=== PATIENT | male | born 1955 | race Caucasian/White ===

== ENCOUNTER → 2017-10-24 10:57 | Outpatient (CLI) | payer OTHER, SELFPAY ==
--- NOTE | 2017-10-24 | DI.RAD.S_ITS ---
PROCEDURE: XR LUMBAR SPINE 2-3V INDICATIONS: BACK AND RIB PAIN FROM FALL TECHNIQUE: 3 views of the lumbar spine were acquired. COMPARISON: None. FINDINGS: Bones: No fracture or focal osseous destruction. Diffuse endplate spurring and sclerosis. Diffuse mid to lower lumbar facet disease from L3-sacrum. Grade 1 retrolisthesis of L1 on L2 and L2-L3. Mild narrowing of the L4-L5 and L1-L2 disc spaces. There is levocurvature centered at L3. Soft tissues: Overlying bowel gas pattern is normal. No suspicious soft tissue calcifications. IMPRESSION: Multilevel lumbar disc degeneration and facet arthropathy as above. Grade 1 retrolisthesis of L1 on L2, and L2 on L3. Levoscoliosis Dictated by: Brian Alfaro M.D. on 10/24/2017 at 13:00 Approved by: Brian Alfaro M.D. on 10/24/2017 at 13:24
--- NOTE | 2017-10-24 | DI.RAD.S_ITS ---
PROCEDURE: XR THORACIC SPINE 3V INDICATIONS: BACK AND RIB PAIN FROM FALL TECHNIQUE: 3 views of the thoracic spine were acquired. COMPARISON: [facility], CR, XR LUMBAR SPINE 2-3V, 10/24/2017, 10:41. FINDINGS: Bones: No fractures or dislocations. No suspicious bony lesions. Degenerative endplate sclerosis and spurring. There is mild dextrocurvature. Cervical disc degeneration noted. Soft tissues: No paravertebral stripe thickening. IMPRESSION: No fracture identified. Chronic degenerative changes as above Dictated by: Brian Alfaro M.D. on 10/24/2017 at 13:28 Approved by: Brian Alfaro M.D. on 10/24/2017 at 13:30
--- NOTE | 2017-10-24 | DI.RAD.S_ITS ---
PROCEDURE: XR RIBS RT 2V INDICATIONS: BACK AND RIB PAIN FROM FALL TECHNIQUE: 2 views of the right ribs were acquired. COMPARISON: None. FINDINGS: Surgical changes and devices: None. Bones and chest wall: No fractures or dislocations. No suspicious bony lesions. Overlying soft tissues appear unremarkable. Lungs and pleura: The visualized lung appears clear. No pleural effusions or pneumothorax are visible. IMPRESSION: No fracture Dictated by: Brian Alfaro M.D. on 10/24/2017 at 13:25 Approved by: Brian Alfaro M.D. on 10/24/2017 at 13:27
== END ==
PROVIDERS: Family Provider Internal Medicine; PCP Internal Medicine; Visit Provider Internal Medicine
DX: M51.36 Other intervertebral disc degeneration, lumbar region (principal); M43.16 Spondylolisthesis, lumbar region; R07.81 Pleurodynia; M54.9 Dorsalgia, unspecified
CPT/HCPCS: 71100; 72072; 72100

== ENCOUNTER 2018-08-20 08:15 | Outpatient (RCR) | payer OTHER, SELFPAY ==
--- NOTE | 2018-02-24 16:20 | PT.OIE ---
Current Diagnoses Low back pain (02/24/18) Provider Visit Care Team Role Provider Type Cesar Shaw MD Attending Provider Physician Family Provider Primary Care Provider Specialty: Internal Medicine Address: [address] [place] [address], [facility] Email: Physical Therapy Initial Evaluation PT-OP-A Visit Information Start: 02/24/18 07:27 Freq: Status: Active Protocol: Document 02/24/18 09:49 [facility] (Rec: 02/24/18 16:20 [facility] [id number]) Out-Patient Physical Therapy Visit Information Visit Information Visit Type Initial Evaluation Visit Start Time 09:45 Visit Stop Time 10:30 Total Visit Minutes 45 Visit Number 1 Number of ATTORNEY GENERAL Visits 0 PT-OP-B Current Condition Start: 02/24/18 07:27 Freq: Status: Active Protocol: Document 02/24/18 09:49 [facility] (Rec: 02/24/18 16:20 [facility] [id number]) Current Condition History of Current Condition Onset Date About 1 year ago with worsening over past couple months Current Complaints LBP/SI pain History of Current Condition Pt had mild pain LBP about a year ago and it was much more occasional until a couple months ago then it started bothering hims mostly evenery evening especially after sitting on the couch. Reprots his shouder had been feeling better so he had stopped his old exercises. Reports he has stopped running d/t this pain. Prior Treatments and Tests PT that focused on shoulder with some core & LE exercises & Xray performed Treatment Goals Patient/Caregiver Goals Get back to normal activity without pain including running PT-OP-C Subjective Start: 02/24/18 07:27 Freq: Status: Active Protocol: Document 02/24/18 09:49 [facility] (Rec: 02/24/18 16:20 [facility] [id number]) Patient Questionnaires Oswestry Low Back Index Oswestry Score 14 Oswestry Impairment 1 to 19% Impaired (Score 1-19) OP-PT Pain Assessment Location Right Back Pain Location Details R SI region Intensity 7 Scale Used Numeric (1 - 10) Description Sharp Frequency Daily Other Pain Aggravating Factors couchm unweighting RLE, running, scooting in bed Other Pain Alleviating Factors flexion stretch PT-OP-F Manual Assessment Start: 02/24/18 07:27 Freq: Status: Active Protocol: Document 02/24/18 09:49 [facility] (Rec: 02/24/18 10:30 [facility] [id number]) Manual Assessments Joint Mobility Assessment Joint Mobility Assessment R elevated iliac crest & post SI B tibial ER w/ knee bends & L IR femur & R ER femur PT-OP-G Mobility & Gait Start: 02/24/18 07:27 Freq: Status: Active Protocol: Document 02/24/18 09:49 [facility] (Rec: 02/24/18 10:30 [facility] [id number]) OP Gait Assessment Comments Gait Comments Dec R post depression & ER of pelvis present with push off PT-OP-J Posture/Palpation/Skin Start: 02/24/18 07:27 Freq: Status: Active Protocol: Document 02/24/18 09:49 [facility] (Rec: 02/24/18 10:30 [facility] [id number]) Posture Evaluation Abdi Postural Classification System Abdi Postural Classifications Anterior/Posterior Vertebral Compression Test 4 Elbow Flexion Test 5 Lumbar Protective Mechanism Left AP 0 Lumbar Protective Mechanism Right AP 0 Lumbar Protective Mechanism Left PA 2 Lumbar Protective Mechanism Right PA 4 Leg Swing Left Limited Leg Swing Right Limited PT-OP-K Range of Motion Start: 02/24/18 07:27 Freq: Status: Active Protocol: Document 02/24/18 09:49 [facility] (Rec: 02/24/18 10:30 [facility] [id number]) Lumbar Spine Range of Motion Lumbar Spine Active Degrees Flexion 60 Extension 25 Rotation Left 65 Rotation Right 58 Lateral Flexion Left 25 Lateral Flexion Right 25 PT-OP-L Special Tests Start: 02/24/18 07:27 Freq: Status: Active Protocol: Document 02/24/18 09:49 [facility] (Rec: 02/24/18 10:30 [facility] [id number]) Special Tests Lumbar Spine Special Tests Slump Test Results neg B Straight Leg Raise Test Results neg B PT-OP-M Strength Start: 02/24/18 07:27 Freq: Status: Active Protocol: Document 02/24/18 09:49 [facility] (Rec: 02/24/18 10:30 [facility] [id number]) Hip Strength Hip Manual Muscle Testing Right Flexion (L2) 4+ Good+ Extension (S1) 4- Good- Abduction 4- Good- External Rotation 4+ Good+ Internal Rotation 5 Normal Comments 5/5 B knee & ankle strength Left Flexion (L2) 4+ Good+ Extension (S1) 4- Good- Abduction 4+ Good+ External Rotation 5 Normal Internal Rotation 5 Normal PT-OP-Q Treatments Start: 02/24/18 07:27 Freq: Status: Active Protocol: Document 02/24/18 09:49 [facility] (Rec: 02/24/18 10:30 [facility] [id number]) Therapeutic Exercises Supine Exercises 1 Supine Exercise Name abdominal series: flex & diagonal Side bilateral Sidelying Exercises 2 Sidelying Exercise Name abd vs wall Side bilateral 1 Sidelying Exercise Name roll & reach Side bilateral Reps/Minutes 5 Other Exercises 1 Other Exercise Name margarette pose & to sides Side bilateral PT-OP-T Assessment and Plan Start: 02/24/18 07:27 Freq: Status: Active Protocol: Document 02/24/18 09:49 [facility] (Rec: 02/24/18 16:20 [facility] [id number]) Physical Therapy Assessment Rehab Potential Rehabilitation Potential Excellent Evaluation Complexity Number of Personal Factors/Comorbidities 1-2 Number of Body Systems Impaired 4 or More Clinical Presentation at Evaluation Evolving Impairments Impairments Balance Functional Activities Functional Mobility Gait Pain Posture Soft Tissue Mobility Strength Goals Three Impairment strength Short Term Goal (STG) Indep with HEP STG Duration 03/26/18 Half-Way Goal (LTG) 5/5 LE strength B & with LPM & VCT to allow pt to return to normal activity LTG Duration 04/26/18 Two Impairment pain Short Term Goal (STG) Pain to 4/10 daily. STG Duration 03/26/18 Wrapper Stitcher Goal (LTG) Pt will be able to return to running & daily activities without inc pain. LTG Duration 04/26/18 One Impairment Oswestry Half-Way Goal (LTG) 0/50 to demonstrate improved functional ability LTG Duration 04/26/18 Assessment Summary Assessment Pt presents with R SI pain likely d/t core instablity & dec overall glute strength. Physical Therapy Plan Frequency and Duration Frequency of Treatment 2x/Week Duration of Treatment 2 months Plan of Care Start Date 02/24/18 Plan of Care End Date 04/26/18 Therapeutic Interventions Therapeutic Interventions Aquatic Therapy Balance Training Gait Training Home Exercise Program Joint Mobilizations Manual Therapy Neuromuscular Re-education Soft Tissue Mobilization Taping Therapeutic Activities Therapeutic Exercises Modalities Cold Pack/Ice Massage Electric Stimulation Hot Packs Infrared Therapy Traction- Mechanical Ultrasound Next Visit Focus/Plan Next Note Type Treatment Note Next Visit Plan Supine core progression, side stepping, hip ext, Work on hip & pelvis mobility & soft tissue
--- NOTE | 2018-02-24 16:20 | PT.OPPOC ---
Current Diagnoses Low back pain (02/24/18) Provider Visit Care Team Role Provider Type Cesar Shaw MD Attending Provider Physician Family Provider Primary Care Provider Specialty: Internal Medicine Address: [address] [place] [address], [id number] Email: Plan Of Care PT-OP-T Assessment and Plan Start: 02/24/18 07:27 Freq: Status: Active Protocol: Document 02/24/18 09:49 [facility] (Rec: 02/24/18 16:20 [facility] [id number]) Physical Therapy Assessment Rehab Potential Rehabilitation Potential Excellent Evaluation Complexity Number of Personal Factors/Comorbidities 1-2 Number of Body Systems Impaired 4 or More Clinical Presentation at Evaluation Evolving Impairments Impairments Balance Functional Activities Functional Mobility Gait Pain Posture Soft Tissue Mobility Strength Goals Three Impairment strength Short Term Goal (STG) Indep with HEP STG Duration 03/26/18 Typer Goal (LTG) 5/5 LE strength B & with LPM & VCT to allow pt to return to normal activity LTG Duration 04/26/18 Two Impairment pain Short Term Goal (STG) Pain to 4/10 daily. STG Duration 03/26/18 Retirement Goal (LTG) Pt will be able to return to running & daily activities without inc pain. LTG Duration 04/26/18 One Impairment Oswestry Typer Goal (LTG) 0/50 to demonstrate improved functional ability LTG Duration 04/26/18 Assessment Summary Assessment Pt presents with R SI pain likely d/t core instablity & dec overall glute strength. Physical Therapy Plan Frequency and Duration Frequency of Treatment 2x/Week Duration of Treatment 2 months Plan of Care Start Date 02/24/18 Plan of Care End Date 04/26/18 Therapeutic Interventions Therapeutic Interventions Aquatic Therapy Balance Training Gait Training Home Exercise Program Joint Mobilizations Manual Therapy Neuromuscular Re-education Soft Tissue Mobilization Taping Therapeutic Activities Therapeutic Exercises Modalities Cold Pack/Ice Massage Electric Stimulation Hot Packs Infrared Therapy Traction- Mechanical Ultrasound Next Visit Focus/Plan Next Note Type Treatment Note Next Visit Plan Supine core progression, side stepping, hip ext, Work on hip & pelvis mobility & soft tissue Plan of Care Dates Plan of Care Start Date 02/24/18 Plan of Care End Date 04/26/18 Please Sign and Return: I have reviewed this Plan of Care and certify that the skilled therapy services above are required to meet the patient?s needs. Physician Signature Date Printed Name and Credentials Clinical Instructor Signature Printed Name and Credentials
--- NOTE | 2018-02-28 08:16 | PT.OTN ---
Current Diagnoses Low back pain (02/28/18) Physical Therapy Treatment Note PT-OP-A Visit Information Start: 02/24/18 07:27 Freq: Status: Active Protocol: Document 02/28/18 07:28 [facility] (Rec: 02/28/18 08:16 [facility] [id number]) Out-Patient Physical Therapy Visit Information Visit Information Visit Type Treatment Note Visit Start Time 07:30 Visit Stop Time 08:10 Total Visit Minutes 40 Visit Number 2 Number of OFFICE COORDINATOR Visits 0 PT-OP-B Current Condition Start: 02/24/18 07:27 Freq: Status: Active Protocol: Document 02/24/18 09:49 [facility] (Rec: 02/24/18 16:20 [facility] [id number]) Current Condition History of Current Condition Onset Date About 1 year ago with worsening over past couple months Current Complaints LBP/SI pain History of Current Condition Pt had mild pain LBP about a year ago and it was much more occasional until a couple months ago then it started bothering hims mostly evenery evening especially after sitting on the couch. Reprots his shouder had been feeling better so he had stopped his old exercises. Reports he has stopped running d/t this pain. Prior Treatments and Tests PT that focused on shoulder with some core & LE exercises & Xray performed Treatment Goals Patient/Caregiver Goals Get back to normal activity without pain including running PT-OP-C Subjective Start: 02/24/18 07:27 Freq: Status: Active Protocol: Document 02/28/18 07:28 [facility] (Rec: 02/28/18 08:16 [facility] [id number]) OP-PT Subjective Patient Comments Patient Comments Reports compliance with HEP PT-OP-F Manual Assessment Start: 02/24/18 07:27 Freq: Status: Active Protocol: Document 02/24/18 09:49 [facility] (Rec: 02/24/18 10:30 [facility] [id number]) Manual Assessments Joint Mobility Assessment Joint Mobility Assessment R elevated iliac crest & post SI B tibial ER w/ knee bends & L IR femur & R ER femur PT-OP-G Mobility & Gait Start: 02/24/18 07:27 Freq: Status: Active Protocol: Document 02/24/18 09:49 [facility] (Rec: 02/24/18 10:30 [facility] [id number]) OP Gait Assessment Comments Gait Comments Dec R post depression & ER of pelvis present with push off PT-OP-J Posture/Palpation/Skin Start: 02/24/18 07:27 Freq: Status: Active Protocol: Document 02/24/18 09:49 [facility] (Rec: 02/24/18 10:30 [facility] [id number]) Posture Evaluation [facility] Postural Classification System Abdi Postural Classifications Anterior/Posterior Vertebral Compression Test 4 Elbow Flexion Test 5 Lumbar Protective Mechanism Left AP 0 Lumbar Protective Mechanism Right AP 0 Lumbar Protective Mechanism Left PA 2 Lumbar Protective Mechanism Right PA 4 Leg Swing Left Limited Leg Swing Right Limited PT-OP-K Range of Motion Start: 02/24/18 07:27 Freq: Status: Active Protocol: Document 02/24/18 09:49 [facility] (Rec: 02/24/18 10:30 [facility] [id number]) Lumbar Spine Range of Motion Lumbar Spine Active Degrees Flexion 60 Extension 25 Rotation Left 65 Rotation Right 58 Lateral Flexion Left 25 Lateral Flexion Right 25 PT-OP-L Special Tests Start: 02/24/18 07:27 Freq: Status: Active Protocol: Document 02/24/18 09:49 [facility] (Rec: 02/24/18 10:30 [facility] [id number]) Special Tests Lumbar Spine Special Tests Slump Test Results neg B Straight Leg Raise Test Results neg B PT-OP-M Strength Start: 02/24/18 07:27 Freq: Status: Active Protocol: Document 02/24/18 09:49 [facility] (Rec: 02/24/18 10:30 [facility] [id number]) Hip Strength Hip Manual Muscle Testing Right Flexion (L2) 4+ Good+ Extension (S1) 4- Good- Abduction 4- Good- External Rotation 4+ Good+ Internal Rotation 5 Normal Comments 5/5 B knee & ankle strength Left Flexion (L2) 4+ Good+ Extension (S1) 4- Good- Abduction 4+ Good+ External Rotation 5 Normal Internal Rotation 5 Normal PT-OP-Q Treatments Start: 02/24/18 07:27 Freq: Status: Active Protocol: Document 02/28/18 07:28 [facility] (Rec: 02/28/18 08:16 [facility] [id number]) Therapeutic Exercises Supine Exercises 3 Supine Exercise Name bridge with marching Reps/Minutes 6 2 Supine Exercise Name scissors bent knee Reps/Minutes 10 1 Supine Exercise Name abdominal series: flex & diagonal Side bilateral Sidelying Exercises 2 Sidelying Exercise Name abd vs wall Side bilateral 1 Sidelying Exercise Name roll & reach Side bilateral Reps/Minutes 5 Standing Exercises 1 Standing Exercise Name sidestepping Equipment Used lvl 1 Reps/Minutes 20 ft B Other Exercises 1 Other Exercise Name margarette pose & to sides Side bilateral Manual Therapy Treatment Soft Tissue Mobilization 1 Body Location QL & ES Joint Mobilizations 3 Joint innominate Direction caudal FM 2 Joint sacrum Direction R UPA & caudal FM 1 Joint hip Direction hip on axis ER & IRFM PT-OP-T Assessment and Plan Start: 02/24/18 07:27 Freq: Status: Active Protocol: Document 02/28/18 07:28 [facility] (Rec: 02/28/18 08:16 [facility] [id number]) Physical Therapy Assessment Goals Three Impairment strength Short Term Goal (STG) Indep with HEP STG Duration 03/26/18 Director Funds Development Goal (LTG) 5/5 LE strength B & with LPM & VCT to allow pt to return to normal activity LTG Duration 04/26/18 Two Impairment pain Short Term Goal (STG) Pain to 4/10 daily. STG Duration 03/26/18 Director Funds Development Goal (LTG) Pt will be able to return to running & daily activities without inc pain. LTG Duration 04/26/18 One Impairment Oswestry Director Funds Development Goal (LTG) 0/50 to demonstrate improved functional ability LTG Duration 04/26/18 Assessment Summary Assessment Min cueing requierd for exercises for form and posture . Pt cont to have difficulty with glute strength. Physical Therapy Plan Frequency and Duration Frequency of Treatment 2x/Week Duration of Treatment 2 months Plan of Care Start Date 02/24/18 Plan of Care End Date 04/26/18 Next Visit Focus/Plan Next Note Type Treatment Note Next Visit Plan Cont to advance core and pelvis mobility
--- NOTE | 2018-03-05 09:04 | PT.OTN ---
Current Diagnoses Low back pain (03/05/18) Physical Therapy Treatment Note PT-OP-A Visit Information Start: 02/24/18 07:27 Freq: Status: Active Protocol: Document 03/05/18 08:20 [facility] (Rec: 03/05/18 09:03 [facility] [id number]) Out-Patient Physical Therapy Visit Information Visit Information Visit Type Treatment Note Visit Start Time 08:15 Visit Stop Time 09:00 Total Visit Minutes 40 Visit Number 3 Number of VIDEO RECORDER MECHANIC Visits 0 PT-OP-B Current Condition Start: 02/24/18 07:27 Freq: Status: Active Protocol: Document 02/24/18 09:49 [facility] (Rec: 02/24/18 16:20 [facility] [id number]) Current Condition History of Current Condition Onset Date About 1 year ago with worsening over past couple months Current Complaints LBP/SI pain History of Current Condition Pt had mild pain LBP about a year ago and it was much more occasional until a couple months ago then it started bothering hims mostly evenery evening especially after sitting on the couch. Reprots his shouder had been feeling better so he had stopped his old exercises. Reports he has stopped running d/t this pain. Prior Treatments and Tests PT that focused on shoulder with some core & LE exercises & Xray performed Treatment Goals Patient/Caregiver Goals Get back to normal activity without pain including running PT-OP-C Subjective Start: 02/24/18 07:27 Freq: Status: Active Protocol: Document 03/05/18 08:20 [facility] (Rec: 03/05/18 09:03 [facility] [id number]) OP-PT Subjective Patient Comments Patient Comments Reports past couple days have not been too bad. PT-OP-F Manual Assessment Start: 02/24/18 07:27 Freq: Status: Active Protocol: Document 02/24/18 09:49 [facility] (Rec: 02/24/18 10:30 [facility] [id number]) Manual Assessments Joint Mobility Assessment Joint Mobility Assessment R elevated iliac crest & post SI B tibial ER w/ knee bends & L IR femur & R ER femur PT-OP-G Mobility & Gait Start: 02/24/18 07:27 Freq: Status: Active Protocol: Document 02/24/18 09:49 [facility] (Rec: 02/24/18 10:30 [facility] [id number]) OP Gait Assessment Comments Gait Comments Dec R post depression & ER of pelvis present with push off PT-OP-J Posture/Palpation/Skin Start: 02/24/18 07:27 Freq: Status: Active Protocol: Document 02/24/18 09:49 [facility] (Rec: 02/24/18 10:30 [facility] [id number]) Posture Evaluation Abdi Postural Classification System Abdi Postural Classifications Anterior/Posterior Vertebral Compression Test 4 Elbow Flexion Test 5 Lumbar Protective Mechanism Left AP 0 Lumbar Protective Mechanism Right AP 0 Lumbar Protective Mechanism Left PA 2 Lumbar Protective Mechanism Right PA 4 Leg Swing Left Limited Leg Swing Right Limited PT-OP-K Range of Motion Start: 02/24/18 07:27 Freq: Status: Active Protocol: Document 02/24/18 09:49 [facility] (Rec: 02/24/18 10:30 [facility] [id number]) Lumbar Spine Range of Motion Lumbar Spine Active Degrees Flexion 60 Extension 25 Rotation Left 65 Rotation Right 58 Lateral Flexion Left 25 Lateral Flexion Right 25 PT-OP-L Special Tests Start: 02/24/18 07:27 Freq: Status: Active Protocol: Document 02/24/18 09:49 [facility] (Rec: 02/24/18 10:30 [facility] [id number]) Special Tests Lumbar Spine Special Tests Slump Test Results neg B Straight Leg Raise Test Results neg B PT-OP-M Strength Start: 02/24/18 07:27 Freq: Status: Active Protocol: Document 02/24/18 09:49 [facility] (Rec: 02/24/18 10:30 [facility] [id number]) Hip Strength Hip Manual Muscle Testing Right Flexion (L2) 4+ Good+ Extension (S1) 4- Good- Abduction 4- Good- External Rotation 4+ Good+ Internal Rotation 5 Normal Comments 5/5 B knee & ankle strength Left Flexion (L2) 4+ Good+ Extension (S1) 4- Good- Abduction 4+ Good+ External Rotation 5 Normal Internal Rotation 5 Normal PT-OP-Q Treatments Start: 02/24/18 07:27 Freq: Status: Active Protocol: Document 03/05/18 08:20 [facility] (Rec: 03/05/18 09:03 [facility] [id number]) Therapeutic Exercises Supine Exercises 4 Supine Exercise Name single straight leg drops Reps/Minutes 10 3 Supine Exercise Name bridge with marching Reps/Minutes 8 2 Supine Exercise Name scissors bent knee Reps/Minutes 10 Prone Exercises 1 Prone Exercise Name Hip ER Equipment Used L1 Reps/Minutes 8 Sidelying Exercises 2 Sidelying Exercise Name abd vs wall Side bilateral Standing Exercises 1 Standing Exercise Name sidestepping w/squat Equipment Used lvl 1 Reps/Minutes 20 ft B Manual Therapy Treatment Soft Tissue Mobilization 3 Body Location piriformis/glutes Mobilization Type Sustained Pressure Comments active release w/ER/IR & c/r 2 Body Location lumbar region Mobilization Type Myofascial Release Comments w/dicem & LTR Joint Mobilizations 2 Joint sacrum Direction caudal FM 1 Joint hip Direction hip on axis ER R Comments w/neuro re edu PT-OP-T Assessment and Plan Start: 02/24/18 07:27 Freq: Status: Active Protocol: Document 03/05/18 08:20 [facility] (Rec: 03/05/18 09:03 [facility] [id number]) Physical Therapy Assessment Goals Three Impairment strength Short Term Goal (STG) Indep with HEP STG Duration 03/26/18 Senior Care Goal (LTG) 5/5 LE strength B & with LPM & VCT to allow pt to return to normal activity LTG Duration 04/26/18 Two Impairment pain Short Term Goal (STG) Pain to 4/10 daily. STG Duration 03/26/18 Senior Care Goal (LTG) Pt will be able to return to running & daily activities without inc pain. LTG Duration 04/26/18 One Impairment Oswestry Senior Care Goal (LTG) 0/50 to demonstrate improved functional ability LTG Duration 04/26/18 Assessment Summary Assessment Pt doing better with exercises and improving with form. Improved hip ER after mobilizations. Physical Therapy Plan Frequency and Duration Frequency of Treatment 2x/Week Duration of Treatment 2 months Plan of Care Start Date 02/24/18 Plan of Care End Date 04/26/18 Next Visit Focus/Plan Next Note Type Treatment Note Next Visit Plan Cont to advance core and pelvis mobility
--- NOTE | 2018-03-07 08:31 | PT.OTN ---
Current Diagnoses Low back pain (03/07/18) Physical Therapy Treatment Note PT-OP-A Visit Information Start: 02/24/18 07:27 Freq: Status: Active Protocol: Document 03/07/18 07:31 [facility] (Rec: 03/07/18 08:31 [facility] [id number]) Out-Patient Physical Therapy Visit Information Visit Information Visit Type Treatment Note Visit Start Time 07:30 Visit Stop Time 08:10 Total Visit Minutes 40 Visit Number 4 Number of COMMISSIONER CONSERVATION OF RESOURCES Visits 0 PT-OP-B Current Condition Start: 02/24/18 07:27 Freq: Status: Active Protocol: Document 02/24/18 09:49 [facility] (Rec: 02/24/18 16:20 [facility] [id number]) Current Condition History of Current Condition Onset Date About 1 year ago with worsening over past couple months Current Complaints LBP/SI pain History of Current Condition Pt had mild pain LBP about a year ago and it was much more occasional until a couple months ago then it started bothering hims mostly evenery evening especially after sitting on the couch. Reprots his shouder had been feeling better so he had stopped his old exercises. Reports he has stopped running d/t this pain. Prior Treatments and Tests PT that focused on shoulder with some core & LE exercises & Xray performed Treatment Goals Patient/Caregiver Goals Get back to normal activity without pain including running PT-OP-C Subjective Start: 02/24/18 07:27 Freq: Status: Active Protocol: Document 03/07/18 07:31 [facility] (Rec: 03/07/18 08:31 [facility] [id number]) OP-PT Subjective Patient Comments Patient Comments Reports soon after finishing side steps with squats and resisted hip ER he had a flare up where he had trouble standing straight up. PT-OP-F Manual Assessment Start: 02/24/18 07:27 Freq: Status: Active Protocol: Document 02/24/18 09:49 [facility] (Rec: 02/24/18 10:30 [facility] [id number]) Manual Assessments Joint Mobility Assessment Joint Mobility Assessment R elevated iliac crest & post SI B tibial ER w/ knee bends & L IR femur & R ER femur PT-OP-G Mobility & Gait Start: 02/24/18 07:27 Freq: Status: Active Protocol: Document 02/24/18 09:49 [facility] (Rec: 02/24/18 10:30 [facility] [id number]) OP Gait Assessment Comments Gait Comments Dec R post depression & ER of pelvis present with push off PT-OP-J Posture/Palpation/Skin Start: 02/24/18 07:27 Freq: Status: Active Protocol: Document 02/24/18 09:49 [facility] (Rec: 02/24/18 10:30 [facility] [id number]) Posture Evaluation Abdi Postural Classification System [facility] Postural Classifications Anterior/Posterior Vertebral Compression Test 4 Elbow Flexion Test 5 Lumbar Protective Mechanism Left AP 0 Lumbar Protective Mechanism Right AP 0 Lumbar Protective Mechanism Left PA 2 Lumbar Protective Mechanism Right PA 4 Leg Swing Left Limited Leg Swing Right Limited PT-OP-K Range of Motion Start: 02/24/18 07:27 Freq: Status: Active Protocol: Document 02/24/18 09:49 [facility] (Rec: 02/24/18 10:30 [facility] [id number]) Lumbar Spine Range of Motion Lumbar Spine Active Degrees Flexion 60 Extension 25 Rotation Left 65 Rotation Right 58 Lateral Flexion Left 25 Lateral Flexion Right 25 PT-OP-L Special Tests Start: 02/24/18 07:27 Freq: Status: Active Protocol: Document 02/24/18 09:49 [facility] (Rec: 02/24/18 10:30 [facility] [id number]) Special Tests Lumbar Spine Special Tests Slump Test Results neg B Straight Leg Raise Test Results neg B PT-OP-M Strength Start: 02/24/18 07:27 Freq: Status: Active Protocol: Document 02/24/18 09:49 [facility] (Rec: 02/24/18 10:30 [facility] [id number]) Hip Strength Hip Manual Muscle Testing Right Flexion (L2) 4+ Good+ Extension (S1) 4- Good- Abduction 4- Good- External Rotation 4+ Good+ Internal Rotation 5 Normal Comments 5/5 B knee & ankle strength Left Flexion (L2) 4+ Good+ Extension (S1) 4- Good- Abduction 4+ Good+ External Rotation 5 Normal Internal Rotation 5 Normal PT-OP-Q Treatments Start: 02/24/18 07:27 Freq: Status: Active Protocol: Document 03/07/18 07:31 [facility] (Rec: 03/07/18 08:31 [facility] [id number]) Therapeutic Exercises Supine Exercises 4 Supine Exercise Name single straight leg drops Reps/Minutes 10 3 Supine Exercise Name bridge with marching Reps/Minutes 8 2 Supine Exercise Name scissors bent knee Reps/Minutes 10 1 Supine Exercise Name abdominal series: flex & diagonal Side bilateral Manual Therapy Treatment Joint Mobilizations 3 Joint innominate Direction caudal & IR/ER R FM 2 Joint sacrum Direction caudal & UPA FM 1 Joint hip Direction hip on axis ER & IR R Comments w/neuro re edu PT-OP-T Assessment and Plan Start: 02/24/18 07:27 Freq: Status: Active Protocol: Document 03/07/18 07:31 [facility] (Rec: 03/07/18 08:31 [facility] [id number]) Physical Therapy Assessment Goals Three Impairment strength Short Term Goal (STG) Indep with HEP STG Duration 03/26/18 Dealer Support Technician Goal (LTG) 5/5 LE strength B & with LPM & VCT to allow pt to return to normal activity LTG Duration 04/26/18 Two Impairment pain Short Term Goal (STG) Pain to 4/10 daily. STG Duration 03/26/18 Senior Living Goal (LTG) Pt will be able to return to running & daily activities without inc pain. LTG Duration 04/26/18 One Impairment [facility] Goal (LTG) 0/50 to demonstrate improved functional ability LTG Duration 04/26/18 Assessment Summary Assessment Pt required cueing with exercises to achieve neutral pelvis with bridging especially. He had significantly improve hip elevation after manual rx Physical Therapy Plan Frequency and Duration Frequency of Treatment 2x/Week Duration of Treatment 2 months Plan of Care Start Date 02/24/18 Plan of Care End Date 04/26/18 Next Visit Focus/Plan Next Note Type Treatment Note Next Visit Plan Review exercises to make sure no back engagment.
--- NOTE | 2018-03-10 10:45 | PT.OTN ---
Current Diagnoses Low back pain (03/10/18) Physical Therapy Treatment Note PT-OP-A Visit Information Start: 02/24/18 07:27 Freq: Status: Active Protocol: Document 03/10/18 08:48 [facility] (Rec: 03/10/18 10:45 [facility] [id number]) Out-Patient Physical Therapy Visit Information Visit Information Visit Type Treatment Note Visit Start Time 07:30 Visit Stop Time 08:12 Total Visit Minutes 42 Visit Number 5 Number of MARKETING PROJECT MANAGER Visits 0 PT-OP-B Current Condition Start: 02/24/18 07:27 Freq: Status: Active Protocol: Document 02/24/18 09:49 [facility] (Rec: 02/24/18 16:20 [facility] [id number]) Current Condition History of Current Condition Onset Date About 1 year ago with worsening over past couple months Current Complaints LBP/SI pain History of Current Condition Pt had mild pain LBP about a year ago and it was much more occasional until a couple months ago then it started bothering hims mostly evenery evening especially after sitting on the couch. Reprots his shouder had been feeling better so he had stopped his old exercises. Reports he has stopped running d/t this pain. Prior Treatments and Tests PT that focused on shoulder with some core & LE exercises & Xray performed Treatment Goals Patient/Caregiver Goals Get back to normal activity without pain including running PT-OP-C Subjective Start: 02/24/18 07:27 Freq: Status: Active Protocol: Document 03/10/18 08:48 [facility] (Rec: 03/10/18 10:45 [facility] [id number]) OP-PT Subjective Patient Comments Patient Comments Reports pain sat night and he iced. No big flare up since. PT-OP-F Manual Assessment Start: 02/24/18 07:27 Freq: Status: Active Protocol: Document 02/24/18 09:49 [facility] (Rec: 02/24/18 10:30 [facility] [id number]) Manual Assessments Joint Mobility Assessment Joint Mobility Assessment R elevated iliac crest & post SI B tibial ER w/ knee bends & L IR femur & R ER femur PT-OP-G Mobility & Gait Start: 02/24/18 07:27 Freq: Status: Active Protocol: Document 02/24/18 09:49 [facility] (Rec: 02/24/18 10:30 [facility] [id number]) OP Gait Assessment Comments Gait Comments Dec R post depression & ER of pelvis present with push off PT-OP-J Posture/Palpation/Skin Start: 02/24/18 07:27 Freq: Status: Active Protocol: Document 02/24/18 09:49 [facility] (Rec: 02/24/18 10:30 [facility] [id number]) Posture Evaluation Abdi Postural Classification System Abdi Postural Classifications Anterior/Posterior Vertebral Compression Test 4 Elbow Flexion Test 5 Lumbar Protective Mechanism Left AP 0 Lumbar Protective Mechanism Right AP 0 Lumbar Protective Mechanism Left PA 2 Lumbar Protective Mechanism Right PA 4 Leg Swing Left Limited Leg Swing Right Limited PT-OP-K Range of Motion Start: 02/24/18 07:27 Freq: Status: Active Protocol: Document 02/24/18 09:49 [facility] (Rec: 02/24/18 10:30 [facility] [id number]) Lumbar Spine Range of Motion Lumbar Spine Active Degrees Flexion 60 Extension 25 Rotation Left 65 Rotation Right 58 Lateral Flexion Left 25 Lateral Flexion Right 25 PT-OP-L Special Tests Start: 02/24/18 07:27 Freq: Status: Active Protocol: Document 02/24/18 09:49 [facility] (Rec: 02/24/18 10:30 [facility] [id number]) Special Tests Lumbar Spine Special Tests Slump Test Results neg B Straight Leg Raise Test Results neg B PT-OP-M Strength Start: 02/24/18 07:27 Freq: Status: Active Protocol: Document 02/24/18 09:49 [facility] (Rec: 02/24/18 10:30 [facility] [id number]) Hip Strength Hip Manual Muscle Testing Right Flexion (L2) 4+ Good+ Extension (S1) 4- Good- Abduction 4- Good- External Rotation 4+ Good+ Internal Rotation 5 Normal Comments 5/5 B knee & ankle strength Left Flexion (L2) 4+ Good+ Extension (S1) 4- Good- Abduction 4+ Good+ External Rotation 5 Normal Internal Rotation 5 Normal PT-OP-Q Treatments Start: 02/24/18 07:27 Freq: Status: Active Protocol: Document 03/10/18 08:48 [facility] (Rec: 03/10/18 10:45 [facility] [id number]) Therapeutic Exercises Standing Exercises 2 Standing Exercise Name SLS with march position for post depresion Comments in mirror Other Exercises 2 Other Exercise Name quadruped hip ext Comments focus on neutral pelvis Manual Therapy Treatment Joint Mobilizations 2 Joint sacrum Direction caudal & UPA FM 1 Joint hip Direction hip on axis ER R Comments w/neuro re edu sustained holds & COI PT-OP-T Assessment and Plan Start: 02/24/18 07:27 Freq: Status: Active Protocol: Document 03/10/18 08:48 [facility] (Rec: 03/10/18 10:45 [facility] [id number]) Physical Therapy Assessment Goals Three Impairment strength Short Term Goal (STG) Indep with HEP STG Duration 03/26/18 Senior Living Goal (LTG) 5/5 LE strength B & with LPM & VCT to allow pt to return to normal activity LTG Duration 04/26/18 Two Impairment pain Short Term Goal (STG) Pain to 4/10 daily. STG Duration 03/26/18 Road Roller Operator Goal (LTG) Pt will be able to return to running & daily activities without inc pain. LTG Duration 04/26/[address] [employer] Road Roller Operator Goal (LTG) 0/50 to demonstrate improved functional ability LTG Duration 04/26/18 Assessment Summary Assessment Pt had difficulty with maintaining neutral with both single leg position & with quadruped ext. Physical Therapy Plan Frequency and Duration Frequency of Treatment 2x/Week Duration of Treatment 2 months Plan of Care Start Date 02/24/18 Plan of Care End Date 04/26/18 Next Visit Focus/Plan Next Note Type Treatment Note Next Visit Plan cont to work on post depression
--- NOTE | 2018-03-12 08:14 | PT.OTN ---
Current Diagnoses Low back pain (03/12/18) Physical Therapy Treatment Note PT-OP-A Visit Information Start: 02/24/18 07:27 Freq: Status: Active Protocol: Document 03/12/18 07:30 [facility] (Rec: 03/12/18 08:14 [facility] [id number]) Out-Patient Physical Therapy Visit Information Visit Information Visit Type Treatment Note Visit Start Time 07:30 Visit Stop Time 08:13 Total Visit Minutes 43 Visit Number 6 Number of SUPERVISOR BEET END Visits 0 PT-OP-B Current Condition Start: 02/24/18 07:27 Freq: Status: Active Protocol: Document 02/24/18 09:49 [facility] (Rec: 02/24/18 16:20 [facility] [id number]) Current Condition History of Current Condition Onset Date About 1 year ago with worsening over past couple months Current Complaints LBP/SI pain History of Current Condition Pt had mild pain LBP about a year ago and it was much more occasional until a couple months ago then it started bothering hims mostly evenery evening especially after sitting on the couch. Reprots his shouder had been feeling better so he had stopped his old exercises. Reports he has stopped running d/t this pain. Prior Treatments and Tests PT that focused on shoulder with some core & LE exercises & Xray performed Treatment Goals Patient/Caregiver Goals Get back to normal activity without pain including running PT-OP-C Subjective Start: 02/24/18 07:27 Freq: Status: Active Protocol: Document 03/12/18 07:30 [facility] (Rec: 03/12/18 08:14 [facility] [id number]) OP-PT Subjective Patient Comments Patient Comments Pt noted 2 nights ago back was sore. Last night felt better PT-OP-F Manual Assessment Start: 02/24/18 07:27 Freq: Status: Active Protocol: Document 02/24/18 09:49 [facility] (Rec: 02/24/18 10:30 [facility] [id number]) Manual Assessments Joint Mobility Assessment Joint Mobility Assessment R elevated iliac crest & post SI B tibial ER w/ knee bends & L IR femur & R ER femur PT-OP-G Mobility & Gait Start: 02/24/18 07:27 Freq: Status: Active Protocol: Document 02/24/18 09:49 [facility] (Rec: 02/24/18 10:30 [facility] [id number]) OP Gait Assessment Comments Gait Comments Dec R post depression & ER of pelvis present with push off PT-OP-J Posture/Palpation/Skin Start: 02/24/18 07:27 Freq: Status: Active Protocol: Document 02/24/18 09:49 [facility] (Rec: 02/24/18 10:30 [facility] [id number]) Posture Evaluation Abdi Postural Classification System Abdi Postural Classifications Anterior/Posterior Vertebral Compression Test 4 Elbow Flexion Test 5 Lumbar Protective Mechanism Left AP 0 Lumbar Protective Mechanism Right AP 0 Lumbar Protective Mechanism Left PA 2 Lumbar Protective Mechanism Right PA 4 Leg Swing Left Limited Leg Swing Right Limited PT-OP-K Range of Motion Start: 02/24/18 07:27 Freq: Status: Active Protocol: Document 02/24/18 09:49 [facility] (Rec: 02/24/18 10:30 [facility] [id number]) Lumbar Spine Range of Motion Lumbar Spine Active Degrees Flexion 60 Extension 25 Rotation Left 65 Rotation Right 58 Lateral Flexion Left 25 Lateral Flexion Right 25 PT-OP-L Special Tests Start: 02/24/18 07:27 Freq: Status: Active Protocol: Document 02/24/18 09:49 [facility] (Rec: 02/24/18 10:30 [facility] [id number]) Special Tests Lumbar Spine Special Tests Slump Test Results neg B Straight Leg Raise Test Results neg B PT-OP-M Strength Start: 02/24/18 07:27 Freq: Status: Active Protocol: Document 02/24/18 09:49 [facility] (Rec: 02/24/18 10:30 [facility] [id number]) Hip Strength Hip Manual Muscle Testing Right Flexion (L2) 4+ Good+ Extension (S1) 4- Good- Abduction 4- Good- External Rotation 4+ Good+ Internal Rotation 5 Normal Comments 5/5 B knee & ankle strength Left Flexion (L2) 4+ Good+ Extension (S1) 4- Good- Abduction 4+ Good+ External Rotation 5 Normal Internal Rotation 5 Normal PT-OP-Q Treatments Start: 02/24/18 07:27 Freq: Status: Active Protocol: Document 03/12/18 07:30 [facility] (Rec: 03/12/18 08:14 [facility] [id number]) Therapeutic Exercises Supine Exercises 3 Supine Exercise Name bridge with marching Reps/Minutes 4 Standing Exercises 3 Standing Exercise Name gait at wall 2 Standing Exercise Name SLS with march position for post depresion Comments in mirror Other Exercises 2 Other Exercise Name quadruped hip ext Comments focus on neutral pelvis Manual Therapy Treatment Joint Mobilizations 3 Joint innominate Direction IR R FM 2 Joint sacrum Direction caudal & UPA L FM 1 Joint hip Direction hip on axis ER & IR B Comments w/neuro re edu sustained holds & COI PT-OP-T Assessment and Plan Start: 02/24/18 07:27 Freq: Status: Active Protocol: Document 03/12/18 07:30 [facility] (Rec: 03/12/18 08:14 [facility] [id number]) Physical Therapy Assessment Goals Three Impairment strength Short Term Goal (STG) Indep with HEP STG Duration 03/26/18 Transfer Specialist Goal (LTG) 5/5 LE strength B & with LPM & VCT to allow pt to return to normal activity LTG Duration 04/26/18 Two Impairment pain Short Term Goal (STG) Pain to 4/10 daily. STG Duration 03/26/18 Transfer Specialist Goal (LTG) Pt will be able to return to running & daily activities without inc pain. LTG Duration 04/26/18 One Impairment [facility] Transfer Specialist Goal (LTG) 0/50 to demonstrate improved functional ability LTG Duration 04/26/18 Assessment Summary Assessment Pt able to do post depression exercises better today. Improved ability to correct and maintain sustained holds and COI with neuro re edu into ER/IR Physical Therapy Plan Frequency and Duration Frequency of Treatment 2x/Week Duration of Treatment 2 months Plan of Care Start Date 02/24/18 Plan of Care End Date 04/26/18 Next Visit Focus/Plan Next Note Type Treatment Note Next Visit Plan cont to work on post depression
--- NOTE | 2018-03-26 09:49 | PT.OTN ---
Current Diagnoses Low back pain (03/26/18) Physical Therapy Treatment Note PT-OP-A Visit Information Start: 02/24/18 07:27 Freq: Status: Active Protocol: Document 03/26/18 09:02 [facility] (Rec: 03/26/18 09:48 [facility] [id number]) Out-Patient Physical Therapy Visit Information Visit Information Visit Type Treatment Note Visit Start Time 09:03 Visit Stop Time 09:45 Total Visit Minutes 42 Visit Number 7 Number of DRAPERY SUPERVISOR Visits 0 PT-OP-B Current Condition Start: 02/24/18 07:27 Freq: Status: Active Protocol: Document 02/24/18 09:49 [facility] (Rec: 02/24/18 16:20 [facility] [id number]) Current Condition History of Current Condition Onset Date About 1 year ago with worsening over past couple months Current Complaints LBP/SI pain History of Current Condition Pt had mild pain LBP about a year ago and it was much more occasional until a couple months ago then it started bothering hims mostly evenery evening especially after sitting on the couch. Reprots his shouder had been feeling better so he had stopped his old exercises. Reports he has stopped running d/t this pain. Prior Treatments and Tests PT that focused on shoulder with some core & LE exercises & Xray performed Treatment Goals Patient/Caregiver Goals Get back to normal activity without pain including running PT-OP-C Subjective Start: 02/24/18 07:27 Freq: Status: Active Protocol: Document 03/26/18 09:02 [facility] (Rec: 03/26/18 09:48 [facility] [id number]) OP-PT Subjective Patient Comments Patient Comments Pt reports he did a lot of walking in [place] and that felt okay. Reports he still has been getting the pain at night. Points to post R hip as painful spot. PT-OP-F Manual Assessment Start: 02/24/18 07:27 Freq: Status: Active Protocol: Document 02/24/18 09:49 [facility] (Rec: 02/24/18 10:30 [facility] [id number]) Manual Assessments Joint Mobility Assessment Joint Mobility Assessment R elevated iliac crest & post SI B tibial ER w/ knee bends & L IR femur & R ER femur PT-OP-G Mobility & Gait Start: 02/24/18 07:27 Freq: Status: Active Protocol: Document 02/24/18 09:49 [facility] (Rec: 02/24/18 10:30 [facility] [id number]) OP Gait Assessment Comments Gait Comments Dec R post depression & ER of pelvis present with push off PT-OP-J Posture/Palpation/Skin Start: 02/24/18 07:27 Freq: Status: Active Protocol: Document 02/24/18 09:49 [facility] (Rec: 02/24/18 10:30 [facility] [id number]) Posture Evaluation [facility] Postural Classification System [facility] Postural Classifications Anterior/Posterior Vertebral Compression Test 4 Elbow Flexion Test 5 Lumbar Protective Mechanism Left AP 0 Lumbar Protective Mechanism Right AP 0 Lumbar Protective Mechanism Left PA 2 Lumbar Protective Mechanism Right PA 4 Leg Swing Left Limited Leg Swing Right Limited PT-OP-K Range of Motion Start: 02/24/18 07:27 Freq: Status: Active Protocol: Document 02/24/18 09:49 [facility] (Rec: 02/24/18 10:30 [facility] [id number]) Lumbar Spine Range of Motion Lumbar Spine Active Degrees Flexion 60 Extension 25 Rotation Left 65 Rotation Right 58 Lateral Flexion Left 25 Lateral Flexion Right 25 PT-OP-L Special Tests Start: 02/24/18 07:27 Freq: Status: Active Protocol: Document 02/24/18 09:49 [facility] (Rec: 02/24/18 10:30 [facility] [id number]) Special Tests Lumbar Spine Special Tests Slump Test Results neg B Straight Leg Raise Test Results neg B PT-OP-M Strength Start: 02/24/18 07:27 Freq: Status: Active Protocol: Document 02/24/18 09:49 [facility] (Rec: 02/24/18 10:30 [facility] [id number]) Hip Strength Hip Manual Muscle Testing Right Flexion (L2) 4+ Good+ Extension (S1) 4- Good- Abduction 4- Good- External Rotation 4+ Good+ Internal Rotation 5 Normal Comments 5/5 B knee & ankle strength Left Flexion (L2) 4+ Good+ Extension (S1) 4- Good- Abduction 4+ Good+ External Rotation 5 Normal Internal Rotation 5 Normal PT-OP-Q Treatments Start: 02/24/18 07:27 Freq: Status: Active Protocol: Document 03/26/18 09:02 [facility] (Rec: 03/26/18 09:48 [facility] [id number]) Therapeutic Exercises Prone Exercises 1 Prone Exercise Name Hip ER Reps/Minutes 10 Manual Therapy Treatment Joint Mobilizations 2 Joint sacrum Direction UPA L FM 1 Joint hip Direction hip on axis ER & IR R Comments w/neuro re edu sustained holds & COI Neuro Re-Education Treatment Other Activities 2 Details post [id number] COI 1 Details ant elevation COI PT-OP-T Assessment and Plan Start: 02/24/18 07:27 Freq: Status: Active Protocol: Document 03/26/18 09:02 [facility] (Rec: 03/26/18 09:48 [facility] [id number]) Physical Therapy Assessment Goals Three Impairment strength Short Term Goal (STG) Indep with HEP STG Duration 03/26/18 Prison Goal (LTG) 5/5 LE strength B & with LPM & VCT to allow pt to return to normal activity LTG Duration 04/26/18 Two Impairment pain Short Term Goal (STG) Pain to 4/10 daily. STG Duration 03/26/18 Youth Development Professional Goal (LTG) Pt will be able to return to running & daily activities without inc pain. LTG Duration 04/26/18 One Impairment [facility] Goal (LTG) 0/50 to demonstrate improved functional ability LTG Duration 04/26/18 Assessment Summary Assessment Pt improved with rotation motion with improved quality. Required ceuing with ER in prone. He had significant weakness into post depression in s/l and will require further progression into WB. Physical Therapy Plan Frequency and Duration Frequency of Treatment 2x/Week Duration of Treatment 2 months Plan of Care Start Date 02/24/18 Plan of Care End Date 04/26/18 Next Visit Focus/Plan Next Note Type Treatment Note Next Visit Plan cont to work on post depression & assess tolerance to return to exercises
--- NOTE | 2018-04-02 18:01 | PT.OTN ---
Current Diagnoses Low back pain (04/02/18) Physical Therapy Treatment Note PT-OP-A Visit Information Start: 02/24/18 07:27 Freq: Status: Active Protocol: Document 04/02/18 09:47 ML (Rec: 04/02/18 09:57 ML [id number]) Out-Patient Physical Therapy Visit Information Visit Information Visit Type Treatment Note Visit Start Time 09:00 Visit Stop Time 09:45 Total Visit Minutes 45 Visit Number 8 Number of MARKETING PROJECT COORDINATOR Visits 0 PT-OP-B Current Condition Start: 02/24/18 07:27 Freq: Status: Active Protocol: Document 02/24/18 09:49 [facility] (Rec: 02/24/18 16:20 [facility] [id number]) Current Condition History of Current Condition Onset Date About 1 year ago with worsening over past couple months Current Complaints LBP/SI pain History of Current Condition Pt had mild pain LBP about a year ago and it was much more occasional until a couple months ago then it started bothering hims mostly evenery evening especially after sitting on the couch. Reprots his shouder had been feeling better so he had stopped his old exercises. Reports he has stopped running d/t this pain. Prior Treatments and Tests PT that focused on shoulder with some core & LE exercises & Xray performed Treatment Goals Patient/Caregiver Goals Get back to normal activity without pain including running PT-OP-C Subjective Start: 02/24/18 07:27 Freq: Status: Active Protocol: Document 04/02/18 09:47 ML (Rec: 04/02/18 09:57 ML [id number]) OP-PT Subjective Patient Comments Patient Comments Pt reports that he has been feeling really good lately, some occassional pain in the evening, but is often releived within an hour. He notices he can get a twinge in walking up stairs after sitting for awhile on his R side, but after sitting and shifting his weight to his R side for some time it is relieved. PT-OP-F Manual Assessment Start: 02/24/18 07:27 Freq: Status: Active Protocol: Document 02/24/18 09:49 [facility] (Rec: 02/24/18 10:30 [facility] [id number]) Manual Assessments Joint Mobility Assessment Joint Mobility Assessment R elevated iliac crest & post SI B tibial ER w/ knee bends & L IR femur & R ER femur PT-OP-G Mobility & Gait Start: 02/24/18 07:27 Freq: Status: Active Protocol: Document 02/24/18 09:49 [facility] (Rec: 02/24/18 10:30 [facility] [id number]) OP Gait Assessment Comments Gait Comments Dec R post depression & ER of pelvis present with push off PT-OP-J Posture/Palpation/Skin Start: 02/24/18 07:27 Freq: Status: Active Protocol: Document 02/24/18 09:49 [facility] (Rec: 02/24/18 10:30 [facility] [id number]) Posture Evaluation Abdi Postural Classification System Abdi Postural Classifications Anterior/Posterior Vertebral Compression Test 4 Elbow Flexion Test 5 Lumbar Protective Mechanism Left AP 0 Lumbar Protective Mechanism Right AP 0 Lumbar Protective Mechanism Left PA 2 Lumbar Protective Mechanism Right PA 4 Leg Swing Left Limited Leg Swing Right Limited PT-OP-K Range of Motion Start: 02/24/18 07:27 Freq: Status: Active Protocol: Document 02/24/18 09:49 [facility] (Rec: 02/24/18 10:30 [facility] [id number]) Lumbar Spine Range of Motion Lumbar Spine Active Degrees Flexion 60 Extension 25 Rotation Left 65 Rotation Right 58 Lateral Flexion Left 25 Lateral Flexion Right 25 PT-OP-L Special Tests Start: 02/24/18 07:27 Freq: Status: Active Protocol: Document 02/24/18 09:49 [facility] (Rec: 02/24/18 10:30 [facility] [id number]) Special Tests Lumbar Spine Special Tests Slump Test Results neg B Straight Leg Raise Test Results neg B PT-OP-M Strength Start: 02/24/18 07:27 Freq: Status: Active Protocol: Document 02/24/18 09:49 [facility] (Rec: 02/24/18 10:30 [facility] [id number]) Hip Strength Hip Manual Muscle Testing Right Flexion (L2) 4+ Good+ Extension (S1) 4- Good- Abduction 4- Good- External Rotation 4+ Good+ Internal Rotation 5 Normal Comments 5/5 B knee & ankle strength Left Flexion (L2) 4+ Good+ Extension (S1) 4- Good- Abduction 4+ Good+ External Rotation 5 Normal Internal Rotation 5 Normal PT-OP-Q Treatments Start: 02/24/18 07:27 Freq: Status: Active Protocol: Document 04/02/18 09:47 ML (Rec: 04/02/18 09:57 ML [id number]) Therapeutic Exercises Standing Exercises 4 Standing Exercise Name gait press at wall Side bilateral Comments for post depression and ant elevation of pelvis Manual Therapy Treatment Joint Mobilizations 4 Joint R hip Direction inf glide Body Position Supine Comments into flex to inc hip flex, with CR Neuro Re-Education Treatment Other Activities 2 Details post depression COI Comments R side; added in LE for distal activation through motion 1 Details ant elevation COI Comments L side; added in LE for distal activation through motion PT-OP-T Assessment and Plan Start: 02/24/18 07:27 Freq: Status: Active Protocol: Document 04/02/18 09:47 ML (Rec: 04/02/18 09:57 ML [id number]) Physical Therapy Assessment Goals Three Impairment strength Short Term Goal (STG) Indep with HEP STG Duration 03/26/18 Bacteriology Research Assistant Goal (LTG) 5/5 LE strength B & with LPM & VCT to allow pt to return to normal activity LTG Duration 04/26/18 Two Impairment pain Short Term Goal (STG) Pain to 4/10 daily. STG Duration 03/26/18 Bacteriology Research Assistant Goal (LTG) Pt will be able to return to running & daily activities without inc pain. LTG Duration 04/26/18 One Impairment Oswestry [facility] Goal (LTG) 0/50 to demonstrate improved functional ability LTG Duration 04/26/18 Assessment Summary Assessment Pt was assess today for stairs since he mentioned onset of pain with ambulating stairs. The pt presented with significant lat trunk lean to L with R hip flex onto stair. Pt was then manually retrained through PNF technique for pelvis mobility in gait and was able to demonstrate less of a lateral trunk lean in ambulating stairs, although it was still present. Pt was instructed exercise to continue to work this mobility at home to continue to improve this control. Physical Therapy Plan Frequency and Duration Frequency of Treatment 2x/Week Duration of Treatment 2 months Plan of Care Start Date 02/24/18 Plan of Care End Date 04/26/18 Next Visit Focus/Plan Next Note Type Treatment Note Next Visit Plan cont to work on post depression & ant elevation, assess stairs, side step with squat, check R anominate, assess abd/add
--- NOTE | 2018-04-04 16:29 | PT.OTN ---
Current Diagnoses Low back pain (04/04/18) Physical Therapy Treatment Note PT-OP-A Visit Information Start: 02/24/18 07:27 Freq: Status: Active Protocol: Document 04/04/18 08:30 [facility] (Rec: 04/04/18 08:43 [facility] [id number]) Out-Patient Physical Therapy Visit Information Visit Information Visit Type Treatment Note Visit Start Time 08:10 Visit Stop Time 08:55 Total Visit Minutes 45 Visit Number 9 Number of COPY SUPERVISOR Visits 0 PT-OP-B Current Condition Start: 02/24/18 07:27 Freq: Status: Active Protocol: Document 02/24/18 09:49 [facility] (Rec: 02/24/18 16:20 [facility] [id number]) Current Condition History of Current Condition Onset Date About 1 year ago with worsening over past couple months Current Complaints LBP/SI pain History of Current Condition Pt had mild pain LBP about a year ago and it was much more occasional until a couple months ago then it started bothering hims mostly evenery evening especially after sitting on the couch. Reprots his shouder had been feeling better so he had stopped his old exercises. Reports he has stopped running d/t this pain. Prior Treatments and Tests PT that focused on shoulder with some core & LE exercises & Xray performed Treatment Goals Patient/Caregiver Goals Get back to normal activity without pain including running PT-OP-C Subjective Start: 02/24/18 07:27 Freq: Status: Active Protocol: Document 04/04/18 08:30 [facility] (Rec: 04/04/18 08:43 [facility] [id number]) OP-PT Subjective Patient Comments Patient Comments Pt reports he felt very good the day of his last session and the day after he was a little sore in the PM. Compliance with HEP PT-OP-F Manual Assessment Start: 02/24/18 07:27 Freq: Status: Active Protocol: Document 02/24/18 09:49 [facility] (Rec: 02/24/18 10:30 [facility] [id number]) Manual Assessments Joint Mobility Assessment Joint Mobility Assessment R elevated iliac crest & post SI B tibial ER w/ knee bends & L IR femur & R ER femur PT-OP-G Mobility & Gait Start: 02/24/18 07:27 Freq: Status: Active Protocol: Document 02/24/18 09:49 [facility] (Rec: 02/24/18 10:30 [facility] [id number]) OP Gait Assessment Comments Gait Comments Dec R post depression & ER of pelvis present with push off PT-OP-J Posture/Palpation/Skin Start: 02/24/18 07:27 Freq: Status: Active Protocol: Document 02/24/18 09:49 [facility] (Rec: 02/24/18 10:30 [facility] [id number]) Posture Evaluation Abdi Postural Classification System [facility] Postural Classifications Anterior/Posterior Vertebral Compression Test 4 Elbow Flexion Test 5 Lumbar Protective Mechanism Left AP 0 Lumbar Protective Mechanism Right AP 0 Lumbar Protective Mechanism Left PA 2 Lumbar Protective Mechanism Right PA 4 Leg Swing Left Limited Leg Swing Right Limited PT-OP-K Range of Motion Start: 02/24/18 07:27 Freq: Status: Active Protocol: Document 02/24/18 09:49 [facility] (Rec: 02/24/18 10:30 [facility] [id number]) Lumbar Spine Range of Motion Lumbar Spine Active Degrees Flexion 60 Extension 25 Rotation Left 65 Rotation Right 58 Lateral Flexion Left 25 Lateral Flexion Right 25 PT-OP-L Special Tests Start: 02/24/18 07:27 Freq: Status: Active Protocol: Document 02/24/18 09:49 [facility] (Rec: 02/24/18 10:30 [facility] [id number]) Special Tests Lumbar Spine Special Tests Slump Test Results neg B Straight Leg Raise Test Results neg B PT-OP-M Strength Start: 02/24/18 07:27 Freq: Status: Active Protocol: Document 02/24/18 09:49 [facility] (Rec: 02/24/18 10:30 [facility] [id number]) Hip Strength Hip Manual Muscle Testing Right Flexion (L2) 4+ Good+ Extension (S1) 4- Good- Abduction 4- Good- External Rotation 4+ Good+ Internal Rotation 5 Normal Comments 5/5 B knee & ankle strength Left Flexion (L2) 4+ Good+ Extension (S1) 4- Good- Abduction 4+ Good+ External Rotation 5 Normal Internal Rotation 5 Normal PT-OP-Q Treatments Start: 02/24/18 07:27 Freq: Status: Active Protocol: Document 04/04/18 08:30 ML (Rec: 04/04/18 09:01 ML [id number]) Gym Equipment Sport Cord 1 Exercise Details step ups Cord/Resistance red Comments L>R reps Therapeutic Exercises Standing Exercises 5 Standing Exercise Name side step w/mini squat Resistance lvl 1 Comments educated pt on foot position L Manual Therapy Treatment Joint Mobilizations 5 Joint R innominate Direction caudal Comments w/ active knee flex and IR/ER 4 Joint R hip Direction inf glide Body Position Supine Comments into flex to inc hip flex, with CR Neuro Re-Education Treatment Other Activities 2 Details post depression COI Comments R side; added in LE for distal activation through motion 1 Details ant elevation COI Comments L side; added in LE for distal activation through motion PT-OP-T Assessment and Plan Start: 02/24/18 07:27 Freq: Status: Active Protocol: Document 04/04/18 08:30 ML (Rec: 04/04/18 16:29 ML [id number]) Physical Therapy Assessment Goals Three Impairment strength Short Term Goal (STG) Indep with HEP STG Duration 03/26/18 Toddler Guide Goal (LTG) 5/5 LE strength B & with LPM & VCT to allow pt to return to normal activity LTG Duration 04/26/18 Two Impairment pain Short Term Goal (STG) Pain to 4/10 daily. STG Duration 03/26/18 Toddler Guide Goal (LTG) Pt will be able to return to running & daily activities without inc pain. LTG Duration 04/26/18 One Impairment Oswestry Snf Goal (LTG) 0/50 to demonstrate improved functional ability LTG Duration 04/26/18 Assessment Summary Assessment Pt again improved his push-off and control of pelvis through PNF patterned treatment. Pt's L foot position was evaluated and pt was given manual and tactile cues for correction and was able to maintain neutral foot position through exercises to perform them appropriately. Pt shows improvment in his ability to correctly go through exercises when he is cued to engage his core and stabilize his trunk. Physical Therapy Plan Frequency and Duration Frequency of Treatment 2x/Week Duration of Treatment 2 months Plan of Care Start Date 02/24/18 Plan of Care End Date 04/26/18 Next Visit Focus/Plan Next Note Type Treatment Note Next Visit Plan cont to work on post depression & ant elevation, assess stairs, sport cord stairs, check side step with squat, check R inominate and L foot position, assess abd/add
--- NOTE | 2018-04-07 18:13 | PT.OTN ---
Current Diagnoses Low back pain (04/07/18) Physical Therapy Treatment Note PT-OP-A Visit Information Start: 02/24/18 07:27 Freq: Status: Active Protocol: Document 04/07/18 12:35 ML (Rec: 04/07/18 12:42 ML [id number]) Out-Patient Physical Therapy Visit Information Visit Information Visit Type Treatment Note Visit Start Time 08:15 Visit Stop Time 09:00 Total Visit Minutes 45 Visit Number 10 Number of CIRCLE SAW OPERATOR Visits 0 PT-OP-B Current Condition Start: 02/24/18 07:27 Freq: Status: Active Protocol: Document 02/24/18 09:49 [facility] (Rec: 02/24/18 16:20 [facility] [id number]) Current Condition History of Current Condition Onset Date About 1 year ago with worsening over past couple months Current Complaints LBP/SI pain History of Current Condition Pt had mild pain LBP about a year ago and it was much more occasional until a couple months ago then it started bothering hims mostly evenery evening especially after sitting on the couch. Reprots his shouder had been feeling better so he had stopped his old exercises. Reports he has stopped running d/t this pain. Prior Treatments and Tests PT that focused on shoulder with some core & LE exercises & Xray performed Treatment Goals Patient/Caregiver Goals Get back to normal activity without pain including running PT-OP-C Subjective Start: 02/24/18 07:27 Freq: Status: Active Protocol: Document 04/07/18 12:35 ML (Rec: 04/07/18 12:42 ML [id number]) OP-PT Subjective Patient Comments Patient Comments Pt reports that his pain has been less in the evening and if it occurs, it has been less time than usual. He tried to walk-jog as instructed since the last visit and reported that his R leg did not want to get going forward as much as the L. PT-OP-F Manual Assessment Start: 02/24/18 07:27 Freq: Status: Active Protocol: Document 02/24/18 09:49 [facility] (Rec: 02/24/18 10:30 [facility] [id number]) Manual Assessments Joint Mobility Assessment Joint Mobility Assessment R elevated iliac crest & post SI B tibial ER w/ knee bends & L IR femur & R ER femur PT-OP-G Mobility & Gait Start: 02/24/18 07:27 Freq: Status: Active Protocol: Document 02/24/18 09:49 [facility] (Rec: 02/24/18 10:30 [facility] [id number]) OP Gait Assessment Comments Gait Comments Dec R post depression & ER of pelvis present with push off PT-OP-J Posture/Palpation/Skin Start: 02/24/18 07:27 Freq: Status: Active Protocol: Document 02/24/18 09:49 [facility] (Rec: 02/24/18 10:30 [facility] [id number]) Posture Evaluation [facility] Postural Classification System [facility] Postural Classifications Anterior/Posterior Vertebral Compression Test 4 Elbow Flexion Test 5 Lumbar Protective Mechanism Left AP 0 Lumbar Protective Mechanism Right AP 0 Lumbar Protective Mechanism Left PA 2 Lumbar Protective Mechanism Right PA 4 Leg Swing Left Limited Leg Swing Right Limited PT-OP-K Range of Motion Start: 02/24/18 07:27 Freq: Status: Active Protocol: Document 02/24/18 09:49 [facility] (Rec: 02/24/18 10:30 [facility] [id number]) Lumbar Spine Range of Motion Lumbar Spine Active Degrees Flexion 60 Extension 25 Rotation Left 65 Rotation Right 58 Lateral Flexion Left 25 Lateral Flexion Right 25 PT-OP-L Special Tests Start: 02/24/18 07:27 Freq: Status: Active Protocol: Document 02/24/18 09:49 [facility] (Rec: 02/24/18 10:30 [facility] [id number]) Special Tests Lumbar Spine Special Tests Slump Test Results neg B Straight Leg Raise Test Results neg B PT-OP-M Strength Start: 02/24/18 07:27 Freq: Status: Active Protocol: Document 02/24/18 09:49 [facility] (Rec: 02/24/18 10:30 [facility] [id number]) Hip Strength Hip Manual Muscle Testing Right Flexion (L2) 4+ Good+ Extension (S1) 4- Good- Abduction 4- Good- External Rotation 4+ Good+ Internal Rotation 5 Normal Comments 5/5 B knee & ankle strength Left Flexion (L2) 4+ Good+ Extension (S1) 4- Good- Abduction 4+ Good+ External Rotation 5 Normal Internal Rotation 5 Normal PT-OP-Q Treatments Start: 02/24/18 07:27 Freq: Status: Active Protocol: Document 04/07/18 12:35 ML (Rec: 04/07/18 12:42 ML [id number]) Gym Equipment Sport Cord 1 Exercise Details step ups Cord/Resistance red Comments L>R reps Therapeutic Exercises Standing Exercises 7 Standing Exercise Name mini squat side stepping Side bilateral Equipment Used level 1 Comments terminated due to pain in buttock starting to come on 6 Standing Exercise Name side steps onto step w/alt leg march Side bilateral Equipment Used mirror, balance pegs Comments required verbal and tactile cueing for trunk position 5 Standing Exercise Name side step w/mini squat Resistance lvl 1 Comments educated pt on foot position L Neuro Re-Education Treatment Other Activities 2 Details ant depression COI Comments R side; added in LE for distal activation through motion PT-OP-T Assessment and Plan Start: 02/24/18 07:27 Freq: Status: Active Protocol: Document 04/07/18 12:35 ML (Rec: 04/07/18 12:42 ML [id number]) Physical Therapy Assessment Goals Three Impairment strength Short Term Goal (STG) Indep with HEP STG Duration 03/26/18 Detention Goal (LTG) 5/5 LE strength B & with LPM & VCT to allow pt to return to normal activity LTG Duration 04/26/18 Two Impairment pain Short Term Goal (STG) Pain to 4/10 daily. STG Duration 03/26/18 General Neurologist Goal (LTG) Pt will be able to return to running & daily activities without inc pain. LTG Duration 04/26/18 One Impairment Oswestry General Neurologist Goal (LTG) 0/50 to demonstrate improved functional ability LTG Duration 04/26/18 Assessment Summary Assessment Pt continues to present with a Trendelenberg gait in walking , and exaggerated with stairs. The was able to improve with manual work and ther ex on his ability to take steps with upright posture, with additional help of verbal and tactile cueing. Pt was instructed to cont icing at home, especially after the extra work done in PT. Physical Therapy Plan Frequency and Duration Frequency of Treatment 2x/Week Duration of Treatment 2 months Plan of Care Start Date 02/24/18 Plan of Care End Date 04/26/18 Next Visit Focus/Plan Next Note Type Treatment Note Next Visit Plan cont to work on post depression & ant elevation, assess stairs, sport cord stairs, check side step with squat, check R inominate and L foot position, assess abd/add
--- NOTE | 2018-04-09 14:55 | PT.OTN ---
Current Diagnoses Low back pain (04/09/18) Physical Therapy Treatment Note PT-OP-A Visit Information Start: 02/24/18 07:27 Freq: Status: Active Protocol: Document 04/09/18 09:42 [facility] (Rec: 04/09/18 09:50 [facility] [id number]) Out-Patient Physical Therapy Visit Information Visit Information Visit Type Treatment Note Visit Start Time 09:00 Visit Stop Time 09:45 Total Visit Minutes 45 Visit Number 10 Number of MACHINE I CUTTER Visits 0 PT-OP-B Current Condition Start: 02/24/18 07:27 Freq: Status: Active Protocol: Document 02/24/18 09:49 [facility] (Rec: 02/24/18 16:20 [facility] [id number]) Current Condition History of Current Condition Onset Date About 1 year ago with worsening over past couple months Current Complaints LBP/SI pain History of Current Condition Pt had mild pain LBP about a year ago and it was much more occasional until a couple months ago then it started bothering hims mostly evenery evening especially after sitting on the couch. Reprots his shouder had been feeling better so he had stopped his old exercises. Reports he has stopped running d/t this pain. Prior Treatments and Tests PT that focused on shoulder with some core & LE exercises & Xray performed Treatment Goals Patient/Caregiver Goals Get back to normal activity without pain including running PT-OP-C Subjective Start: 02/24/18 07:27 Freq: Status: Active Protocol: Document 04/09/18 09:42 [facility] (Rec: 04/09/18 09:50 [facility] [id number]) OP-PT Subjective Patient Comments Patient Comments Pt reports he woke up a little sore this AM. Reports he ran yesterday probably a total of 3/4 mile and was split up into 2 running bouts. PT-OP-F Manual Assessment Start: 02/24/18 07:27 Freq: Status: Active Protocol: Document 02/24/18 09:49 [facility] (Rec: 02/24/18 10:30 [facility] [id number]) Manual Assessments Joint Mobility Assessment Joint Mobility Assessment R elevated iliac crest & post SI B tibial ER w/ knee bends & L IR femur & R ER femur PT-OP-G Mobility & Gait Start: 02/24/18 07:27 Freq: Status: Active Protocol: Document 02/24/18 09:49 [facility] (Rec: 02/24/18 10:30 [facility] [id number]) OP Gait Assessment Comments Gait Comments Dec R post depression & ER of pelvis present with push off PT-OP-J Posture/Palpation/Skin Start: 02/24/18 07:27 Freq: Status: Active Protocol: Document 02/24/18 09:49 [facility] (Rec: 02/24/18 10:30 [facility] [id number]) Posture Evaluation [facility] Postural Classification System [facility] Postural Classifications Anterior/Posterior Vertebral Compression Test 4 Elbow Flexion Test 5 Lumbar Protective Mechanism Left AP 0 Lumbar Protective Mechanism Right AP 0 Lumbar Protective Mechanism Left PA 2 Lumbar Protective Mechanism Right PA 4 Leg Swing Left Limited Leg Swing Right Limited PT-OP-K Range of Motion Start: 02/24/18 07:27 Freq: Status: Active Protocol: Document 02/24/18 09:49 [facility] (Rec: 02/24/18 10:30 [facility] [id number]) Lumbar Spine Range of Motion Lumbar Spine Active Degrees Flexion 60 Extension 25 Rotation Left 65 Rotation Right 58 Lateral Flexion Left 25 Lateral Flexion Right 25 PT-OP-L Special Tests Start: 02/24/18 07:27 Freq: Status: Active Protocol: Document 02/24/18 09:49 [facility] (Rec: 02/24/18 10:30 [facility] [id number]) Special Tests Lumbar Spine Special Tests Slump Test Results neg B Straight Leg Raise Test Results neg B PT-OP-M Strength Start: 02/24/18 07:27 Freq: Status: Active Protocol: Document 02/24/18 09:49 [facility] (Rec: 02/24/18 10:30 [facility] [id number]) Hip Strength Hip Manual Muscle Testing Right Flexion (L2) 4+ Good+ Extension (S1) 4- Good- Abduction 4- Good- External Rotation 4+ Good+ Internal Rotation 5 Normal Comments 5/5 B knee & ankle strength Left Flexion (L2) 4+ Good+ Extension (S1) 4- Good- Abduction 4+ Good+ External Rotation 5 Normal Internal Rotation 5 Normal PT-OP-Q Treatments Start: 02/24/18 07:27 Freq: Status: Active Protocol: Document 04/09/18 09:42 [facility] (Rec: 04/09/18 09:50 [facility] [id number]) Therapeutic Exercises Standing Exercises lunge steps Standing Exercise Name Lunge step with alt knee drive Comments focus on neutral torso 6 Standing Exercise Name side steps onto step w/alt leg march Side bilateral Equipment Used mirror, balance pegs Comments required verbal and tactile cueing for trunk position Gait Training Gait Activity gait Description in mirror with focus on no lat lean Comments in mirror Resisted gait Description resisted gait Comments w/focus on ant elevation Manual Therapy Treatment Joint Mobilizations 3 Joint innominate Direction caudal R FM Body Position Supine Neuro Re-Education Treatment Other Activities Ant elevation standing Details faciliation of RLE ant elevation Comments w/LE hip flex, add, ER & DF 1 Details ant elevation/post depression reciprocal isotonics Comments BLE; added in LE for distal activation through motion PT-OP-T Assessment and Plan Start: 02/24/18 07:27 Freq: Status: Active Protocol: Document 04/09/18 09:42 [facility] (Rec: 04/09/18 12:15 [facility] [id number]) Physical Therapy Assessment Goals Three Impairment strength Short Term Goal (STG) Indep with HEP STG Duration 03/26/18 Senior Living Goal (LTG) 5/5 LE strength B & with LPM & VCT to allow pt to return to normal activity LTG Duration 04/26/18 Two Impairment pain Short Term Goal (STG) Pain to 4/10 daily. STG Duration 03/26/18 Senior Living Goal (LTG) Pt will be able to return to running & daily activities without inc pain. LTG Duration 04/26/18 One Impairment Oswestry Web Site Project Manager Goal (LTG) 0/50 to demonstrate improved functional ability LTG Duration 04/26/18 Assessment Summary Assessment Pt presented to PT with a bit more of a lateral trunk lean in his gait than when he left PT last visit. Pt noted being sore after running yesterday for about a 1/2 mile. Pt was instructed to break up his running/walking more in the future. Pt progressed in gait and stability through movement after manual work and nuero reeducation of his pelvis. Pt has been improving in his ability to control his pelvis through the entire range more and more. Pt continues to have a lateral trunk lean through more challenging movement, but is showing improvement through cueing. Physical Therapy Plan Frequency and Duration Frequency of Treatment 2x/Week Duration of Treatment 2 months Plan of Care Start Date 02/24/18 Plan of Care End Date 11/17/18 Next Visit Focus/Plan Next Note Type Treatment Note Next Visit Plan sport cord, lung and august w/ straight leg, PNF and hip mobility manually prn, gait and stairs
--- NOTE | 2018-04-09 17:04 | PT.OTN ---
Current Diagnoses Low back pain (04/09/18) Physical Therapy Treatment Note PT-OP-A Visit Information Start: 02/24/18 07:27 Freq: Status: Active Protocol: Document 04/09/18 09:42 [facility] (Rec: 04/09/18 09:50 [facility] [id number]) Out-Patient Physical Therapy Visit Information Visit Information Visit Type Treatment Note Visit Start Time 09:00 Visit Stop Time 09:45 Total Visit Minutes 45 Visit Number 10 Number of DIRECTOR TALENT MANAGEMENT Visits 0 PT-OP-B Current Condition Start: 02/24/18 07:27 Freq: Status: Active Protocol: Document 02/24/18 09:49 [facility] (Rec: 02/24/18 16:20 [facility] [id number]) Current Condition History of Current Condition Onset Date About 1 year ago with worsening over past couple months Current Complaints LBP/SI pain History of Current Condition Pt had mild pain LBP about a year ago and it was much more occasional until a couple months ago then it started bothering hims mostly evenery evening especially after sitting on the couch. Reprots his shouder had been feeling better so he had stopped his old exercises. Reports he has stopped running d/t this pain. Prior Treatments and Tests PT that focused on shoulder with some core & LE exercises & Xray performed Treatment Goals Patient/Caregiver Goals Get back to normal activity without pain including running PT-OP-C Subjective Start: 02/24/18 07:27 Freq: Status: Active Protocol: Document 04/09/18 09:42 [facility] (Rec: 04/09/18 09:50 [facility] [id number]) OP-PT Subjective Patient Comments Patient Comments Pt reports he woke up a little sore this AM. Reports he ran yesterday probably a total of 3/4 mile and was split up into 2 running bouts. PT-OP-F Manual Assessment Start: 02/24/18 07:27 Freq: Status: Active Protocol: Document 02/24/18 09:49 [facility] (Rec: 02/24/18 10:30 [facility] [id number]) Manual Assessments Joint Mobility Assessment Joint Mobility Assessment R elevated iliac crest & post SI B tibial ER w/ knee bends & L IR femur & R ER femur PT-OP-G Mobility & Gait Start: 02/24/18 07:27 Freq: Status: Active Protocol: Document 02/24/18 09:49 [facility] (Rec: 02/24/18 10:30 [facility] [id number]) OP Gait Assessment Comments Gait Comments Dec R post depression & ER of pelvis present with push off PT-OP-J Posture/Palpation/Skin Start: 02/24/18 07:27 Freq: Status: Active Protocol: Document 02/24/18 09:49 [facility] (Rec: 02/24/18 10:30 [facility] [id number]) Posture Evaluation [facility] Postural Classification System [facility] Postural Classifications Anterior/Posterior Vertebral Compression Test 4 Elbow Flexion Test 5 Lumbar Protective Mechanism Left AP 0 Lumbar Protective Mechanism Right AP 0 Lumbar Protective Mechanism Left PA 2 Lumbar Protective Mechanism Right PA 4 Leg Swing Left Limited Leg Swing Right Limited PT-OP-K Range of Motion Start: 02/24/18 07:27 Freq: Status: Active Protocol: Document 02/24/18 09:49 [facility] (Rec: 02/24/18 10:30 [facility] [id number]) Lumbar Spine Range of Motion Lumbar Spine Active Degrees Flexion 60 Extension 25 Rotation Left 65 Rotation Right 58 Lateral Flexion Left 25 Lateral Flexion Right 25 PT-OP-L Special Tests Start: 02/24/18 07:27 Freq: Status: Active Protocol: Document 02/24/18 09:49 [facility] (Rec: 02/24/18 10:30 [facility] [id number]) Special Tests Lumbar Spine Special Tests Slump Test Results neg B Straight Leg Raise Test Results neg B PT-OP-M Strength Start: 02/24/18 07:27 Freq: Status: Active Protocol: Document 02/24/18 09:49 [facility] (Rec: 02/24/18 10:30 [facility] [id number]) Hip Strength Hip Manual Muscle Testing Right Flexion (L2) 4+ Good+ Extension (S1) 4- Good- Abduction 4- Good- External Rotation 4+ Good+ Internal Rotation 5 Normal Comments 5/5 B knee & ankle strength Left Flexion (L2) 4+ Good+ Extension (S1) 4- Good- Abduction 4+ Good+ External Rotation 5 Normal Internal Rotation 5 Normal PT-OP-Q Treatments Start: 02/24/18 07:27 Freq: Status: Active Protocol: Document 04/09/18 09:42 [facility] (Rec: 04/09/18 09:50 [facility] [id number]) Therapeutic Exercises Standing Exercises lunge steps Standing Exercise Name Lunge step with alt knee drive Comments focus on neutral torso 6 Standing Exercise Name side steps onto step w/alt leg march Side bilateral Equipment Used mirror, balance pegs Comments required verbal and tactile cueing for trunk position Gait Training Gait Activity gait Description in mirror with focus on no lat lean Comments in mirror Resisted gait Description resisted gait Comments w/focus on ant elevation Manual Therapy Treatment Joint Mobilizations 3 Joint innominate Direction caudal R FM Body Position Supine Neuro Re-Education Treatment Other Activities Ant elevation standing Details faciliation of RLE ant elevation Comments w/LE hip flex, add, ER & DF 1 Details ant elevation/post depression reciprocal isotonics Comments BLE; added in LE for distal activation through motion PT-OP-T Assessment and Plan Start: 02/24/18 07:27 Freq: Status: Active Protocol: Document 04/09/18 09:42 [facility] (Rec: 04/09/18 12:15 [facility] [id number]) Physical Therapy Assessment Goals Three Impairment strength Short Term Goal (STG) Indep with HEP STG Duration 03/26/18 Snf Goal (LTG) 5/5 LE strength B & with LPM & VCT to allow pt to return to normal activity LTG Duration 04/26/18 Two Impairment pain Short Term Goal (STG) Pain to 4/10 daily. STG Duration 03/26/18 Snf Goal (LTG) Pt will be able to return to running & daily activities without inc pain. LTG Duration 04/26/18 One Impairment Oswestry Chief Estimator Goal (LTG) 0/50 to demonstrate improved functional ability LTG Duration 04/26/18 Assessment Summary Assessment Pt presented to PT with a bit more of a lateral trunk lean in his gait than when he left PT last visit. Pt noted being sore after running yesterday for about a 1/2 mile. Pt was instructed to break up his running/walking more in the future. Pt progressed in gait and stability through movement after manual work and nuero reeducation of his pelvis. Pt has been improving in his ability to control his pelvis through the entire range more and more. Pt continues to have a lateral trunk lean through more challenging movement, but is showing improvement through cueing. Physical Therapy Plan Frequency and Duration Frequency of Treatment 2x/Week Duration of Treatment 2 months Plan of Care Start Date 02/24/18 Plan of Care End Date 11/17/18 Next Visit Focus/Plan Next Note Type Treatment Note Next Visit Plan sport cord, lung and august w/ straight leg, PNF and hip mobility manually prn, gait and stairs
--- NOTE | 2018-04-14 18:08 | PT.OTN ---
Current Diagnoses Low back pain (04/14/18) Physical Therapy Treatment Note PT-OP-A Visit Information Start: 02/24/18 07:27 Freq: Status: Active Protocol: Document 04/14/18 09:30 [facility] (Rec: 04/14/18 10:23 [facility] [id number]) Out-Patient Physical Therapy Visit Information Visit Information Visit Type Treatment Note Visit Start Time 08:15 Visit Stop Time 09:00 Total Visit Minutes 45 Visit Number 12 PT-OP-B Current Condition Start: 02/24/18 07:27 Freq: Status: Active Protocol: Document 02/24/18 09:49 [facility] (Rec: 02/24/18 16:20 [facility] [id number]) Current Condition History of Current Condition Onset Date About 1 year ago with worsening over past couple months Current Complaints LBP/SI pain History of Current Condition Pt had mild pain LBP about a year ago and it was much more occasional until a couple months ago then it started bothering hims mostly evenery evening especially after sitting on the couch. Reprots his shouder had been feeling better so he had stopped his old exercises. Reports he has stopped running d/t this pain. Prior Treatments and Tests PT that focused on shoulder with some core & LE exercises & Xray performed Treatment Goals Patient/Caregiver Goals Get back to normal activity without pain including running PT-OP-C Subjective Start: 02/24/18 07:27 Freq: Status: Active Protocol: Document 04/14/18 09:30 [facility] (Rec: 04/14/18 10:23 [facility] [id number]) OP-PT Subjective Patient Comments Patient Comments Pt reports he feels like he may be plateauing. In the evenings with transition of position (sitting to walking or standing), he has increased pain with short sharp pains that last only seconds. PT-OP-F Manual Assessment Start: 02/24/18 07:27 Freq: Status: Active Protocol: Document 02/24/18 09:49 [facility] (Rec: 02/24/18 10:30 [facility] [id number]) Manual Assessments Joint Mobility Assessment Joint Mobility Assessment R elevated iliac crest & post SI B tibial ER w/ knee bends & L IR femur & R ER femur PT-OP-G Mobility & Gait Start: 02/24/18 07:27 Freq: Status: Active Protocol: Document 02/24/18 09:49 [facility] (Rec: 02/24/18 10:30 [facility] [id number]) OP Gait Assessment Comments Gait Comments Dec R post depression & ER of pelvis present with push off PT-OP-J Posture/Palpation/Skin Start: 02/24/18 07:27 Freq: Status: Active Protocol: Document 02/24/18 09:49 [facility] (Rec: 02/24/18 10:30 [facility] [id number]) Posture Evaluation [facility] Postural Classification System [facility] Postural Classifications Anterior/Posterior Vertebral Compression Test 4 Elbow Flexion Test 5 Lumbar Protective Mechanism Left AP 0 Lumbar Protective Mechanism Right AP 0 Lumbar Protective Mechanism Left PA 2 Lumbar Protective Mechanism Right PA 4 Leg Swing Left Limited Leg Swing Right Limited PT-OP-K Range of Motion Start: 02/24/18 07:27 Freq: Status: Active Protocol: Document 02/24/18 09:49 [facility] (Rec: 02/24/18 10:30 [facility] [id number]) Lumbar Spine Range of Motion Lumbar Spine Active Degrees Flexion 60 Extension 25 Rotation Left 65 Rotation Right 58 Lateral Flexion Left 25 Lateral Flexion Right 25 PT-OP-L Special Tests Start: 02/24/18 07:27 Freq: Status: Active Protocol: Document 02/24/18 09:49 [facility] (Rec: 02/24/18 10:30 [facility] [id number]) Special Tests Lumbar Spine Special Tests Slump Test Results neg B Straight Leg Raise Test Results neg B PT-OP-M Strength Start: 02/24/18 07:27 Freq: Status: Active Protocol: Document 02/24/18 09:49 [facility] (Rec: 02/24/18 10:30 [facility] [id number]) Hip Strength Hip Manual Muscle Testing Right Flexion (L2) 4+ Good+ Extension (S1) 4- Good- Abduction 4- Good- External Rotation 4+ Good+ Internal Rotation 5 Normal Comments 5/5 B knee & ankle strength Left Flexion (L2) 4+ Good+ Extension (S1) 4- Good- Abduction 4+ Good+ External Rotation 5 Normal Internal Rotation 5 Normal PT-OP-Q Treatments Start: 02/24/18 07:27 Freq: Status: Active Protocol: Document 04/14/18 09:30 [facility] (Rec: 04/14/18 09:58 [facility] [id number]) Therapeutic Activity Therapeutic Activity standing posture Name Adjustment of standing posture Comments Unable to fully correct d/t upper thoracic tightness Gait Training Gait Activity gait Description Fwd walking Comments focus on fwd lean initiation & maintaining posture, focus on maintaining fwd lean, ant elevation facilitation Neuro Re-Education Treatment Other Activities mass flexion Details L side mass flexion Comments ant depression scapula & ant elevation pelvis 1 Details ant elevation/post depression reciprocal isotonics Comments BLE; added in LE for distal activation through motion; required further transition & facilition through L side PT-OP-T Assessment and Plan Start: 02/24/18 07:27 Freq: Status: Active Protocol: Document 04/14/18 09:30 [facility] (Rec: 04/14/18 09:58 [facility] [id number]) Physical Therapy Assessment Goals Three Impairment strength Short Term Goal (STG) Indep with HEP STG Duration 03/26/18 Snf Goal (LTG) 5/5 LE strength B & with LPM & VCT to allow pt to return to normal activity LTG Duration 04/26/18 Two Impairment pain Short Term Goal (STG) Pain to 4/10 daily. STG Duration 03/26/18 Caramel Cutter Helper Goal (LTG) Pt will be able to return to running & daily activities without inc pain. LTG Duration 04/26/18 One Impairment Oswestry Caramel Cutter Helper Goal (LTG) 0/50 to demonstrate improved functional ability LTG Duration 04/26/18 Assessment Summary Assessment Pt had improvement of gait with change of his mechanics for postural alignment. He has difficulty with L pelvic patterns >R and required significant cueing for static postural alignment. Physical Therapy Plan Frequency and Duration Frequency of Treatment 2x/Week Duration of Treatment 2 months Plan of Care Start Date 02/24/18 Plan of Care End Date 04/26/18 Next Visit Focus/Plan Next Note Type Treatment Note Next Visit Plan work on thoracic mobility & gait mechanics; exaggerated gait exercises
--- NOTE | 2018-04-16 13:40 | PT.OTN ---
Current Diagnoses Low back pain (04/16/18) Physical Therapy Treatment Note PT-OP-A Visit Information Start: 02/24/18 07:27 Freq: Status: Active Protocol: Document 04/16/18 07:30 [facility] (Rec: 04/16/18 08:37 [facility] [id number]) Out-Patient Physical Therapy Visit Information Visit Information Visit Type Treatment Note Visit Start Time 07:30 Visit Stop Time 08:16 Total Visit Minutes 46 Visit Number 13 PT-OP-B Current Condition Start: 02/24/18 07:27 Freq: Status: Active Protocol: Document 02/24/18 09:49 [facility] (Rec: 02/24/18 16:20 [facility] [id number]) Current Condition History of Current Condition Onset Date About 1 year ago with worsening over past couple months Current Complaints LBP/SI pain History of Current Condition Pt had mild pain LBP about a year ago and it was much more occasional until a couple months ago then it started bothering hims mostly evenery evening especially after sitting on the couch. Reprots his shouder had been feeling better so he had stopped his old exercises. Reports he has stopped running d/t this pain. Prior Treatments and Tests PT that focused on shoulder with some core & LE exercises & Xray performed Treatment Goals Patient/Caregiver Goals Get back to normal activity without pain including running PT-OP-C Subjective Start: 02/24/18 07:27 Freq: Status: Active Protocol: Document 04/16/18 07:30 [facility] (Rec: 04/16/18 08:37 [facility] [id number]) OP-PT Subjective Patient Comments Patient Comments Pt reports he has not had a lot of extended pain bouts. They have mostly been quick bouts of pain. PT-OP-F Manual Assessment Start: 02/24/18 07:27 Freq: Status: Active Protocol: Document 02/24/18 09:49 [facility] (Rec: 02/24/18 10:30 [facility] [id number]) Manual Assessments Joint Mobility Assessment Joint Mobility Assessment R elevated iliac crest & post SI B tibial ER w/ knee bends & L IR femur & R ER femur PT-OP-G Mobility & Gait Start: 02/24/18 07:27 Freq: Status: Active Protocol: Document 02/24/18 09:49 [facility] (Rec: 02/24/18 10:30 [facility] [id number]) OP Gait Assessment Comments Gait Comments Dec R post depression & ER of pelvis present with push off PT-OP-J Posture/Palpation/Skin Start: 02/24/18 07:27 Freq: Status: Active Protocol: Document 02/24/18 09:49 [facility] (Rec: 02/24/18 10:30 [facility] [id number]) Posture Evaluation Abdi Postural Classification System Abdi Postural Classifications Anterior/Posterior Vertebral Compression Test 4 Elbow Flexion Test 5 Lumbar Protective Mechanism Left AP 0 Lumbar Protective Mechanism Right AP 0 Lumbar Protective Mechanism Left PA 2 Lumbar Protective Mechanism Right PA 4 Leg Swing Left Limited Leg Swing Right Limited PT-OP-K Range of Motion Start: 02/24/18 07:27 Freq: Status: Active Protocol: Document 02/24/18 09:49 [facility] (Rec: 02/24/18 10:30 [facility] [id number]) Lumbar Spine Range of Motion Lumbar Spine Active Degrees Flexion 60 Extension 25 Rotation Left 65 Rotation Right 58 Lateral Flexion Left 25 Lateral Flexion Right 25 PT-OP-L Special Tests Start: 02/24/18 07:27 Freq: Status: Active Protocol: Document 02/24/18 09:49 [facility] (Rec: 02/24/18 10:30 [facility] [id number]) Special Tests Lumbar Spine Special Tests Slump Test Results neg B Straight Leg Raise Test Results neg B PT-OP-M Strength Start: 02/24/18 07:27 Freq: Status: Active Protocol: Document 02/24/18 09:49 [facility] (Rec: 02/24/18 10:30 [facility] [id number]) Hip Strength Hip Manual Muscle Testing Right Flexion (L2) 4+ Good+ Extension (S1) 4- Good- Abduction 4- Good- External Rotation 4+ Good+ Internal Rotation 5 Normal Comments 5/5 B knee & ankle strength Left Flexion (L2) 4+ Good+ Extension (S1) 4- Good- Abduction 4+ Good+ External Rotation 5 Normal Internal Rotation 5 Normal PT-OP-Q Treatments Start: 02/24/18 07:27 Freq: Status: Active Protocol: Document 04/16/18 07:30 [facility] (Rec: 04/16/18 08:42 [facility] [id number]) Therapeutic Activity Therapeutic Activity standing posture Name Adjustment of standing posture Comments significantly improved ability after collin test FM Gait Training Gait Activity gait Description Fwd walking Comments focus on fwd lean initiation & maintaining posture, focus on maintaining fwd lean thru feet not torso Manual Therapy Treatment Soft Tissue Mobilization 3 Body Location hip flexor L Comments FM mob with collin test position 2 Body Location visceral mobs R to L Mobilization Type Sustained Pressure Comments FM w/collin test position 1 Body Location quad L Mobilization Type Rolling Comments FM w/collin test postion Joint Mobilizations 1 Joint Thoracic Direction PA & UPA Comments FM with cat/camel position PT-OP-T Assessment and Plan Start: 02/24/18 07:27 Freq: Status: Active Protocol: Document 04/16/18 07:30 [facility] (Rec: 04/16/18 09:10 ML [id number]) Physical Therapy Assessment Goals Three Impairment strength Short Term Goal (STG) Indep with HEP STG Duration 03/26/18 Offshore Wind Turbine Technician Goal (LTG) 5/5 LE strength B & with LPM & VCT to allow pt to return to normal activity LTG Duration 04/26/18 Two Impairment pain Short Term Goal (STG) Pain to 4/10 daily. STG Duration 03/26/18 Half-Way Goal (LTG) Pt will be able to return to running & daily activities without inc pain. LTG Duration 04/26/18 One Impairment Oswestry Half-Way Goal (LTG) 0/50 to demonstrate improved functional ability LTG Duration 04/26/18 Assessment Summary Assessment Pt continues to have limited mobility in his thoracic spine , but showed improvement with mobilization. The pt was able to improve his posture through his trunk, but was limited through his pelvis and LEs due to hip flexor tightness. This tightness was addressed and improved with manual treatment . Pt was instructed how to continue to work on that tightness at home through stretching and massage. Physical Therapy Plan Frequency and Duration Frequency of Treatment 2x/Week Duration of Treatment 2 months Plan of Care Start Date 02/24/18 Plan of Care End Date 04/26/18 Next Visit Focus/Plan Next Note Type Treatment Note Next Visit Plan address hip flexor tightness ( inominate, rectus femoris, iliopsoas, sacrum, etc.), work on thoracic mobility & gait mechanics; exaggerated gait exercises
--- NOTE | 2018-04-21 12:57 | PT.OTN ---
Current Diagnoses Low back pain (04/21/18) Physical Therapy Treatment Note PT-OP-A Visit Information Start: 02/24/18 07:27 Freq: Status: Active Protocol: Document 04/21/18 10:02 [facility] (Rec: 04/21/18 09:07 [facility] [id number]) Out-Patient Physical Therapy Visit Information Visit Information Visit Type Progress Note Visit Start Time 08:15 Visit Stop Time 09:00 Total Visit Minutes 45 Visit Number 14 PT-OP-B Current Condition Start: 02/24/18 07:27 Freq: Status: Active Protocol: Document 02/24/18 09:49 [facility] (Rec: 02/24/18 16:20 [facility] [id number]) Current Condition History of Current Condition Onset Date About 1 year ago with worsening over past couple months Current Complaints LBP/SI pain History of Current Condition Pt had mild pain LBP about a year ago and it was much more occasional until a couple months ago then it started bothering hims mostly evenery evening especially after sitting on the couch. Reprots his shouder had been feeling better so he had stopped his old exercises. Reports he has stopped running d/t this pain. Prior Treatments and Tests PT that focused on shoulder with some core & LE exercises & Xray performed Treatment Goals Patient/Caregiver Goals Get back to normal activity without pain including running PT-OP-C Subjective Start: 02/24/18 07:27 Freq: Status: Active Protocol: Document 04/21/18 10:02 [facility] (Rec: 04/21/18 09:07 [facility] [id number]) OP-PT Subjective Patient Comments Patient Comments Reports overall feeling better with dec length of pain bouts . Cont pain about 6/10 when it comes, but lasts only seconds . PT-OP-F Manual Assessment Start: 02/24/18 07:27 Freq: Status: Active Protocol: Document 04/21/18 10:02 [facility] (Rec: 04/21/18 08:52 [facility] [id number]) Manual Assessments Joint Mobility Assessment Joint Mobility Assessment R iliac crest elevated as compared to L PT-OP-G Mobility & Gait Start: 02/24/18 07:27 Freq: Status: Active Protocol: Document 04/21/18 10:02 [facility] (Rec: 04/21/18 08:52 [facility] [id number]) OP Gait Assessment Comments Gait Comments Continues to have dec pelvis motion for ant elevation & post depression B with overall propulsion with LEs vs pelvis PT-OP-J Posture/Palpation/Skin Start: 02/24/18 07:27 Freq: Status: Active Protocol: Document 04/21/18 10:02 [facility] (Rec: 04/21/18 08:52 [facility] [id number]) Posture Evaluation [facility] Postural Classification System Abdi Postural Classifications Vertical/Posterior Vertebral Compression Test 4 Lumbar Protective Mechanism Left AP 0 Lumbar Protective Mechanism Right AP 0 Lumbar Protective Mechanism Left PA 3 Lumbar Protective Mechanism Right PA 4 PT-OP-K Range of Motion Start: 02/24/18 07:27 Freq: Status: Active Protocol: Document 02/24/18 09:49 [facility] (Rec: 02/24/18 10:30 [facility] [id number]) Lumbar Spine Range of Motion Lumbar Spine Active Degrees Flexion 60 Extension 25 Rotation Left 65 Rotation Right 58 Lateral Flexion Left 25 Lateral Flexion Right 25 PT-OP-L Special Tests Start: 02/24/18 07:27 Freq: Status: Active Protocol: Document 02/24/18 09:49 [facility] (Rec: 02/24/18 10:30 [facility] [id number]) Special Tests Lumbar Spine Special Tests Slump Test Results neg B Straight Leg Raise Test Results neg B PT-OP-M Strength Start: 02/24/18 07:27 Freq: Status: Active Protocol: Document 04/21/18 10:02 [facility] (Rec: 04/21/18 08:52 [facility] [id number]) Hip Strength Hip Manual Muscle Testing Right Flexion (L2) 4+ Good+ Extension (S1) 4+ Good+ Abduction 4+ Good+ Adduction 4+ Good+ Internal Rotation 4+ Good+ Left Flexion (L2) 4+ Good+ Extension (S1) 5 Normal Abduction 5 Normal External Rotation 5 Normal Internal Rotation 5 Normal PT-OP-Q Treatments Start: 02/24/18 07:27 Freq: Status: Active Protocol: Document 04/21/18 10:02 [facility] (Rec: 04/21/18 10:09 ML [id number]) Gait Training Gait Activity gait Description Fwd walking Comments focus on appropriate pelvis motion; watch in mirror Neuro Re-Education Treatment Other Activities resisted crawling Details cont to facilitate and re- educate pelvis motion 1 Details ant elevation/post depression reciprocal isotonics Comments L; added in LE for distal activation through motion; LE reciprocal resisted faciliation PT-OP-T Assessment and Plan Start: 02/24/18 07:27 Freq: Status: Active Protocol: Document 04/21/18 10:02 [facility] (Rec: 04/21/18 10:09 ML [id number]) Physical Therapy Assessment Goals Three Impairment strength Short Term Goal (STG) Indep with HEP STG Duration 05/21/18 Medication Assistant Goal (LTG) 5/5 LE strength B & with LPM & VCT to allow pt to return to normal activity LTG Duration 06/21/18 Two Impairment pain Short Term Goal (STG) Pain to 4/10 daily. STG Duration 05/21/18 Medication Assistant Goal (LTG) Pt will be able to return to running & daily activities without inc pain. LTG Duration 06/21/18 One Impairment Oswestry Medication Assistant Goal (LTG) 0/50 to demonstrate improved functional ability LTG Duration 06/21/18 Assessment Summary Assessment Pt presented to PT with a R elevated iliac crest. Pt has overall decreased the occurence of his bout of pain, and has increased his overall LE strength. The pt has also improved his trunk stability. Pt's gait is still performed without pelvis motion, but improves after neuromuscular re-education. Physical Therapy Plan Frequency and Duration Frequency of Treatment 1-2x/week Duration of Treatment 2 months Plan of Care Start Date 04/21/18 Plan of Care End Date 06/21/18 Therapeutic Interventions Therapeutic Interventions Balance Training Coordination Training Gait Training Home Exercise Program Joint Mobilizations Manual Therapy Neuromuscular Re-education Patient/Caregiver Education Self-Care/Home Management Soft Tissue Mobilization Taping Therapeutic Activities Therapeutic Exercises Modalities Cold Pack/Ice Massage Electric Stimulation Hot Packs Iontophoresis Traction- Mechanical Ultrasound Next Visit Focus/Plan Next Note Type Treatment Note Next Visit Plan core strengthening with pelvis motion; address hip flexor tightness (inominate, rectus femoris, iliopsoas, sacrum, etc.), work on thoracic mobility & gait mechanics; exaggerated gait exercises; neuro re-ed prn
--- NOTE | 2018-04-21 13:31 | PT.OPPN ---
Current Diagnoses Low back pain (04/21/18) Physical Therapy Progress Note PT-OP-A Visit Information Start: 02/24/18 07:27 Freq: Status: Active Protocol: Document 04/21/18 10:02 [facility] (Rec: 04/21/18 09:07 [facility] [id number]) Out-Patient Physical Therapy Visit Information Visit Information Visit Type Progress Note Visit Start Time 08:15 Visit Stop Time 09:00 Total Visit Minutes 45 Visit Number 14 PT-OP-B Current Condition Start: 02/24/18 07:27 Freq: Status: Active Protocol: Document 02/24/18 09:49 [facility] (Rec: 02/24/18 16:20 [facility] [id number]) Current Condition History of Current Condition Onset Date About 1 year ago with worsening over past couple months Current Complaints LBP/SI pain History of Current Condition Pt had mild pain LBP about a year ago and it was much more occasional until a couple months ago then it started bothering hims mostly evenery evening especially after sitting on the couch. Reprots his shouder had been feeling better so he had stopped his old exercises. Reports he has stopped running d/t this pain. Prior Treatments and Tests PT that focused on shoulder with some core & LE exercises & Xray performed Treatment Goals Patient/Caregiver Goals Get back to normal activity without pain including running PT-OP-C Subjective Start: 02/24/18 07:27 Freq: Status: Active Protocol: Document 04/21/18 10:02 [facility] (Rec: 04/21/18 09:07 [facility] [id number]) OP-PT Subjective Patient Comments Patient Comments Reports overall feeling better with dec length of pain bouts . Cont pain about 6/10 when it comes, but lasts only seconds . PT-OP-F Manual Assessment Start: 02/24/18 07:27 Freq: Status: Active Protocol: Document 04/21/18 10:02 [facility] (Rec: 04/21/18 08:52 [facility] [id number]) Manual Assessments Joint Mobility Assessment Joint Mobility Assessment R iliac crest elevated as compared to L PT-OP-G Mobility & Gait Start: 02/24/18 07:27 Freq: Status: Active Protocol: Document 04/21/18 10:02 [facility] (Rec: 04/21/18 08:52 [facility] [id number]) OP Gait Assessment Comments Gait Comments Continues to have dec pelvis motion for ant elevation & post depression B with overall propulsion with LEs vs pelvis PT-OP-J Posture/Palpation/Skin Start: 02/24/18 07:27 Freq: Status: Active Protocol: Document 04/21/18 10:02 [facility] (Rec: 04/21/18 08:52 [facility] [id number]) Posture Evaluation [facility] Postural Classification System Abdi Postural Classifications Vertical/Posterior Vertebral Compression Test 4 Lumbar Protective Mechanism Left AP 0 Lumbar Protective Mechanism Right AP 0 Lumbar Protective Mechanism Left PA 3 Lumbar Protective Mechanism Right PA 4 PT-OP-K Range of Motion Start: 02/24/18 07:27 Freq: Status: Active Protocol: Document 02/24/18 09:49 [facility] (Rec: 02/24/18 10:30 [facility] [id number]) Lumbar Spine Range of Motion Lumbar Spine Active Degrees Flexion 60 Extension 25 Rotation Left 65 Rotation Right 58 Lateral Flexion Left 25 Lateral Flexion Right 25 PT-OP-L Special Tests Start: 02/24/18 07:27 Freq: Status: Active Protocol: Document 02/24/18 09:49 [facility] (Rec: 02/24/18 10:30 [facility] [id number]) Special Tests Lumbar Spine Special Tests Slump Test Results neg B Straight Leg Raise Test Results neg B PT-OP-M Strength Start: 02/24/18 07:27 Freq: Status: Active Protocol: Document 04/21/18 10:02 [facility] (Rec: 04/21/18 08:52 [facility] [id number]) Hip Strength Hip Manual Muscle Testing Right Flexion (L2) 4+ Good+ Extension (S1) 4+ Good+ Abduction 4+ Good+ Adduction 4+ Good+ Internal Rotation 4+ Good+ Left Flexion (L2) 4+ Good+ Extension (S1) 5 Normal Abduction 5 Normal External Rotation 5 Normal Internal Rotation 5 Normal PT-OP-T Assessment and Plan Start: 02/24/18 07:27 Freq: Status: Active Protocol: Document 04/21/18 10:02 [facility] (Rec: 04/21/18 10:09 ML [id number]) Physical Therapy Assessment Goals Three Impairment strength Short Term Goal (STG) Indep with HEP STG Duration 05/21/18 Alf Goal (LTG) 5/5 LE strength B & with LPM & VCT to allow pt to return to normal activity LTG Duration 06/21/18 Two Impairment pain Short Term Goal (STG) Pain to 4/10 daily. STG Duration 05/21/18 Alf Goal (LTG) Pt will be able to return to running & daily activities without inc pain. LTG Duration 06/21/18 One Impairment Oswestry Alf Goal (LTG) 0/50 to demonstrate improved functional ability LTG Duration 06/21/18 Assessment Summary Assessment Pt presented to PT with a R elevated iliac crest. Pt has overall decreased the occurence of his bout of pain, and has increased his overall LE strength. The pt has also improved his trunk stability. Pt's gait is still performed without pelvis motion, but improves after neuromuscular re-education. Physical Therapy Plan Frequency and Duration Frequency of Treatment 1-2x/week Duration of Treatment 2 months Plan of Care Start Date 04/21/18 Plan of Care End Date 06/21/18 Therapeutic Interventions Therapeutic Interventions Balance Training Coordination Training Gait Training Home Exercise Program Joint Mobilizations Manual Therapy Neuromuscular Re-education Patient/Caregiver Education Self-Care/Home Management Soft Tissue Mobilization Taping Therapeutic Activities Therapeutic Exercises Modalities Cold Pack/Ice Massage Electric Stimulation Hot Packs Iontophoresis Traction- Mechanical Ultrasound Next Visit Focus/Plan Next Note Type Treatment Note Next Visit Plan core strengthening with pelvis motion; address hip flexor tightness (inominate, rectus femoris, iliopsoas, sacrum, etc.), work on thoracic mobility & gait mechanics; exaggerated gait exercises; neuro re-ed prn
--- NOTE | 2018-04-21 13:31 | PT.OPPOC ---
Current Diagnoses Low back pain (04/21/18) Provider Visit Care Team Role Provider Type Cesar Shaw MD Attending Provider Physician Family Provider Primary Care Provider Specialty: Internal Medicine Address: [address] [place] [address], [id number] Email: Plan Of Care PT-OP-T Assessment and Plan Start: 02/24/18 07:27 Freq: Status: Active Protocol: Document 04/21/18 10:02 [facility] (Rec: 04/21/18 10:09 ML [id number]) Physical Therapy Assessment Goals Three Impairment strength Short Term Goal (STG) Indep with HEP STG Duration 05/21/18 Plant Etiologist Goal (LTG) 5/5 LE strength B & with LPM & VCT to allow pt to return to normal activity LTG Duration 06/21/18 Two Impairment pain Short Term Goal (STG) Pain to 4/10 daily. STG Duration 05/21/18 Intermediate Goal (LTG) Pt will be able to return to running & daily activities without inc pain. LTG Duration 06/21/18 One Impairment Oswestry Plant Etiologist Goal (LTG) 0/50 to demonstrate improved functional ability LTG Duration 06/21/18 Assessment Summary Assessment Pt presented to PT with a R elevated iliac crest. Pt has overall decreased the occurence of his bout of pain, and has increased his overall LE strength. The pt has also improved his trunk stability. Pt's gait is still performed without pelvis motion, but improves after neuromuscular re-education. Physical Therapy Plan Frequency and Duration Frequency of Treatment 1-2x/week Duration of Treatment 2 months Plan of Care Start Date 04/21/18 Plan of Care End Date 06/21/18 Therapeutic Interventions Therapeutic Interventions Balance Training Coordination Training Gait Training Home Exercise Program Joint Mobilizations Manual Therapy Neuromuscular Re-education Patient/Caregiver Education Self-Care/Home Management Soft Tissue Mobilization Taping Therapeutic Activities Therapeutic Exercises Modalities Cold Pack/Ice Massage Electric Stimulation Hot Packs Iontophoresis Traction- Mechanical Ultrasound Next Visit Focus/Plan Next Note Type Treatment Note Next Visit Plan core strengthening with pelvis motion; address hip flexor tightness (inominate, rectus femoris, iliopsoas, sacrum, etc.), work on thoracic mobility & gait mechanics; exaggerated gait exercises; neuro re-ed prn Plan of Care Dates Plan of Care Start Date 04/21/18 Plan of Care End Date 06/21/18 Please Sign and Return: I have reviewed this Plan of Care and certify that the skilled therapy services above are required to meet the patient?s needs. Physician Signature Date Printed Name and Credentials Clinical Instructor Signature Printed Name and Credentials
--- NOTE | 2018-04-23 12:08 | PT.OTN ---
Current Diagnoses Low back pain (04/23/18) Physical Therapy Treatment Note PT-OP-A Visit Information Start: 02/24/18 07:27 Freq: Status: Active Protocol: Document 04/23/18 11:44 ML (Rec: 04/23/18 11:52 ML [id number]) Out-Patient Physical Therapy Visit Information Visit Information Visit Type Treatment Note Visit Start Time 07:30 Visit Stop Time 08:15 Total Visit Minutes 45 Visit Number 15 PT-OP-B Current Condition Start: 02/24/18 07:27 Freq: Status: Active Protocol: Document 02/24/18 09:49 LR (Rec: 02/24/18 16:20 [facility] [id number]) Current Condition History of Current Condition Onset Date About 1 year ago with worsening over past couple months Current Complaints LBP/SI pain History of Current Condition Pt had mild pain LBP about a year ago and it was much more occasional until a couple months ago then it started bothering hims mostly evenery evening especially after sitting on the couch. Reprots his shouder had been feeling better so he had stopped his old exercises. Reports he has stopped running d/t this pain. Prior Treatments and Tests PT that focused on shoulder with some core & LE exercises & Xray performed Treatment Goals Patient/Caregiver Goals Get back to normal activity without pain including running PT-OP-C Subjective Start: 02/24/18 07:27 Freq: Status: Active Protocol: Document 04/23/18 11:44 ML (Rec: 04/23/18 11:52 ML [id number]) OP-PT Subjective Patient Comments Patient Comments Pt notes that yesterday he did not do his exercises but had pain earlier in the day that lasted through the evening, but felt fine when he woke today. PT-OP-F Manual Assessment Start: 02/24/18 07:27 Freq: Status: Active Protocol: Document 04/21/18 10:02 LR (Rec: 04/21/18 08:52 [facility] [id number]) Manual Assessments Joint Mobility Assessment Joint Mobility Assessment R iliac crest elevated as compared to L PT-OP-G Mobility & Gait Start: 02/24/18 07:27 Freq: Status: Active Protocol: Document 04/21/18 10:02 LR (Rec: 04/21/18 08:52 [facility] [id number]) OP Gait Assessment Comments Gait Comments Continues to have dec pelvis motion for ant elevation & post depression B with overall propulsion with LEs vs pelvis PT-OP-J Posture/Palpation/Skin Start: 02/24/18 07:27 Freq: Status: Active Protocol: Document 04/21/18 10:02 [facility] (Rec: 04/21/18 08:52 [facility] [id number]) Posture Evaluation [facility] Postural Classification System [facility]di Postural Classifications Vertical/Posterior Vertebral Compression Test 4 Lumbar Protective Mechanism Left AP 0 Lumbar Protective Mechanism Right AP 0 Lumbar Protective Mechanism Left PA 3 Lumbar Protective Mechanism Right PA 4 PT-OP-K Range of Motion Start: 02/24/18 07:27 Freq: Status: Active Protocol: Document 02/24/18 09:49 [facility] (Rec: 02/24/18 10:30 [facility] [id number]) Lumbar Spine Range of Motion Lumbar Spine Active Degrees Flexion 60 Extension 25 Rotation Left 65 Rotation Right 58 Lateral Flexion Left 25 Lateral Flexion Right 25 PT-OP-L Special Tests Start: 02/24/18 07:27 Freq: Status: Active Protocol: Document 02/24/18 09:49 [facility] (Rec: 02/24/18 10:30 [facility] [id number]) Special Tests Lumbar Spine Special Tests Slump Test Results neg B Straight Leg Raise Test Results neg B PT-OP-M Strength Start: 02/24/18 07:27 Freq: Status: Active Protocol: Document 04/21/18 10:02 [facility] (Rec: 04/21/18 08:52 [facility] [id number]) Hip Strength Hip Manual Muscle Testing Right Flexion (L2) 4+ Good+ Extension (S1) 4+ Good+ Abduction 4+ Good+ Adduction 4+ Good+ Internal Rotation 4+ Good+ Left Flexion (L2) 4+ Good+ Extension (S1) 5 Normal Abduction 5 Normal External Rotation 5 Normal Internal Rotation 5 Normal PT-OP-Q Treatments Start: 02/24/18 07:27 Freq: Status: Active Protocol: Document 04/23/18 11:44 ML (Rec: 04/23/18 11:52 ML [id number]) Gym Equipment Sport Cord 1 Exercise Details step up Comments red band; UE support; cues for knee straight and trunk position Therapeutic Exercises Standing Exercises 1 Standing Exercise Name step up Comments use rail and mirror; cues for pelvis and glute/core activation; knee ext Gait Training Gait Activity gait press in plank Description gait press in plank Comments lots of cueing required; terminated until more pelvis re-ed acheived Manual Therapy Treatment Soft Tissue Mobilization 4 Body Location QL bilat Body Position Prone Comments R>L; knee flex/ext active assist Joint Mobilizations 5 Joint sacrum Direction PA Comments mid L and sup R; L>R; active assist knee flex/ext PT-OP-T Assessment and Plan Start: 02/24/18 07:27 Freq: Status: Active Protocol: Document 04/23/18 11:44 ML (Rec: 04/23/18 11:52 ML [id number]) Physical Therapy Assessment Goals Three Impairment strength Short Term Goal (STG) Indep with HEP STG Duration 05/21/18 Metal Engineering Process Worker Goal (LTG) 5/5 LE strength B & with LPM & VCT to allow pt to return to normal activity LTG Duration 06/21/18 Two Impairment pain Short Term Goal (STG) Pain to 4/10 daily. STG Duration 05/21/18 Metal Engineering Process Worker Goal (LTG) Pt will be able to return to running & daily activities without inc pain. LTG Duration 06/21/18 One Impairment Oswestry Custodial Goal (LTG) 0/50 to demonstrate improved functional ability LTG Duration 06/21/18 Assessment Summary Assessment Pt presented to PT reporting more pain than usual. Upon examination, pt's sacrum motion was limited as well as extreme tightness in his QL (R >L) which was addressed manually. pt continues to have difficulty with lat trunk lean in gait and stairs, which was addressed through cued step ups and resisted work. Physical Therapy Plan Frequency and Duration Frequency of Treatment 1-2x/week Duration of Treatment 2 months Plan of Care Start Date 04/21/18 Plan of Care End Date 06/21/18 Next Visit Focus/Plan Next Note Type Treatment Note Next Visit Plan core strengthening with pelvis motion; address hip flexor tightness (inominate, rectus femoris, iliopsoas, sacrum, etc.), work on thoracic mobility & gait mechanics; exaggerated gait exercises; neuro re-ed prn
--- NOTE | 2018-05-08 11:50 | PT.OTN ---
Current Diagnoses Low back pain (05/08/18) Physical Therapy Treatment Note PT-OP-A Visit Information Start: 02/24/18 07:27 Freq: Status: Active Protocol: Document 05/08/18 11:18 ML (Rec: 05/08/18 11:27 ML [id number]) Out-Patient Physical Therapy Visit Information Visit Information Visit Type Treatment Note Visit Start Time 09:45 Visit Stop Time 10:30 Total Visit Minutes 45 Visit Number 16 Number of TAG PRESS OPERATOR Visits 0 PT-OP-B Current Condition Start: 02/24/18 07:27 Freq: Status: Active Protocol: Document 02/24/18 09:49 [facility] (Rec: 02/24/18 16:20 [facility] [id number]) Current Condition History of Current Condition Onset Date About 1 year ago with worsening over past couple months Current Complaints LBP/SI pain History of Current Condition Pt had mild pain LBP about a year ago and it was much more occasional until a couple months ago then it started bothering hims mostly evenery evening especially after sitting on the couch. Reprots his shouder had been feeling better so he had stopped his old exercises. Reports he has stopped running d/t this pain. Prior Treatments and Tests PT that focused on shoulder with some core & LE exercises & Xray performed Treatment Goals Patient/Caregiver Goals Get back to normal activity without pain including running PT-OP-C Subjective Start: 02/24/18 07:27 Freq: Status: Active Protocol: Document 05/08/18 11:18 ML (Rec: 05/08/18 11:27 ML [email or web address]) OP-PT Subjective Patient Comments Patient Comments Pt notes that he was able to run 2 miles, has been continuing his exercises, and has had multiple evenings with no pain. He cannot note what activities or positions bring on his pain despite really trying to pay attention to that. PT-OP-F Manual Assessment Start: 02/24/18 07:27 Freq: Status: Active Protocol: Document 04/21/18 10:02 [facility] (Rec: 04/21/18 08:52 [facility] [id number]) Manual Assessments Joint Mobility Assessment Joint Mobility Assessment R iliac crest elevated as compared to L PT-OP-G Mobility & Gait Start: 02/24/18 07:27 Freq: Status: Active Protocol: Document 04/21/18 10:02 [facility] (Rec: 04/21/18 08:52 [facility] [id number]) OP Gait Assessment Comments Gait Comments Continues to have dec pelvis motion for ant elevation & post depression B with overall propulsion with LEs vs pelvis PT-OP-J Posture/Palpation/Skin Start: 02/24/18 07:27 Freq: Status: Active Protocol: Document 04/21/18 10:02 [facility] (Rec: 04/21/18 08:52 [facility] [id number]) Posture Evaluation [facility] Postural Classification System [facility] Postural Classifications Vertical/Posterior Vertebral Compression Test 4 Lumbar Protective Mechanism Left AP 0 Lumbar Protective Mechanism Right AP 0 Lumbar Protective Mechanism Left PA 3 Lumbar Protective Mechanism Right PA 4 PT-OP-K Range of Motion Start: 02/24/18 07:27 Freq: Status: Active Protocol: Document 02/24/18 09:49 [facility] (Rec: 02/24/18 10:30 [facility] [id number]) Lumbar Spine Range of Motion Lumbar Spine Active Degrees Flexion 60 Extension 25 Rotation Left 65 Rotation Right 58 Lateral Flexion Left 25 Lateral Flexion Right 25 PT-OP-L Special Tests Start: 02/24/18 07:27 Freq: Status: Active Protocol: Document 02/24/18 09:49 [facility] (Rec: 02/24/18 10:30 [facility] [id number]) Special Tests Lumbar Spine Special Tests Slump Test Results neg B Straight Leg Raise Test Results neg B PT-OP-M Strength Start: 02/24/18 07:27 Freq: Status: Active Protocol: Document 04/21/18 10:02 [facility] (Rec: 04/21/18 08:52 [facility] [id number]) Hip Strength Hip Manual Muscle Testing Right Flexion (L2) 4+ Good+ Extension (S1) 4+ Good+ Abduction 4+ Good+ Adduction 4+ Good+ Internal Rotation 4+ Good+ Left Flexion (L2) 4+ Good+ Extension (S1) 5 Normal Abduction 5 Normal External Rotation 5 Normal Internal Rotation 5 Normal PT-OP-Q Treatments Start: 02/24/18 07:27 Freq: Status: Active Protocol: Document 05/08/18 11:18 ML (Rec: 05/08/18 11:27 ML [email or web address]) Therapeutic Exercises Sitting Exercises running arms Sitting Exercise Name running arms Comments long sitting; cued verbal and tactile for close to body; HEP with mirror Standing Exercises lunge steps Standing Exercise Name lunge step and step through Equipment Used mirror and UE support Comments exaggerated running gait in slow; UE use; step to w/hold & step through Other Exercises 1 Other Exercise Name quadruped opposite arm and leg raise Comments HEP progression; cues for lower arm motion and not twisting trunk Gait Training Gait Activity gait Description Fwd walking and running Comments focus on appropriate pelvis motion; watch in mirror Neuro Re-Education Treatment Other Activities 1 Details ant elevation/post depression reciprocal isotonics Comments L; added in LE for distal activation through motion PT-OP-T Assessment and Plan Start: 02/24/18 07:27 Freq: Status: Active Protocol: Document 05/08/18 11:18 ML (Rec: 05/08/18 11:27 ML [email or web address]) Physical Therapy Assessment Goals Three Impairment strength Short Term Goal (STG) Indep with HEP STG Duration 05/21/18 Medical Technologist Prn Goal (LTG) 5/5 LE strength B & with LPM & VCT to allow pt to return to normal activity LTG Duration 06/21/18 Two Impairment pain Short Term Goal (STG) Pain to 4/10 daily. STG Duration 05/21/18 Retirement Goal (LTG) Pt will be able to return to running & daily activities without inc pain. LTG Duration 06/21/18 One Impairment Oswestry Medical Technologist Prn Goal (LTG) 0/50 to demonstrate improved functional ability LTG Duration 06/21/18 Assessment Summary Assessment Pt presented to PT with elevated R iliac crest. Pt has been having dec pain and inc activity which allowed us to progress into running more through this session. In running and walking gait, pt had dec post depression on L. PNF through pelvis was initated to improve this motion. Pt was able to better perform core stabilizing exercise in quadruped after PNF and was re-educated more through standing lunge/march gait exercises in [place] where pt was cued to really push through his L LE in push off position and transition his wt fwd onto his front leg through his trunk. Pt achieved understanding of desired motion and was able to achieve with repetitive cueing. Physical Therapy Plan Frequency and Duration Frequency of Treatment 1-2x/week Duration of Treatment 2 months Plan of Care Start Date 04/21/18 Plan of Care End Date 06/21/18 Next Visit Focus/Plan Next Note Type Treatment Note Next Visit Plan core strengthening with pelvis motion; running gait; exaggerated gait exercises; neuro re-ed prn
--- NOTE | 2018-05-20 09:03 | PT.OTN ---
Current Diagnoses Low back pain (05/20/18) Physical Therapy Treatment Note PT-OP-A Visit Information Start: 02/24/18 07:27 Freq: Status: Active Protocol: Document 05/20/18 08:14 [facility] (Rec: 05/20/18 09:03 [facility] [id number]) Out-Patient Physical Therapy Visit Information Visit Information Visit Type Treatment Note Visit Start Time 08:15 Visit Stop Time 09:00 Total Visit Minutes 45 Visit Number 17 Number of FOUNDRY MOLDER Visits 0 PT-OP-B Current Condition Start: 02/24/18 07:27 Freq: Status: Active Protocol: Document 02/24/18 09:49 [facility] (Rec: 02/24/18 16:20 [facility] [id number]) Current Condition History of Current Condition Onset Date About 1 year ago with worsening over past couple months Current Complaints LBP/SI pain History of Current Condition Pt had mild pain LBP about a year ago and it was much more occasional until a couple months ago then it started bothering hims mostly evenery evening especially after sitting on the couch. Reprots his shouder had been feeling better so he had stopped his old exercises. Reports he has stopped running d/t this pain. Prior Treatments and Tests PT that focused on shoulder with some core & LE exercises & Xray performed Treatment Goals Patient/Caregiver Goals Get back to normal activity without pain including running PT-OP-C Subjective Start: 02/24/18 07:27 Freq: Status: Active Protocol: Document 05/20/18 08:14 [facility] (Rec: 05/20/18 09:03 [facility] [id number]) OP-PT Subjective Patient Comments Patient Comments Pt reports pain about 50% of the nights and gets it for only min and can relieve it with stretching. Reports running about 1x/week on average. Able to run for a couple miles now. Pt reports pain only sometimes some pain. PT-OP-F Manual Assessment Start: 02/24/18 07:27 Freq: Status: Active Protocol: Document 04/21/18 10:02 [facility] (Rec: 04/21/18 08:52 [facility] [id number]) Manual Assessments Joint Mobility Assessment Joint Mobility Assessment R iliac crest elevated as compared to L PT-OP-G Mobility & Gait Start: 02/24/18 07:27 Freq: Status: Active Protocol: Document 04/21/18 10:02 [facility] (Rec: 04/21/18 08:52 [facility] [id number]) OP Gait Assessment Comments Gait Comments Continues to have dec pelvis motion for ant elevation & post depression B with overall propulsion with LEs vs pelvis PT-OP-J Posture/Palpation/Skin Start: 02/24/18 07:27 Freq: Status: Active Protocol: Document 04/21/18 10:02 [facility] (Rec: 04/21/18 08:52 [facility] [id number]) Posture Evaluation [facility] Postural Classification System [facility] Postural Classifications Vertical/Posterior Vertebral Compression Test 4 Lumbar Protective Mechanism Left AP 0 Lumbar Protective Mechanism Right AP 0 Lumbar Protective Mechanism Left PA 3 Lumbar Protective Mechanism Right PA 4 PT-OP-K Range of Motion Start: 02/24/18 07:27 Freq: Status: Active Protocol: Document 02/24/18 09:49 [facility] (Rec: 02/24/18 10:30 [facility] [id number]) Lumbar Spine Range of Motion Lumbar Spine Active Degrees Flexion 60 Extension 25 Rotation Left 65 Rotation Right 58 Lateral Flexion Left 25 Lateral Flexion Right 25 PT-OP-L Special Tests Start: 02/24/18 07:27 Freq: Status: Active Protocol: Document 02/24/18 09:49 [facility] (Rec: 02/24/18 10:30 [facility] [id number]) Special Tests Lumbar Spine Special Tests Slump Test Results neg B Straight Leg Raise Test Results neg B PT-OP-M Strength Start: 02/24/18 07:27 Freq: Status: Active Protocol: Document 04/21/18 10:02 [facility] (Rec: 04/21/18 08:52 [facility] [id number]) Hip Strength Hip Manual Muscle Testing Right Flexion (L2) 4+ Good+ Extension (S1) 4+ Good+ Abduction 4+ Good+ Adduction 4+ Good+ Internal Rotation 4+ Good+ Left Flexion (L2) 4+ Good+ Extension (S1) 5 Normal Abduction 5 Normal External Rotation 5 Normal Internal Rotation 5 Normal PT-OP-Q Treatments Start: 02/24/18 07:27 Freq: Status: Active Protocol: Document 05/20/18 08:14 [facility] (Rec: 05/20/18 09:03 [facility] [id number]) Gait Training Gait Activity gait Description Fwd walking and running Comments focus on appropriate pelvis motion; watch in mirror; running with focus on UEs Resisted gait Description facilitated ant elevation Neuro Re-Education Treatment Other Activities 2 Details wall push for innominate ext 1 Details ant elevation/post depression reciprocal isotonics Comments R; added in LE for distal activation through motion PT-OP-T Assessment and Plan Start: 02/24/18 07:27 Freq: Status: Active Protocol: Document 05/20/18 08:14 [facility] (Rec: 05/20/18 09:03 [facility] [id number]) Physical Therapy Assessment Goals Three Impairment strength Short Term Goal (STG) Indep with HEP STG Duration 05/21/18 Transportation Technician Goal (LTG) 5/5 LE strength B & with LPM & VCT to allow pt to return to normal activity LTG Duration 06/21/18 Two Impairment pain Short Term Goal (STG) Pain to 4/10 daily. STG Duration 05/21/18 Transportation Technician Goal (LTG) Pt will be able to return to running & daily activities without inc pain. LTG Duration 06/21/18 One Impairment Oswestry Skilled Nursing Goal (LTG) 0/50 to demonstrate improved functional ability LTG Duration 06/21/18 Assessment Summary Assessment Pt improved gait with focus on ant elevation and improved L lat lean. Improved running form with cueing for UE motion . Pt had improved push of during gait after innominate ext mobilizations. Physical Therapy Plan Frequency and Duration Frequency of Treatment 1-2x/week Duration of Treatment 2 months Plan of Care Start Date 04/21/18 Plan of Care End Date 06/21/18 Next Visit Focus/Plan Next Note Type Treatment Note Next Visit Plan Cont to work on gait motions
--- NOTE | 2018-05-28 15:44 | PT.OTN ---
Current Diagnoses Low back pain (05/28/18) Physical Therapy Treatment Note PT-OP-A Visit Information Start: 02/24/18 07:27 Freq: Status: Active Protocol: Document 05/28/18 15:25 [facility] (Rec: 05/28/18 15:44 [facility] [id number]) Out-Patient Physical Therapy Visit Information Visit Information Visit Type Treatment Note Visit Start Time 13:45 Visit Stop Time 14:25 Total Visit Minutes 40 Visit Number 18 Number of SERVICE ASSOCIATE Visits 0 PT-OP-B Current Condition Start: 02/24/18 07:27 Freq: Status: Active Protocol: Document 02/24/18 09:49 [facility] (Rec: 02/24/18 16:20 [facility] [id number]) Current Condition History of Current Condition Onset Date About 1 year ago with worsening over past couple months Current Complaints LBP/SI pain History of Current Condition Pt had mild pain LBP about a year ago and it was much more occasional until a couple months ago then it started bothering hims mostly evenery evening especially after sitting on the couch. Reprots his shouder had been feeling better so he had stopped his old exercises. Reports he has stopped running d/t this pain. Prior Treatments and Tests PT that focused on shoulder with some core & LE exercises & Xray performed Treatment Goals Patient/Caregiver Goals Get back to normal activity without pain including running PT-OP-C Subjective Start: 02/24/18 07:27 Freq: Status: Active Protocol: Document 05/28/18 15:25 [facility] (Rec: 05/28/18 15:44 [facility] [id number]) OP-PT Subjective Patient Comments Patient Comments Pt reports pain in AM. Notes it goes away after 20 min. Occasional pain at about 10 pm with certain movements. PT-OP-F Manual Assessment Start: 02/24/18 07:27 Freq: Status: Active Protocol: Document 04/21/18 10:02 [facility] (Rec: 04/21/18 08:52 [facility] [id number]) Manual Assessments Joint Mobility Assessment Joint Mobility Assessment R iliac crest elevated as compared to L PT-OP-G Mobility & Gait Start: 02/24/18 07:27 Freq: Status: Active Protocol: Document 04/21/18 10:02 [facility] (Rec: 04/21/18 08:52 [facility] [id number]) OP Gait Assessment Comments Gait Comments Continues to have dec pelvis motion for ant elevation & post depression B with overall propulsion with LEs vs pelvis PT-OP-J Posture/Palpation/Skin Start: 02/24/18 07:27 Freq: Status: Active Protocol: Document 04/21/18 10:02 [facility] (Rec: 04/21/18 08:52 [facility] [id number]) Posture Evaluation [facility] Postural Classification System [facility] Postural Classifications Vertical/Posterior Vertebral Compression Test 4 Lumbar Protective Mechanism Left AP 0 Lumbar Protective Mechanism Right AP 0 Lumbar Protective Mechanism Left PA 3 Lumbar Protective Mechanism Right PA 4 PT-OP-K Range of Motion Start: 02/24/18 07:27 Freq: Status: Active Protocol: Document 02/24/18 09:49 [facility] (Rec: 02/24/18 10:30 [facility] [id number]) Lumbar Spine Range of Motion Lumbar Spine Active Degrees Flexion 60 Extension 25 Rotation Left 65 Rotation Right 58 Lateral Flexion Left 25 Lateral Flexion Right 25 PT-OP-L Special Tests Start: 02/24/18 07:27 Freq: Status: Active Protocol: Document 02/24/18 09:49 [facility] (Rec: 02/24/18 10:30 [facility] [id number]) Special Tests Lumbar Spine Special Tests Slump Test Results neg B Straight Leg Raise Test Results neg B PT-OP-M Strength Start: 02/24/18 07:27 Freq: Status: Active Protocol: Document 04/21/18 10:02 [facility] (Rec: 04/21/18 08:52 [facility] [id number]) Hip Strength Hip Manual Muscle Testing Right Flexion (L2) 4+ Good+ Extension (S1) 4+ Good+ Abduction 4+ Good+ Adduction 4+ Good+ Internal Rotation 4+ Good+ Left Flexion (L2) 4+ Good+ Extension (S1) 5 Normal Abduction 5 Normal External Rotation 5 Normal Internal Rotation 5 Normal PT-OP-Q Treatments Start: 02/24/18 07:27 Freq: Status: Active Protocol: Document 05/28/18 15:25 [facility] (Rec: 05/28/18 15:44 [facility] [id number]) Therapeutic Activity Therapeutic Activity progression Comments Discuused gradual progression to plan to inc exercise sleeping position Name s/l sleeping position Comments edu of position and importance & edu on doing ROM before getting out of bed. Gait Training Gait Activity wt shift Description wt shift with focus on wt acceptance SLS Description w/focus on RLE post depression & ant elevation L gait Description Fwd walking Comments focus on appropriate pelvis motion; watch in mirror; avoiding lat pelvis motion & trunk motion Manual Therapy Treatment Soft Tissue Mobilization 4 Body Location QL R Body Position Sidelying Comments w/Ant elevation c/r PT-OP-T Assessment and Plan Start: 02/24/18 07:27 Freq: Status: Active Protocol: Document 05/28/18 15:25 [facility] (Rec: 05/28/18 15:44 [facility] [id number]) Physical Therapy Assessment Goals Three Impairment strength Short Term Goal (STG) Indep with HEP STG Duration 05/21/18 [facility] Care Goal (LTG) 5/5 LE strength B & with LPM & VCT to allow pt to return to normal activity LTG Duration 06/21/18 Two Impairment pain Short Term Goal (STG) Pain to 4/10 daily. STG Duration 05/21/18 Senior Care Goal (LTG) Pt will be able to return to running & daily activities without inc pain. LTG Duration 06/21/18 One Impairment Oswestry Accounting Consultant Goal (LTG) 0/50 to demonstrate improved functional ability LTG Duration 06/21/18 Assessment Summary Assessment Improved wt shift into R with cueing & repetive work on wt shift. Inc QL tightness on R that improves with STM. Physical Therapy Plan Frequency and Duration Frequency of Treatment 1-2x/week Duration of Treatment 2 months Plan of Care Start Date 04/21/18 Plan of Care End Date 06/21/18 Next Visit Focus/Plan Next Note Type Treatment Note Next Visit Plan Cont to work on wt acceptace R
--- NOTE | 2018-06-04 15:17 | PT.OTN ---
Current Diagnoses Low back pain (06/04/18) Physical Therapy Treatment Note PT-OP-A Visit Information Start: 02/24/18 07:27 Freq: Status: Active Protocol: Document 06/04/18 15:11 [facility] (Rec: 06/04/18 15:17 [facility] [id number]) Out-Patient Physical Therapy Visit Information Visit Information Visit Type Treatment Note Visit Start Time 14:30 Visit Stop Time 15:10 Total Visit Minutes 40 Visit Number 19 Number of DREDGE MATE Visits 0 PT-OP-B Current Condition Start: 02/24/18 07:27 Freq: Status: Active Protocol: Document 02/24/18 09:49 [facility] (Rec: 02/24/18 16:20 [facility] [id number]) Current Condition History of Current Condition Onset Date About 1 year ago with worsening over past couple months Current Complaints LBP/SI pain History of Current Condition Pt had mild pain LBP about a year ago and it was much more occasional until a couple months ago then it started bothering hims mostly evenery evening especially after sitting on the couch. Reprots his shouder had been feeling better so he had stopped his old exercises. Reports he has stopped running d/t this pain. Prior Treatments and Tests PT that focused on shoulder with some core & LE exercises & Xray performed Treatment Goals Patient/Caregiver Goals Get back to normal activity without pain including running PT-OP-C Subjective Start: 02/24/18 07:27 Freq: Status: Active Protocol: Document 06/04/18 15:11 [facility] (Rec: 06/04/18 15:17 [facility] [id number]) OP-PT Subjective Patient Comments Patient Comments Reports just before coming he noted some pain in R LB/hip region that has since subsided . PT-OP-F Manual Assessment Start: 02/24/18 07:27 Freq: Status: Active Protocol: Document 04/21/18 10:02 [facility] (Rec: 04/21/18 08:52 [facility] [id number]) Manual Assessments Joint Mobility Assessment Joint Mobility Assessment R iliac crest elevated as compared to L PT-OP-G Mobility & Gait Start: 02/24/18 07:27 Freq: Status: Active Protocol: Document 04/21/18 10:02 [facility] (Rec: 04/21/18 08:52 [facility] [id number]) OP Gait Assessment Comments Gait Comments Continues to have dec pelvis motion for ant elevation & post depression B with overall propulsion with LEs vs pelvis PT-OP-J Posture/Palpation/Skin Start: 02/24/18 07:27 Freq: Status: Active Protocol: Document 04/21/18 10:02 [facility] (Rec: 04/21/18 08:52 [facility] [id number]) Posture Evaluation [facility] Postural Classification System [facility] Postural Classifications Vertical/Posterior Vertebral Compression Test 4 Lumbar Protective Mechanism Left AP 0 Lumbar Protective Mechanism Right AP 0 Lumbar Protective Mechanism Left PA 3 Lumbar Protective Mechanism Right PA 4 PT-OP-K Range of Motion Start: 02/24/18 07:27 Freq: Status: Active Protocol: Document 02/24/18 09:49 [facility] (Rec: 02/24/18 10:30 [facility] [id number]) Lumbar Spine Range of Motion Lumbar Spine Active Degrees Flexion 60 Extension 25 Rotation Left 65 Rotation Right 58 Lateral Flexion Left 25 Lateral Flexion Right 25 PT-OP-L Special Tests Start: 02/24/18 07:27 Freq: Status: Active Protocol: Document 02/24/18 09:49 [facility] (Rec: 02/24/18 10:30 [facility] [id number]) Special Tests Lumbar Spine Special Tests Slump Test Results neg B Straight Leg Raise Test Results neg B PT-OP-M Strength Start: 02/24/18 07:27 Freq: Status: Active Protocol: Document 04/21/18 10:02 [facility] (Rec: 04/21/18 08:52 [facility] [id number]) Hip Strength Hip Manual Muscle Testing Right Flexion (L2) 4+ Good+ Extension (S1) 4+ Good+ Abduction 4+ Good+ Adduction 4+ Good+ Internal Rotation 4+ Good+ Left Flexion (L2) 4+ Good+ Extension (S1) 5 Normal Abduction 5 Normal External Rotation 5 Normal Internal Rotation 5 Normal PT-OP-Q Treatments Start: 02/24/18 07:27 Freq: Status: Active Protocol: Document 06/04/18 15:11 [facility] (Rec: 06/04/18 15:17 [facility] [id number]) Therapeutic Exercises Standing Exercises 4 Standing Exercise Name lat wt shifts 3 Standing Exercise Name L hip hikes & drops in mirror 2 Standing Exercise Name SLS in mirror Comments focus on neutral pelvis Therapeutic Activity Therapeutic Activity sitting posture Name supported and unsupported sleeping position Name s/l sleeping position Comments Review & review of ROM exercises to do before getting out of bed. Manual Therapy Treatment Soft Tissue Mobilization 1 Body Location iliacus FM Comments collin test position Joint Mobilizations 5 Joint sacrum Direction PA Comments mid L and sup R; L>R; active assist knee flex/ext 4 Joint innominate Direction ER FM R 3 Joint hip on axis Direction ER FM PT-OP-T Assessment and Plan Start: 02/24/18 07:27 Freq: Status: Active Protocol: Document 06/04/18 15:11 [facility] (Rec: 06/04/18 15:17 [facility] [id number]) Physical Therapy Assessment Goals Three Impairment strength Short Term Goal (STG) Indep with HEP STG Duration 05/21/18 [facility] Goal (LTG) 5/5 LE strength B & with LPM & VCT to allow pt to return to normal activity LTG Duration 06/21/18 Two Impairment pain Short Term Goal (STG) Pain to 4/10 daily. STG Duration 05/21/18 [facility] Goal (LTG) Pt will be able to return to running & daily activities without inc pain. LTG Duration 06/21/18 One Impairment [facility]estry [facility] Goal (LTG) 0/50 to demonstrate improved functional ability LTG Duration 06/21/18 Assessment Summary Assessment Improved postural in standing and sitting with cueing and mirrror use. Pt had difficulty iwth standing wt shift without upper trunk shift Physical Therapy Plan Frequency and Duration Frequency of Treatment 1-2x/week Duration of Treatment 2 months Plan of Care Start Date 04/21/18 Plan of Care End Date 06/21/18 Next Visit Focus/Plan Next Note Type Treatment Note Next Visit Plan Progress RLE stance
--- NOTE | 2018-06-09 09:46 | PT.OTN ---
Current Diagnoses Low back pain (06/09/18) Physical Therapy Treatment Note PT-OP-A Visit Information Start: 02/24/18 07:27 Freq: Status: Active Protocol: Document 06/09/18 08:58 [facility] (Rec: 06/09/18 09:09 [facility] [id number]) Out-Patient Physical Therapy Visit Information Visit Information Visit Type Treatment Note Visit Start Time 08:15 Visit Stop Time 08:55 Total Visit Minutes 40 Visit Number 20 Number of INTERMEDIATE FRAME TENDER Visits 0 PT-OP-B Current Condition Start: 02/24/18 07:27 Freq: Status: Active Protocol: Document 02/24/18 09:49 [facility] (Rec: 02/24/18 16:20 [facility] [id number]) Current Condition History of Current Condition Onset Date About 1 year ago with worsening over past couple months Current Complaints LBP/SI pain History of Current Condition Pt had mild pain LBP about a year ago and it was much more occasional until a couple months ago then it started bothering hims mostly evenery evening especially after sitting on the couch. Reprots his shouder had been feeling better so he had stopped his old exercises. Reports he has stopped running d/t this pain. Prior Treatments and Tests PT that focused on shoulder with some core & LE exercises & Xray performed Treatment Goals Patient/Caregiver Goals Get back to normal activity without pain including running PT-OP-C Subjective Start: 02/24/18 07:27 Freq: Status: Active Protocol: Document 06/09/18 08:58 [facility] (Rec: 06/09/18 09:09 [facility] [id number]) OP-PT Subjective Patient Comments Patient Comments Pt reports the past 2 weeks he has been feeling progressively sore all over. His is encouraging him to call his rhematolagist. PT-OP-F Manual Assessment Start: 02/24/18 07:27 Freq: Status: Active Protocol: Document 04/21/18 10:02 [facility] (Rec: 04/21/18 08:52 [facility] [id number]) Manual Assessments Joint Mobility Assessment Joint Mobility Assessment R iliac crest elevated as compared to L PT-OP-G Mobility & Gait Start: 02/24/18 07:27 Freq: Status: Active Protocol: Document 04/21/18 10:02 [facility] (Rec: 04/21/18 08:52 [facility] [id number]) OP Gait Assessment Comments Gait Comments Continues to have dec pelvis motion for ant elevation & post depression B with overall propulsion with LEs vs pelvis PT-OP-J Posture/Palpation/Skin Start: 02/24/18 07:27 Freq: Status: Active Protocol: Document 04/21/18 10:02 [facility] (Rec: 04/21/18 08:52 [facility] [id number]) Posture Evaluation [facility] Postural Classification System [facility] Postural Classifications Vertical/Posterior Vertebral Compression Test 4 Lumbar Protective Mechanism Left AP 0 Lumbar Protective Mechanism Right AP 0 Lumbar Protective Mechanism Left PA 3 Lumbar Protective Mechanism Right PA 4 PT-OP-K Range of Motion Start: 02/24/18 07:27 Freq: Status: Active Protocol: Document 02/24/18 09:49 [facility] (Rec: 02/24/18 10:30 [facility] [id number]) Lumbar Spine Range of Motion Lumbar Spine Active Degrees Flexion 60 Extension 25 Rotation Left 65 Rotation Right 58 Lateral Flexion Left 25 Lateral Flexion Right 25 PT-OP-L Special Tests Start: 02/24/18 07:27 Freq: Status: Active Protocol: Document 02/24/18 09:49 [facility] (Rec: 02/24/18 10:30 [facility] [id number]) Special Tests Lumbar Spine Special Tests Slump Test Results neg B Straight Leg Raise Test Results neg B PT-OP-M Strength Start: 02/24/18 07:27 Freq: Status: Active Protocol: Document 04/21/18 10:02 [facility] (Rec: 04/21/18 08:52 [facility] [id number]) Hip Strength Hip Manual Muscle Testing Right Flexion (L2) 4+ Good+ Extension (S1) 4+ Good+ Abduction 4+ Good+ Adduction 4+ Good+ Internal Rotation 4+ Good+ Left Flexion (L2) 4+ Good+ Extension (S1) 5 Normal Abduction 5 Normal External Rotation 5 Normal Internal Rotation 5 Normal PT-OP-Q Treatments Start: 02/24/18 07:27 Freq: Status: Active Protocol: Document 06/09/18 08:58 [facility] (Rec: 06/09/18 09:09 [facility] [id number]) Therapeutic Exercises Sidelying Exercises 2 Sidelying Exercise Name abd vs wall 1 Sidelying Exercise Name hip ext at wall Standing Exercises 7 Standing Exercise Name SLS Comments focus on post depression 6 Standing Exercise Name step ups Comments focus on post depression Gait Training Gait Activity exaggerated gait Description exaggerated Comments exaggerated ant elevation & post depression gait Description Fwd walking Comments focus on post depression with progression to running Manual Therapy Treatment Soft Tissue Mobilization 4 Body Location QL R Body Position Sidelying Comments w/Ant elevation c/r Joint Mobilizations 4 Joint innominate Direction ext R FM w/ neuro re edu Self-Care/Home Management Treatment Education Other Education start gradual progression of amount any days walking, spending more time doing hip flexor stretching, following up with hard metals engraver hand. PT-OP-T Assessment and Plan Start: 02/24/18 07:27 Freq: Status: Active Protocol: Document 06/09/18 08:58 [facility] (Rec: 06/09/18 09:09 [facility] [id number]) Physical Therapy Assessment Goals Three Impairment strength Short Term Goal (STG) Indep with HEP STG Duration 05/21/18 Custodial Goal (LTG) 5/5 LE strength B & with LPM & VCT to allow pt to return to normal activity LTG Duration 06/21/18 Two Impairment pain Short Term Goal (STG) Pain to 4/10 daily. STG Duration 05/21/18 Custodial Goal (LTG) Pt will be able to return to running & daily activities without inc pain. LTG Duration 06/21/18 One Impairment Oswestry Custodial Goal (LTG) 0/50 to demonstrate improved functional ability LTG Duration 06/21/18 Assessment Summary Assessment Pt had improved hip ext with innominate ext exercise. He is encouraged to maintain it with cont stretching and neuro re edu. Improved form with gait with cueing. Physical Therapy Plan Frequency and Duration Frequency of Treatment 1-2x/week Duration of Treatment 2 months Plan of Care Start Date 04/21/18 Plan of Care End Date 06/21/18 Next Visit Focus/Plan Next Note Type Treatment Note Next Visit Plan cont to work on R push off
--- NOTE | 2018-06-18 11:57 | PT.OTN ---
Current Diagnoses Low back pain (06/18/18) Physical Therapy Treatment Note PT-OP-A Visit Information Start: 02/24/18 07:27 Freq: Status: Active Protocol: Document 06/18/18 11:13 [facility] (Rec: 06/18/18 11:57 [facility] [id number]) Out-Patient Physical Therapy Visit Information Visit Information Visit Type Treatment Note Visit Start Time 09:00 Visit Stop Time 09:40 Total Visit Minutes 40 Visit Number 21 Number of DESIGN ANALYST Visits 0 PT-OP-B Current Condition Start: 02/24/18 07:27 Freq: Status: Active Protocol: Document 02/24/18 09:49 [facility] (Rec: 02/24/18 16:20 [facility] [id number]) Current Condition History of Current Condition Onset Date About 1 year ago with worsening over past couple months Current Complaints LBP/SI pain History of Current Condition Pt had mild pain LBP about a year ago and it was much more occasional until a couple months ago then it started bothering hims mostly evenery evening especially after sitting on the couch. Reprots his shouder had been feeling better so he had stopped his old exercises. Reports he has stopped running d/t this pain. Prior Treatments and Tests PT that focused on shoulder with some core & LE exercises & Xray performed Treatment Goals Patient/Caregiver Goals Get back to normal activity without pain including running PT-OP-C Subjective Start: 02/24/18 07:27 Freq: Status: Active Protocol: Document 06/18/18 11:13 [facility] (Rec: 06/18/18 11:57 [facility] [id number]) OP-PT Subjective Patient Comments Patient Comments Reports a couple days after last session he was really sore but has been getting better recently. Reports he has been doing a small walk at lunch daily. PT-OP-F Manual Assessment Start: 02/24/18 07:27 Freq: Status: Active Protocol: Document 04/21/18 10:02 [facility] (Rec: 04/21/18 08:52 [facility] [id number]) Manual Assessments Joint Mobility Assessment Joint Mobility Assessment R iliac crest elevated as compared to L PT-OP-G Mobility & Gait Start: 02/24/18 07:27 Freq: Status: Active Protocol: Document 04/21/18 10:02 [facility] (Rec: 04/21/18 08:52 [facility] [id number]) OP Gait Assessment Comments Gait Comments Continues to have dec pelvis motion for ant elevation & post depression B with overall propulsion with LEs vs pelvis PT-OP-J Posture/Palpation/Skin Start: 02/24/18 07:27 Freq: Status: Active Protocol: Document 04/21/18 10:02 [facility] (Rec: 04/21/18 08:52 [facility] [id number]) Posture Evaluation [facility] Postural Classification System [facility] Postural Classifications Vertical/Posterior Vertebral Compression Test 4 Lumbar Protective Mechanism Left AP 0 Lumbar Protective Mechanism Right AP 0 Lumbar Protective Mechanism Left PA 3 Lumbar Protective Mechanism Right PA 4 PT-OP-K Range of Motion Start: 02/24/18 07:27 Freq: Status: Active Protocol: Document 02/24/18 09:49 [facility] (Rec: 02/24/18 10:30 [facility] [id number]) Lumbar Spine Range of Motion Lumbar Spine Active Degrees Flexion 60 Extension 25 Rotation Left 65 Rotation Right 58 Lateral Flexion Left 25 Lateral Flexion Right 25 PT-OP-L Special Tests Start: 02/24/18 07:27 Freq: Status: Active Protocol: Document 02/24/18 09:49 [facility] (Rec: 02/24/18 10:30 [facility] [id number]) Special Tests Lumbar Spine Special Tests Slump Test Results neg B Straight Leg Raise Test Results neg B PT-OP-M Strength Start: 02/24/18 07:27 Freq: Status: Active Protocol: Document 04/21/18 10:02 [facility] (Rec: 04/21/18 08:52 [facility] [id number]) Hip Strength Hip Manual Muscle Testing Right Flexion (L2) 4+ Good+ Extension (S1) 4+ Good+ Abduction 4+ Good+ Adduction 4+ Good+ Internal Rotation 4+ Good+ Left Flexion (L2) 4+ Good+ Extension (S1) 5 Normal Abduction 5 Normal External Rotation 5 Normal Internal Rotation 5 Normal PT-OP-Q Treatments Start: 02/24/18 07:27 Freq: Status: Active Protocol: Document 06/18/18 11:13 [facility] (Rec: 06/18/18 11:57 [facility] [id number]) Therapeutic Exercises Supine Exercises 4 Supine Exercise Name bridge Comments w/traction facilitation Sidelying Exercises 2 Sidelying Exercise Name abd vs wall 1 Sidelying Exercise Name hip ext at wall Side bilateral Standing Exercises 1 Standing Exercise Name gait press at wall Other Exercises 2 Other Exercise Name quadruped hip ext progressed to alt/opp Gait Training Gait Activity gait Description Fwd walking Comments focus on push off, arm swing & neutral trunk, worked into mirror Manual Therapy Treatment Soft Tissue Mobilization 3 Body Location R iliacus STM c/r Neuro Re-Education Treatment Other Activities mass flexion Details mass flex & ext B with COI PT-OP-T Assessment and Plan Start: 02/24/18 07:27 Freq: Status: Active Protocol: Document 06/18/18 11:13 [facility] (Rec: 06/18/18 11:57 [facility] [id number]) Physical Therapy Assessment Goals Three Impairment strength Short Term Goal (STG) Indep with HEP STG Duration 05/21/18 Correction Goal (LTG) 5/5 LE strength B & with LPM & VCT to allow pt to return to normal activity LTG Duration 06/21/18 Two Impairment pain Short Term Goal (STG) Pain to 4/10 daily. STG Duration 05/21/18 Helicopter Crew Chief Goal (LTG) Pt will be able to return to running & daily activities without inc pain. LTG Duration 06/21/18 One Impairment [employer] Helicopter Crew Chief Goal (LTG) 0/50 to demonstrate improved functional ability LTG Duration 06/21/18 Assessment Summary Assessment Pt able to improve hip ext w/ dec pain after iliacus release . Improved push off when cued to keep torso in neutral and work on arm swing. Dec pain with exercises with cueing and improved roll afer faciliation. Physical Therapy Plan Frequency and Duration Frequency of Treatment 1-2x/week Duration of Treatment 2 months Plan of Care Start Date 04/21/18 Plan of Care End Date 06/21/18 Next Visit Focus/Plan Next Note Type Treatment Note Next Visit Plan Step ups with resistance
--- NOTE | 2018-07-02 10:30 | PT.OTN ---
Current Diagnoses Low back pain (07/02/18) Physical Therapy Treatment Note PT-OP-A Visit Information Start: 02/24/18 07:27 Freq: Status: Active Protocol: Document 07/02/18 08:05 [facility] (Rec: 07/02/18 10:30 [facility] [id number]) Out-Patient Physical Therapy Visit Information Visit Information Visit Type Progress Note Visit Start Time 09:00 Visit Stop Time 09:45 Total Visit Minutes 45 Visit Number 22 Number of GARAGEMAN Visits 0 PT-OP-B Current Condition Start: 02/24/18 07:27 Freq: Status: Active Protocol: Document 02/24/18 09:49 [facility] (Rec: 02/24/18 16:20 [facility] [id number]) Current Condition History of Current Condition Onset Date About 1 year ago with worsening over past couple months Current Complaints LBP/SI pain History of Current Condition Pt had mild pain LBP about a year ago and it was much more occasional until a couple months ago then it started bothering hims mostly evenery evening especially after sitting on the couch. Reprots his shouder had been feeling better so he had stopped his old exercises. Reports he has stopped running d/t this pain. Prior Treatments and Tests PT that focused on shoulder with some core & LE exercises & Xray performed Treatment Goals Patient/Caregiver Goals Get back to normal activity without pain including running PT-OP-C Subjective Start: 02/24/18 07:27 Freq: Status: Active Protocol: Document 07/02/18 08:05 [facility] (Rec: 07/02/18 10:30 [facility] [id number]) OP-PT Subjective Patient Comments Patient Comments Reports sees rheumatoligist in about a month d/t booking. Reoprts some days, he was sore at the end of the day. Reports AMs have been toughest and has difficulty once he starts walking and unweighting his R leg. Sometimes takes 10 min and others it takes 30 min. PT-OP-F Manual Assessment Start: 02/24/18 07:27 Freq: Status: Active Protocol: Document 04/21/18 10:02 [facility] (Rec: 04/21/18 08:52 [facility] [id number]) Manual Assessments Joint Mobility Assessment Joint Mobility Assessment R iliac crest elevated as compared to L PT-OP-G Mobility & Gait Start: 02/24/18 07:27 Freq: Status: Active Protocol: Document 04/21/18 10:02 [facility] (Rec: 04/21/18 08:52 [facility] [id number]) OP Gait Assessment Comments Gait Comments Continues to have dec pelvis motion for ant elevation & post depression B with overall propulsion with LEs vs pelvis PT-OP-J Posture/Palpation/Skin Start: 02/24/18 07:27 Freq: Status: Active Protocol: Document 07/02/18 08:05 [facility] (Rec: 07/02/18 10:30 [facility] [id number]) Posture Evaluation [facility] Postural Classification System Vertebral Compression Test 5 Elbow Flexion Test 5 Lumbar Protective Mechanism Left AP 2 Lumbar Protective Mechanism Right AP 1 Lumbar Protective Mechanism Left PA 2 Lumbar Protective Mechanism Right PA 3 PT-OP-K Range of Motion Start: 02/24/18 07:27 Freq: Status: Active Protocol: Document 02/24/18 09:49 [facility] (Rec: 02/24/18 10:30 [facility] [id number]) Lumbar Spine Range of Motion Lumbar Spine Active Degrees Flexion 60 Extension 25 Rotation Left 65 Rotation Right 58 Lateral Flexion Left 25 Lateral Flexion Right 25 PT-OP-L Special Tests Start: 02/24/18 07:27 Freq: Status: Active Protocol: Document 02/24/18 09:49 [facility] (Rec: 02/24/18 10:30 [facility] [id number]) Special Tests Lumbar Spine Special Tests Slump Test Results neg B Straight Leg Raise Test Results neg B PT-OP-M Strength Start: 02/24/18 07:27 Freq: Status: Active Protocol: Document 07/02/18 08:05 [facility] (Rec: 07/02/18 10:30 [facility] [id number]) Hip Strength Hip Manual Muscle Testing Right Flexion (L2) 5 Normal Extension (S1) 5 Normal Abduction 5 Normal External Rotation 5 Normal Internal Rotation 5 Normal Left Flexion (L2) 5 Normal Extension (S1) 5 Normal Abduction 4+ Good+ External Rotation 5 Normal Internal Rotation 5 Normal PT-OP-Q Treatments Start: 02/24/18 07:27 Freq: Status: Active Protocol: Document 07/02/18 08:05 [facility] (Rec: 07/02/18 10:30 [facility] [id number]) Therapeutic Exercises Sidelying Exercises 2 Sidelying Exercise Name alden seal R Gait Training Gait Activity gait press at wall Description gait press at wall SLS Description marching in mirror gait Description Fwd walking Comments in mirror Manual Therapy Treatment Soft Tissue Mobilization 4 Body Location QL R Body Position Sidelying Comments w/Ant elevation c/r PT-OP-T Assessment and Plan Start: 02/24/18 07:27 Freq: Status: Active Protocol: Document 07/02/18 08:05 [facility] (Rec: 07/02/18 10:30 [facility] [id number]) Physical Therapy Assessment Goals Three Impairment strength Short Term Goal (STG) Indep with HEP STG Duration achieved-progressing as needed Mcc Goal (LTG) 5/5 LE strength B & with LPM & VCT to allow pt to return to normal activity LTG Duration 08/19/18-improved LE strength, VCT- LPM dec Two Impairment pain Short Term Goal (STG) Pain to 4/10 daily. STG Duration AM painful and occasional evenings- 07/25/18 Mcc Goal (LTG) Pt will be able to return to running & daily activities without inc pain. LTG Duration 08/19/18-improving One Impairment [facility] Mcc Goal (LTG) 0/50 to demonstrate improved functional ability LTG Duration 08/19/18 Assessment Summary Assessment Pt has made good improvements w/LE strength and core strength but has poor functional patterns that cont to require cueing to address and improve neuro re-education . Physical Therapy Plan Frequency and Duration Frequency of Treatment 1x/Week Duration of Treatment 2 months Plan of Care Start Date 07/02/18 Plan of Care End Date 08/30/18 Therapeutic Interventions Therapeutic Interventions Aquatic Therapy Balance Training Gait Training Home Exercise Program Joint Mobilizations Manual Therapy Neuromuscular Re-education Patient/Caregiver Education Self-Care/Home Management Soft Tissue Mobilization Taping Therapeutic Activities Therapeutic Exercises Modalities Cold Pack/Ice Massage Electric Stimulation Hot Packs Traction- Mechanical Ultrasound Next Visit Focus/Plan Next Note Type Treatment Note Next Visit Plan Step ups with resistance
--- NOTE | 2018-07-02 10:30 | PT.OPPOC ---
Current Diagnoses Low back pain (07/02/18) Provider Visit Care Team Role Provider Type Cesar Shaw MD Attending Provider Physician Family Provider Primary Care Provider Specialty: Internal Medicine Address: [address] [place] [address], [id number] Email: Plan Of Care PT-OP-T Assessment and Plan Start: 02/24/18 07:27 Freq: Status: Active Protocol: Document 07/02/18 08:05 [facility] (Rec: 07/02/18 10:30 [facility] [id number]) Physical Therapy Assessment Goals Three Impairment strength Short Term Goal (STG) Indep with HEP STG Duration achieved-progressing as needed Care Home Goal (LTG) 5/5 LE strength B & with LPM & VCT to allow pt to return to normal activity LTG Duration 08/19/18-improved LE strength, VCT- LPM dec Two Impairment pain Short Term Goal (STG) Pain to 4/10 daily. STG Duration AM painful and occasional evenings- 07/25/18 Saw Superintendent Goal (LTG) Pt will be able to return to running & daily activities without inc pain. LTG Duration 08/19/18-improving One Impairment [facility] Goal (LTG) 0/50 to demonstrate improved functional ability LTG Duration 08/19/18 Assessment Summary Assessment Pt has made good improvements w/LE strength and core strength but has poor functional patterns that cont to require cueing to address and improve neuro re-education . Physical Therapy Plan Frequency and Duration Frequency of Treatment 1x/Week Duration of Treatment 2 months Plan of Care Start Date 07/02/18 Plan of Care End Date 08/30/18 Therapeutic Interventions Therapeutic Interventions Aquatic Therapy Balance Training Gait Training Home Exercise Program Joint Mobilizations Manual Therapy Neuromuscular Re-education Patient/Caregiver Education Self-Care/Home Management Soft Tissue Mobilization Taping Therapeutic Activities Therapeutic Exercises Modalities Cold Pack/Ice Massage Electric Stimulation Hot Packs Traction- Mechanical Ultrasound Next Visit Focus/Plan Next Note Type Treatment Note Next Visit Plan Step ups with resistance Plan of Care Dates Plan of Care Start Date 07/02/18 Plan of Care End Date 08/30/18 Please Sign and Return: I have reviewed this Plan of Care and certify that the skilled therapy services above are required to meet the patient?s needs. Physician Signature Date Printed Name and Credentials Clinical Instructor Signature Printed Name and Credentials
--- NOTE | 2018-07-09 09:13 | PT.OTN ---
Current Diagnoses Low back pain (07/09/18) Physical Therapy Treatment Note PT-OP-A Visit Information Start: 02/24/18 07:27 Freq: Status: Active Protocol: Document 07/09/18 08:14 [facility] (Rec: 07/09/18 09:13 [facility] [id number]) Out-Patient Physical Therapy Visit Information Visit Information Visit Type Treatment Note Visit Start Time 08:15 Visit Stop Time 09:00 Total Visit Minutes 45 Visit Number 23 Number of BARBER STYLIST Visits 0 PT-OP-B Current Condition Start: 02/24/18 07:27 Freq: Status: Active Protocol: Document 02/24/18 09:49 [facility] (Rec: 02/24/18 16:20 [facility] [id number]) Current Condition History of Current Condition Onset Date About 1 year ago with worsening over past couple months Current Complaints LBP/SI pain History of Current Condition Pt had mild pain LBP about a year ago and it was much more occasional until a couple months ago then it started bothering hims mostly evenery evening especially after sitting on the couch. Reprots his shouder had been feeling better so he had stopped his old exercises. Reports he has stopped running d/t this pain. Prior Treatments and Tests PT that focused on shoulder with some core & LE exercises & Xray performed Treatment Goals Patient/Caregiver Goals Get back to normal activity without pain including running PT-OP-C Subjective Start: 02/24/18 07:27 Freq: Status: Active Protocol: Document 07/09/18 08:14 [facility] (Rec: 07/09/18 09:13 [facility] [id number]) OP-PT Subjective Patient Comments Patient Comments Pt reports since last session, most of his nights have been pretty good. Reports he was able to do a couple of runs. PT-OP-F Manual Assessment Start: 02/24/18 07:27 Freq: Status: Active Protocol: Document 04/21/18 10:02 [facility] (Rec: 04/21/18 08:52 [facility] [id number]) Manual Assessments Joint Mobility Assessment Joint Mobility Assessment R iliac crest elevated as compared to L PT-OP-G Mobility & Gait Start: 02/24/18 07:27 Freq: Status: Active Protocol: Document 04/21/18 10:02 [facility] (Rec: 04/21/18 08:52 [facility] [id number]) OP Gait Assessment Comments Gait Comments Continues to have dec pelvis motion for ant elevation & post depression B with overall propulsion with LEs vs pelvis PT-OP-J Posture/Palpation/Skin Start: 02/24/18 07:27 Freq: Status: Active Protocol: Document 07/02/18 08:05 [facility] (Rec: 07/02/18 10:30 [facility] [id number]) Posture Evaluation [facility] Postural Classification System Vertebral Compression Test 5 Elbow Flexion Test 5 Lumbar Protective Mechanism Left AP 2 Lumbar Protective Mechanism Right AP 1 Lumbar Protective Mechanism Left PA 2 Lumbar Protective Mechanism Right PA 3 PT-OP-K Range of Motion Start: 02/24/18 07:27 Freq: Status: Active Protocol: Document 02/24/18 09:49 [facility] (Rec: 02/24/18 10:30 [facility] [id number]) Lumbar Spine Range of Motion Lumbar Spine Active Degrees Flexion 60 Extension 25 Rotation Left 65 Rotation Right 58 Lateral Flexion Left 25 Lateral Flexion Right 25 PT-OP-L Special Tests Start: 02/24/18 07:27 Freq: Status: Active Protocol: Document 02/24/18 09:49 [facility] (Rec: 02/24/18 10:30 [facility] [id number]) Special Tests Lumbar Spine Special Tests Slump Test Results neg B Straight Leg Raise Test Results neg B PT-OP-M Strength Start: 02/24/18 07:27 Freq: Status: Active Protocol: Document 07/02/18 08:05 [facility] (Rec: 07/02/18 10:30 [facility] [id number]) Hip Strength Hip Manual Muscle Testing Right Flexion (L2) 5 Normal Extension (S1) 5 Normal Abduction 5 Normal External Rotation 5 Normal Internal Rotation 5 Normal Left Flexion (L2) 5 Normal Extension (S1) 5 Normal Abduction 4+ Good+ External Rotation 5 Normal Internal Rotation 5 Normal PT-OP-Q Treatments Start: 02/24/18 07:27 Freq: Status: Active Protocol: Document 07/09/18 08:14 [facility] (Rec: 07/09/18 09:13 [facility] [id number]) Gym Equipment Shuttle Balance red clips Details fwd & side WBOS & NBOS Sport Cord 1 Exercise Details blue cord Comments fwd, side B & back step us with alt march Therapeutic Exercises Standing Exercises 4 Standing Exercise Name squats w/tband arm raises Reps/Minutes 12 Manual Therapy Treatment Soft Tissue Mobilization 4 Body Location QL R Body Position Prone Neuro Re-Education Treatment Balance Activities Bosu balance Details standing balance step ups onto bous Details bosu step ups Reps/Duration 10 B lunges onto bosu Details lunge Reps/Duration 10 PT-OP-T Assessment and Plan Start: 02/24/18 07:27 Freq: Status: Active Protocol: Document 07/09/18 08:14 [facility] (Rec: 07/09/18 09:13 [facility] [id number]) Physical Therapy Assessment Goals Three Impairment strength Short Term Goal (STG) Indep with HEP STG Duration achieved-progressing as needed Microfilming Document Preparer Goal (LTG) 5/5 LE strength B & with LPM & VCT to allow pt to return to normal activity LTG Duration 08/19/18-improved LE strength, VCT- LPM dec Two Impairment pain Short Term Goal (STG) Pain to 4/10 daily. STG Duration AM painful and occasional evenings- 07/25/18 Microfilming Document Preparer Goal (LTG) Pt will be able to return to running & daily activities without inc pain. LTG Duration 08/19/18-improving One Impairment [facility] Goal (LTG) 0/50 to demonstrate improved functional ability LTG Duration 08/19/18 Assessment Summary Assessment Pt had difficulty with unstable surfaces and maintaining balance. When cued to use his core, it improved his performance, but he required mult reps to gain more smooth movement.s Physical Therapy Plan Frequency and Duration Frequency of Treatment 1x/Week Duration of Treatment 2 months Plan of Care Start Date 07/02/18 Plan of Care End Date 08/30/18 Next Visit Focus/Plan Next Note Type Treatment Note Next Visit Plan standing core work
--- NOTE | 2018-07-23 17:05 | PT.OTN ---
Current Diagnoses Low back pain (07/23/18) Physical Therapy Treatment Note PT-OP-A Visit Information Start: 02/24/18 07:27 Freq: Status: Active Protocol: Document 07/23/18 17:02 [facility] (Rec: 07/23/18 17:05 [facility] [id number]) Out-Patient Physical Therapy Visit Information Visit Information Visit Type Treatment Note Visit Start Time 08:15 Visit Stop Time 09:00 Total Visit Minutes 45 Visit Number 24 Number of CARPET TECHNICIAN Visits 0 PT-OP-B Current Condition Start: 02/24/18 07:27 Freq: Status: Active Protocol: Document 02/24/18 09:49 [facility] (Rec: 02/24/18 16:20 [facility] [id number]) Current Condition History of Current Condition Onset Date About 1 year ago with worsening over past couple months Current Complaints LBP/SI pain History of Current Condition Pt had mild pain LBP about a year ago and it was much more occasional until a couple months ago then it started bothering hims mostly evenery evening especially after sitting on the couch. Reprots his shouder had been feeling better so he had stopped his old exercises. Reports he has stopped running d/t this pain. Prior Treatments and Tests PT that focused on shoulder with some core & LE exercises & Xray performed Treatment Goals Patient/Caregiver Goals Get back to normal activity without pain including running PT-OP-C Subjective Start: 02/24/18 07:27 Freq: Status: Active Protocol: Document 07/23/18 17:02 [facility] (Rec: 07/23/18 17:05 [facility] [id number]) OP-PT Subjective Patient Comments Patient Comments Pt reports last week was a bad week and he is unsure why. He felt okay after last session. PT-OP-F Manual Assessment Start: 02/24/18 07:27 Freq: Status: Active Protocol: Document 04/21/18 10:02 [facility] (Rec: 04/21/18 08:52 [facility] [id number]) Manual Assessments Joint Mobility Assessment Joint Mobility Assessment R iliac crest elevated as compared to L PT-OP-G Mobility & Gait Start: 02/24/18 07:27 Freq: Status: Active Protocol: Document 04/21/18 10:02 [facility] (Rec: 04/21/18 08:52 [facility] [id number]) OP Gait Assessment Comments Gait Comments Continues to have dec pelvis motion for ant elevation & post depression B with overall propulsion with LEs vs pelvis PT-OP-J Posture/Palpation/Skin Start: 02/24/18 07:27 Freq: Status: Active Protocol: Document 07/02/18 08:05 [facility] (Rec: 07/02/18 10:30 [facility] [id number]) Posture Evaluation [facility] Postural Classification System Vertebral Compression Test 5 Elbow Flexion Test 5 Lumbar Protective Mechanism Left AP 2 Lumbar Protective Mechanism Right AP 1 Lumbar Protective Mechanism Left PA 2 Lumbar Protective Mechanism Right PA 3 PT-OP-K Range of Motion Start: 02/24/18 07:27 Freq: Status: Active Protocol: Document 02/24/18 09:49 [facility] (Rec: 02/24/18 10:30 [facility] [id number]) Lumbar Spine Range of Motion Lumbar Spine Active Degrees Flexion 60 Extension 25 Rotation Left 65 Rotation Right 58 Lateral Flexion Left 25 Lateral Flexion Right 25 PT-OP-L Special Tests Start: 02/24/18 07:27 Freq: Status: Active Protocol: Document 02/24/18 09:49 [facility] (Rec: 02/24/18 10:30 [facility] [id number]) Special Tests Lumbar Spine Special Tests Slump Test Results neg B Straight Leg Raise Test Results neg B PT-OP-M Strength Start: 02/24/18 07:27 Freq: Status: Active Protocol: Document 07/02/18 08:05 [facility] (Rec: 07/02/18 10:30 [facility] [id number]) Hip Strength Hip Manual Muscle Testing Right Flexion (L2) 5 Normal Extension (S1) 5 Normal Abduction 5 Normal External Rotation 5 Normal Internal Rotation 5 Normal Left Flexion (L2) 5 Normal Extension (S1) 5 Normal Abduction 4+ Good+ External Rotation 5 Normal Internal Rotation 5 Normal PT-OP-Q Treatments Start: 02/24/18 07:27 Freq: Status: Active Protocol: Document 07/23/18 17:02 [facility] (Rec: 07/23/18 17:05 [facility] [id number]) Gym Equipment Shuttle Balance red clips Details fwd & side WBOS & NBOS Comments fwd staggered stance Sport Cord 1 Exercise Details blue cord Comments fwd, side B & back step us with alt august 13 in step Therapeutic Activity Therapeutic Activity shoveling Name edu of posture during shoveling lifting Name edu of lifting mechanics Neuro Re-Education Treatment Balance Activities Bosu balance Details standing balance step ups onto bous Details bosu step ups Reps/Duration 10 B PT-OP-T Assessment and Plan Start: 02/24/18 07:27 Freq: Status: Active Protocol: Document 07/23/18 17:02 [facility] (Rec: 07/23/18 17:05 [facility] [id number]) Physical Therapy Assessment Goals Three Impairment strength Short Term Goal (STG) Indep with HEP STG Duration achieved-progressing as needed Charge Nurse Goal (LTG) 5/5 LE strength B & with LPM & VCT to allow pt to return to normal activity LTG Duration 08/19/18-improved LE strength, VCT- LPM dec Two Impairment pain Short Term Goal (STG) Pain to 4/10 daily. STG Duration AM painful and occasional evenings- 07/25/18 Charge Nurse Goal (LTG) Pt will be able to return to running & daily activities without inc pain. LTG Duration 08/19/18-improving One Impairment Oswestry Charge Nurse Goal (LTG) 0/50 to demonstrate improved functional ability LTG Duration 08/19/18 Assessment Summary Assessment Pt did much better on uneven surfaces today. He was able to improve lifting and shoveling mechancis with ceuing and demonstration. Cont to have difficulty with balance w/lat resistance. Physical Therapy Plan Frequency and Duration Frequency of Treatment 1x/Week Duration of Treatment 2 months Plan of Care Start Date 07/02/18 Plan of Care End Date 08/30/18 Therapeutic Interventions Therapeutic Interventions Aquatic Therapy Balance Training Gait Training Home Exercise Program Joint Mobilizations Manual Therapy Neuromuscular Re-education Patient/Caregiver Education Self-Care/Home Management Soft Tissue Mobilization Taping Therapeutic Activities Therapeutic Exercises Modalities Cold Pack/Ice Massage Electric Stimulation Hot Packs Traction- Mechanical Ultrasound Next Visit Focus/Plan Next Note Type Treatment Note Next Visit Plan standing core work
--- NOTE | 2018-07-30 13:14 | PT.OTN ---
Current Diagnoses Low back pain (07/30/18) Physical Therapy Treatment Note PT-OP-A Visit Information Start: 02/24/18 07:27 Freq: Status: Active Protocol: Document 07/30/18 08:58 [facility] (Rec: 07/30/18 13:13 [facility] [id number]) Out-Patient Physical Therapy Visit Information Visit Information Visit Type Treatment Note Visit Start Time 08:15 Visit Stop Time 08:55 Total Visit Minutes 40 Visit Number 25 Number of HOG KILLER Visits 0 PT-OP-B Current Condition Start: 02/24/18 07:27 Freq: Status: Active Protocol: Document 02/24/18 09:49 [facility] (Rec: 02/24/18 16:20 [facility] [id number]) Current Condition History of Current Condition Onset Date About 1 year ago with worsening over past couple months Current Complaints LBP/SI pain History of Current Condition Pt had mild pain LBP about a year ago and it was much more occasional until a couple months ago then it started bothering hims mostly evenery evening especially after sitting on the couch. Reprots his shouder had been feeling better so he had stopped his old exercises. Reports he has stopped running d/t this pain. Prior Treatments and Tests PT that focused on shoulder with some core & LE exercises & Xray performed Treatment Goals Patient/Caregiver Goals Get back to normal activity without pain including running PT-OP-C Subjective Start: 02/24/18 07:27 Freq: Status: Active Protocol: Document 07/30/18 08:58 [facility] (Rec: 07/30/18 13:13 [facility] [id number]) OP-PT Subjective Patient Comments Patient Comments Pt reports past few days have been good. PT-OP-F Manual Assessment Start: 02/24/18 07:27 Freq: Status: Active Protocol: Document 04/21/18 10:02 [facility] (Rec: 04/21/18 08:52 [facility] [id number]) Manual Assessments Joint Mobility Assessment Joint Mobility Assessment R iliac crest elevated as compared to L PT-OP-G Mobility & Gait Start: 02/24/18 07:27 Freq: Status: Active Protocol: Document 04/21/18 10:02 [facility] (Rec: 04/21/18 08:52 [facility] [id number]) OP Gait Assessment Comments Gait Comments Continues to have dec pelvis motion for ant elevation & post depression B with overall propulsion with LEs vs pelvis PT-OP-J Posture/Palpation/Skin Start: 02/24/18 07:27 Freq: Status: Active Protocol: Document 07/02/18 08:05 [facility] (Rec: 07/02/18 10:30 [facility] [id number]) Posture Evaluation [facility] Postural Classification System Vertebral Compression Test 5 Elbow Flexion Test 5 Lumbar Protective Mechanism Left AP 2 Lumbar Protective Mechanism Right AP 1 Lumbar Protective Mechanism Left PA 2 Lumbar Protective Mechanism Right PA 3 PT-OP-K Range of Motion Start: 02/24/18 07:27 Freq: Status: Active Protocol: Document 02/24/18 09:49 [facility] (Rec: 02/24/18 10:30 [facility] [id number]) Lumbar Spine Range of Motion Lumbar Spine Active Degrees Flexion 60 Extension 25 Rotation Left 65 Rotation Right 58 Lateral Flexion Left 25 Lateral Flexion Right 25 PT-OP-L Special Tests Start: 02/24/18 07:27 Freq: Status: Active Protocol: Document 02/24/18 09:49 [facility] (Rec: 02/24/18 10:30 [facility] [id number]) Special Tests Lumbar Spine Special Tests Slump Test Results neg B Straight Leg Raise Test Results neg B PT-OP-M Strength Start: 02/24/18 07:27 Freq: Status: Active Protocol: Document 07/02/18 08:05 [facility] (Rec: 07/02/18 10:30 [facility] [id number]) Hip Strength Hip Manual Muscle Testing Right Flexion (L2) 5 Normal Extension (S1) 5 Normal Abduction 5 Normal External Rotation 5 Normal Internal Rotation 5 Normal Left Flexion (L2) 5 Normal Extension (S1) 5 Normal Abduction 4+ Good+ External Rotation 5 Normal Internal Rotation 5 Normal PT-OP-Q Treatments Start: 02/24/18 07:27 Freq: Status: Active Protocol: Document 07/30/18 08:58 [facility] (Rec: 07/30/18 13:13 [facility] [id number]) Gym Equipment Shuttle Balance red clips Details fwd & side WBOS & NBOS Comments while tossing a ballon; squats fwd Sport Cord 1 Exercise Details blue cord Comments fwd, side B & back step us with alt august 15 in step Self-Care/Home Management Treatment Education Other Education Discussion & formulation of questions for rhematologist; discussion for progression; discussion re: gym program ( elliptical & deep water running & shallow water running; small interval inc for running). PT-OP-T Assessment and Plan Start: 02/24/18 07:27 Freq: Status: Active Protocol: Document 07/30/18 08:58 [facility] (Rec: 07/30/18 13:13 [facility] [id number]) Physical Therapy Assessment Goals Three Impairment strength Short Term Goal (STG) Indep with HEP STG Duration achieved-progressing as needed Shelter Goal (LTG) 5/5 LE strength B & with LPM & VCT to allow pt to return to normal activity LTG Duration 08/19/18-improved LE strength, VCT- LPM dec Two Impairment pain Short Term Goal (STG) Pain to 4/10 daily. STG Duration AM painful and occasional evenings- 07/25/18 Shelter Goal (LTG) Pt will be able to return to running & daily activities without inc pain. LTG Duration 08/19/18-improving One Impairment Oswestry Shelter Goal (LTG) 0/50 to demonstrate improved functional ability LTG Duration 08/19/18 Assessment Summary Assessment Pt is advancing with standing core exercises without c/o pain. Required further edu re: gradual progression w/running rather than starting with running a mile. Physical Therapy Plan Frequency and Duration Frequency of Treatment 1x/Week Duration of Treatment 2 months Plan of Care Start Date 07/02/18 Plan of Care End Date 08/30/18 Next Visit Focus/Plan Next Note Type Treatment Note Next Visit Plan progression towards gym program
--- NOTE | 2018-08-20 09:00 | PT.OTN ---
Current Diagnoses Low back pain (08/20/18) Physical Therapy Treatment Note PT-OP-A Visit Information Start: 02/24/18 07:27 Freq: Status: Active Protocol: Document 08/20/18 08:45 [facility] (Rec: 08/21/18 08:51 [facility] [id number]) Out-Patient Physical Therapy Visit Information Visit Information Visit Type Treatment Note Visit Start Time 08:15 Visit Stop Time 09:00 Total Visit Minutes 45 Visit Number 26 Number of RASPBERRY CHECKER Visits 0 PT-OP-B Current Condition Start: 02/24/18 07:27 Freq: Status: Active Protocol: Document 02/24/18 09:49 [facility] (Rec: 02/24/18 16:20 [facility] [id number]) Current Condition History of Current Condition Onset Date About 1 year ago with worsening over past couple months Current Complaints LBP/SI pain History of Current Condition Pt had mild pain LBP about a year ago and it was much more occasional until a couple months ago then it started bothering hims mostly evenery evening especially after sitting on the couch. Reprots his shouder had been feeling better so he had stopped his old exercises. Reports he has stopped running d/t this pain. Prior Treatments and Tests PT that focused on shoulder with some core & LE exercises & Xray performed Treatment Goals Patient/Caregiver Goals Get back to normal activity without pain including running PT-OP-C Subjective Start: 02/24/18 07:27 Freq: Status: Active Protocol: Document 08/20/18 08:45 [facility] (Rec: 08/21/18 08:51 [facility] [id number]) OP-PT Subjective Patient Comments Patient Comments Pt reports he was doing very well and had no pain over the weekend for a few days. The past couple days pain is back at nights but he notes he has been in a lot of odd positions doing work on his kitchen. PT-OP-F Manual Assessment Start: 02/24/18 07:27 Freq: Status: Active Protocol: Document 04/21/18 10:02 [facility] (Rec: 04/21/18 08:52 [facility] [id number]) Manual Assessments Joint Mobility Assessment Joint Mobility Assessment R iliac crest elevated as compared to L PT-OP-G Mobility & Gait Start: 02/24/18 07:27 Freq: Status: Active Protocol: Document 04/21/18 10:02 [facility] (Rec: 04/21/18 08:52 [facility] [id number]) OP Gait Assessment Comments Gait Comments Continues to have dec pelvis motion for ant elevation & post depression B with overall propulsion with LEs vs pelvis PT-OP-J Posture/Palpation/Skin Start: 02/24/18 07:27 Freq: Status: Active Protocol: Document 07/02/18 08:05 [facility] (Rec: 07/02/18 10:30 [facility] [id number]) Posture Evaluation [facility] Postural Classification System Vertebral Compression Test 5 Elbow Flexion Test 5 Lumbar Protective Mechanism Left AP 2 Lumbar Protective Mechanism Right AP 1 Lumbar Protective Mechanism Left PA 2 Lumbar Protective Mechanism Right PA 3 PT-OP-K Range of Motion Start: 02/24/18 07:27 Freq: Status: Active Protocol: Document 02/24/18 09:49 [facility] (Rec: 02/24/18 10:30 [facility] [id number]) Lumbar Spine Range of Motion Lumbar Spine Active Degrees Flexion 60 Extension 25 Rotation Left 65 Rotation Right 58 Lateral Flexion Left 25 Lateral Flexion Right 25 PT-OP-L Special Tests Start: 02/24/18 07:27 Freq: Status: Active Protocol: Document 02/24/18 09:49 [facility] (Rec: 02/24/18 10:30 [facility] [id number]) Special Tests Lumbar Spine Special Tests Slump Test Results neg B Straight Leg Raise Test Results neg B PT-OP-M Strength Start: 02/24/18 07:27 Freq: Status: Active Protocol: Document 07/02/18 08:05 [facility] (Rec: 07/02/18 10:30 [facility] [id number]) Hip Strength Hip Manual Muscle Testing Right Flexion (L2) 5 Normal Extension (S1) 5 Normal Abduction 5 Normal External Rotation 5 Normal Internal Rotation 5 Normal Left Flexion (L2) 5 Normal Extension (S1) 5 Normal Abduction 4+ Good+ External Rotation 5 Normal Internal Rotation 5 Normal PT-OP-Q Treatments Start: 02/24/18 07:27 Freq: Status: Active Protocol: Document 08/20/18 08:45 [facility] (Rec: 08/21/18 08:51 [facility] [id number]) Therapeutic Exercises Standing Exercises lunge steps Standing Exercise Name walking lunges 7 Standing Exercise Name squats 6 Standing Exercise Name SLS Therapeutic Activity Therapeutic Activity housework Name edu of avoiding bending & twisted positions & lining up to home activities lifting Name edu of lifting mechanics standing posture Name standing posture Manual Therapy Treatment Soft Tissue Mobilization 4 Body Location QL R Body Position Prone Self-Care/Home Management Treatment Education Other Education discussion of gym equipment appropriate for pt, edu on cont to be gradual with running progression PT-OP-T Assessment and Plan Start: 02/24/18 07:27 Freq: Status: Active Protocol: Document 08/20/18 08:45 [facility] (Rec: 08/21/18 08:51 [facility] [id number]) Physical Therapy Assessment Goals Three Impairment strength Short Term Goal (STG) Indep with HEP STG Duration achieved-progressing as needed Skilled Nursing Goal (LTG) 5/5 LE strength B & with LPM & VCT to allow pt to return to normal activity LTG Duration 08/19/18-improved LE strength, VCT- LPM dec Two Impairment pain Short Term Goal (STG) Pain to 4/10 daily. STG Duration AM painful and occasional evenings- 07/25/18 Ladies Suit Operator Goal (LTG) Pt will be able to return to running & daily activities without inc pain. LTG Duration 08/19/18-improving One Impairment Oswestry Ladies Suit Operator Goal (LTG) 0/50 to demonstrate improved functional ability LTG Duration 08/19/18 Assessment Summary Assessment Pt is doing well with his exercises and had many questions on anatomy and understanding of what had been worked on with PT. He had tightness in QL and with STM, he had significant relief in tightness. Physical Therapy Plan Frequency and Duration Frequency of Treatment 1x/Week Duration of Treatment 2 months Plan of Care Start Date 07/02/18 Plan of Care End Date 08/30/18 Next Visit Focus/Plan Next Note Type Discharge Summary Next Visit Plan Cont to advance as needed for home managagement after pt sees
--- NOTE | 2018-09-22 11:12 | PT.OPDS ---
Current Diagnoses Low back pain (08/20/18) Provider Visit Care Team Role Provider Type Cesar Shaw MD Attending Provider Physician Family Provider Primary Care Provider Specialty: Internal Medicine Address: [address] [place] [address], [facility] Email: Visit Number Visit Number 26 Discharge Summary PT-OP-B Current Condition Start: 02/24/18 07:27 Freq: Status: Active Protocol: Document 02/24/18 09:49 [facility] (Rec: 02/24/18 16:20 [facility] [id number]) Current Condition History of Current Condition Onset Date About 1 year ago with worsening over past couple months Current Complaints LBP/SI pain History of Current Condition Pt had mild pain LBP about a year ago and it was much more occasional until a couple months ago then it started bothering hims mostly evenery evening especially after sitting on the couch. Reprots his shouder had been feeling better so he had stopped his old exercises. Reports he has stopped running d/t this pain. Prior Treatments and Tests PT that focused on shoulder with some core & LE exercises & Xray performed Treatment Goals Patient/Caregiver Goals Get back to normal activity without pain including running PT-OP-C Subjective Start: 02/24/18 07:27 Freq: Status: Active Protocol: Document 08/20/18 08:45 [facility] (Rec: 08/21/18 08:51 [facility] [id number]) OP-PT Subjective Patient Comments Patient Comments Pt reports he was doing very well and had no pain over the weekend for a few days. The past couple days pain is back at nights but he notes he has been in a lot of odd positions doing work on his kitchen. PT-OP-F Manual Assessment Start: 02/24/18 07:27 Freq: Status: Active Protocol: Document 04/21/18 10:02 [facility] (Rec: 04/21/18 08:52 [facility] [id number]) Manual Assessments Joint Mobility Assessment Joint Mobility Assessment R iliac crest elevated as compared to L PT-OP-G Mobility & Gait Start: 02/24/18 07:27 Freq: Status: Active Protocol: Document 04/21/18 10:02 [facility] (Rec: 04/21/18 08:52 [facility] [id number]) OP Gait Assessment Comments Gait Comments Continues to have dec pelvis motion for ant elevation & post depression B with overall propulsion with LEs vs pelvis PT-OP-J Posture/Palpation/Skin Start: 02/24/18 07:27 Freq: Status: Active Protocol: Document 07/02/18 08:05 [facility] (Rec: 07/02/18 10:30 [facility] [id number]) Posture Evaluation [facility] Postural Classification System Vertebral Compression Test 5 Elbow Flexion Test 5 Lumbar Protective Mechanism Left AP 2 Lumbar Protective Mechanism Right AP 1 Lumbar Protective Mechanism Left PA 2 Lumbar Protective Mechanism Right PA 3 PT-OP-K Range of Motion Start: 02/24/18 07:27 Freq: Status: Active Protocol: Document 02/24/18 09:49 [facility] (Rec: 02/24/18 10:30 [facility] [id number]) Lumbar Spine Range of Motion Lumbar Spine Active Degrees Flexion 60 Extension 25 Rotation Left 65 Rotation Right 58 Lateral Flexion Left 25 Lateral Flexion Right 25 PT-OP-L Special Tests Start: 02/24/18 07:27 Freq: Status: Active Protocol: Document 02/24/18 09:49 [facility] (Rec: 02/24/18 10:30 [facility] [id number]) Special Tests Lumbar Spine Special Tests Slump Test Results neg B Straight Leg Raise Test Results neg B PT-OP-M Strength Start: 02/24/18 07:27 Freq: Status: Active Protocol: Document 07/02/18 08:05 [facility] (Rec: 07/02/18 10:30 [facility] [id number]) Hip Strength Hip Manual Muscle Testing Right Flexion (L2) 5 Normal Extension (S1) 5 Normal Abduction 5 Normal External Rotation 5 Normal Internal Rotation 5 Normal Left Flexion (L2) 5 Normal Extension (S1) 5 Normal Abduction 4+ Good+ External Rotation 5 Normal Internal Rotation 5 Normal PT-OP-T Assessment and Plan Start: 02/24/18 07:27 Freq: Status: Active Protocol: Document 09/22/18 11:11 [facility] (Rec: 09/22/18 11:12 [facility] [id number]) Physical Therapy Plan Discharge Physical Therapy Discharge Reasons Goals Met Discharge Comments Pt has improved significantly with gait mechanics, posture & strength. Pain has dec significantly and he followed up with re:entire body pain . He is improving with his activity tolerance and indep with his HEP.
== END 2018-09-24 10:00 | disposition home or self-care (01) ==
LOC: PHYS 08:15
PROVIDERS: Family Provider Internal Medicine; PCP Internal Medicine; Visit Provider Internal Medicine
DX: M54.5 Low back pain (principal)
CPT/HCPCS: 97110; 97112; 97116; 97140; 97162; 97530; 97535

== ENCOUNTER → 2019-01-06 10:34 | Outpatient (CLI) | payer OTHER, SELFPAY ==
[2019-01-06 12:03] LABS: Add Manual Diff / Slide Review NO; Basophils Absolute Auto 100 /uL (0-100); Basophils Percent Auto 1.1 % (0-2); Eosinophils Absolute Auto 200 /uL (0-450); Eosinophils Percent Auto 3.5 % (2-4); Hematocrit 44.7 % (41-53); Hemoglobin 14.9 g/dL (13.5-17.5); Lymphocytes Absolute Auto 1800 /uL (1100-4500); Mean Corpuscular HGB Conc 33.3 % (30-36); Mean Corpuscular Hemoglobin 29.8 PG (26-34); Mean Corpuscular Volume 89.5 fL (80-100); Monocytes Absolute Auto 400 /uL (0-900); Monocytes Percent Auto 7.3 % (3-14); Neutrophils Absolute Auto 2800 /uL (1500-7000); Neutrophils Percent Auto 53.1 % (50-75); Platelet Count 266 X10^3/uL (150-400); Red Cell Distribution Width 13.2 % (11.6-14.8); White Blood Cell Count 5.2 X10^3/uL (4.5-11.0)
[2019-01-06 13:53] LABS: Alanine Aminotransferase 27 IU/L (21-72); Albumin 4.4 g/dL (3.5-5.0); Albumin Globulin Ratio 1.6 (1.0-2.8); Alkaline Phosphatase 64 U/L (38-126); Aspartate Aminotransferase 35 IU/L (17-59); BUN Creatinine Ratio 26.3 (6-22); Bilirubin Total 0.7 mg/dL (0.2-1.3); Blood Urea Nitrogen 21 mg/dL (9-20); Calcium 9.5 mg/dL (8.4-10.2); Carbon Dioxide 30 mmol/L (22-32); Chloride 105 mmol/L (98-107); Cholesterol 181 mg/dL (140-199); Estimated Glomerular Filt Rate > 60.0 mL/min (>60); Globulin 2.8 g/dL (1.7-4.1); Glucose 88 mg/dL (80-110); HDL Cholesterol 42 mg/dL (40-60); HEMOLYSIS < 15 (0-50); LDL Cholesterol Calculated 124 mg/dL (<100); Potassium 4.5 mmol/L (3.4-5.1); Sodium 141 mmol/L (137-145); Total Protein 7.2 g/dL (6.3-8.2); Triglycerides 76 mg/dL (35-150)
[2019-01-06 14:24] LABS: Prostate Specific Antigen Scrn 2.74 ng/mL (0.1-4.0)
== END ==
PROVIDERS: PCP Internal Medicine; Visit Provider Internal Medicine
DX: I10 Essential (primary) hypertension (principal); I47.1 Supraventricular tachycardia; E78.00 Pure hypercholesterolemia, unspecified; Z00.01 Encounter for general adult medical examination with abnormal findings
CPT/HCPCS: 36415; 80053; 80061; 85025; G0103

== ENCOUNTER → 2020-02-05 07:33 | Outpatient (CLI) | payer MEDICARE, SELFPAY ==
--- NOTE | 2020-02-05 | DI.MRI.S_ITS ---
PROCEDURE: MR LUMBAR SPINE WO CON INDICATIONS: Spinal stenosis, lumbar region with neurogenic cla TECHNIQUE: Noncontrast sagittal T1 spin echo and T2 fast echo, coronal T2, sagittal STIR, axial T1 and T2 fast spin echo through the lumbar spine. COMPARISON: [facility], CR, XR LUMBAR SPINE WITH OBLIQUES, 08/01/2018, 11:09. FINDINGS: Image quality: Excellent. Alignment and Curvature: 5 lumbar type vertebral bodies are present by plain film. Mild diffuse leftward curvature of the lumbar spine. Mild grade 1 retrolisthesis of L1 on L2 and L3 on L4. Mild grade 1 anterolisthesis L4 on L5. Bone Marrow: Marrow is of normal overall signal. No acute vertebral body compression fractures. Mild reactive signal within the endplates adjacent to the L1-L2, L3-L4, and L4-L5 intervertebral discs. Spinal Cord: Conus medullaris terminates at the upper L2 level. Visualized cord demonstrates normal signal and size. Paraspinous Soft Tissues: No paravertebral masses. Left renal cysts are present. L1-L2: Moderate disc height loss and desiccation. Mild diffuse disc bulge. Mild facet and ligamentum flavum hypertrophy. Mild epidural mitosis. Mild canal stenosis. Mild bilateral foraminal stenosis. L2-L3: Mild diffuse disc bulge. Mild facet and ligamentum flavum hypertrophy. Mild epidural lipomatosis. Mild canal stenosis. Mild bilateral foraminal stenosis. L3-L4: Mild disc desiccation and diffuse disc bulge with small superimposed left posterolateral protrusion. Mild facet and ligamentum flavum hypertrophy. Mild epidural lipomatosis. Mild canal stenosis. Mild left greater than right foraminal stenosis. L4-L5: Moderate disc height loss and desiccation. Moderate diffuse disc bulge. Moderate facet and ligamentum flavum hypertrophy. A periarticular cyst arises from the right facet joint, measuring 15 mm anteroposterior by 14 mm craniocaudal by 13 mm transverse, and protrudes into the right medial neural foramen and right lateral recess. There is severe canal stenosis. There is moderate left and severe right foraminal stenosis. Right L4 and L5 nerve root compression. L5-S1: Mild diffuse disc bulge. Mild bilateral facet and ligamentum flavum hypertrophy. Mild canal stenosis. Mild bilateral foraminal stenosis. IMPRESSION: 1. Multilevel degenerative disc and facet disease, as well as ligamentum flavum hypertrophy and epidural lipomatosis. 2. Periarticular cyst on the right at L4-L5. 3. Multilevel canal stenosis, worst at L4-L5, where there is severe canal stenosis. 4. Multilevel foraminal stenoses, worst on the right at L4-L5 where there is associated L4 nerve root compression. 5. Right lateral recess stenosis at L4-L5, causing right L5 nerve root compression. 6. Recommend correlation with clinical symptoms to ascertain relevance of these findings. Dictated by: Zeinab Reddy M.D. on 02/05/2020 at 11:16 Approved by: Zeinab Reddy M.D. on 02/05/2020 at 11:25
== END ==
PROVIDERS: PCP Internal Medicine; Referring Provider Internal Medicine; Visit Provider Internal Medicine
DX: M48.062 Spinal stenosis, lumbar region with neurogenic claudication (principal); M48.07 Spinal stenosis, lumbosacral region; M51.36 Other intervertebral disc degeneration, lumbar region; M51.37 Other intervertebral disc degeneration, lumbosacral region; M53.86 Other specified dorsopathies, lumbar region; E88.2 Lipomatosis, not elsewhere classified
CPT/HCPCS: 72148

== ENCOUNTER → 2020-02-23 09:10 | Outpatient (CLI) | payer MEDICARE, OTHER, SELFPAY ==
--- NOTE | 2020-02-23 | DI.US.S_ITS ---
PROCEDURE: US ABD AORTA ANEURYSM SCREEN INDICATIONS: SCREENING FOR ABDOMINAL AORTIC ANERUSYM TECHNIQUE: Real time scanning was performed of the aorta and iliac arteries, with image documentation. COMPARISON: None. FINDINGS: Aorta: Proximal aortic is not well seen and the diameter measures 2.4 cm. Mid-aorta measures 1.9 x 1.9 cm. Distal aortic diameter is 0.8 x 2 cm. Iliac arteries: Right common iliac artery measures 0.2 x 1.3 cm. Left common iliac artery measures 1.1 x 1.3 cm. IMPRESSION: Negative for aneurysm. Dictated by: Bora May M.D. on 02/23/2020 at 10:33 Approved by: Bora May M.D. on 02/23/2020 at 10:34
[2020-02-23 10:43] LABS: Alanine Aminotransferase 30 IU/L (<50); Albumin 4.3 g/dL (3.5-5.0); Albumin Globulin Ratio 1.7 (1.0-2.8); Alkaline Phosphatase 65 U/L (38-126); Aspartate Aminotransferase 38 IU/L (17-59); BUN Creatinine Ratio 24.2 (6-22); Bilirubin Total 0.5 mg/dL (0.2-1.3); Blood Urea Nitrogen 16 mg/dL (9-20); Calcium 9.2 mg/dL (8.4-10.2); Carbon Dioxide 27 mmol/L (22-32); Chloride 107 mmol/L (98-107); Cholesterol 159 mg/dL (140-199); Estimated Glomerular Filt Rate > 60.0 mL/min (>60); Globulin 2.6 g/dL (1.7-4.1); Glucose 95 mg/dL (80-110); HDL Cholesterol 40 mg/dL (40-60); HEMOLYSIS < 15 (0-50); LDL Cholesterol Calculated 101 mg/dL (<100); Potassium 4.3 mmol/L (3.4-5.1); Sodium 140 mmol/L (137-145); Total Protein 6.9 g/dL (6.3-8.2); Triglycerides 91 mg/dL (35-150)
[2020-02-23 11:28] LABS: Hep C Virus Ab w/Reflex Quant NEGATIVE s/c (NEGATIVE)
[2020-02-23 11:35] LABS: Add Manual Diff / Slide Review NO; Basophils Absolute Auto 0 /uL (0-100); Basophils Percent Auto 0.8 % (0-2); Eosinophils Absolute Auto 200 /uL (0-450); Eosinophils Percent Auto 3.3 % (2-4); Hematocrit 43.6 % (41-53); Hemoglobin 14.8 g/dL (13.5-17.5); Lymphocytes Absolute Auto 1900 /uL (1100-4500); Lymphocytes Percent Auto 30.4 % (25-40); Mean Corpuscular HGB Conc 33.9 % (30-36); Mean Corpuscular Hemoglobin 30.3 PG (26-34); Mean Corpuscular Volume 89.4 fL (80-100); Monocytes Absolute Auto 400 /uL (0-900); Monocytes Percent Auto 6.3 % (3-14); Neutrophils Absolute Auto 3600 /uL (1500-7000); Neutrophils Percent Auto 59.2 % (50-75); Platelet Count 230 X10^3/uL (150-400); Red Blood Cell Count 4.88 X10^6/uL (4.5-5.9); Red Cell Distribution Width 12.9 % (11.6-14.8); White Blood Cell Count 6.1 X10^3/uL (4.5-11.0)
== END ==
PROVIDERS: PCP Internal Medicine; Referring Provider Internal Medicine; Visit Provider Internal Medicine
DX: Z00.00 Encounter for general adult medical examination without abnormal findings (principal); Z13.6 Encounter for screening for cardiovascular disorders; I10 Essential (primary) hypertension; I47.1 Supraventricular tachycardia; E78.00 Pure hypercholesterolemia, unspecified
CPT/HCPCS: 36415; 76706; 80053; 80061; 84153; 85025; 86803

== ENCOUNTER 2020-06-06 09:00 | Outpatient (RCR) | payer MEDICARE, SELFPAY ==
--- NOTE | 2020-04-04 17:27 | PT.OIE ---
Current Diagnoses Spinal stenosis, lumbar region with neurogenic claudication (04/04/20) Low back pain (04/04/20) Difficulty in walking, not elsewhere classified (04/04/20) Abnormal posture (04/04/20) Weakness (04/04/20) Visit Care Team Role Provider Type Cesar Shaw MD Attending Provider Physician Primary Care Provider Referring Provider Specialty: Internal Medicine Address: [address] [place] [address], [facility] Email: [email or web address] [facility] Initial Evaluation PT-OP-A Visit Information Start: 04/04/20 09:06 Freq: Status: Active Protocol: Document 04/04/20 09:06 [facility] (Rec: 04/04/20 09:48 [facility] [id number]) Out-Patient Physical Therapy Visit Information Visit Information Visit Type Initial Evaluation Visit Note 06/19 Visit Start Time 09:03 Visit Stop Time 09:45 Total Visit Minutes 42 Visit Number 1 Number of STACKER OPERATOR Visits 0 PT-OP-B Current Condition Start: 04/04/20 09:06 Freq: Status: Active Protocol: Document 04/04/20 09:06 [facility] (Rec: 04/04/20 09:48 [facility] [id number]) Current Condition History of Current Condition Onset Date summer Current Complaints R LBP w/R LE pain History of Current Condition Pt reports back pain was better and was back to running after last PT. Pt reports he fully retired in Jul and was doing a lot of house and yard work and running and walking and would stop running to see if that made a difference. Pt reprots this summer, his R leg would hurt all the way down it and would limit his ability to even walk on it. By the time he got in to see his PCP, he had stopped all activity and it had started to go away. Pt reprots it was bad for aobut 8 weeks. Had MRI that showed some impingement at L4. Pt was referred to neurologist to possibly do surgical interventions but has not gone tothat appt as he hasn't as much issue. He was able to walk a couple miles yesterday. Afraid that if does anything strenuous that painw ould get worse. Some movements do bring on the back pain. Pt reports its been about 6 weeks since he had leg pain. Has not done much exerting at all. R quad and glutes would feel really tight and sore Prior Treatments and Tests MRI: MPRESSION: 1. Multilevel degenerative disc and facet disease, as well as ligamentum flavum hypertrophy and epidural lipomatosis. 2. Periarticular cyst on the right at L4-L5. 3. Multilevel canal stenosis, worst at L4-L5, where there is severe canal stenosis. 4. Multilevel foraminal stenoses, worst on the right at L4-L5 where there is associated L4 nerve root compression. 5. Right lateral recess stenosis at L4-L5, causing right L5 nerve root compression. 6. Recommend correlation with clinical symptoms to ascertain relevance of these findings. Past PT has helped LBP Future Testing and Treatments Planned possibly seeing neurologist Treatment Goals Patient/Caregiver Goals review exercises from past PT PT-OP-C Subjective Start: 04/04/20 09:06 Freq: Status: Active Protocol: Document 04/04/20 09:06 [facility] (Rec: 04/04/20 09:48 [facility] [id number]) Patient Questionnaires Oswestry Low Back Index Oswestry Score 3/50 Oswestry Impairment 1 to 19% Impaired (Score 1-19) OP-PT Pain Assessment Location Right Back Pain Location Details R LBP Intensity 4 Scale Used Numeric (0 - 10) Description Aching,Sharp Description- Other recent back pain only not pain when went down RLE Radiating Location R leg pain Variations/Patterns weird sensations like bugs crawling on leg but not since summer Other Pain Aggravating Factors bridge /august, lifting RLE Into bed Other Pain Alleviating Factors keeping moving PT-OP-D Balance Start: 04/04/20 09:06 Freq: Status: Active Protocol: Document 04/04/20 09:06 [facility] (Rec: 04/04/20 09:48 [facility] [id number]) Balance Tests Single Limb Standing Single Limb- Right lat leaning & deviation significant >30 sec Single Limb- Left >30 sec PT-OP-F Manual Assessment Start: 04/04/20 09:06 Freq: Status: Active Protocol: Document 04/04/20 09:06 [facility] (Rec: 04/04/20 09:48 [facility] [id number]) Manual Assessments Joint Mobility Assessment Joint Mobility Assessment R iliac crest higher, greater troch equal PT-OP-G Mobility & Gait Start: 04/04/20 09:06 Freq: Status: Active Protocol: Document 04/04/20 09:06 [facility] (Rec: 04/04/20 09:48 [facility] [id number]) OP Gait Assessment Comments Gait Comments dec wt acceptance and push off on R, lat leaning duirng gait PT-OP-J Posture/Palpation/Skin Start: 04/04/20 09:06 Freq: Status: Active Protocol: Document 04/04/20 09:06 [facility] (Rec: 04/04/20 09:48 [facility] [id number]) Posture Evaluation Abdi Postural Classification System Abdi Postural Classifications Posterior/Anterior Vertebral Compression Test 3 Lumbar Protective Mechanism Left AP 3 Lumbar Protective Mechanism Right AP 1 Lumbar Protective Mechanism Left PA 3 Lumbar Protective Mechanism Right PA 1 Leg Swing Right Hard End Feel,Limited PT-OP-K Range of Motion Start: 04/04/20 09:06 Freq: Status: Active Protocol: Document 04/04/20 09:06 [facility] (Rec: 04/04/20 09:48 [facility] [id number]) Lumbar Spine Range of Motion Lumbar Spine Active Degrees Flexion 43 Extension 24 Rotation Left 65 Rotation Right 70 Lateral Flexion Left 30 Lateral Flexion Right 27 PT-OP-L Special Tests Start: 04/04/20 09:06 Freq: Status: Active Protocol: Document 04/04/20 09:06 [facility] (Rec: 04/04/20 09:48 [facility] [id number]) Special Tests Lumbar Spine Special Tests Slump Test Results neg B Straight Leg Raise Test Results 80 deg B-some sensation into buttocks B PT-OP-M Strength Start: 04/04/20 09:06 Freq: Status: Active Protocol: Document 04/04/20 09:06 [facility] (Rec: 04/04/20 09:48 [facility] [id number]) Hip Strength Hip Manual Muscle Testing Left Flexion (L2) 4- Good- Extension (S1) 4- Good- Abduction 4+ Good+ External Rotation 4+ Good+ Internal Rotation 5 Normal Right Flexion (L2) 4- Good- Extension (S1) 3+ Fair+ Abduction 4- Good- External Rotation 4- Good- Internal Rotation 5 Normal Knee Strength Knee Manual Muscle Testing Right Flexion (S2) 5 Normal Extension (L3) 5 Normal Left Flexion (S2) 5 Normal Extension (L3) 5 Normal Ankle/Foot Strength Ankle and Foot Manual Muscle Testing Right Dorsiflexion (L4) 5 Normal Plantarflexion (S1) 5 Normal Left Dorsiflexion (L4) 5 Normal Plantarflexion (S1) 5 Normal PT-OP-Q Treatments Start: 04/04/20 09:06 Freq: Status: Active Protocol: Document 04/04/20 09:06 [facility] (Rec: 04/04/20 09:48 [facility] [id number]) Self-Care/Home Management Treatment Education Other Education avoid exerises that cause pain , inc gradually yard work and start to gradually inc walks PT-OP-T Assessment and Plan Start: 04/04/20 09:06 Freq: Status: Active Protocol: Document 04/04/20 09:06 [facility] (Rec: 04/04/20 09:48 [facility] [id number]) Physical Therapy Assessment Rehab Potential Rehabilitation Potential Good Evaluation Complexity Number of Personal Factors/Comorbidities 1-2 Number of Body Systems Impaired 4 or More Clinical Presentation at Evaluation Stable Impairments Impairments Activity Tolerance,Balance, Functional Activities, Functional Mobility,Gait,Pain, Posture,ROM,Soft Tissue Mobility,Strength Goals Two Short Term Goal (STG) Pt will be able to walk 5 miles without inc pain. STG Duration 05/05/20 Cert Pharmacy Tech Goal (LTG) Pt will be able to return to running without inc pain in LB or leg with good running form . LTG Duration 06/04/20 One Impairment strength Short Term Goal (STG) Pt will be indep with HEP STG Duration 05/05/20 Penitentiary Goal (LTG) Pt will score 5/5 LE strength and LPM 3/5 in all planes to show improved core cotnrol so pt is able to return to his typical activities without pain. LTG Duration 06/04/20 Assessment Summary Assessment Pt presents after flare up of chronic back pain with worsening of condition over the summer w/RLE pain that prevented him from WB. Pt had MRI that showed stenosis & impingment of L4 and L5 n roots. D/t amount of time it took to see PCP then get into PT, pt is no longer having RLE pain but has not returned to typical yard work, housework, long walks or runs. He would benefit from skilled PT to work on core control, posture, LE strength, gait mechanics and dec back pain to allow for full return to activities withotu pain. Physical Therapy Plan Frequency and Duration Frequency of Treatment 1-2x/week Duration of Treatment 2 months Plan of Care Start Date 04/04/20 Plan of Care End Date 06/04/20 Therapeutic Interventions Therapeutic Interventions Aquatic Therapy,Balance Training,Gait Training,Home Exercise Program,Joint Mobilizations,Manual Therapy, Neuromuscular Re-education Modalities Cold Pack/Ice Massage,Electric Stimulation,Hot Packs, Traction- Mechanical, Ultrasound Next Visit Focus/Plan Next Note Type Treatment Note Next Visit Plan review old HEP and determine what is best for pt to cont, work on core & LE strengthening along w/posture & gait
--- NOTE | 2020-04-04 17:27 | PT.OPPOC ---
Physical, Occupational & Speech Therapy At [facility] Current Diagnoses Spinal stenosis, lumbar region with neurogenic claudication (04/04/20) Low back pain (04/04/20) Difficulty in walking, not elsewhere classified (04/04/20) Abnormal posture (04/04/20) Weakness (04/04/20) Visit Care Team Role Provider Type Cesar Shaw MD Attending Provider Physician Primary Care Provider Referring Provider Specialty: Internal Medicine Address: [address] [place] [address], [facility] Email: [email or web address] Plan Of Care PT-OP-T Assessment and Plan Start: 04/04/20 09:06 Freq: Status: Active Protocol: Document 04/04/20 09:06 [facility] (Rec: 04/04/20 09:48 [facility] [id number]) Physical Therapy Assessment Rehab Potential Rehabilitation Potential Good Evaluation Complexity Number of Personal Factors/Comorbidities 1-2 Number of Body Systems Impaired 4 or More Clinical Presentation at Evaluation Stable Impairments Impairments Activity Tolerance,Balance, Functional Activities, Functional Mobility,Gait,Pain, Posture,ROM,Soft Tissue Mobility,Strength Goals Two Short Term Goal (STG) Pt will be able to walk 5 miles without inc pain. STG Duration 05/05/20 Marking Room Supervisor Goal (LTG) Pt will be able to return to running without inc pain in LB or leg with good running form . LTG Duration 06/04/20 One Impairment strength Short Term Goal (STG) Pt will be indep with HEP STG Duration 05/05/20 Retirement Goal (LTG) Pt will score 5/5 LE strength and LPM 3/5 in all planes to show improved core cotnrol so pt is able to return to his typical activities without pain. LTG Duration 06/04/20 Assessment Summary Assessment Pt presents after flare up of chronic back pain with worsening of condition over the summer w/RLE pain that prevented him from WB. Pt had MRI that showed stenosis & impingment of L4 and L5 n roots. D/t amount of time it took to see PCP then get into PT, pt is no longer having RLE pain but has not returned to typical yard work, housework, long walks or runs. He would benefit from skilled PT to work on core control, posture, LE strength, gait mechanics and dec back pain to allow for full return to activities withotu pain. Physical Therapy Plan Frequency and Duration Frequency of Treatment 1-2x/week Duration of Treatment 2 months Plan of Care Start Date 04/04/20 Plan of Care End Date 06/04/20 Therapeutic Interventions Therapeutic Interventions Aquatic Therapy,Balance Training,Gait Training,Home Exercise Program,Joint Mobilizations,Manual Therapy, Neuromuscular Re-education Modalities Cold Pack/Ice Massage,Electric Stimulation,Hot Packs, Traction- Mechanical, Ultrasound Next Visit Focus/Plan Next Note Type Treatment Note Next Visit Plan review old HEP and determine what is best for pt to cont, work on core & LE strengthening along w/posture & gait Plan of Care Dates Plan of Care Start Date 04/04/20 Plan of Care End Date 06/04/20 Electronically Signed by: Akua Rodriguez, PT 04/04/20 [id number] Please Sign and Return: I have reviewed this Plan of Care and certify that the skilled therapy services above are required to meet the patient?s needs. Physician Signature Date Printed Name and Credentials Clinical Instructor Signature Printed Name and Credentials
--- NOTE | 2020-04-06 09:50 | PT.OTN ---
Current Diagnoses Spinal stenosis, lumbar region with neurogenic claudication (04/06/20) Low back pain (04/06/20) Difficulty in walking, not elsewhere classified (04/06/20) Abnormal posture (04/06/20) Weakness (04/06/20) Physical Therapy Treatment Note PT-OP-A Visit Information Start: 04/04/20 09:06 Freq: Status: Active Protocol: Document 04/06/20 09:09 [facility] (Rec: 04/06/20 09:49 [facility] [id number]) Out-Patient Physical Therapy Visit Information Visit Information Visit Type Treatment Note Visit Note 07/20 Visit Start Time 09:04 Visit Stop Time 09:44 Total Visit Minutes 40 Visit Number 2 Number of BANQUET CAPTAIN Visits 0 PT-OP-B Current Condition Start: 04/04/20 09:06 Freq: Status: Active Protocol: Document 04/04/20 09:06 [facility] (Rec: 04/04/20 09:48 [facility] [id number]) Current Condition History of Current Condition Onset Date summer Current Complaints R LBP w/R LE pain History of Current Condition Pt reports back pain was better and was back to running after last PT. Pt reports he fully retired in Jul and was doing a lot of house and yard work and running and walking and would stop running to see if that made a difference. Pt reprots this summer, his R leg would hurt all the way down it and would limit his ability to even walk on it. By the time he got in to see his PCP, he had stopped all activity and it had started to go away. Pt reprots it was bad for aobut 8 weeks. Had MRI that showed some impingement at L4. Pt was referred to neurologist to possibly do surgical interventions but has not gone tothat appt as he hasn't as much issue. He was able to walk a couple miles yesterday. Afraid that if does anything strenuous that painw ould get worse. Some movements do bring on the back pain. Pt reports its been about 6 weeks since he had leg pain. Has not done much exerting at all. R quad and glutes would feel really tight and sore Prior Treatments and Tests MRI: MPRESSION: 1. Multilevel degenerative disc and facet disease, as well as ligamentum flavum hypertrophy and epidural lipomatosis. 2. Periarticular cyst on the right at L4-L5. 3. Multilevel canal stenosis, worst at L4-L5, where there is severe canal stenosis. 4. Multilevel foraminal stenoses, worst on the right at L4-L5 where there is associated L4 nerve root compression. 5. Right lateral recess stenosis at L4-L5, causing right L5 nerve root compression. 6. Recommend correlation with clinical symptoms to ascertain relevance of these findings. Past PT has helped LBP Future Testing and Treatments Planned possibly seeing neurologist Treatment Goals Patient/Caregiver Goals review exercises from past PT PT-OP-C Subjective Start: 04/04/20 09:06 Freq: Status: Active Protocol: Document 04/06/20 09:09 [facility] (Rec: 04/06/20 09:49 [facility] [id number]) OP-PT Subjective Patient Comments Patient Comments Pt reports he walked 3-4 miles and feels a little soreness in R side. PT-OP-D Balance Start: 04/04/20 09:06 Freq: Status: Active Protocol: Document 04/04/20 09:06 [facility] (Rec: 04/04/20 09:48 [facility] [id number]) Balance Tests Single Limb Standing Single Limb- Right lat leaning & deviation significant >30 sec Single Limb- Left >30 sec PT-OP-F Manual Assessment Start: 04/04/20 09:06 Freq: Status: Active Protocol: Document 04/04/20 09:06 [facility] (Rec: 04/04/20 09:48 [facility] [id number]) Manual Assessments Joint Mobility Assessment Joint Mobility Assessment R iliac crest higher, greater troch equal PT-OP-G Mobility & Gait Start: 04/04/20 09:06 Freq: Status: Active Protocol: Document 04/04/20 09:06 [facility] (Rec: 04/04/20 09:48 [facility] [id number]) OP Gait Assessment Comments Gait Comments dec wt acceptance and push off on R, lat leaning duirng gait PT-OP-J Posture/Palpation/Skin Start: 04/04/20 09:06 Freq: Status: Active Protocol: Document 04/04/20 09:06 [facility] (Rec: 04/04/20 09:48 [facility] [id number]) Posture Evaluation Abdi Postural Classification System Abdi Postural Classifications Posterior/Anterior Vertebral Compression Test 3 Lumbar Protective Mechanism Left AP 3 Lumbar Protective Mechanism Right AP 1 Lumbar Protective Mechanism Left PA 3 Lumbar Protective Mechanism Right PA 1 Leg Swing Right Hard End Feel,Limited PT-OP-K Range of Motion Start: 04/04/20 09:06 Freq: Status: Active Protocol: Document 04/04/20 09:06 [facility] (Rec: 04/04/20 09:48 [facility] [id number]) Lumbar Spine Range of Motion Lumbar Spine Active Degrees Flexion 43 Extension 24 Rotation Left 65 Rotation Right 70 Lateral Flexion Left 30 Lateral Flexion Right 27 PT-OP-L Special Tests Start: 04/04/20 09:06 Freq: Status: Active Protocol: Document 04/04/20 09:06 [facility] (Rec: 04/04/20 09:48 [facility] [id number]) Special Tests Lumbar Spine Special Tests Slump Test Results neg B Straight Leg Raise Test Results 80 deg B-some sensation into buttocks B PT-OP-M Strength Start: 04/04/20 09:06 Freq: Status: Active Protocol: Document 04/04/20 09:06 [facility] (Rec: 04/04/20 09:48 [facility] [id number]) Hip Strength Hip Manual Muscle Testing Left Flexion (L2) 4- Good- Extension (S1) 4- Good- Abduction 4+ Good+ External Rotation 4+ Good+ Internal Rotation 5 Normal Right Flexion (L2) 4- Good- Extension (S1) 3+ Fair+ Abduction 4- Good- External Rotation 4- Good- Internal Rotation 5 Normal Knee Strength Knee Manual Muscle Testing Right Flexion (S2) 5 Normal Extension (L3) 5 Normal Left Flexion (S2) 5 Normal Extension (L3) 5 Normal Ankle/Foot Strength Ankle and Foot Manual Muscle Testing Right Dorsiflexion (L4) 5 Normal Plantarflexion (S1) 5 Normal Left Dorsiflexion (L4) 5 Normal Plantarflexion (S1) 5 Normal PT-OP-Q Treatments Start: 04/04/20 09:06 Freq: Status: Active Protocol: Document 04/06/20 09:09 [facility] (Rec: 04/06/20 09:49 [facility] [id number]) Therapeutic Exercises Supine Exercises 4 Supine Exercise Name bridge w/ march Side bilateral Reps/Minutes 8 Comments core focus 3 Supine Exercise Name core series: flex & diagonal Side bilateral Reps/Minutes 15 sec 2 Supine Exercise Name alt leg ext -core focus Side bilateral Reps/Minutes 2x8 Sidelying Exercises 2 Sidelying Exercise Name roll & reach Side right Reps/Minutes 2 Standing Exercises 7 Standing Exercise Name gait at wall Side bilateral Reps/Minutes 10 sec x2 6 Standing Exercise Name lunges Side bilateral Reps/Minutes 6 5 Standing Exercise Name squats Side bilateral Reps/Minutes 8 4 Standing Exercise Name hip hikes Side bilateral Reps/Minutes 2x8 Other Exercises 2 Other Exercise Name brird dog Side bilateral Reps/Minutes 2x8 Comments focus on no lat leaning 1 Other Exercise Name 1/2 kneel hip flexor stretch Side bilateral Reps/Minutes 30 sec Gait Training Gait Activity wt shift Description in mirror focus of fwd shift Resisted gait Description w/dowel Comments 2x50ft Neuro Re-Education Treatment Other Activities 2 Details post depression R Comments 1. rhythmic initiation 2. sustained isometrics PT-OP-T Assessment and Plan Start: 04/04/20 09:06 Freq: Status: Active Protocol: Document 04/06/20 09:09 [facility] (Rec: 04/06/20 09:49 [facility] [id number]) Physical Therapy Assessment Goals Three Impairment strength Short Term Goal (STG) Indep with HEP STG Duration achieved-progressing as needed Fdc Goal (LTG) 5/5 LE strength B & with LPM & VCT to allow pt to return to normal activity LTG Duration 08/19/18-improved LE strength, VCT- LPM dec Two Short Term Goal (STG) Pt will be able to walk 5 miles without inc pain. STG Duration 05/05/20 Fdc Goal (LTG) Pt will be able to return to running without inc pain in LB or leg with good running form . LTG Duration 06/04/20 One Impairment strength Short Term Goal (STG) Pt will be indep with HEP STG Duration 05/05/20 Fdc Goal (LTG) Pt will score 5/5 LE strength and LPM 3/5 in all planes to show improved core cotnrol so pt is able to return to his typical activities without pain. LTG Duration 06/04/20 Assessment Summary Assessment Pt able to improve wt shift after cueing and use of mirror . After hip hikes, had better understanding of wt acceptance . He did well with exercises from past PT but did require some cuieng for correct for with these exercises Physical Therapy Plan Frequency and Duration Frequency of Treatment 1-2x/week Duration of Treatment 2 months Plan of Care Start Date 04/04/20 Plan of Care End Date 06/04/20 Next Visit Focus/Plan Next Note Type Treatment Note Next Visit Plan gait, posture, PNF
--- NOTE | 2020-04-12 16:02 | PT.OTN ---
Current Diagnoses Spinal stenosis, lumbar region with neurogenic claudication (04/12/20) Low back pain (04/12/20) Difficulty in walking, not elsewhere classified (04/12/20) Abnormal posture (04/12/20) Weakness (04/12/20) Physical Therapy Treatment Note PT-OP-A Visit Information Start: 04/04/20 09:06 Freq: Status: Active Protocol: Document 04/12/20 15:16 [facility] (Rec: 04/12/20 16:02 [facility] [id number]) Out-Patient Physical Therapy Visit Information Visit Information Visit Type Treatment Note Visit Note 08/17 Visit Start Time 15:16 Visit Stop Time 16:00 Total Visit Minutes 44 Visit Number 3 Number of INFORMATICS PHARMACIST Visits 0 PT-OP-B Current Condition Start: 04/04/20 09:06 Freq: Status: Active Protocol: Document 04/04/20 09:06 [facility] (Rec: 04/04/20 09:48 [facility] [id number]) Current Condition History of Current Condition Onset Date summer Current Complaints R LBP w/R LE pain History of Current Condition Pt reports back pain was better and was back to running after last PT. Pt reports he fully retired in Jul and was doing a lot of house and yard work and running and walking and would stop running to see if that made a difference. Pt reprots this summer, his R leg would hurt all the way down it and would limit his ability to even walk on it. By the time he got in to see his PCP, he had stopped all activity and it had started to go away. Pt reprots it was bad for aobut 8 weeks. Had MRI that showed some impingement at L4. Pt was referred to neurologist to possibly do surgical interventions but has not gone tothat appt as he hasn't as much issue. He was able to walk a couple miles yesterday. Afraid that if does anything strenuous that painw ould get worse. Some movements do bring on the back pain. Pt reports its been about 6 weeks since he had leg pain. Has not done much exerting at all. R quad and glutes would feel really tight and sore Prior Treatments and Tests MRI: MPRESSION: 1. Multilevel degenerative disc and facet disease, as well as ligamentum flavum hypertrophy and epidural lipomatosis. 2. Periarticular cyst on the right at L4-L5. 3. Multilevel canal stenosis, worst at L4-L5, where there is severe canal stenosis. 4. Multilevel foraminal stenoses, worst on the right at L4-L5 where there is associated L4 nerve root compression. 5. Right lateral recess stenosis at L4-L5, causing right L5 nerve root compression. 6. Recommend correlation with clinical symptoms to ascertain relevance of these findings. Past PT has helped LBP Future Testing and Treatments Planned possibly seeing neurologist Treatment Goals Patient/Caregiver Goals review exercises from past PT PT-OP-C Subjective Start: 04/04/20 09:06 Freq: Status: Active Protocol: Document 04/12/20 15:16 [facility] (Rec: 04/12/20 16:02 [facility] [id number]) OP-PT Subjective Patient Comments Patient Comments Pt reports doing some walks and hikes ithout issue PT-OP-D Balance Start: 04/04/20 09:06 Freq: Status: Active Protocol: Document 04/04/20 09:06 [facility] (Rec: 04/04/20 09:48 [facility] [id number]) Balance Tests Single Limb Standing Single Limb- Right lat leaning & deviation significant >30 sec Single Limb- Left >30 sec PT-OP-F Manual Assessment Start: 04/04/20 09:06 Freq: Status: Active Protocol: Document 04/04/20 09:06 [facility] (Rec: 04/04/20 09:48 [facility] [id number]) Manual Assessments Joint Mobility Assessment Joint Mobility Assessment R iliac crest higher, greater troch equal PT-OP-G Mobility & Gait Start: 04/04/20 09:06 Freq: Status: Active Protocol: Document 04/04/20 09:06 [facility] (Rec: 04/04/20 09:48 [facility] [id number]) OP Gait Assessment Comments Gait Comments dec wt acceptance and push off on R, lat leaning duirng gait PT-OP-J Posture/Palpation/Skin Start: 04/04/20 09:06 Freq: Status: Active Protocol: Document 04/04/20 09:06 [facility] (Rec: 04/04/20 09:48 [facility] [id number]) Posture Evaluation Abdi Postural Classification System Abdi Postural Classifications Posterior/Anterior Vertebral Compression Test 3 Lumbar Protective Mechanism Left AP 3 Lumbar Protective Mechanism Right AP 1 Lumbar Protective Mechanism Left PA 3 Lumbar Protective Mechanism Right PA 1 Leg Swing Right Hard End Feel,Limited PT-OP-K Range of Motion Start: 04/04/20 09:06 Freq: Status: Active Protocol: Document 04/04/20 09:06 [facility] (Rec: 04/04/20 09:48 [facility] [id number]) Lumbar Spine Range of Motion Lumbar Spine Active Degrees Flexion 43 Extension 24 Rotation Left 65 Rotation Right 70 Lateral Flexion Left 30 Lateral Flexion Right 27 PT-OP-L Special Tests Start: 04/04/20 09:06 Freq: Status: Active Protocol: Document 04/04/20 09:06 [facility] (Rec: 04/04/20 09:48 [facility] [id number]) Special Tests Lumbar Spine Special Tests Slump Test Results neg B Straight Leg Raise Test Results 80 deg B-some sensation into buttocks B PT-OP-M Strength Start: 04/04/20 09:06 Freq: Status: Active Protocol: Document 04/04/20 09:06 [facility] (Rec: 04/04/20 09:48 [facility] [id number]) Hip Strength Hip Manual Muscle Testing Left Flexion (L2) 4- Good- Extension (S1) 4- Good- Abduction 4+ Good+ External Rotation 4+ Good+ Internal Rotation 5 Normal Right Flexion (L2) 4- Good- Extension (S1) 3+ Fair+ Abduction 4- Good- External Rotation 4- Good- Internal Rotation 5 Normal Knee Strength Knee Manual Muscle Testing Right Flexion (S2) 5 Normal Extension (L3) 5 Normal Left Flexion (S2) 5 Normal Extension (L3) 5 Normal Ankle/Foot Strength Ankle and Foot Manual Muscle Testing Right Dorsiflexion (L4) 5 Normal Plantarflexion (S1) 5 Normal Left Dorsiflexion (L4) 5 Normal Plantarflexion (S1) 5 Normal PT-OP-Q Treatments Start: 04/04/20 09:06 Freq: Status: Active Protocol: Document 04/12/20 15:16 [facility] (Rec: 04/12/20 16:02 [facility] [id number]) Therapeutic Exercises Supine Exercises 3 Supine Exercise Name core series: flex & diagonal Side bilateral Reps/Minutes 15 sec 2 Supine Exercise Name alt leg ext -core focus Side bilateral Reps/Minutes 2x8 Standing Exercises 7 Standing Exercise Name gait at wall Side bilateral Reps/Minutes 10 sec x2 4 Standing Exercise Name hip hikes Side bilateral Reps/Minutes 2x8 3 Standing Exercise Name wall posture Reps/Minutes 2x1min Gait Training Gait Activity wt shift Description in mirror focus of fwd shift gait Description work on push off in mirror Resisted gait Description w/dowel Comments 2x50ft Manual Therapy Treatment Joint Mobilizations 5 Joint R hip Direction inf fm Neuro Re-Education Treatment Other Activities 2 Details ant elevation & post depression R Comments 1. rhythmic initiation 2. sustained isometrics progressed to with LE patterns 3. COI progressed to w/LE patterns PT-OP-T Assessment and Plan Start: 04/04/20 09:06 Freq: Status: Active Protocol: Document 04/12/20 15:16 [facility] (Rec: 04/12/20 16:02 [facility] [id number]) Physical Therapy Assessment Goals Three Impairment strength Short Term Goal (STG) Indep with HEP STG Duration achieved-progressing as needed Half-Way Goal (LTG) 5/5 LE strength B & with LPM & VCT to allow pt to return to normal activity LTG Duration 08/19/18-improved LE strength, VCT- LPM dec Two Short Term Goal (STG) Pt will be able to walk 5 miles without inc pain. STG Duration 05/05/20 Charge Preparation Technician Goal (LTG) Pt will be able to return to running without inc pain in LB or leg with good running form . LTG Duration 06/04/20 One Impairment strength Short Term Goal (STG) Pt will be indep with HEP STG Duration 05/05/20 Charge Preparation Technician Goal (LTG) Pt will score 5/5 LE strength and LPM 3/5 in all planes to show improved core cotnrol so pt is able to return to his typical activities without pain. LTG Duration 06/04/20 Assessment Summary Assessment Pt improved with gait mechanics after cueing and education w/push off and w/wt shifting. Pt still did require cueing with exercises for form. Physical Therapy Plan Frequency and Duration Frequency of Treatment 1-2x/week Duration of Treatment 2 months Plan of Care Start Date 04/04/20 Plan of Care End Date 06/04/20 Next Visit Focus/Plan Next Note Type Treatment Note Next Visit Plan gait, posture, PNF
--- NOTE | 2020-04-19 13:49 | PT.OTN ---
Current Diagnoses Spinal stenosis, lumbar region with neurogenic claudication (04/19/20) Low back pain (04/19/20) Difficulty in walking, not elsewhere classified (04/19/20) Abnormal posture (04/19/20) Weakness (04/19/20) Physical Therapy Treatment Note PT-OP-A Visit Information Start: 04/04/20 09:06 Freq: Status: Active Protocol: Document 04/19/20 12:59 [facility] (Rec: 04/19/20 13:49 [facility] [id number]) Out-Patient Physical Therapy Visit Information Visit Information Visit Type Treatment Note Visit Note 09/17 Visit Start Time 13:00 Visit Stop Time 13:42 Total Visit Minutes 42 Visit Number 4 Number of ACO COORDINATOR Visits 0 PT-OP-B Current Condition Start: 04/04/20 09:06 Freq: Status: Active Protocol: Document 04/04/20 09:06 [facility] (Rec: 04/04/20 09:48 [facility] [id number]) Current Condition History of Current Condition Onset Date summer Current Complaints R LBP w/R LE pain History of Current Condition Pt reports back pain was better and was back to running after last PT. Pt reports he fully retired in Jul and was doing a lot of house and yard work and running and walking and would stop running to see if that made a difference. Pt reprots this summer, his R leg would hurt all the way down it and would limit his ability to even walk on it. By the time he got in to see his PCP, he had stopped all activity and it had started to go away. Pt reprots it was bad for aobut 8 weeks. Had MRI that showed some impingement at L4. Pt was referred to neurologist to possibly do surgical interventions but has not gone tothat appt as he hasn't as much issue. He was able to walk a couple miles yesterday. Afraid that if does anything strenuous that painw ould get worse. Some movements do bring on the back pain. Pt reports its been about 6 weeks since he had leg pain. Has not done much exerting at all. R quad and glutes would feel really tight and sore Prior Treatments and Tests MRI: MPRESSION: 1. Multilevel degenerative disc and facet disease, as well as ligamentum flavum hypertrophy and epidural lipomatosis. 2. Periarticular cyst on the right at L4-L5. 3. Multilevel canal stenosis, worst at L4-L5, where there is severe canal stenosis. 4. Multilevel foraminal stenoses, worst on the right at L4-L5 where there is associated L4 nerve root compression. 5. Right lateral recess stenosis at L4-L5, causing right L5 nerve root compression. 6. Recommend correlation with clinical symptoms to ascertain relevance of these findings. Past PT has helped LBP Future Testing and Treatments Planned possibly seeing neurologist Treatment Goals Patient/Caregiver Goals review exercises from past PT PT-OP-C Subjective Start: 04/04/20 09:06 Freq: Status: Active Protocol: Document 04/19/20 12:59 [facility] (Rec: 04/19/20 13:49 [facility] [id number]) OP-PT Subjective Patient Comments Patient Comments Pt reports he has done only couple of mile walks to avoid overdoing it. Patient Reported Progress Improving PT-OP-D Balance Start: 04/04/20 09:06 Freq: Status: Active Protocol: Document 04/04/20 09:06 [facility] (Rec: 04/04/20 09:48 [facility] [id number]) Balance Tests Single Limb Standing Single Limb- Right lat leaning & deviation significant >30 sec Single Limb- Left >30 sec PT-OP-F Manual Assessment Start: 04/04/20 09:06 Freq: Status: Active Protocol: Document 04/04/20 09:06 [facility] (Rec: 04/04/20 09:48 [facility] [id number]) Manual Assessments Joint Mobility Assessment Joint Mobility Assessment R iliac crest higher, greater troch equal PT-OP-G Mobility & Gait Start: 04/04/20 09:06 Freq: Status: Active Protocol: Document 04/04/20 09:06 [facility] (Rec: 04/04/20 09:48 [facility] [id number]) OP Gait Assessment Comments Gait Comments dec wt acceptance and push off on R, lat leaning duirng gait PT-OP-J Posture/Palpation/Skin Start: 04/04/20 09:06 Freq: Status: Active Protocol: Document 04/04/20 09:06 [facility] (Rec: 04/04/20 09:48 [facility] [id number]) Posture Evaluation Abdi Postural Classification System Abdi Postural Classifications Posterior/Anterior Vertebral Compression Test 3 Lumbar Protective Mechanism Left AP 3 Lumbar Protective Mechanism Right AP 1 Lumbar Protective Mechanism Left PA 3 Lumbar Protective Mechanism Right PA 1 Leg Swing Right Hard End Feel,Limited PT-OP-K Range of Motion Start: 04/04/20 09:06 Freq: Status: Active Protocol: Document 04/04/20 09:06 [facility] (Rec: 04/04/20 09:48 [facility] [id number]) Lumbar Spine Range of Motion Lumbar Spine Active Degrees Flexion 43 Extension 24 Rotation Left 65 Rotation Right 70 Lateral Flexion Left 30 Lateral Flexion Right 27 PT-OP-L Special Tests Start: 04/04/20 09:06 Freq: Status: Active Protocol: Document 04/04/20 09:06 [facility] (Rec: 04/04/20 09:48 [facility] [id number]) Special Tests Lumbar Spine Special Tests Slump Test Results neg B Straight Leg Raise Test Results 80 deg B-some sensation into buttocks B PT-OP-M Strength Start: 04/04/20 09:06 Freq: Status: Active Protocol: Document 04/04/20 09:06 [facility] (Rec: 04/04/20 09:48 [facility] [id number]) Hip Strength Hip Manual Muscle Testing Left Flexion (L2) 4- Good- Extension (S1) 4- Good- Abduction 4+ Good+ External Rotation 4+ Good+ Internal Rotation 5 Normal Right Flexion (L2) 4- Good- Extension (S1) 3+ Fair+ Abduction 4- Good- External Rotation 4- Good- Internal Rotation 5 Normal Knee Strength Knee Manual Muscle Testing Right Flexion (S2) 5 Normal Extension (L3) 5 Normal Left Flexion (S2) 5 Normal Extension (L3) 5 Normal Ankle/Foot Strength Ankle and Foot Manual Muscle Testing Right Dorsiflexion (L4) 5 Normal Plantarflexion (S1) 5 Normal Left Dorsiflexion (L4) 5 Normal Plantarflexion (S1) 5 Normal PT-OP-Q Treatments Start: 04/04/20 09:06 Freq: Status: Active Protocol: Document 04/19/20 12:59 [facility] (Rec: 04/19/20 13:49 [facility] [id number]) Gym Equipment Sport Cord 1 Cord/Resistance red Reps/Duration 10 ea Comments 1. wt shift to august 2. fwd walk w/push off focus Therapeutic Exercises Standing Exercises 2 Standing Exercise Name TKE Side right Equipment Used L4 Reps/Minutes 20 1 Standing Exercise Name stepup w/august Side bilateral Reps/Minutes 15 Gait Training Gait Activity gait Description focus on push off and relaxed arms Resisted gait Description w/dowel Comments 2x50ft Manual Therapy Treatment Soft Tissue Mobilization 4 Body Location iliacus R Mobilization Type Sustained Pressure Comments in collin test position modified w/heel slide to quad set 3 Body Location QL R Mobilization Type Rolling,Strumming Intensity/Depth Moderate Body Position Sidelying Comments w/ant elevation/post dep Neuro Re-Education Treatment Other Activities 2 Details ant elevation & post depression R Comments 1. rhythmic initiation 2. sustained isometrics progressed to with LE patterns 3. COI progressed to w/LE patterns 4. reversals of concentrics PT-OP-T Assessment and Plan Start: 04/04/20 09:06 Freq: Status: Active Protocol: Document 04/19/20 12:59 [facility] (Rec: 04/19/20 13:49 [facility] [id number]) Physical Therapy Assessment Impairments Impairments Activity Tolerance,Balance, Functional Activities, Functional Mobility,Gait,Pain, Posture,ROM,Soft Tissue Mobility,Strength Goals Three Impairment strength Short Term Goal (STG) Indep with HEP STG Duration achieved-progressing as needed [employer] Goal (LTG) 5/5 LE strength B & with LPM & VCT to allow pt to return to normal activity LTG Duration 08/19/18-improved LE strength, VCT- LPM dec Two Short Term Goal (STG) Pt will be able to walk 5 miles without inc pain. STG Duration 05/05/20 Senior Care Goal (LTG) Pt will be able to return to running without inc pain in LB or leg with good running form . LTG Duration 06/04/20 One Impairment strength Short Term Goal (STG) Pt will be indep with HEP STG Duration 05/05/20 [employer] Goal (LTG) Pt will score 5/5 LE strength and LPM 3/5 in all planes to show improved core cotnrol so pt is able to return to his typical activities without pain. LTG Duration 06/04/20 Assessment Summary Assessment Pt did better with terminal ext with exercises after TKE standing exercises and VC. Improved wt acceptance and push off RLE today after treatmetn. Physical Therapy Plan Frequency and Duration Frequency of Treatment 1-2x/week Duration of Treatment 2 months Plan of Care Start Date 04/04/20 Plan of Care End Date 06/04/20 Next Visit Focus/Plan Next Note Type Treatment Note Next Visit Plan gait, posture, PNF
--- NOTE | 2020-04-27 08:32 | PT.OTN ---
Current Diagnoses Spinal stenosis, lumbar region with neurogenic claudication (04/27/20) Low back pain (04/27/20) Difficulty in walking, not elsewhere classified (04/27/20) Abnormal posture (04/27/20) Weakness (04/27/20) Physical Therapy Treatment Note PT-OP-A Visit Information Start: 04/04/20 09:06 Freq: Status: Active Protocol: Document 04/27/20 07:30 [facility] (Rec: 04/27/20 08:32 [facility] [id number]) Out-Patient Physical Therapy Visit Information Visit Information Visit Type Treatment Note Visit Note 10/17 Visit Start Time 07:30 Visit Stop Time 08:10 Total Visit Minutes 40 Visit Number 5 Number of UNDERGROUND MINER Visits 0 PT-OP-B Current Condition Start: 04/04/20 09:06 Freq: Status: Active Protocol: Document 04/04/20 09:06 [facility] (Rec: 04/04/20 09:48 [facility] [id number]) Current Condition History of Current Condition Onset Date summer Current Complaints R LBP w/R LE pain History of Current Condition Pt reports back pain was better and was back to running after last PT. Pt reports he fully retired in Jul and was doing a lot of house and yard work and running and walking and would stop running to see if that made a difference. Pt reprots this summer, his R leg would hurt all the way down it and would limit his ability to even walk on it. By the time he got in to see his PCP, he had stopped all activity and it had started to go away. Pt reprots it was bad for aobut 8 weeks. Had MRI that showed some impingement at L4. Pt was referred to neurologist to possibly do surgical interventions but has not gone tothat appt as he hasn't as much issue. He was able to walk a couple miles yesterday. Afraid that if does anything strenuous that painw ould get worse. Some movements do bring on the back pain. Pt reports its been about 6 weeks since he had leg pain. Has not done much exerting at all. R quad and glutes would feel really tight and sore Prior Treatments and Tests MRI: MPRESSION: 1. Multilevel degenerative disc and facet disease, as well as ligamentum flavum hypertrophy and epidural lipomatosis. 2. Periarticular cyst on the right at L4-L5. 3. Multilevel canal stenosis, worst at L4-L5, where there is severe canal stenosis. 4. Multilevel foraminal stenoses, worst on the right at L4-L5 where there is associated L4 nerve root compression. 5. Right lateral recess stenosis at L4-L5, causing right L5 nerve root compression. 6. Recommend correlation with clinical symptoms to ascertain relevance of these findings. Past PT has helped LBP Future Testing and Treatments Planned possibly seeing neurologist Treatment Goals Patient/Caregiver Goals review exercises from past PT PT-OP-C Subjective Start: 04/04/20 09:06 Freq: Status: Active Protocol: Document 04/27/20 07:30 [facility] (Rec: 04/27/20 08:32 [facility] [id number]) OP-PT Subjective Patient Comments Patient Comments Pt reports overall doing well. He was doing 2.5 mile walks PT-OP-D Balance Start: 04/04/20 09:06 Freq: Status: Active Protocol: Document 04/04/20 09:06 [facility] (Rec: 04/04/20 09:48 [facility] [id number]) Balance Tests Single Limb Standing Single Limb- Right lat leaning & deviation significant >30 sec Single Limb- Left >30 sec PT-OP-F Manual Assessment Start: 04/04/20 09:06 Freq: Status: Active Protocol: Document 04/04/20 09:06 [facility] (Rec: 04/04/20 09:48 [facility] [id number]) Manual Assessments Joint Mobility Assessment Joint Mobility Assessment R iliac crest higher, greater troch equal PT-OP-G Mobility & Gait Start: 04/04/20 09:06 Freq: Status: Active Protocol: Document 04/04/20 09:06 [facility] (Rec: 04/04/20 09:48 [facility] [id number]) OP Gait Assessment Comments Gait Comments dec wt acceptance and push off on R, lat leaning duirng gait PT-OP-J Posture/Palpation/Skin Start: 04/04/20 09:06 Freq: Status: Active Protocol: Document 04/04/20 09:06 [facility] (Rec: 04/04/20 09:48 [facility] [id number]) Posture Evaluation Abdi Postural Classification System Abdi Postural Classifications Posterior/Anterior Vertebral Compression Test 3 Lumbar Protective Mechanism Left AP 3 Lumbar Protective Mechanism Right AP 1 Lumbar Protective Mechanism Left PA 3 Lumbar Protective Mechanism Right PA 1 Leg Swing Right Hard End Feel,Limited PT-OP-K Range of Motion Start: 04/04/20 09:06 Freq: Status: Active Protocol: Document 04/04/20 09:06 [facility] (Rec: 04/04/20 09:48 [facility] [id number]) Lumbar Spine Range of Motion Lumbar Spine Active Degrees Flexion 43 Extension 24 Rotation Left 65 Rotation Right 70 Lateral Flexion Left 30 Lateral Flexion Right 27 PT-OP-L Special Tests Start: 04/04/20 09:06 Freq: Status: Active Protocol: Document 04/04/20 09:06 [facility] (Rec: 04/04/20 09:48 [facility] [id number]) Special Tests Lumbar Spine Special Tests Slump Test Results neg B Straight Leg Raise Test Results 80 deg B-some sensation into buttocks B PT-OP-M Strength Start: 04/04/20 09:06 Freq: Status: Active Protocol: Document 04/04/20 09:06 [facility] (Rec: 04/04/20 09:48 [facility] [id number]) Hip Strength Hip Manual Muscle Testing Left Flexion (L2) 4- Good- Extension (S1) 4- Good- Abduction 4+ Good+ External Rotation 4+ Good+ Internal Rotation 5 Normal Right Flexion (L2) 4- Good- Extension (S1) 3+ Fair+ Abduction 4- Good- External Rotation 4- Good- Internal Rotation 5 Normal Knee Strength Knee Manual Muscle Testing Right Flexion (S2) 5 Normal Extension (L3) 5 Normal Left Flexion (S2) 5 Normal Extension (L3) 5 Normal Ankle/Foot Strength Ankle and Foot Manual Muscle Testing Right Dorsiflexion (L4) 5 Normal Plantarflexion (S1) 5 Normal Left Dorsiflexion (L4) 5 Normal Plantarflexion (S1) 5 Normal PT-OP-Q Treatments Start: 04/04/20 09:06 Freq: Status: Active Protocol: Document 04/27/20 07:30 [facility] (Rec: 04/27/20 08:32 [facility] [id number]) Therapeutic Exercises Other Exercises 2 Other Exercise Name stretches: standing hip flexor , quad, calf & HS Side bilateral Reps/Minutes 30 sec 1 Other Exercise Name seated and supine: piriformis & figure 4 stretch Side bilateral Reps/Minutes 30 sec Manual Therapy Treatment Soft Tissue Mobilization 4 Body Location iliacus R & inguinal ligament Mobilization Type Sustained Pressure Comments w/hip IR/ER 3 Body Location R thigh Mobilization Type Myofascial Release Comments circumfrential w/rotation Joint Mobilizations 5 Joint R hip Direction post FM w/IR for IR Hip on axis Reps/Duration supine Neuro Re-Education Treatment Other Activities 2 Details post dep Comments sustained holds post dep of pelvis then w/ LE PT-OP-T Assessment and Plan Start: 04/04/20 09:06 Freq: Status: Active Protocol: Document 04/27/20 07:30 [facility] (Rec: 04/27/20 08:32 [facility] [id number]) Physical Therapy Assessment Goals Three Impairment strength Short Term Goal (STG) Indep with HEP STG Duration achieved-progressing as needed Jail Goal (LTG) 5/5 LE strength B & with LPM & VCT to allow pt to return to normal activity LTG Duration 08/19/18-improved LE strength, VCT- LPM dec Two Short Term Goal (STG) Pt will be able to walk 5 miles without inc pain. STG Duration 05/05/20 Jail Goal (LTG) Pt will be able to return to running without inc pain in LB or leg with good running form . LTG Duration 06/04/20 One Impairment strength Short Term Goal (STG) Pt will be indep with HEP STG Duration 05/05/20 Jail Goal (LTG) Pt will score 5/5 LE strength and LPM 3/5 in all planes to show improved core cotnrol so pt is able to return to his typical activities without pain. LTG Duration 06/04/20 Assessment Summary Assessment Pt is doing better with ext at this time and improved with hip ext ROM and IR ROM after manual treatment. NExt visit in 2 weeks to asses pt progress with HEP Physical Therapy Plan Frequency and Duration Frequency of Treatment 1-2x/week Duration of Treatment 2 months Plan of Care Start Date 04/04/20 Plan of Care End Date 06/04/20 Next Visit Focus/Plan Next Note Type Treatment Note Next Visit Plan gait, posture, PNF
--- NOTE | 2020-05-09 14:01 | PT.OTN ---
Current Diagnoses Spinal stenosis, lumbar region with neurogenic claudication (05/09/20) Low back pain (05/09/20) Difficulty in walking, not elsewhere classified (05/09/20) Abnormal posture (05/09/20) Weakness (05/09/20) Physical Therapy Treatment Note PT-OP-A Visit Information Start: 04/04/20 09:06 Freq: Status: Active Protocol: Document 05/09/20 12:59 [facility] (Rec: 05/09/20 14:01 [facility] [id number]) Out-Patient Physical Therapy Visit Information Visit Information Visit Type Treatment Note Visit Note 11/17 Visit Start Time 13:00 Visit Stop Time 13:41 Total Visit Minutes 41 Visit Number 6 Number of SALES REPRESENTATIVE SALES MANAGER Visits 0 PT-OP-B Current Condition Start: 04/04/20 09:06 Freq: Status: Active Protocol: Document 04/04/20 09:06 [facility] (Rec: 04/04/20 09:48 [facility] [id number]) Current Condition History of Current Condition Onset Date summer Current Complaints R LBP w/R LE pain History of Current Condition Pt reports back pain was better and was back to running after last PT. Pt reports he fully retired in Jul and was doing a lot of house and yard work and running and walking and would stop running to see if that made a difference. Pt reprots this summer, his R leg would hurt all the way down it and would limit his ability to even walk on it. By the time he got in to see his PCP, he had stopped all activity and it had started to go away. Pt reprots it was bad for aobut 8 weeks. Had MRI that showed some impingement at L4. Pt was referred to neurologist to possibly do surgical interventions but has not gone tothat appt as he hasn't as much issue. He was able to walk a couple miles yesterday. Afraid that if does anything strenuous that painw ould get worse. Some movements do bring on the back pain. Pt reports its been about 6 weeks since he had leg pain. Has not done much exerting at all. R quad and glutes would feel really tight and sore Prior Treatments and Tests MRI: MPRESSION: 1. Multilevel degenerative disc and facet disease, as well as ligamentum flavum hypertrophy and epidural lipomatosis. 2. Periarticular cyst on the right at L4-L5. 3. Multilevel canal stenosis, worst at L4-L5, where there is severe canal stenosis. 4. Multilevel foraminal stenoses, worst on the right at L4-L5 where there is associated L4 nerve root compression. 5. Right lateral recess stenosis at L4-L5, causing right L5 nerve root compression. 6. Recommend correlation with clinical symptoms to ascertain relevance of these findings. Past PT has helped LBP Future Testing and Treatments Planned possibly seeing neurologist Treatment Goals Patient/Caregiver Goals review exercises from past PT PT-OP-C Subjective Start: 04/04/20 09:06 Freq: Status: Active Protocol: Document 05/09/20 12:59 [facility] (Rec: 05/09/20 14:01 [facility] [id number]) OP-PT Subjective Patient Comments Patient Comments Pt reports walking 3 miles consistantly with some small bouts of 1 block jogs. notes no issues. Reports some soreenss when first starting soem exercises PT-OP-D Balance Start: 04/04/20 09:06 Freq: Status: Active Protocol: Document 04/04/20 09:06 [facility] (Rec: 04/04/20 09:48 [facility] [id number]) Balance Tests Single Limb Standing Single Limb- Right lat leaning & deviation significant >30 sec Single Limb- Left >30 sec PT-OP-F Manual Assessment Start: 04/04/20 09:06 Freq: Status: Active Protocol: Document 04/04/20 09:06 [facility] (Rec: 04/04/20 09:48 [facility] [id number]) Manual Assessments Joint Mobility Assessment Joint Mobility Assessment R iliac crest higher, greater troch equal PT-OP-G Mobility & Gait Start: 04/04/20 09:06 Freq: Status: Active Protocol: Document 04/04/20 09:06 [facility] (Rec: 04/04/20 09:48 [facility] [id number]) OP Gait Assessment Comments Gait Comments dec wt acceptance and push off on R, lat leaning duirng gait PT-OP-J Posture/Palpation/Skin Start: 04/04/20 09:06 Freq: Status: Active Protocol: Document 04/04/20 09:06 [facility] (Rec: 04/04/20 09:48 [facility] [id number]) Posture Evaluation Abdi Postural Classification System Abdi Postural Classifications Posterior/Anterior Vertebral Compression Test 3 Lumbar Protective Mechanism Left AP 3 Lumbar Protective Mechanism Right AP 1 Lumbar Protective Mechanism Left PA 3 Lumbar Protective Mechanism Right PA 1 Leg Swing Right Hard End Feel,Limited PT-OP-K Range of Motion Start: 04/04/20 09:06 Freq: Status: Active Protocol: Document 04/04/20 09:06 [facility] (Rec: 04/04/20 09:48 [facility] [id number]) Lumbar Spine Range of Motion Lumbar Spine Active Degrees Flexion 43 Extension 24 Rotation Left 65 Rotation Right 70 Lateral Flexion Left 30 Lateral Flexion Right 27 PT-OP-L Special Tests Start: 04/04/20 09:06 Freq: Status: Active Protocol: Document 04/04/20 09:06 [facility] (Rec: 04/04/20 09:48 [facility] [id number]) Special Tests Lumbar Spine Special Tests Slump Test Results neg B Straight Leg Raise Test Results 80 deg B-some sensation into buttocks B PT-OP-M Strength Start: 04/04/20 09:06 Freq: Status: Active Protocol: Document 04/04/20 09:06 [facility] (Rec: 04/04/20 09:48 [facility] [id number]) Hip Strength Hip Manual Muscle Testing Left Flexion (L2) 4- Good- Extension (S1) 4- Good- Abduction 4+ Good+ External Rotation 4+ Good+ Internal Rotation 5 Normal Right Flexion (L2) 4- Good- Extension (S1) 3+ Fair+ Abduction 4- Good- External Rotation 4- Good- Internal Rotation 5 Normal Knee Strength Knee Manual Muscle Testing Right Flexion (S2) 5 Normal Extension (L3) 5 Normal Left Flexion (S2) 5 Normal Extension (L3) 5 Normal Ankle/Foot Strength Ankle and Foot Manual Muscle Testing Right Dorsiflexion (L4) 5 Normal Plantarflexion (S1) 5 Normal Left Dorsiflexion (L4) 5 Normal Plantarflexion (S1) 5 Normal PT-OP-Q Treatments Start: 04/04/20 09:06 Freq: Status: Active Protocol: Document 05/09/20 12:59 [facility] (Rec: 05/09/20 14:01 [facility] [id number]) Cardio Equipment Treadmill Duration (Minutes) 8 Speed 2.4-4 Other total of 3 min running-foucs on push off and even arm movemtn Therapeutic Exercises Supine Exercises 4 Supine Exercise Name B isometric flex core Side bilateral Reps/Minutes 30 sec 3 Supine Exercise Name alt knee ext from 90/90 position Side bilateral Reps/Minutes 10 Comments adjusted to dec distance knee ext for core 2 Supine Exercise Name bridge w/alt march Side bilateral Reps/Minutes 8 Comments cueing for neutral pelvis Therapeutic Activity Therapeutic Activity standing posture Name in mirror focus on even wt and no lat shear or tilt to L Gait Training Gait Activity exaggerated gait Comments 1. w/exaggerated heel raise 2. w/exaggerated push off 3. w/knee ext throughout w/ focus on push off gait Comments running and wlaking w/focus on push off in hallway Self-Care/Home Management Treatment Education Other Education edu for graual cont inc of distance running & gradaul inc of inc distance to do overall walking, discussed importance of posture PT-OP-T Assessment and Plan Start: 04/04/20 09:06 Freq: Status: Active Protocol: Document 05/09/20 12:59 [facility] (Rec: 05/09/20 14:01 [facility] [id number]) Physical Therapy Assessment Goals Three Impairment strength Short Term Goal (STG) Indep with HEP STG Duration achieved-progressing as needed [employer] Goal (LTG) 5/5 LE strength B & with LPM & VCT to allow pt to return to normal activity LTG Duration 08/19/18-improved LE strength, VCT- LPM dec Two Short Term Goal (STG) Pt will be able to walk 5 miles without inc pain. STG Duration 05/05/20 [employer] Goal (LTG) Pt will be able to return to running without inc pain in LB or leg with good running form . LTG Duration 06/04/20 One Impairment strength Short Term Goal (STG) Pt will be indep with HEP STG Duration 05/05/20 [facility] Goal (LTG) Pt will score 5/5 LE strength and LPM 3/5 in all planes to show improved core cotnrol so pt is able to return to his typical activities without pain. LTG Duration 06/04/20 Assessment Summary Assessment Cueing for even push off B during treadmill and with runnign in jason way. Cueing required fro not taking too long of a step and to focus more of press fwd. Pt had dec arm swing w/RUE and had to be cued for appropriate arm swing . Cueing for Physical Therapy Plan Next Visit Focus/Plan Next Note Type Treatment Note Next Visit Plan gait, posture, PNF; follow up in 2 weeks
--- NOTE | 2020-05-23 10:33 | PT.OTN ---
Current Diagnoses Spinal stenosis, lumbar region with neurogenic claudication (05/23/20) Low back pain (05/23/20) Difficulty in walking, not elsewhere classified (05/23/20) Abnormal posture (05/23/20) Weakness (05/23/20) Physical Therapy Treatment Note PT-OP-A Visit Information Start: 04/04/20 09:06 Freq: Status: Active Protocol: Document 05/23/20 09:05 [facility] (Rec: 05/23/20 10:32 [facility] [id number]) Out-Patient Physical Therapy Visit Information Visit Information Visit Type Progress Note Visit Note 06/19 Visit Start Time 09:03 Visit Stop Time 09:43 Total Visit Minutes 40 Visit Number 7 Number of ADOPTION SERVICES MANAGER Visits 0 PT-OP-B Current Condition Start: 04/04/20 09:06 Freq: Status: Active Protocol: Document 04/04/20 09:06 [facility] (Rec: 04/04/20 09:48 [facility] [id number]) Current Condition History of Current Condition Onset Date summer Current Complaints R LBP w/R LE pain History of Current Condition Pt reports back pain was better and was back to running after last PT. Pt reports he fully retired in Jul and was doing a lot of house and yard work and running and walking and would stop running to see if that made a difference. Pt reprots this summer, his R leg would hurt all the way down it and would limit his ability to even walk on it. By the time he got in to see his PCP, he had stopped all activity and it had started to go away. Pt reprots it was bad for aobut 8 weeks. Had MRI that showed some impingement at L4. Pt was referred to neurologist to possibly do surgical interventions but has not gone tothat appt as he hasn't as much issue. He was able to walk a couple miles yesterday. Afraid that if does anything strenuous that painw ould get worse. Some movements do bring on the back pain. Pt reports its been about 6 weeks since he had leg pain. Has not done much exerting at all. R quad and glutes would feel really tight and sore Prior Treatments and Tests MRI: MPRESSION: 1. Multilevel degenerative disc and facet disease, as well as ligamentum flavum hypertrophy and epidural lipomatosis. 2. Periarticular cyst on the right at L4-L5. 3. Multilevel canal stenosis, worst at L4-L5, where there is severe canal stenosis. 4. Multilevel foraminal stenoses, worst on the right at L4-L5 where there is associated L4 nerve root compression. 5. Right lateral recess stenosis at L4-L5, causing right L5 nerve root compression. 6. Recommend correlation with clinical symptoms to ascertain relevance of these findings. Past PT has helped LBP Future Testing and Treatments Planned possibly seeing neurologist Treatment Goals Patient/Caregiver Goals review exercises from past PT PT-OP-C Subjective Start: 04/04/20 09:06 Freq: Status: Active Protocol: Document 05/23/20 09:05 [facility] (Rec: 05/23/20 10:32 [facility] [id number]) OP-PT Subjective Patient Comments Patient Comments Pt reports overall doing well. Only mild pain occ PT-OP-D Balance Start: 04/04/20 09:06 Freq: Status: Active Protocol: Document 04/04/20 09:06 [facility] (Rec: 04/04/20 09:48 [facility] [id number]) Balance Tests Single Limb Standing Single Limb- Right lat leaning & deviation significant >30 sec Single Limb- Left >30 sec PT-OP-F Manual Assessment Start: 04/04/20 09:06 Freq: Status: Active Protocol: Document 04/04/20 09:06 [facility] (Rec: 04/04/20 09:48 [facility] [id number]) Manual Assessments Joint Mobility Assessment Joint Mobility Assessment R iliac crest higher, greater troch equal PT-OP-G Mobility & Gait Start: 04/04/20 09:06 Freq: Status: Active Protocol: Document 04/04/20 09:06 [facility] (Rec: 04/04/20 09:48 [facility] [id number]) OP Gait Assessment Comments Gait Comments dec wt acceptance and push off on R, lat leaning duirng gait PT-OP-J Posture/Palpation/Skin Start: 04/04/20 09:06 Freq: Status: Active Protocol: Document 05/23/20 09:05 [facility] (Rec: 05/23/20 10:32 [facility] [id number]) Posture Evaluation Abdi Postural Classification System Vertebral Compression Test 4 Lumbar Protective Mechanism Left AP 3 Lumbar Protective Mechanism Right AP 2 Lumbar Protective Mechanism Left PA 3 Lumbar Protective Mechanism Right PA 2 PT-OP-K Range of Motion Start: 04/04/20 09:06 Freq: Status: Active Protocol: Document 04/04/20 09:06 [facility] (Rec: 04/04/20 09:48 [facility] [id number]) Lumbar Spine Range of Motion Lumbar Spine Active Degrees Flexion 43 Extension 24 Rotation Left 65 Rotation Right 70 Lateral Flexion Left 30 Lateral Flexion Right 27 PT-OP-L Special Tests Start: 04/04/20 09:06 Freq: Status: Active Protocol: Document 04/04/20 09:06 [facility] (Rec: 04/04/20 09:48 [facility] [id number]) Special Tests Lumbar Spine Special Tests Slump Test Results neg B Straight Leg Raise Test Results 80 deg B-some sensation into buttocks B PT-OP-M Strength Start: 04/04/20 09:06 Freq: Status: Active Protocol: Document 05/23/20 09:05 [facility] (Rec: 05/23/20 10:32 [facility] [id number]) Hip Strength Hip Manual Muscle Testing Left Flexion (L2) 5 Normal Extension (S1) 5 Normal Abduction 5 Normal External Rotation 5 Normal Internal Rotation 5 Normal Right Flexion (L2) 5 Normal Extension (S1) 5 Normal Abduction 5 Normal External Rotation 5 Normal Internal Rotation 5 Normal Comments 5/5 B knee & ankle strength PT-OP-Q Treatments Start: 04/04/20 09:06 Freq: Status: Active Protocol: Document 05/23/20 09:05 [facility] (Rec: 05/23/20 10:32 [facility] [id number]) Therapeutic Activity Therapeutic Activity standing posture Name in mirror focus on even wt and no lat shear or tilt to L Comments advance to pertubations at hip and torso while maintaining posture in mirror Gait Training Gait Activity wt shift Description in mirror focus of fwd shift gait Comments wlaking w/focus on push off in hallway & in mirror Manual Therapy Treatment Soft Tissue Mobilization 2 Body Location R QL & ES & sup ant iliac crest Mobilization Type Rolling,Sustained Pressure Joint Mobilizations 5 Joint innominate R Direction gapping FM s/l PT-OP-T Assessment and Plan Start: 04/04/20 09:06 Freq: Status: Active Protocol: Document 05/23/20 09:05 [facility] (Rec: 05/23/20 10:32 [facility] [id number]) Physical Therapy Assessment Goals Two Short Term Goal (STG) Pt will be able to walk 5 miles without inc pain. STG Duration 05/05/20 Senior Procurement Manager Goal (LTG) Pt will be able to return to running without inc pain in LB or leg with good running form . LTG Duration 06/04/20 One Impairment strength Short Term Goal (STG) Pt will be indep with HEP STG Duration 05/05/20 Senior Procurement Manager Goal (LTG) Pt will score 5/5 LE strength and LPM 3/5 in all planes to show improved core cotnrol so pt is able to return to his typical activities without pain. LTG Duration 06/04/20 Assessment Summary Assessment Pt able to improve posture and gait with cueing & improvements iwth posture. He continues to require mirror or VC to reset posture. He was able to improve push off when dec R pelvic shear in stance pattern. Improved post depression motion after manual treatment. Physical Therapy Plan Frequency and Duration Frequency of Treatment 1x/Week Duration of Treatment 1 month Plan of Care Start Date 05/23/20 Plan of Care End Date 06/23/20 Therapeutic Interventions Therapeutic Interventions Aquatic Therapy,Balance Training,Gait Training,Home Exercise Program,Joint Mobilizations,Manual Therapy, Neuromuscular Re-education Modalities Cold Pack/Ice Massage,Electric Stimulation,Hot Packs, Traction- Mechanical, Ultrasound Next Visit Focus/Plan Next Note Type Treatment Note Next Visit Plan possible dc, review posture & gait & exercises to cont
--- NOTE | 2020-05-23 10:33 | PT.OPPOC ---
Physical, Occupational & Speech Therapy At [facility] Current Diagnoses Spinal stenosis, lumbar region with neurogenic claudication (05/23/20) Low back pain (05/23/20) Difficulty in walking, not elsewhere classified (05/23/20) Abnormal posture (05/23/20) Weakness (05/23/20) Visit Care Team Role Provider Type Cesar Shaw MD Attending Provider Physician Primary Care Provider Referring Provider Specialty: Internal Medicine Address: [address] [place] [address], [id number] Email: [email or web address] Plan Of Care PT-OP-T Assessment and Plan Start: 04/04/20 09:06 Freq: Status: Active Protocol: Document 05/23/20 09:05 [facility] (Rec: 05/23/20 10:32 [facility] [id number]) Physical Therapy Assessment Goals Two Short Term Goal (STG) Pt will be able to walk 5 miles without inc pain. STG Duration 05/05/20 Technical Support Associate Goal (LTG) Pt will be able to return to running without inc pain in LB or leg with good running form . LTG Duration 06/04/20 One Impairment strength Short Term Goal (STG) Pt will be indep with HEP STG Duration 05/05/20 Group Home Goal (LTG) Pt will score 5/5 LE strength and LPM 3/5 in all planes to show improved core cotnrol so pt is able to return to his typical activities without pain. LTG Duration 06/04/20 Assessment Summary Assessment Pt able to improve posture and gait with cueing & improvements iwth posture. He continues to require mirror or VC to reset posture. He was able to improve push off when dec R pelvic shear in stance pattern. Improved post depression motion after manual treatment. Physical Therapy Plan Frequency and Duration Frequency of Treatment 1x/Week Duration of Treatment 1 month Plan of Care Start Date 05/23/20 Plan of Care End Date 06/23/20 Therapeutic Interventions Therapeutic Interventions Aquatic Therapy,Balance Training,Gait Training,Home Exercise Program,Joint Mobilizations,Manual Therapy, Neuromuscular Re-education Modalities Cold Pack/Ice Massage,Electric Stimulation,Hot Packs, Traction- Mechanical, Ultrasound Next Visit Focus/Plan Next Note Type Treatment Note Next Visit Plan possible dc, review posture & gait & exercises to cont Plan of Care Dates Plan of Care Start Date 05/23/20 Plan of Care End Date 06/23/20 Electronically Signed by: Akua Rodriguez, PT 05/23/20 1033 Please Sign and Return: I have reviewed this Plan of Care and certify that the skilled therapy services above are required to meet the patient?s needs. Physician Signature Date Printed Name and Credentials Clinical Instructor Signature Printed Name and Credentials
--- NOTE | 2020-06-06 09:36 | PT.OTN ---
Current Diagnoses Spinal stenosis, lumbar region with neurogenic claudication (06/06/20) Low back pain (06/06/20) Difficulty in walking, not elsewhere classified (06/06/20) Abnormal posture (06/06/20) Weakness (06/06/20) Physical Therapy Treatment Note PT-OP-A Visit Information Start: 04/04/20 09:06 Freq: Status: Active Protocol: Document 06/06/20 08:38 [facility] (Rec: 06/06/20 09:36 [facility] [id number]) Out-Patient Physical Therapy Visit Information Visit Information Visit Type Discharge Summary Visit Note 07/20 Visit Start Time 08:55 Visit Stop Time 09:28 Total Visit Minutes 33 Visit Number 8 Number of COMPUTING SYSTEMS MECHANIC Visits 0 PT-OP-B Current Condition Start: 04/04/20 09:06 Freq: Status: Active Protocol: Document 04/04/20 09:06 [facility] (Rec: 04/04/20 09:48 [facility] [id number]) Current Condition History of Current Condition Onset Date summer Current Complaints R LBP w/R LE pain History of Current Condition Pt reports back pain was better and was back to running after last PT. Pt reports he fully retired in Jul and was doing a lot of house and yard work and running and walking and would stop running to see if that made a difference. Pt reprots this summer, his R leg would hurt all the way down it and would limit his ability to even walk on it. By the time he got in to see his PCP, he had stopped all activity and it had started to go away. Pt reprots it was bad for aobut 8 weeks. Had MRI that showed some impingement at L4. Pt was referred to neurologist to possibly do surgical interventions but has not gone tothat appt as he hasn't as much issue. He was able to walk a couple miles yesterday. Afraid that if does anything strenuous that painw ould get worse. Some movements do bring on the back pain. Pt reports its been about 6 weeks since he had leg pain. Has not done much exerting at all. R quad and glutes would feel really tight and sore Prior Treatments and Tests MRI: MPRESSION: 1. Multilevel degenerative disc and facet disease, as well as ligamentum flavum hypertrophy and epidural lipomatosis. 2. Periarticular cyst on the right at L4-L5. 3. Multilevel canal stenosis, worst at L4-L5, where there is severe canal stenosis. 4. Multilevel foraminal stenoses, worst on the right at L4-L5 where there is associated L4 nerve root compression. 5. Right lateral recess stenosis at L4-L5, causing right L5 nerve root compression. 6. Recommend correlation with clinical symptoms to ascertain relevance of these findings. Past PT has helped LBP Future Testing and Treatments Planned possibly seeing neurologist Treatment Goals Patient/Caregiver Goals review exercises from past PT PT-OP-C Subjective Start: 04/04/20 09:06 Freq: Status: Active Protocol: Document 06/06/20 08:38 [facility] (Rec: 06/06/20 09:36 [facility] [id number]) OP-PT Subjective Patient Comments Patient Comments Pt feels ready for DC. Has done 1 mile run and longer walks with PT-OP-D Balance Start: 04/04/20 09:06 Freq: Status: Active Protocol: Document 04/04/20 09:06 [facility] (Rec: 04/04/20 09:48 [facility] [id number]) Balance Tests Single Limb Standing Single Limb- Right lat leaning & deviation significant >30 sec Single Limb- Left >30 sec PT-OP-F Manual Assessment Start: 04/04/20 09:06 Freq: Status: Active Protocol: Document 04/04/20 09:06 [facility] (Rec: 04/04/20 09:48 [facility] [id number]) Manual Assessments Joint Mobility Assessment Joint Mobility Assessment R iliac crest higher, greater troch equal PT-OP-G Mobility & Gait Start: 04/04/20 09:06 Freq: Status: Active Protocol: Document 04/04/20 09:06 [facility] (Rec: 04/04/20 09:48 [facility] [id number]) OP Gait Assessment Comments Gait Comments dec wt acceptance and push off on R, lat leaning duirng gait PT-OP-J Posture/Palpation/Skin Start: 04/04/20 09:06 Freq: Status: Active Protocol: Document 06/06/20 08:38 [facility] (Rec: 06/06/20 09:36 [facility] [id number]) Posture Evaluation Abdi Postural Classification System Lumbar Protective Mechanism Left AP 3 Lumbar Protective Mechanism Right AP 3 Lumbar Protective Mechanism Left PA 3 Lumbar Protective Mechanism Right PA 3 PT-OP-K Range of Motion Start: 04/04/20 09:06 Freq: Status: Active Protocol: Document 04/04/20 09:06 [facility] (Rec: 04/04/20 09:48 [facility] [id number]) Lumbar Spine Range of Motion Lumbar Spine Active Degrees Flexion 43 Extension 24 Rotation Left 65 Rotation Right 70 Lateral Flexion Left 30 Lateral Flexion Right 27 PT-OP-L Special Tests Start: 04/04/20 09:06 Freq: Status: Active Protocol: Document 04/04/20 09:06 [facility] (Rec: 04/04/20 09:48 [facility] [id number]) Special Tests Lumbar Spine Special Tests Slump Test Results neg B Straight Leg Raise Test Results 80 deg B-some sensation into buttocks B PT-OP-M Strength Start: 04/04/20 09:06 Freq: Status: Active Protocol: Document 05/23/20 09:05 [facility] (Rec: 05/23/20 10:32 [facility] [id number]) Hip Strength Hip Manual Muscle Testing Left Flexion (L2) 5 Normal Extension (S1) 5 Normal Abduction 5 Normal External Rotation 5 Normal Internal Rotation 5 Normal Right Flexion (L2) 5 Normal Extension (S1) 5 Normal Abduction 5 Normal External Rotation 5 Normal Internal Rotation 5 Normal Comments 5/5 B knee & ankle strength PT-OP-Q Treatments Start: 04/04/20 09:06 Freq: Status: Active Protocol: Document 06/06/20 08:38 [facility] (Rec: 06/06/20 09:36 [facility] [id number]) Therapeutic Exercises Supine Exercises 4 Supine Exercise Name B isometric flex core Side bilateral Reps/Minutes 30 sec 3 Supine Exercise Name alt knee ext from 90/90 position Side bilateral Reps/Minutes 5 Comments adjusted to dec distance knee ext for core 2 Supine Exercise Name bridge w/alt march Side bilateral Reps/Minutes 3 Comments cueing for neutral pelvis Standing Exercises 7 Standing Exercise Name hip hike Side bilateral Reps/Minutes 8 6 Standing Exercise Name TKE Side right Equipment Used Lvl 4 Reps/Minutes 8 5 Standing Exercise Name lunges Side bilateral Reps/Minutes 5 4 Standing Exercise Name squat Side bilateral Equipment Used over chair Reps/Minutes 8 3 Standing Exercise Name gait at wall Side bilateral Reps/Minutes 3secx5 Self-Care/Home Management Treatment Education Other Education edu for cont gradual increase, edu on importance of posture, discussed importance of strength, edu on bike for hip hinge vs rounding of back, discussed dynamic stretching for before runs and warm up and static stretching after PT-OP-T Assessment and Plan Start: 04/04/20 09:06 Freq: Status: Active Protocol: Document 06/06/20 08:38 [facility] (Rec: 06/06/20 09:36 [facility] [id number]) Physical Therapy Assessment Goals Two Short Term Goal (STG) Pt will be able to walk 5 miles without inc pain. STG Duration 3.4 miles no issue Medical Authorization Specialist Goal (LTG) Pt will be able to return to running without inc pain in LB or leg with good running form . LTG Duration achieved One Impairment strength Short Term Goal (STG) Pt will be indep with HEP STG Duration achieved [facility] Goal (LTG) Pt will score 5/5 LE strength and LPM 3/5 in all planes to show improved core cotnrol so pt is able to return to his typical activities without pain. LTG Duration achieved Assessment Summary Assessment Pt has met goals and returned back to running and going for walks with his without inc instances of pain. He still has some postural deviations and is aware of them and how to correct. He has HEP to cont to work on strength and flexibility. DC at this time Physical Therapy Plan Discharge Physical Therapy Discharge Reasons Goals Met
== END 2020-06-08 12:52 ==
LOC: PHYS 09:00
PROVIDERS: PCP Internal Medicine; Referring Provider Internal Medicine; Visit Provider Internal Medicine
DX: M48.062 Spinal stenosis, lumbar region with neurogenic claudication (principal); M54.5 Low back pain; R53.1 Weakness; R29.3 Abnormal posture; R26.2 Difficulty in walking, not elsewhere classified
CPT/HCPCS: 97110; 97112; 97116; 97140; 97161; 97530; 97535

== ENCOUNTER → 2021-10-31 11:18 | Outpatient (CLI) | payer MEDICARE, OTHER, SELFPAY ==
[2021-10-31 12:53] LABS: Prostate Specific Antigen Scrn 4.23 ng/mL (0.1-4.0)
== END ==
PROVIDERS: PCP Family Medicine; Referring Provider Family Medicine; Visit Provider Family Medicine
DX: Z12.5 Encounter for screening for malignant neoplasm of prostate (principal)
CPT/HCPCS: 36415; G0103

== ENCOUNTER → 2022-09-12 09:09 | Outpatient (CLI) | payer MEDICARE, OTHER, SELFPAY ==
[2022-09-12 10:07] LABS: Add Manual Diff / Slide Review NO; Basophils Absolute Auto 100 /uL (0-100); Basophils Percent Auto 0.9 % (0-2); Eosinophils Absolute Auto 200 /uL (0-450); Eosinophils Percent Auto 3.9 % (2-4); Hematocrit 43.7 % (41-53); Hemoglobin 14.9 g/dL (13.5-17.5); Lymphocytes Absolute Auto 2000 /uL (1100-4500); Lymphocytes Percent Auto 31.9 % (25-40); Mean Corpuscular HGB Conc 34.2 % (30-36); Mean Corpuscular Hemoglobin 30.2 PG (26-34); Mean Corpuscular Volume 88.4 fL (80-100); Monocytes Absolute Auto 500 /uL (0-900); Monocytes Percent Auto 8.8 % (3-14); Neutrophils Absolute Auto 3400 /uL (1500-7000); Neutrophils Percent Auto 54.5 % (50-75); Platelet Count 265 X10^3/uL (150-400); Red Blood Cell Count 4.94 X10^6/uL (4.5-5.9); Red Cell Distribution Width 13.3 % (11.6-14.8); White Blood Cell Count 6.2 X10^3/uL (4.5-11.0)
[2022-09-12 10:30] LABS: Alanine Aminotransferase 35 IU/L (<50); Albumin 4.3 g/dL (3.5-5.0); Albumin Globulin Ratio 1.6 (1.0-2.8); Alkaline Phosphatase 64 U/L (38-126); Aspartate Aminotransferase 42 IU/L (17-59); BUN Creatinine Ratio 26.9 (6-22); Bilirubin Total 0.5 mg/dL (0.2-1.3); Blood Urea Nitrogen 21 mg/dL (9-20); Calcium 9.6 mg/dL (8.4-10.2); Carbon Dioxide 29 mmol/L (22-32); Chloride 104 mmol/L (98-107); Cholesterol 177 mg/dL (140-199); Estimated Glomerular Filt Rate > 60 mL/min (>60); Globulin 2.7 g/dL (1.7-4.1); Glucose 92 mg/dL (80-110); HDL Cholesterol 43 mg/dL (40-60); HEMOLYSIS < 15 (0-50); LDL Cholesterol Calculated 113 mg/dL (<100); Potassium 4.9 mmol/L (3.4-5.1); Sodium 140 mmol/L (137-145); Triglycerides 106 mg/dL (35-150)
[2022-09-12 10:58] LABS: Prostate Specific Antigen Scrn 5.32 ng/mL (0.1-4.0)
[2022-09-12 11:00] LABS: TSH w/ Reflex to FT4 1.56 uIU/mL (0.47-4.68)
[2022-09-12 19:52] LABS: Creatinine Urine Random 165.4 mg/dL
[2022-09-12 19:56] LABS: Microalbumi Creatinin Ratio Ur 17.5 ug/mg CR (<30); Microalbumin Urine Random 2.9 mg/dL (0-1.6)
== END ==
PROVIDERS: PCP Family Medicine; Referring Provider Family Medicine; Visit Provider Family Medicine
DX: I10 Essential (primary) hypertension (principal); Z12.5 Encounter for screening for malignant neoplasm of prostate; I47.1 Supraventricular tachycardia; M06.4 Inflammatory polyarthropathy
CPT/HCPCS: 36415; 80053; 80061; 82043; 82570; 84443; 85025; G0103

== ENCOUNTER → 2022-11-13 15:18 | Outpatient (CLI) | payer MEDICARE, SELFPAY ==
--- NOTE | 2022-11-13 | DI.MRI.S_ITS ---
PROCEDURE: MR PELIS WO/W CON INDICATIONS: EVALUATED AND RISING PSA TECHNIQUE: Coronal HASTE, axial T1 FSE with fat saturation, 3-plane nonbreath-hold T2 FSE. After the administration of contrast, dynamic axial, delayed axial and coronal VIBE or 2-D FLASH with fat saturation through the pelvis. Optional diffusion weighted imaging and ADC may be performed. COMPARISON: None. FINDINGS: Image quality: Diffusion weighted and dynamic contrast enhanced images are diagnostic. Prostate: Gland size is 4.1 x 5.2 x 5.4 cm; ellipsoid gland volume is 60 mL. There is early , homogeneous enhancement of the peripheral zone. There is low T2 hypointense signal within this region. There is superimposed, linear, asymmetric T2 hypointense signal within the posterior peripheral zone, crossing midline as seen on series 5, image 12. This measures 2.1 x 0.7 centimeters, as seen on series 5, image 12 and series 3, image 12. This has mild restricted diffusion and hypointense signal on the ADC map. This is technically a PI-RADS 4 lesion, but likely does not represent malignancy. Genitourinary system: Bladder wall thickness is normal. Distal ureters are non distended. Trabeculated bladder wall. Bowel and peritoneum: No pathologic free pelvic fluid. Inferior colon and small bowel loops are normal in caliber. Nodes and vessels: No pelvic or inguinal adenopathy by size criteria. Iliac vessels are normal in caliber. Soft tissues: No inguinal hernias. Bones: Marrow demonstrates normal overall signal, without lesions to suggest metastases. IMPRESSION: Suspect prostatitis, given low T2 signal throughout the peripheral zone, with early enhancement. Superimposed linear lesion within the midline peripheral zone of the mid gland, which does technically score as a PI-RADS 4 lesion, but does not have the typical masslike appearance. This probably represents a feature prostatitis. Dictated by: Sonny Benjamin M.D. on 11/13/2022 at 16:27 Approved by: Sonny Benjamin M.D. on 11/13/2022 at 16:40
== END ==
PROVIDERS: PCP Family Medicine; Referring Provider Urology; Visit Provider Urology
DX: N42.9 Disorder of prostate, unspecified (principal); R97.20 Elevated prostate specific antigen [PSA]
CPT/HCPCS: 72197; A9579

== ENCOUNTER → 2023-01-17 08:15 | Outpatient (CLI) | payer MEDICARE, SELFPAY ==
[2023-01-18 09:58] LABS: PSA Free % 25.7 % (.); PSA, Total 3.5 ng/mL (0.0-4.0)
== END ==
PROVIDERS: PCP Family Medicine; Referring Provider Urology; Visit Provider Urology
DX: R97.20 Elevated prostate specific antigen [PSA] (principal)
CPT/HCPCS: 36415; 84153; 84154

== ENCOUNTER → 2023-06-20 10:54 | Outpatient (CLI) | payer MEDICARE, SELFPAY ==
[2023-06-25 07:13] LABS: PSA Free % 17.7 % (.); PSA, Total 4.4 ng/mL (0.0-4.0)
== END ==
PROVIDERS: PCP Family Medicine; Referring Provider Urology; Visit Provider Urology
DX: R97.20 Elevated prostate specific antigen [PSA] (principal)
CPT/HCPCS: 36415; 84153; 84154

== ENCOUNTER → 2023-09-19 08:55 | Outpatient (CLI) | payer MEDICARE, SELFPAY ==
[2023-09-19 09:59] LABS: Add Manual Diff / Slide Review NO; Basophils Absolute Auto 0 /uL (0-100); Basophils Percent Auto 0.8 % (0-2); Eosinophils Absolute Auto 200 /uL (0-450); Eosinophils Percent Auto 3.6 % (2-4); Hematocrit 44.3 % (41-53); Hemoglobin 14.9 g/dL (13.5-17.5); Lymphocytes Absolute Auto 1700 /uL (1100-4500); Lymphocytes Percent Auto 29.7 % (25-40); Mean Corpuscular HGB Conc 33.6 % (30-36); Mean Corpuscular Volume 89.3 fL (80-100); Monocytes Absolute Auto 400 /uL (0-900); Monocytes Percent Auto 7.2 % (3-14); Neutrophils Absolute Auto 3400 /uL (1500-7000); Neutrophils Percent Auto 58.7 % (50-75); Platelet Count 247 X10^3/uL (150-400); Red Blood Cell Count 4.96 X10^6/uL (4.5-5.9); Red Cell Distribution Width 13.2 % (11.6-14.8); White Blood Cell Count 5.8 X10^3/uL (4.5-11.0)
[2023-09-19 10:13] LABS: Alanine Aminotransferase 40 IU/L (<50); Albumin 4.4 g/dL (3.5-5.0); Albumin Globulin Ratio 1.5 (1.0-2.8); Alkaline Phosphatase 76 U/L (38-126); Aspartate Aminotransferase 52 IU/L (17-59); BUN Creatinine Ratio 28.8 (6-22); Bilirubin Total 0.7 mg/dL (0.2-1.3); Blood Urea Nitrogen 19 mg/dL (9-20); Calcium 9.6 mg/dL (8.4-10.2); Carbon Dioxide 24 mmol/L (22-32); Chloride 110 mmol/L (98-107); Cholesterol 198 mg/dL (140-199); Estimated Glomerular Filt Rate > 60 mL/min (>60); Globulin 2.9 g/dL (1.7-4.1); Glucose 92 mg/dL (80-110); HDL Cholesterol 36 mg/dL (40-60); HEMOLYSIS < 15 (0-50); LDL Cholesterol Calculated 133 mg/dL (<100); Potassium 4.3 mmol/L (3.4-5.1); Sodium 140 mmol/L (137-145); Total Protein 7.3 g/dL (6.3-8.2); Triglycerides 143 mg/dL (35-150)
[2023-09-19 11:12] LABS: Creatinine Urine Random 76.4 mg/dL
[2023-09-19 11:41] LABS: Hep C Virus Ab w/Reflex Quant NEGATIVE s/c (NEGATIVE); Microalbumin Urine Random < 0.6 mg/dL (0-1.6)
[2023-09-19 11:42] LABS: TSH w/ Reflex to FT4 1.36 uIU/mL (0.47-4.68)
[2023-09-20 04:11] LABS: Apolipoprotein B 120 mg/dL (<90)
[2023-09-20 13:28] LABS: PSA Free % 17.8 % (.); PSA, Total 5.8 ng/mL (0.0-4.0)
== END ==
PROVIDERS: PCP Family Medicine; Referring Provider Urology; Visit Provider Family Medicine
DX: N52.9 Male erectile dysfunction, unspecified (principal); I10 Essential (primary) hypertension; M06.4 Inflammatory polyarthropathy; I47.10 Supraventricular tachycardia, unspecified; R97.20 Elevated prostate specific antigen [PSA]
CPT/HCPCS: 36415; 80053; 80061; 82043; 82172; 82570; 84153; 84154; 84443; 85025; 86803

== ENCOUNTER → 2023-12-18 14:12 | Outpatient (CLI) | payer MEDICARE, SELFPAY ==
[2023-12-18 16:24] LABS: Alanine Aminotransferase 38 IU/L (<50); Albumin 4.5 g/dL (3.5-5.0); Albumin Globulin Ratio 1.9 (1.0-2.8); Alkaline Phosphatase 65 U/L (38-126); Aspartate Aminotransferase 47 IU/L (17-59); Bilirubin Total 0.4 mg/dL (0.2-1.3); Blood Urea Nitrogen 20 mg/dL (9-20); Calcium 9.2 mg/dL (8.4-10.2); Carbon Dioxide 28 mmol/L (22-32); Chloride 107 mmol/L (98-107); Cholesterol 120 mg/dL (140-199); Estimated Glomerular Filt Rate > 60 mL/min (>60); Globulin 2.4 g/dL (1.7-4.1); Glucose 96 mg/dL (80-110); HDL Cholesterol 41 mg/dL (40-60); HEMOLYSIS < 15 (0-50); LDL Cholesterol Calculated 60 mg/dL (<100); Potassium 4.4 mmol/L (3.4-5.1); Sodium 141 mmol/L (137-145); Total Protein 6.9 g/dL (6.3-8.2); Triglycerides 93 mg/dL (35-150)
[2023-12-20 05:37] LABS: Apolipoprotein B 63 mg/dL (<90)
[2023-12-23 09:11] LABS: PSA Free % 24.2 % (.); PSA, Total 3.1 ng/mL (0.0-4.0)
== END ==
PROVIDERS: PCP Family Medicine; Referring Provider Urology; Visit Provider Urology
DX: E78.5 Hyperlipidemia, unspecified (principal); R97.20 Elevated prostate specific antigen [PSA]
CPT/HCPCS: 36415; 80053; 80061; 82172; 84153; 84154

== ENCOUNTER → 2024-04-13 15:30 | Outpatient (CLI) | payer MEDICARE, SELFPAY | PROVIDERS: PCP Family Medicine; Referring Provider Urology; Visit Provider Urology | DX: R97.20 Elevated prostate specific antigen [PSA] (principal) | CPT/HCPCS: 36415; 84153; 84154 ==

== ENCOUNTER → 2024-07-16 09:05 | Outpatient (CLI) | payer MEDICARE, SELFPAY ==
[2024-07-17 11:40] LABS: PSA, Total 4.1 ng/mL (0.0-4.0)
== END ==
PROVIDERS: Family Provider Family Medicine; PCP Family Medicine; Referring Provider Urology; Visit Provider Urology
DX: R97.20 Elevated prostate specific antigen [PSA] (principal)
CPT/HCPCS: 36415; 84153; 84154

== ENCOUNTER 2024-09-15 09:00 | Outpatient (RCR) | payer MEDICARE, SELFPAY ==
--- NOTE | 2024-06-04 18:39 | PT.OIE ---
Current Diagnoses Radiculopathy, lumbar region (06/04/24) Difficulty in walking, not elsewhere classified (06/04/24) Weakness (06/04/24) Other specified postprocedural states (06/04/24) Past Medical History (Last Updated 04/13/24 @ 15:35 by Tan Caro MD) Abnormal prostate by palpation AVNRT (AV adelia re-entry tachycardia) Depression, recurrent Erectile dysfunction High prostate specific antigen (PSA) History of arthritis History of BPH HTN (hypertension) Hyperlipidemia Incomplete emptying of bladder Inflammatory polyarthropathy Lower urinary tract symptoms Lumbar spondylosis Rising PSA level Past Surgical History (Last Reviewed 11/08/22 @ 09:02 by Abhijit Stockton MD) Hx of cholecystectomy Hx of vasectomy Visit Care Team Role Provider Type Tan Caro MD Family Provider Physician Primary Care Provider Specialty: Family Practice Address: [address] [place] [address], [facility] Email: [email or web address] Duncan Castaneda MD Attending Provider Non-Staff Referring Provider Specialty: Orthopedic Surgery Address: [address] [place] [address], [facility] Email: Physical Therapy Initial Evaluation PT-OP-A Visit Information Start: 05/20/24 16:53 Freq: Status: Active Protocol: Document 06/04/24 14:38 [facility] (Rec: 06/04/24 15:27 [facility] [id number]) Out-Patient Physical Therapy Visit Information Visit Information Visit Type Initial Evaluation Visit Start Time 14:38 Visit Stop Time 15:23 Visit Number 1 (06/19 IE) Number of OCCUPATIONAL HEALTH NURSE MANAGER Visits 0 PT-OP-B Current Condition Start: 05/20/24 16:53 Freq: Status: Active Protocol: Document 06/04/24 14:38 [facility] (Rec: 06/04/24 15:27 [facility] [id number]) Current Condition History of Current Condition Current Complaints L LB and buttocks History of Current Condition Past PT over the years for chronic back pain. 6 months ago, after .25 to .5 mile L leg started getting numb and was losing strength in calf. Went and had MRI and went to back doctor who said had spinal stenosis and did a demcompression 6 weeks ago. Recovered well overall. Had low dose steroid help a little and then has 3 days left of that. most of weakness and numbness in LLE has gone away. When extendeds, or stands up straight or walking,gets pain in buttocks L. bridging is tough on back. Feels like it is joint thing but unsure. No longer has restrictions from surgery besides avoid hot tub d/t incision. Its enough pain that has to hold breath sometimes when walking. Taking tylenol some. Walking only sometimes a block now. Usually walks. Pt has stopped running d/t doctor recommendation. Usually walks a few miles including hills a day w/dogs. Treatment Goals Patient/Caregiver Goals back to few mile walks and hikes, walk the dog, up/down hills w/o pain, be able to pivot on LLE w/o pain PT-OP-C Subjective Start: 05/20/24 16:53 Freq: Status: Active Protocol: Document 06/04/24 14:38 [facility] (Rec: 06/04/24 15:27 [facility] [id number]) Patient Questionnaires Oswestry Low Back Index Oswestry Score 20/50 OP-PT Pain Assessment Location LB Pain Location Details L buttocks, L SI Description Sharp,With Movement Pain Duration usually resolves when done w/ the activity Pain Aggravating Factors Standing,Walking,Stair Climbing Other Pain Aggravating Factors up stairs/hill, ext of spine Pain Alleviating Factors Medication PT-OP-D Balance Start: 05/20/24 16:53 Freq: Status: Active Protocol: Document 06/04/24 14:38 [facility] (Rec: 06/04/24 15:27 [facility] [id number]) Balance Tests Single Limb Standing Single Limb- Right >30 sec slight right lean Single Limb- Left >30 sec L lean and fwd flex PT-OP-F Manual Assessment Start: 05/20/24 16:53 Freq: Status: Active Protocol: Document 06/04/24 14:38 [facility] (Rec: 06/04/24 15:27 [facility] [id number]) Manual Assessments Other Manual Assessments Other Manual Assessments small scab not fully closed, redness of scar, swelling notable above PT-OP-G Mobility & Gait Start: 05/20/24 16:53 Freq: Status: Active Protocol: Document 06/04/24 14:38 [facility] (Rec: 06/04/24 15:27 [facility] [id number]) OP Gait Assessment Comments Gait Comments lat lean over LLE and dec LLE stance time PT-OP-J Posture/Palpation/Skin Start: 05/20/24 16:53 Freq: Status: Active Protocol: Document 06/04/24 14:38 [facility] (Rec: 06/04/24 15:27 [facility] [id number]) Posture Evaluation [facility] Postural Classification System Abdi Postural Classifications Posterior/Anterior Elbow Flexion Test 0 Lumbar Protective Mechanism Left AP 0 Lumbar Protective Mechanism Right AP 0 Lumbar Protective Mechanism Left PA 2 Lumbar Protective Mechanism Right PA 1 Comments Posture Comments Pelvic shear, L SB and rot, R foot turned out, R knee slightly bent, dec lordosis, slight hip flex, inc kyphosis, R iliac crest higher, equal greater trochanters PT-OP-K Range of Motion Start: 05/20/24 16:53 Freq: Status: Active Protocol: Document 06/04/24 14:38 [facility] (Rec: 06/04/24 15:27 [facility] [id number]) Lumbar Spine Range of Motion Lumbar Spine Active Percentage Flexion 40 Extension 20 Rotation Left 60 Rotation Right 65 Lateral Flexion Left 60 Lateral Flexion Right 40 Comments pain L SB , ext, mid thigh w/ blocking pelvis, mid goetz w/o PT-OP-L Special Tests Start: 05/20/24 16:53 Freq: Status: Active Protocol: Document 06/04/24 14:38 [facility] (Rec: 06/04/24 15:27 [facility] [id number]) Special Tests Lumbar Spine Special Tests march Test Results positive L Slump Test Results neg B Straight Leg Raise Test Results minor tightness B PT-OP-M Strength Start: 05/20/24 16:53 Freq: Status: Active Protocol: Document 06/04/24 14:38 [facility] (Rec: 06/04/24 15:27 [facility] [id number]) Hip Strength Hip Manual Muscle Testing Right Flexion (L2) 4 Good Extension (S1) 4- Good- Abduction 4 Good Adduction 5 Normal External Rotation 5 Normal Internal Rotation 5 Normal Left Flexion (L2) 3+ Fair+ Extension (S1) 4 Good Abduction 4- Good- Adduction 5 Normal External Rotation 5 Normal Internal Rotation 4 Good Knee Strength Knee Manual Muscle Testing B Flexion (S2) 5 Normal Extension (L3) 5 Normal Ankle/Foot Strength Ankle and Foot Manual Muscle Testing R Dorsiflexion (L4) 5 Normal Plantarflexion (S1) 5 Normal Comments 20 heel raises w/difficulty L Dorsiflexion (L4) 5 Normal Plantarflexion (S1) 4 Good Comments 15 heel raises w/less range PT-OP-Q Treatments Start: 05/20/24 16:53 Freq: Status: Active Protocol: Document 06/04/24 14:38 [facility] (Rec: 06/04/24 15:27 [facility] [id number]) Therapeutic Exercises Supine Exercises bridge Supine Exercise Name segmental Side bilateral Reps/Minutes 10 piriformis stretch Side left Reps/Minutes 30 sec Sidelying Exercises open book Side bilateral Reps/Minutes 5 Standing Exercises sidesteps Side bilateral Equipment Used L1 Reps/Minutes 20ft heel raises Standing Exercise Name SL Side bilateral Reps/Minutes 15 ea PT-OP-T Assessment and Plan Start: 05/20/24 16:53 Freq: Status: Active Protocol: Document 06/04/24 14:38 [facility] (Rec: 06/04/24 15:27 [facility] [id number]) Physical Therapy Assessment Rehab Potential Rehabilitation Potential Excellent Evaluation Complexity Number of Personal Factors/Comorbidities 1-2 Number of Body Systems Impaired 4 or More Clinical Presentation at Evaluation Evolving Impairments Impairments Activity Tolerance,Balance, Edema,Functional Activities, Functional Mobility,Gait, Integument,Pain,Posture,ROM, Soft Tissue Mobility,Strength Goals walking Short Term Goal (STG) Pt will be able to walk for 1 mile w/o limitation d/t LBP/ L hip pain. STG Duration 2 Senior Living Goal (LTG) Pt will be able to walk for 2- 3 miles w/hills and/or stairs w/holding dog leash w/o limitation d/t LBP/ L hip pain . LTG Duration 08/27 strength Short Term Goal (STG) Pt will be indep w/HEP STG Duration 2 Thermospray Operator Goal (LTG) pt will score at least 4+/5 on BLE strength and at least 3/5 on LPM and EFT to show improved stability to allow greater ease with typical activity. LTG Duration 08/27 ANDREA Impairment 20/50 Short Term Goal (STG) Pt will improve ANDREA score to no greater than 13/50 to show improved functional ability. STG Duration 07/25/24 Senior Living Goal (LTG) Pt will improve ANDREA score to no greater than 3/50 to show improved functional ability. LTG Duration 08/27/24 Assessment Summary Assessment Pt presents 6 weeks after decompression to L4-5 with improved LE symptoms (prior numbness and weakness) but still L buttocks and LBP that limits his function including his ability to walk. Pt is very active and typically walks dog daily and active around the house. He is limite din his walking especailly uphill/up stairs, along w/ ability to stand especially trying to stand up straight or extend back at all d/t pain. he has impaired posture, weakness of core and LEs along w/tightenss in hips liekly related to his pain. he would benefit from skilled PT to address these deficits and improve function. Physical Therapy Plan Frequency and Duration Frequency of Treatment 2x/Week Duration of treatment (weeks) 12 Plan of Care Start Date 06/04/24 Plan of Care End Date 08/27/24 Therapeutic Interventions Therapeutic Interventions Balance Training,Gait Training ,Home Exercise Program,Joint Mobilizations,Manual Therapy, Neuromuscular Re-education, Orthotic/Prosthetic Management ,Patient/Caregiver Education, Self-Care/Home Management,Soft Tissue Mobilization,Taping, Therapeutic Activities, Therapeutic Exercises Modalities Cold Pack/Ice Massage,Electric Stimulation,Hot Packs, Infrared Therapy,Ultrasound Next Visit Focus/Plan Next Note Type Treatment Note Next Visit Plan review exercises from last session, squats, supine core, paloff press manual: hips and pelvis mobs, STM to low back and scar once appropriate scar healing
--- NOTE | 2024-06-04 18:39 | PT.OPPOC ---
Addendum entered and electronically signed by Akua Rodriguez, PT 06/04/24 18:40: POC faxed Original Note: Physical, Occupational & Speech Therapy At [facility] Current Diagnoses Radiculopathy, lumbar region (06/04/24) Difficulty in walking, not elsewhere classified (06/04/24) Weakness (06/04/24) Other specified postprocedural states (06/04/24) Visit Care Team Role Provider Type Tan Caro MD Family Provider Physician Primary Care Provider Specialty: Family Practice Address: [address] [place] [address], [facility] Email: [email or web address] Duncan Castaneda MD Attending Provider Non-Staff Referring Provider Specialty: Orthopedic Surgery Address: [address] [place] [address], [facility] Email: Plan Of Care PT-OP-B Current Condition Start: 05/20/24 16:53 Freq: Status: Active Protocol: Document 06/04/24 14:38 [facility] (Rec: 06/04/24 15:27 [facility] [id number]) Current Condition History of Current Condition Current Complaints L LB and buttocks History of Current Condition Past PT over the years for chronic back pain. 6 months ago, after .25 to .5 mile L leg started getting numb and was losing strength in calf. Went and had MRI and went to back doctor who said had spinal stenosis and did a demcompression 6 weeks ago. Recovered well overall. Had low dose steroid help a little and then has 3 days left of that. most of weakness and numbness in LLE has gone away. When extendeds, or stands up straight or walking,gets pain in buttocks L. bridging is tough on back. Feels like it is joint thing but unsure. No longer has restrictions from surgery besides avoid hot tub d/t incision. Its enough pain that has to hold breath sometimes when walking. Taking tylenol some. Walking only sometimes a block now. Usually walks. Pt has stopped running d/t doctor recommendation. Usually walks a few miles including hills a day w/dogs. Treatment Goals Patient/Caregiver Goals back to few mile walks and hikes, walk the dog, up/down hills w/o pain, be able to pivot on LLE w/o pain PT-OP-T Assessment and Plan Start: 05/20/24 16:53 Freq: Status: Active Protocol: Document 06/04/24 14:38 [facility] (Rec: 06/04/24 15:27 [facility] [id number]) Physical Therapy Assessment Rehab Potential Rehabilitation Potential Excellent Evaluation Complexity Number of Personal Factors/Comorbidities 1-2 Number of Body Systems Impaired 4 or More Clinical Presentation at Evaluation Evolving Impairments Impairments Activity Tolerance,Balance, Edema,Functional Activities, Functional Mobility,Gait, Integument,Pain,Posture,ROM, Soft Tissue Mobility,Strength Goals walking Short Term Goal (STG) Pt will be able to walk for 1 mile w/o limitation d/t LBP/ L hip pain. STG Duration / Halfway Goal (LTG) Pt will be able to walk for 2- 3 miles w/hills and/or stairs w/holding dog leash w/o limitation d/t LBP/ L hip pain . LTG Duration 08/27 strength Short Term Goal (STG) Pt will be indep w/HEP STG Duration / Halfway Goal (LTG) pt will score at least 4+/5 on BLE strength and at least 3/5 on LPM and EFT to show improved stability to allow greater ease with typical activity. LTG Duration 08/27 ANDREA Impairment 20/50 Short Term Goal (STG) Pt will improve ANDREA score to no greater than 13/50 to show improved functional ability. STG Duration 07/25/24 Halfway Goal (LTG) Pt will improve ANDREA score to no greater than 3/50 to show improved functional ability. LTG Duration 08/27/24 Assessment Summary Assessment Pt presents 6 weeks after decompression to L4-5 with improved LE symptoms (prior numbness and weakness) but still L buttocks and LBP that limits his function including his ability to walk. Pt is very active and typically walks dog daily and active around the house. He is limite din his walking especailly uphill/up stairs, along w/ ability to stand especially trying to stand up straight or extend back at all d/t pain. he has impaired posture, weakness of core and LEs along w/tightenss in hips liekly related to his pain. he would benefit from skilled PT to address these deficits and improve function. Physical Therapy Plan Frequency and Duration Frequency of Treatment 2x/Week Duration of treatment (weeks) 12 Plan of Care Start Date 06/04/24 Plan of Care End Date 08/27/24 Therapeutic Interventions Therapeutic Interventions Balance Training,Gait Training ,Home Exercise Program,Joint Mobilizations,Manual Therapy, Neuromuscular Re-education, Orthotic/Prosthetic Management ,Patient/Caregiver Education, Self-Care/Home Management,Soft Tissue Mobilization,Taping, Therapeutic Activities, Therapeutic Exercises Modalities Cold Pack/Ice Massage,Electric Stimulation,Hot Packs, Infrared Therapy,Ultrasound Next Visit Focus/Plan Next Note Type Treatment Note Next Visit Plan review exercises from last session, squats, supine core, paloff press manual: hips and pelvis mobs, STM to low back and scar once appropriate scar healing Plan of Care Dates Plan of Care Start Date 06/04/24 Plan of Care End Date 08/27/24 Electronically Signed by: Akua Rodriguez, PT 06/04/24 [id number] If you are in agreement with this Plan of Care, please return a signed and dated copy. I have reviewed this Plan of Care and certify that the skilled therapy services above are required to meet the patient?s needs. Physician Signature Date Printed Name and Credentials Clinical Instructor Signature Printed Name and Credentials
--- NOTE | 2024-06-09 13:50 | PT.OTN ---
Current Diagnoses Radiculopathy, lumbar region (06/09/24) Difficulty in walking, not elsewhere classified (06/09/24) Weakness (06/09/24) Other specified postprocedural states (06/09/24) Physical Therapy Treatment Note PT-OP-A Visit Information Start: 05/20/24 16:53 Freq: Status: Active Protocol: Document 06/09/24 13:02 [facility] (Rec: 06/09/24 13:50 [facility] [id number]) Out-Patient Physical Therapy Visit Information Visit Information Visit Type Treatment Note Visit Start Time 13:03 Visit Stop Time 13:45 Visit Number 2(07/20 IE) Number of ORACLE R12 DEVELOPER Visits 0 PT-OP-B Current Condition Start: 05/20/24 16:53 Freq: Status: Active Protocol: Document 06/04/24 14:38 [facility] (Rec: 06/04/24 15:27 [facility] [id number]) Current Condition History of Current Condition Current Complaints L LB and buttocks History of Current Condition Past PT over the years for chronic back pain. 6 months ago, after .25 to .5 mile L leg started getting numb and was losing strength in calf. Went and had MRI and went to back doctor who said had spinal stenosis and did a demcompression 6 weeks ago. Recovered well overall. Had low dose steroid help a little and then has 3 days left of that. most of weakness and numbness in LLE has gone away. When extendeds, or stands up straight or walking,gets pain in buttocks L. bridging is tough on back. Feels like it is joint thing but unsure. No longer has restrictions from surgery besides avoid hot tub d/t incision. Its enough pain that has to hold breath sometimes when walking. Taking tylenol some. Walking only sometimes a block now. Usually walks. Pt has stopped running d/t doctor recommendation. Usually walks a few miles including hills a day w/dogs. Treatment Goals Patient/Caregiver Goals back to few mile walks and hikes, walk the dog, up/down hills w/o pain, be able to pivot on LLE w/o pain PT-OP-C Subjective Start: 05/20/24 16:53 Freq: Status: Active Protocol: Document 06/09/24 13:02 [facility] (Rec: 06/09/24 13:50 [facility] [id number]) OP-PT Subjective Patient Comments Patient Comments pt reports sore afer eval. compliance w/HEP PT-OP-D Balance Start: 05/20/24 16:53 Freq: Status: Active Protocol: Document 06/04/24 14:38 [facility] (Rec: 06/04/24 15:27 [facility] [id number]) Balance Tests Single Limb Standing Single Limb- Right >30 sec slight right lean Single Limb- Left >30 sec L lean and fwd flex PT-OP-F Manual Assessment Start: 05/20/24 16:53 Freq: Status: Active Protocol: Document 06/04/24 14:38 [facility] (Rec: 06/04/24 15:27 [facility] [id number]) Manual Assessments Other Manual Assessments Other Manual Assessments small scab not fully closed, redness of scar, swelling notable above PT-OP-G Mobility & Gait Start: 05/20/24 16:53 Freq: Status: Active Protocol: Document 06/04/24 14:38 [facility] (Rec: 06/04/24 15:27 [facility] [id number]) OP Gait Assessment Comments Gait Comments lat lean over LLE and dec LLE stance time PT-OP-J Posture/Palpation/Skin Start: 05/20/24 16:53 Freq: Status: Active Protocol: Document 06/04/24 14:38 [facility] (Rec: 06/04/24 15:27 [facility] [id number]) Posture Evaluation [facility] Postural Classification System Abdi Postural Classifications Posterior/Anterior Elbow Flexion Test 0 Lumbar Protective Mechanism Left AP 0 Lumbar Protective Mechanism Right AP 0 Lumbar Protective Mechanism Left PA 2 Lumbar Protective Mechanism Right PA 1 Comments Posture Comments Pelvic shear, L SB and rot, R foot turned out, R knee slightly bent, dec lordosis, slight hip flex, inc kyphosis, R iliac crest higher, equal greater trochanters PT-OP-K Range of Motion Start: 05/20/24 16:53 Freq: Status: Active Protocol: Document 06/04/24 14:38 [facility] (Rec: 06/04/24 15:27 [facility] [id number]) Lumbar Spine Range of Motion Lumbar Spine Active Percentage Flexion 40 Extension 20 Rotation Left 60 Rotation Right 65 Lateral Flexion Left 60 Lateral Flexion Right 40 Comments pain L SB , ext, mid thigh w/ blocking pelvis, mid goetz w/o PT-OP-L Special Tests Start: 05/20/24 16:53 Freq: Status: Active Protocol: Document 06/04/24 14:38 [facility] (Rec: 06/04/24 15:27 [facility] [id number]) Special Tests Lumbar Spine Special Tests march Test Results positive L Slump Test Results neg B Straight Leg Raise Test Results minor tightness B PT-OP-M Strength Start: 05/20/24 16:53 Freq: Status: Active Protocol: Document 06/04/24 14:38 [facility] (Rec: 06/04/24 15:27 [facility] [id number]) Hip Strength Hip Manual Muscle Testing Right Flexion (L2) 4 Good Extension (S1) 4- Good- Abduction 4 Good Adduction 5 Normal External Rotation 5 Normal Internal Rotation 5 Normal Left Flexion (L2) 3+ Fair+ Extension (S1) 4 Good Abduction 4- Good- Adduction 5 Normal External Rotation 5 Normal Internal Rotation 4 Good Knee Strength Knee Manual Muscle Testing B Flexion (S2) 5 Normal Extension (L3) 5 Normal Ankle/Foot Strength Ankle and Foot Manual Muscle Testing R Dorsiflexion (L4) 5 Normal Plantarflexion (S1) 5 Normal Comments 20 heel raises w/difficulty L Dorsiflexion (L4) 5 Normal Plantarflexion (S1) 4 Good Comments 15 heel raises w/less range PT-OP-Q Treatments Start: 05/20/24 16:53 Freq: Status: Active Protocol: Document 06/09/24 13:02 [facility] (Rec: 06/09/24 13:50 [facility] [id number]) Therapeutic Exercises Supine Exercises bridge Supine Exercise Name 1. bridge 2. bridge w/band at knees for abd 3. w/band at pelvis Side bilateral Equipment Used L2 band Reps/Minutes 5 ea Comments segmental cues piriformis stretch Side left Reps/Minutes 30 sec Standing Exercises sidesteps Side bilateral Equipment Used L2 Reps/Minutes 15ft Comments cues no lat lean Manual Therapy Treatment Consent Patient gave verbal consent for manual Yes treatment Soft Tissue Mobilization spine Body Location L QL, ES, along SI Mobilization Type Rolling Intensity/Depth Moderate Body Position Sidelying glutes Body Location L pirifromis and sup glutes Mobilization Type Rolling,Sustained Pressure Intensity/Depth Moderate Body Position Sidelying Joint Mobilizations innominate Joint L add c/r Body Position Sidelying hip Comments L hip inf, ER and IR free the ball c/r PT-OP-T Assessment and Plan Start: 05/20/24 16:53 Freq: Status: Active Protocol: Document 06/09/24 13:02 [facility] (Rec: 06/09/24 13:50 [facility] [id number]) Physical Therapy Assessment Goals walking Short Term Goal (STG) Pt will be able to walk for 1 mile w/o limitation d/t LBP/ L hip pain. STG Duration 07/12 Kitchen Assistant Goal (LTG) Pt will be able to walk for 2- 3 miles w/hills and/or stairs w/holding dog leash w/o limitation d/t LBP/ L hip pain . LTG Duration 08/27 strength Short Term Goal (STG) Pt will be indep w/HEP STG Duration 07/12 Kitchen Assistant Goal (LTG) pt will score at least 4+/5 on BLE strength and at least 3/5 on LPM and EFT to show improved stability to allow greater ease with typical activity. LTG Duration 08/27 ANDREA Impairment 20/50 Short Term Goal (STG) Pt will improve ANDREA score to no greater than 13/50 to show improved functional ability. STG Duration 07/25/24 Kitchen Assistant Goal (LTG) Pt will improve ANDREA score to no greater than 3/50 to show improved functional ability. LTG Duration 08/27/24 Assessment Summary Assessment Pt had improved postural awareness w/mirror and improved L hip flex, ER and IR after manual treatment. Able to progress some of exercises revewied from last session Physical Therapy Plan Frequency and Duration Frequency of Treatment 2x/Week Duration of treatment (weeks) 12 Plan of Care Start Date 06/04/24 Plan of Care End Date 08/27/24 Next Visit Focus/Plan Next Note Type Treatment Note Next Visit Plan add figure 4, paloff press and progression of core manual: hips and pelvis mobs, STM to low back and scar once appropriate scar healing
--- NOTE | 2024-06-17 10:33 | PT.OTN ---
Current Diagnoses Radiculopathy, lumbar region (06/17/24) Difficulty in walking, not elsewhere classified (06/17/24) Weakness (06/17/24) Other specified postprocedural states (06/17/24) Physical Therapy Treatment Note PT-OP-A Visit Information Start: 05/20/24 16:53 Freq: Status: Active Protocol: Document 06/17/24 08:10 [facility] (Rec: 06/17/24 10:33 [facility] [id number]) Out-Patient Physical Therapy Visit Information Visit Information Visit Type Treatment Note Visit Start Time 09:03 Visit Stop Time 09:47 Visit Number 3(08/17 IE) Number of MATERIAL MIXER Visits 1 PT-OP-B Current Condition Start: 05/20/24 16:53 Freq: Status: Active Protocol: Document 06/04/24 14:38 [facility] (Rec: 06/04/24 15:27 [facility] [id number]) Current Condition History of Current Condition Current Complaints L LB and buttocks History of Current Condition Past PT over the years for chronic back pain. 6 months ago, after .25 to .5 mile L leg started getting numb and was losing strength in calf. Went and had MRI and went to back doctor who said had spinal stenosis and did a demcompression 6 weeks ago. Recovered well overall. Had low dose steroid help a little and then has 3 days left of that. most of weakness and numbness in LLE has gone away. When extendeds, or stands up straight or walking,gets pain in buttocks L. bridging is tough on back. Feels like it is joint thing but unsure. No longer has restrictions from surgery besides avoid hot tub d/t incision. Its enough pain that has to hold breath sometimes when walking. Taking tylenol some. Walking only sometimes a block now. Usually walks. Pt has stopped running d/t doctor recommendation. Usually walks a few miles including hills a day w/dogs. Treatment Goals Patient/Caregiver Goals back to few mile walks and hikes, walk the dog, up/down hills w/o pain, be able to pivot on LLE w/o pain PT-OP-C Subjective Start: 05/20/24 16:53 Freq: Status: Active Protocol: Document 06/17/24 08:10 [facility] (Rec: 06/17/24 10:33 [facility] [id number]) OP-PT Subjective Patient Comments Patient Comments Gopi reports left glute pain has mostly gone, able to walk without holding breath due to pain. Scar healed Lumbar area . L piriformis stiffness PROM to grossly 10 deg in hooklying 90 deg hip and knee flex start of session. PT-OP-D Balance Start: 05/20/24 16:53 Freq: Status: Active Protocol: Document 06/04/24 14:38 [facility] (Rec: 06/04/24 15:27 [facility] [id number]) Balance Tests Single Limb Standing Single Limb- Right >30 sec slight right lean Single Limb- Left >30 sec L lean and fwd flex PT-OP-F Manual Assessment Start: 05/20/24 16:53 Freq: Status: Active Protocol: Document 06/04/24 14:38 [facility] (Rec: 06/04/24 15:27 [facility] [id number]) Manual Assessments Other Manual Assessments Other Manual Assessments small scab not fully closed, redness of scar, swelling notable above PT-OP-G Mobility & Gait Start: 05/20/24 16:53 Freq: Status: Active Protocol: Document 06/04/24 14:38 [facility] (Rec: 06/04/24 15:27 [facility] [id number]) OP Gait Assessment Comments Gait Comments lat lean over LLE and dec LLE stance time PT-OP-J Posture/Palpation/Skin Start: 05/20/24 16:53 Freq: Status: Active Protocol: Document 06/04/24 14:38 [facility] (Rec: 06/04/24 15:27 [facility] [id number]) Posture Evaluation [facility] Postural Classification System Abdi Postural Classifications Posterior/Anterior Elbow Flexion Test 0 Lumbar Protective Mechanism Left AP 0 Lumbar Protective Mechanism Right AP 0 Lumbar Protective Mechanism Left PA 2 Lumbar Protective Mechanism Right PA 1 Comments Posture Comments Pelvic shear, L SB and rot, R foot turned out, R knee slightly bent, dec lordosis, slight hip flex, inc kyphosis, R iliac crest higher, equal greater trochanters PT-OP-K Range of Motion Start: 05/20/24 16:53 Freq: Status: Active Protocol: Document 06/04/24 14:38 [facility] (Rec: 06/04/24 15:27 [facility] [id number]) Lumbar Spine Range of Motion Lumbar Spine Active Percentage Flexion 40 Extension 20 Rotation Left 60 Rotation Right 65 Lateral Flexion Left 60 Lateral Flexion Right 40 Comments pain L SB , ext, mid thigh w/ blocking pelvis, mid goetz w/o PT-OP-L Special Tests Start: 05/20/24 16:53 Freq: Status: Active Protocol: Document 06/04/24 14:38 [facility] (Rec: 06/04/24 15:27 [facility] [id number]) Special Tests Lumbar Spine Special Tests march Test Results positive L Slump Test Results neg B Straight Leg Raise Test Results minor tightness B PT-OP-M Strength Start: 05/20/24 16:53 Freq: Status: Active Protocol: Document 06/04/24 14:38 [facility] (Rec: 06/04/24 15:27 [facility] [id number]) Hip Strength Hip Manual Muscle Testing Right Flexion (L2) 4 Good Extension (S1) 4- Good- Abduction 4 Good Adduction 5 Normal External Rotation 5 Normal Internal Rotation 5 Normal Left Flexion (L2) 3+ Fair+ Extension (S1) 4 Good Abduction 4- Good- Adduction 5 Normal External Rotation 5 Normal Internal Rotation 4 Good Knee Strength Knee Manual Muscle Testing B Flexion (S2) 5 Normal Extension (L3) 5 Normal Ankle/Foot Strength Ankle and Foot Manual Muscle Testing R Dorsiflexion (L4) 5 Normal Plantarflexion (S1) 5 Normal Comments 20 heel raises w/difficulty L Dorsiflexion (L4) 5 Normal Plantarflexion (S1) 4 Good Comments 15 heel raises w/less range PT-OP-Q Treatments Start: 05/20/24 16:53 Freq: Status: Active Protocol: Document 06/17/24 08:10 [facility] (Rec: 06/17/24 10:33 AB [id number]) Therapeutic Exercises Supine Exercises Rhythmic stablization Supine Exercise Name sup, inf, rot usind dowel Reps/Minutes one min resisted knee to chest Side bilateral Reps/Minutes 15 sec then 30 sec each LE Comments verbal cues figure 4 stretch Supine Exercise Name HEP Side bilateral Reps/Minutes 60 sec X 1 each LE Comments Verbal cues piriformis stretch Side left Reps/Minutes 60 sec Standing Exercises Pallof press Standing Exercise Name HEP Resistance level one band Reps/Minutes X15 each side Comments chrissy Manual Therapy Treatment Soft Tissue Mobilization spine Body Location lumbar paraspinals, SI, scar tissue left, R LS paraspinals SI, glute Mobilization Type Cross-Friction,Rolling, Sustained Pressure Intensity/Depth Moderate Body Position Sidelying Comments also superficial and myofascial scar tissue glutes Body Location B pirifromis and sup glutes Mobilization Type Rolling,Sustained Pressure Intensity/Depth Moderate Body Position Sidelying Joint Mobilizations hip Reps/Duration inf L X 10 X 3 grade III PT-OP-T Assessment and Plan Start: 05/20/24 16:53 Freq: Status: Active Protocol: Document 06/17/24 08:10 [facility] (Rec: 06/17/24 10:33 AB [id number]) Physical Therapy Assessment Goals walking Short Term Goal (STG) Pt will be able to walk for 1 mile w/o limitation d/t LBP/ L hip pain. 06/17/24 Patient reports walking is limited to 1/2 a mile. STG Duration 2/ Lead Sharepoint Developer Goal (LTG) Pt will be able to walk for 2- 3 miles w/hills and/or stairs w/holding dog leash w/o limitation d/t LBP/ L hip pain . LTG Duration 08/27 strength Short Term Goal (STG) Pt will be indep w/HEP 06/17/24 Patient performs HEp as instructed per patient. STG Duration 2/ Lead Sharepoint Developer Goal (LTG) pt will score at least 4+/5 on BLE strength and at least 3/5 on LPM and EFT to show improved stability to allow greater ease with typical activity. LTG Duration 08/27 ANDREA Impairment 20/50 Short Term Goal (STG) Pt will improve ANDREA score to no greater than 13/50 to show improved functional ability. STG Duration 07/25/24 Lead Sharepoint Developer Goal (LTG) Pt will improve ANDREA score to no greater than 3/50 to show improved functional ability. LTG Duration 08/27/24 Assessment Summary Assessment Gopi reports 2/10 L LS/glute pain end of session. Physical Therapy Plan Frequency and Duration Frequency of Treatment 2x/Week Duration of treatment (weeks) 12 Plan of Care Start Date 06/04/24 Plan of Care End Date 08/27/24 Next Visit Focus/Plan Next Note Type Treatment Note Next Visit Plan add figure 4, palojerad press and progression of core manual: hips and pelvis mobs, STM to low back and scar once appropriate scar healing
--- NOTE | 2024-06-22 15:17 | PT.OTN ---
Current Diagnoses Radiculopathy, lumbar region (06/22/24) Difficulty in walking, not elsewhere classified (06/22/24) Weakness (06/22/24) Other specified postprocedural states (06/22/24) Physical Therapy Treatment Note PT-OP-A Visit Information Start: 05/20/24 16:53 Freq: Status: Active Protocol: Document 06/22/24 13:08 [facility] (Rec: 06/22/24 15:17 [facility] [id number]) Out-Patient Physical Therapy Visit Information Visit Information Visit Type Treatment Note Visit Start Time 09:07 Visit Stop Time 09:45 Visit Number 4 (09/17 IE) Number of TODDLER NANNY Visits 0 PT-OP-B Current Condition Start: 05/20/24 16:53 Freq: Status: Active Protocol: Document 06/04/24 14:38 [facility] (Rec: 06/04/24 15:27 [facility] [id number]) Current Condition History of Current Condition Current Complaints L LB and buttocks History of Current Condition Past PT over the years for chronic back pain. 6 months ago, after .25 to .5 mile L leg started getting numb and was losing strength in calf. Went and had MRI and went to back doctor who said had spinal stenosis and did a demcompression 6 weeks ago. Recovered well overall. Had low dose steroid help a little and then has 3 days left of that. most of weakness and numbness in LLE has gone away. When extendeds, or stands up straight or walking,gets pain in buttocks L. bridging is tough on back. Feels like it is joint thing but unsure. No longer has restrictions from surgery besides avoid hot tub d/t incision. Its enough pain that has to hold breath sometimes when walking. Taking tylenol some. Walking only sometimes a block now. Usually walks. Pt has stopped running d/t doctor recommendation. Usually walks a few miles including hills a day w/dogs. Treatment Goals Patient/Caregiver Goals back to few mile walks and hikes, walk the dog, up/down hills w/o pain, be able to pivot on LLE w/o pain PT-OP-C Subjective Start: 05/20/24 16:53 Freq: Status: Active Protocol: Document 06/22/24 13:08 [facility] (Rec: 06/22/24 15:17 [facility] [id number]) OP-PT Subjective Patient Comments Patient Comments Pt did a 1 mile, 1.5 mile and 1 mile walk and part way through the walk gets some numbess in both feet but minimal. buttocks pain is better and back just gets tired after walking a while. PT-OP-D Balance Start: 05/20/24 16:53 Freq: Status: Active Protocol: Document 06/04/24 14:38 [facility] (Rec: 06/04/24 15:27 [facility] [id number]) Balance Tests Single Limb Standing Single Limb- Right >30 sec slight right lean Single Limb- Left >30 sec L lean and fwd flex PT-OP-F Manual Assessment Start: 05/20/24 16:53 Freq: Status: Active Protocol: Document 06/04/24 14:38 [facility] (Rec: 06/04/24 15:27 [facility] [id number]) Manual Assessments Other Manual Assessments Other Manual Assessments small scab not fully closed, redness of scar, swelling notable above PT-OP-G Mobility & Gait Start: 05/20/24 16:53 Freq: Status: Active Protocol: Document 06/04/24 14:38 [facility] (Rec: 06/04/24 15:27 [facility] [id number]) OP Gait Assessment Comments Gait Comments lat lean over LLE and dec LLE stance time PT-OP-J Posture/Palpation/Skin Start: 05/20/24 16:53 Freq: Status: Active Protocol: Document 06/04/24 14:38 [facility] (Rec: 06/04/24 15:27 [facility] [id number]) Posture Evaluation [facility] Postural Classification System [facility] Postural Classifications Posterior/Anterior Elbow Flexion Test 0 Lumbar Protective Mechanism Left AP 0 Lumbar Protective Mechanism Right AP 0 Lumbar Protective Mechanism Left PA 2 Lumbar Protective Mechanism Right PA 1 Comments Posture Comments Pelvic shear, L SB and rot, R foot turned out, R knee slightly bent, dec lordosis, slight hip flex, inc kyphosis, R iliac crest higher, equal greater trochanters PT-OP-K Range of Motion Start: 05/20/24 16:53 Freq: Status: Active Protocol: Document 06/04/24 14:38 [facility] (Rec: 06/04/24 15:27 [facility] [id number]) Lumbar Spine Range of Motion Lumbar Spine Active Percentage Flexion 40 Extension 20 Rotation Left 60 Rotation Right 65 Lateral Flexion Left 60 Lateral Flexion Right 40 Comments pain L SB , ext, mid thigh w/ blocking pelvis, mid goetz w/o PT-OP-L Special Tests Start: 05/20/24 16:53 Freq: Status: Active Protocol: Document 06/04/24 14:38 [facility] (Rec: 06/04/24 15:27 [facility] [id number]) Special Tests Lumbar Spine Special Tests march Test Results positive L Slump Test Results neg B Straight Leg Raise Test Results minor tightness B PT-OP-M Strength Start: 05/20/24 16:53 Freq: Status: Active Protocol: Document 06/04/24 14:38 [facility] (Rec: 06/04/24 15:27 [facility] [id number]) Hip Strength Hip Manual Muscle Testing Right Flexion (L2) 4 Good Extension (S1) 4- Good- Abduction 4 Good Adduction 5 Normal External Rotation 5 Normal Internal Rotation 5 Normal Left Flexion (L2) 3+ Fair+ Extension (S1) 4 Good Abduction 4- Good- Adduction 5 Normal External Rotation 5 Normal Internal Rotation 4 Good Knee Strength Knee Manual Muscle Testing B Flexion (S2) 5 Normal Extension (L3) 5 Normal Ankle/Foot Strength Ankle and Foot Manual Muscle Testing R Dorsiflexion (L4) 5 Normal Plantarflexion (S1) 5 Normal Comments 20 heel raises w/difficulty L Dorsiflexion (L4) 5 Normal Plantarflexion (S1) 4 Good Comments 15 heel raises w/less range PT-OP-Q Treatments Start: 05/20/24 16:53 Freq: Status: Active Protocol: Document 06/22/24 13:08 [facility] (Rec: 06/22/24 15:17 [facility] [id number]) Therapeutic Exercises Supine Exercises resisted knee to chest Supine Exercise Name SL (tried DL but felt in back) Side bilateral Reps/Minutes 30 sec ea Comments verbal cues DF and knees close to chest bridge Supine Exercise Name SL bridge w/opp LE in august Side bilateral Reps/Minutes 10 Comments cues segmental control Standing Exercises Pallof press Standing Exercise Name HEP Resistance level 2 band (2 bands) Reps/Minutes X15 each side Comments chrissy sidesteps Standing Exercise Name in mini squat Side bilateral Equipment Used L3 at knees Reps/Minutes 20ft ea Comments cues toes fwd and knee alignment Manual Therapy Treatment Consent Patient gave verbal consent for manual Yes treatment Soft Tissue Mobilization spine Body Location lumbar paraspinals, SI, scar tissue left, R LS paraspinals SI, glute Mobilization Type Cross-Friction,Rolling, Sustained Pressure Intensity/Depth Moderate Body Position Sidelying Comments also superficial and myofascial scar tissue glutes Body Location L pirifromis and sup glutes Mobilization Type Rolling,Sustained Pressure Intensity/Depth Moderate Body Position Sidelying Joint Mobilizations innominate Joint L add c/r Body Position Sidelying PT-OP-T Assessment and Plan Start: 05/20/24 16:53 Freq: Status: Active Protocol: Document 06/22/24 13:08 [facility] (Rec: 06/22/24 15:17 [facility] [id number]) Physical Therapy Assessment Goals walking Short Term Goal (STG) Pt will be able to walk for 1 mile w/o limitation d/t LBP/ L hip pain. 06/17/24 Patient reports walking is limited to 1/2 a mile. STG Duration 2/ Detention Goal (LTG) Pt will be able to walk for 2- 3 miles w/hills and/or stairs w/holding dog leash w/o limitation d/t LBP/ L hip pain . LTG Duration 08/27 strength Short Term Goal (STG) Pt will be indep w/HEP 06/17/24 Patient performs HEp as instructed per patient. STG Duration 2/ Detention Goal (LTG) pt will score at least 4+/5 on BLE strength and at least 3/5 on LPM and EFT to show improved stability to allow greater ease with typical activity. LTG Duration 08/27 ANDREA Impairment 20/50 Short Term Goal (STG) Pt will improve ANDREA score to no greater than 13/50 to show improved functional ability. STG Duration 07/25/24 Detention Goal (LTG) Pt will improve ANDREA score to no greater than 3/50 to show improved functional ability. LTG Duration 08/27/24 Assessment Summary Assessment Pt did well iwth progression of exercsies and was able to do more difficult exercises today w/o inc pain. Cues for neutral posture and used mirror to demo this Physical Therapy Plan Frequency and Duration Frequency of Treatment 2x/Week Duration of treatment (weeks) 12 Plan of Care Start Date 06/04/24 Plan of Care End Date 08/27/24 Next Visit Focus/Plan Next Note Type Treatment Note Next Visit Plan review and advance core and hip strength; resisted gait w/ dowel or sports cords manual: hips and pelvis mobs, STM to low back and scar
--- NOTE | 2024-06-24 16:11 | PT.OTN ---
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 [id number]) Current Condition History of Current Condition Current Complaints L LB and buttocks History of Current Condition Past PT over the years for chronic back pain. 6 months ago, after .25 to .5 mile L leg started getting numb and was losing strength in calf. Went and had MRI and went to back doctor who said had spinal stenosis and did a demcompression 6 weeks ago. Recovered well overall. Had low dose steroid help a little and then has 3 days left of that. most of weakness and numbness in LLE has gone away. When extendeds, or stands up straight or walking,gets pain in buttocks L. bridging is tough on back. Feels like it is joint thing but unsure. No longer has restrictions from surgery besides avoid hot tub d/t incision. Its enough pain that has to hold breath sometimes when walking. Taking tylenol some. Walking only sometimes a block now. Usually walks. Pt has stopped running d/t doctor recommendation. Usually walks a few miles including hills a day w/dogs. Treatment Goals Patient/Caregiver Goals back to few mile walks and hikes, walk the dog, up/down hills w/o pain, be able to pivot on LLE w/o pain PT-OP-C Subjective Start: 05/20/24 16:53 Freq: Status: Active Protocol: Document 06/24/24 14:24 [facility] (Rec: 06/24/24 16:11 [facility] [id number]) OP-PT Subjective Patient Comments Patient Comments Patient reports modifications to make exercises harder last session went well, comments one is difficult/demonstrates single leg bridge. Patient reports left glute with walking is much less pain after 3/4 mile soreness starts ., / now seated at rest. PT-OP-D Balance Start: 05/20/24 16:53 Freq: Status: Active Protocol: Document 06/04/24 14:38 [facility] (Rec: 06/04/24 15:27 [id number]) Balance Tests Single Limb Standing Single Limb- Right >30 sec slight right lean Single Limb- Left >30 sec L lean and fwd flex PT-OP-F Manual Assessment Start: 05/20/24 16:53 Freq: Status: Active Protocol: Document 06/04/24 14:38 [facility] (Rec: 06/04/24 15:27 [facility] [id number]) Manual Assessments Other Manual Assessments Other Manual Assessments small scab not fully closed, redness of scar, swelling notable above PT-OP-G Mobility & Gait Start: 05/20/24 16:53 Freq: Status: Active Protocol: Document 06/04/24 14:38 [facility] (Rec: 06/04/24 15:27 [facility] [id number]) OP Gait Assessment Comments Gait Comments lat lean over LLE and dec LLE stance time PT-OP-J Posture/Palpation/Skin Start: 05/20/24 16:53 Freq: Status: Active Protocol: Document 06/04/24 14:38 [facility] (Rec: 06/04/24 15:27 [facility] [id number]) Posture Evaluation [facility] Postural Classification System [facility] Postural Classifications Posterior/Anterior Elbow Flexion Test 0 Lumbar Protective Mechanism Left AP 0 Lumbar Protective Mechanism Right AP 0 Lumbar Protective Mechanism Left PA 2 Lumbar Protective Mechanism Right PA 1 Comments Posture Comments Pelvic shear, L SB and rot, R foot turned out, R knee slightly bent, dec lordosis, slight hip flex, inc kyphosis, R iliac crest higher, equal greater trochanters PT-OP-K Range of Motion Start: 05/20/24 16:53 Freq: Status: Active Protocol: Document 06/04/24 14:38 [facility] (Rec: 06/04/24 15:27 [facility] [id number]) Lumbar Spine Range of Motion Lumbar Spine Active Percentage Flexion 40 Extension 20 Rotation Left 60 Rotation Right 65 Lateral Flexion Left 60 Lateral Flexion Right 40 Comments pain L SB , ext, mid thigh w/ blocking pelvis, mid goetz w/o PT-OP-L Special Tests Start: 05/20/24 16:53 Freq: Status: Active Protocol: Document 06/04/24 14:38 [facility] (Rec: 06/04/24 15:27 [facility] [id number]) Special Tests Lumbar Spine Special Tests march Test Results positive L Slump Test Results neg B Straight Leg Raise Test Results minor tightness B PT-OP-M Strength Start: 05/20/24 16:53 Freq: Status: Active Protocol: Document 06/04/24 14:38 [facility] (Rec: 06/04/24 15:27 [facility] [id number]) Hip Strength Hip Manual Muscle Testing Right Flexion (L2) 4 Good Extension (S1) 4- Good- Abduction 4 Good Adduction 5 Normal External Rotation 5 Normal Internal Rotation 5 Normal Left Flexion (L2) 3+ Fair+ Extension (S1) 4 Good Abduction 4- Good- Adduction 5 Normal External Rotation 5 Normal Internal Rotation 4 Good Knee Strength Knee Manual Muscle Testing B Flexion (S2) 5 Normal Extension (L3) 5 Normal Ankle/Foot Strength Ankle and Foot Manual Muscle Testing R Dorsiflexion (L4) 5 Normal Plantarflexion (S1) 5 Normal Comments 20 heel raises w/difficulty L Dorsiflexion (L4) 5 Normal Plantarflexion (S1) 4 Good Comments 15 heel raises w/less range PT-OP-Q Treatments Start: 05/20/24 16:53 Freq: Status: Active Protocol: Document 06/24/24 14:24 [facility] (Rec: 06/24/24 16:11 [facility] [id number]) Gym Equipment Sport Cord 1 Cord/Resistance red Reps/Duration 10 ea Comments fwd, retro, side step left, and right Cga to close supervision Therapeutic Exercises Supine Exercises Rhythmic stablization Supine Exercise Name sup, inf, rot usind dowel Reps/Minutes one min resisted knee to chest Supine Exercise Name DL SL Side bilateral Reps/Minutes 30 sec double then single 30 sec each Comments tactile cues for amount of force bridge Supine Exercise Name SL bridge w/opp LE in august Side bilateral Reps/Minutes 10 Comments cues segmental control, VC to press into heel piriformis stretch Side bilateral Reps/Minutes 60 sec Manual Therapy Treatment Soft Tissue Mobilization spine Body Location lumbar paraspinals, SI, scar tissue left, R LS paraspinals SI, glute Mobilization Type Cross-Friction,Rolling, Sustained Pressure Intensity/Depth Moderate Body Position Sidelying Comments also superficial and myofascial scar tissue glutes Body Location L pirifromis and sup glutes Mobilization Type Rolling,Sustained Pressure Intensity/Depth Moderate Body Position Sidelying Joint Mobilizations sacral Joint inf at hip with II A to P then contract relax sacral pad in place Body Position Hooklying Reps/Duration X10 then X for contract relax hip Reps/Duration inf L X 10 X 3 grade III Comments followed by contract relax into hip flexion X 3 PT-OP-T Assessment and Plan Start: 05/20/24 16:53 Freq: Status: Active Protocol: Document 06/24/24 14:24 [facility] (Rec: 06/24/24 16:11 [facility] [id number]) Physical Therapy Assessment Goals walking Short Term Goal (STG) Pt will be able to walk for 1 mile w/o limitation d/t LBP/ L hip pain. 06/17/24 Patient reports walking is limited to 1/2 a mile. STG Duration 2/ Custodial Goal (LTG) Pt will be able to walk for 2- 3 miles w/hills and/or stairs w/holding dog leash w/o limitation d/t LBP/ L hip pain . LTG Duration 08/27 strength Short Term Goal (STG) Pt will be indep w/HEP 06/17/24 Patient performs HEp as instructed per patient. STG Duration 2/ Custodial Goal (LTG) pt will score at least 4+/5 on BLE strength and at least 3/5 on LPM and EFT to show improved stability to allow greater ease with typical activity. LTG Duration 08/27 ANDREA Impairment 20/50 Short Term Goal (STG) Pt will improve ANDREA score to no greater than 13/50 to show improved functional ability. STG Duration 07/25/24 Custodial Goal (LTG) Pt will improve ANDREA score to no greater than 3/50 to show improved functional ability. LTG Duration 08/27/24 Assessment Summary Assessment Gopi reports Hip and LE muscle soreness end of session. Gopi was able to progress to bilateral resisted hip flexion in hooklying 30 seconds. Physical Therapy Plan Frequency and Duration Frequency of Treatment 2x/Week Duration of treatment (weeks) 12 Plan of Care Start Date 06/04/24 Plan of Care End Date 08/27/24 Next Visit Focus/Plan Next Note Type Treatment Note Next Visit Plan review and advance core and hip strength; resisted gait w/ dowel or sports cords manual: hips and pelvis mobs, STM to low back and scar
--- NOTE | 2024-07-01 09:06 | PT.OTN ---
Current Diagnoses Radiculopathy, lumbar region (07/01/24) Difficulty in walking, not elsewhere classified (07/01/24) Weakness (07/01/24) Other specified postprocedural states (07/01/24) Physical Therapy Treatment Note PT-OP-A Visit Information Start: 05/20/24 16:53 Freq: Status: Active Protocol: Document 07/01/24 08:07 AB (Rec: 07/01/24 09:05 AB [id number]) Out-Patient Physical Therapy Visit Information Visit Information Visit Type Treatment Note Visit Start Time 08:18 Visit Stop Time 09:02 Visit Number 6 (11/17 IE) Number of SAMPLE COORDINATOR Visits 2 PT-OP-B Current Condition Start: 05/20/24 16:53 Freq: Status: Active Protocol: Document 06/04/24 14:38 LR (Rec: 06/04/24 15:27 [facility] [id number]) Current Condition History of Current Condition Current Complaints L LB and buttocks History of Current Condition Past PT over the years for chronic back pain. 6 months ago, after .25 to .5 mile L leg started getting numb and was losing strength in calf. Went and had MRI and went to back doctor who said had spinal stenosis and did a demcompression 6 weeks ago. Recovered well overall. Had low dose steroid help a little and then has 3 days left of that. most of weakness and numbness in LLE has gone away. When extendeds, or stands up straight or walking,gets pain in buttocks L. bridging is tough on back. Feels like it is joint thing but unsure. No longer has restrictions from surgery besides avoid hot tub d/t incision. Its enough pain that has to hold breath sometimes when walking. Taking tylenol some. Walking only sometimes a block now. Usually walks. Pt has stopped running d/t doctor recommendation. Usually walks a few miles including hills a day w/dogs. Treatment Goals Patient/Caregiver Goals back to few mile walks and hikes, walk the dog, up/down hills w/o pain, be able to pivot on LLE w/o pain PT-OP-C Subjective Start: 05/20/24 16:53 Freq: Status: Active Protocol: Document 07/01/24 08:07 AB (Rec: 07/01/24 09:05 AB [id number]) OP-PT Subjective Patient Comments Patient Comments Patient reports the left gluteal pain came back last night, comments he as been doing more walking. Patient reports he was better for 3 weeks. PT-OP-D Balance Start: 05/20/24 16:53 Freq: Status: Active Protocol: Document 06/04/24 14:38 [facility] (Rec: 06/04/24 15:27 [facility] [id number]) Balance Tests Single Limb Standing Single Limb- Right >30 sec slight right lean Single Limb- Left >30 sec L lean and fwd flex PT-OP-F Manual Assessment Start: 05/20/24 16:53 Freq: Status: Active Protocol: Document 06/04/24 14:38 [facility] (Rec: 06/04/24 15:27 [facility] [id number]) Manual Assessments Other Manual Assessments Other Manual Assessments small scab not fully closed, redness of scar, swelling notable above PT-OP-G Mobility & Gait Start: 05/20/24 16:53 Freq: Status: Active Protocol: Document 06/04/24 14:38 [facility] (Rec: 06/04/24 15:27 [facility] [id number]) OP Gait Assessment Comments Gait Comments lat lean over LLE and dec LLE stance time PT-OP-J Posture/Palpation/Skin Start: 05/20/24 16:53 Freq: Status: Active Protocol: Document 06/04/24 14:38 [facility] (Rec: 06/04/24 15:27 [facility] [id number]) Posture Evaluation Abdi Postural Classification System Abdi Postural Classifications Posterior/Anterior Elbow Flexion Test 0 Lumbar Protective Mechanism Left AP 0 Lumbar Protective Mechanism Right AP 0 Lumbar Protective Mechanism Left PA 2 Lumbar Protective Mechanism Right PA 1 Comments Posture Comments Pelvic shear, L SB and rot, R foot turned out, R knee slightly bent, dec lordosis, slight hip flex, inc kyphosis, R iliac crest higher, equal greater trochanters PT-OP-K Range of Motion Start: 05/20/24 16:53 Freq: Status: Active Protocol: Document 06/04/24 14:38 [facility] (Rec: 06/04/24 15:27 [facility] [id number]) Lumbar Spine Range of Motion Lumbar Spine Active Percentage Flexion 40 Extension 20 Rotation Left 60 Rotation Right 65 Lateral Flexion Left 60 Lateral Flexion Right 40 Comments pain L SB , ext, mid thigh w/ blocking pelvis, mid goetz w/o PT-OP-L Special Tests Start: 05/20/24 16:53 Freq: Status: Active Protocol: Document 06/04/24 14:38 [facility] (Rec: 06/04/24 15:27 [facility] [id number]) Special Tests Lumbar Spine Special Tests march Test Results positive L Slump Test Results neg B Straight Leg Raise Test Results minor tightness B PT-OP-M Strength Start: 05/20/24 16:53 Freq: Status: Active Protocol: Document 06/04/24 14:38 [facility] (Rec: 06/04/24 15:27 [facility] [id number]) Hip Strength Hip Manual Muscle Testing Right Flexion (L2) 4 Good Extension (S1) 4- Good- Abduction 4 Good Adduction 5 Normal External Rotation 5 Normal Internal Rotation 5 Normal Left Flexion (L2) 3+ Fair+ Extension (S1) 4 Good Abduction 4- Good- Adduction 5 Normal External Rotation 5 Normal Internal Rotation 4 Good Knee Strength Knee Manual Muscle Testing B Flexion (S2) 5 Normal Extension (L3) 5 Normal Ankle/Foot Strength Ankle and Foot Manual Muscle Testing R Dorsiflexion (L4) 5 Normal Plantarflexion (S1) 5 Normal Comments 20 heel raises w/difficulty L Dorsiflexion (L4) 5 Normal Plantarflexion (S1) 4 Good Comments 15 heel raises w/less range PT-OP-Q Treatments Start: 05/20/24 16:53 Freq: Status: Active Protocol: Document 07/01/24 08:07 AB (Rec: 07/01/24 09:05 AB [id number]) Therapeutic Exercises Supine Exercises Modifired Dennys stretch Supine Exercise Name HEP Side bilateral Reps/Minutes 60 sec each LE with AROM knee flexion Comments Verbal cues bridge Supine Exercise Name Bilateral and SL bridge Side bilateral Reps/Minutes 1.X10 2. X 5 piriformis stretch Side bilateral Reps/Minutes 60 sec Sitting Exercises seated hip abd with band Sitting Exercise Name HEP Side bilateral Resistance level 3 band Reps/Minutes one min Comments verbal cues Manual Therapy Treatment Consent Patient gave verbal consent for manual Yes treatment Soft Tissue Mobilization spine Body Location B lumbar paraspinals, SI, scar tissue left, R LS paraspinals SI, glute Mobilization Type Cross-Friction,Rolling, Sustained Pressure Intensity/Depth Moderate Body Position Sidelying Comments also superficial and myofascial scar tissue glutes Body Location B pirifromis and sup glutes Mobilization Type Rolling,Sustained Pressure Intensity/Depth Moderate Body Position Sidelying Manual Techniques MET R AI L PI Type also pubic shotgun Reps/Duration 6 sec X 6 each PT-OP-T Assessment and Plan Start: 05/20/24 16:53 Freq: Status: Active Protocol: Document 07/01/24 08:07 AB (Rec: 07/01/24 09:05 AB [id number]) Physical Therapy Assessment Goals walking Short Term Goal (STG) Pt will be able to walk for 1 mile w/o limitation d/t LBP/ L hip pain. 06/17/24 Patient reports walking is limited to 1/2 a mile. STG Duration 07/12 Detention Goal (LTG) Pt will be able to walk for 2- 3 miles w/hills and/or stairs w/holding dog leash w/o limitation d/t LBP/ L hip pain . LTG Duration 08/27 strength Short Term Goal (STG) Pt will be indep w/HEP 06/17/24 Patient performs HEp as instructed per patient. STG Duration 07/12 Detention Goal (LTG) pt will score at least 4+/5 on BLE strength and at least 3/5 on LPM and EFT to show improved stability to allow greater ease with typical activity. LTG Duration 08/27 ANDREA Impairment 20/50 Short Term Goal (STG) Pt will improve ANDREA score to no greater than 13/50 to show improved functional ability. STG Duration 07/25/24 Detention Goal (LTG) Pt will improve ANDREA score to no greater than 3/50 to show improved functional ability. LTG Duration 08/27/24 Assessment Summary Assessment Gopi reports less pain end of session, also reports left pain with hip flexion ARoM in hooklying and bridge. Physical Therapy Plan Frequency and Duration Frequency of Treatment 2x/Week Duration of treatment (weeks) 12 Plan of Care Start Date 06/04/24 Plan of Care End Date 08/27/24 Next Visit Focus/Plan Next Note Type Treatment Note Next Visit Plan review and advance core and hip strength; resisted gait w/ dowel or sports cords manual: hips and pelvis mobs, STM to low back and scar ( Joint and sacral mobs prior to MET)
--- NOTE | 2024-07-03 10:41 | PT.OTN ---
Current Diagnoses Radiculopathy, lumbar region (07/03/24) Difficulty in walking, not elsewhere classified (07/03/24) Weakness (07/03/24) Other specified postprocedural states (07/03/24) Physical Therapy Treatment Note PT-OP-A Visit Information Start: 05/20/24 16:53 Freq: Status: Active Protocol: Document 07/03/24 08:13 AB (Rec: 07/03/24 10:39 AB [id number]) Out-Patient Physical Therapy Visit Information Visit Information Visit Type Treatment Note Visit Start Time 09:05 Visit Stop Time 09:49 Visit Number 7 Number of SOLID WASTE ENGINEER Visits 3 PT-OP-B Current Condition Start: 05/20/24 16:53 Freq: Status: Active Protocol: Document 06/04/24 14:38 LR (Rec: 06/04/24 15:27 [facility] [id number]) Current Condition History of Current Condition Current Complaints L LB and buttocks History of Current Condition Past PT over the years for chronic back pain. 6 months ago, after .25 to .5 mile L leg started getting numb and was losing strength in calf. Went and had MRI and went to back doctor who said had spinal stenosis and did a demcompression 6 weeks ago. Recovered well overall. Had low dose steroid help a little and then has 3 days left of that. most of weakness and numbness in LLE has gone away. When extendeds, or stands up straight or walking,gets pain in buttocks L. bridging is tough on back. Feels like it is joint thing but unsure. No longer has restrictions from surgery besides avoid hot tub d/t incision. Its enough pain that has to hold breath sometimes when walking. Taking tylenol some. Walking only sometimes a block now. Usually walks. Pt has stopped running d/t doctor recommendation. Usually walks a few miles including hills a day w/dogs. Treatment Goals Patient/Caregiver Goals back to few mile walks and hikes, walk the dog, up/down hills w/o pain, be able to pivot on LLE w/o pain PT-OP-C Subjective Start: 05/20/24 16:53 Freq: Status: Active Protocol: Document 07/03/24 08:13 AB (Rec: 07/03/24 10:39 AB [id number]) OP-PT Subjective Patient Comments Patient Comments Patient reports the glute pain is mostly gone, but with scooting/rolling left in bed/ lifting bottom up increases pain, sharp pain which goes away when he stops PT-OP-D Balance Start: 05/20/24 16:53 Freq: Status: Active Protocol: Document 06/04/24 14:38 [facility] (Rec: 06/04/24 15:27 [facility] [id number]) Balance Tests Single Limb Standing Single Limb- Right >30 sec slight right lean Single Limb- Left >30 sec L lean and fwd flex PT-OP-F Manual Assessment Start: 05/20/24 16:53 Freq: Status: Active Protocol: Document 06/04/24 14:38 [facility] (Rec: 06/04/24 15:27 [facility] [id number]) Manual Assessments Other Manual Assessments Other Manual Assessments small scab not fully closed, redness of scar, swelling notable above PT-OP-G Mobility & Gait Start: 05/20/24 16:53 Freq: Status: Active Protocol: Document 06/04/24 14:38 [facility] (Rec: 06/04/24 15:27 [facility] [id number]) OP Gait Assessment Comments Gait Comments lat lean over LLE and dec LLE stance time PT-OP-J Posture/Palpation/Skin Start: 05/20/24 16:53 Freq: Status: Active Protocol: Document 06/04/24 14:38 [facility] (Rec: 06/04/24 15:27 [facility] [id number]) Posture Evaluation Abdi Postural Classification System Abdi Postural Classifications Posterior/Anterior Elbow Flexion Test 0 Lumbar Protective Mechanism Left AP 0 Lumbar Protective Mechanism Right AP 0 Lumbar Protective Mechanism Left PA 2 Lumbar Protective Mechanism Right PA 1 Comments Posture Comments Pelvic shear, L SB and rot, R foot turned out, R knee slightly bent, dec lordosis, slight hip flex, inc kyphosis, R iliac crest higher, equal greater trochanters PT-OP-K Range of Motion Start: 05/20/24 16:53 Freq: Status: Active Protocol: Document 06/04/24 14:38 [facility] (Rec: 06/04/24 15:27 [facility] [id number]) Lumbar Spine Range of Motion Lumbar Spine Active Percentage Flexion 40 Extension 20 Rotation Left 60 Rotation Right 65 Lateral Flexion Left 60 Lateral Flexion Right 40 Comments pain L SB , ext, mid thigh w/ blocking pelvis, mid goetz w/o PT-OP-L Special Tests Start: 05/20/24 16:53 Freq: Status: Active Protocol: Document 06/04/24 14:38 [facility] (Rec: 06/04/24 15:27 [facility] [id number]) Special Tests Lumbar Spine Special Tests march Test Results positive L Slump Test Results neg B Straight Leg Raise Test Results minor tightness B PT-OP-M Strength Start: 05/20/24 16:53 Freq: Status: Active Protocol: Document 06/04/24 14:38 [facility] (Rec: 06/04/24 15:27 [facility] [id number]) Hip Strength Hip Manual Muscle Testing Right Flexion (L2) 4 Good Extension (S1) 4- Good- Abduction 4 Good Adduction 5 Normal External Rotation 5 Normal Internal Rotation 5 Normal Left Flexion (L2) 3+ Fair+ Extension (S1) 4 Good Abduction 4- Good- Adduction 5 Normal External Rotation 5 Normal Internal Rotation 4 Good Knee Strength Knee Manual Muscle Testing B Flexion (S2) 5 Normal Extension (L3) 5 Normal Ankle/Foot Strength Ankle and Foot Manual Muscle Testing R Dorsiflexion (L4) 5 Normal Plantarflexion (S1) 5 Normal Comments 20 heel raises w/difficulty L Dorsiflexion (L4) 5 Normal Plantarflexion (S1) 4 Good Comments 15 heel raises w/less range PT-OP-Q Treatments Start: 05/20/24 16:53 Freq: Status: Active Protocol: Document 07/03/24 08:13 AB (Rec: 07/03/24 10:39 AB [id number]) Therapeutic Exercises Supine Exercises Modifired Dennys stretch Supine Exercise Name HEP Side bilateral Reps/Minutes 60 sec each LE with AROM knee flexion Comments Verbal cues bridge Supine Exercise Name Bilateral and SL bridge Side bilateral Reps/Minutes X5 each piriformis stretch Side bilateral Reps/Minutes 60 sec X2 Comments verbal cues post manual and stretches Standing Exercises Pallof press Standing Exercise Name HEP Resistance level 2 band (2 bands) Reps/Minutes X15 each side Comments standing and seated on ball Manual Therapy Treatment Consent Patient gave verbal consent for manual Yes treatment Soft Tissue Mobilization spine Body Location B lumbar paraspinals, SI, scar tissue left, R LS paraspinals SI, glute Mobilization Type Cross-Friction,Rolling, Sustained Pressure Intensity/Depth Moderate Body Position Sidelying Comments also superficial and myofascial scar tissue glutes Body Location B pirifromis and sup glutes Mobilization Type Rolling,Sustained Pressure Intensity/Depth Moderate Body Position Sidelying Joint Mobilizations sacral Joint inf at hip with II A to P then contract relax sacral pad in place Body Position Hooklying Reps/Duration X10 then X for contract relax Manual Techniques MET R AI L PI Type also pubic shotgun Reps/Duration 6 sec X 6 each PT-OP-T Assessment and Plan Start: 05/20/24 16:53 Freq: Status: Active Protocol: Document 07/03/24 08:13 AB (Rec: 07/03/24 10:39 AB [id number]) Physical Therapy Assessment Goals walking Short Term Goal (STG) Pt will be able to walk for 1 mile w/o limitation d/t LBP/ L hip pain. 06/17/24 Patient reports walking is limited to 1/2 a mile. STG Duration 2 Longterm Goal (LTG) Pt will be able to walk for 2- 3 miles w/hills and/or stairs w/holding dog leash w/o limitation d/t LBP/ L hip pain . LTG Duration 08/27 strength Short Term Goal (STG) Pt will be indep w/HEP 06/17/24 Patient performs HEp as instructed per patient. STG Duration 2/ Longterm Goal (LTG) pt will score at least 4+/5 on BLE strength and at least 3/5 on LPM and EFT to show improved stability to allow greater ease with typical activity. LTG Duration 08/27 ANDREA Impairment 20/50 Short Term Goal (STG) Pt will improve ANDREA score to no greater than 13/50 to show improved functional ability. STG Duration 07/25/24 Longterm Goal (LTG) Pt will improve ANDREA score to no greater than 3/50 to show improved functional ability. LTG Duration 08/27/24 Assessment Summary Assessment Gopi reports less pain with pushing off to roll in hooklying L LE pushing off with a little pain, R LE none, ( less than trial start of session. Physical Therapy Plan Frequency and Duration Frequency of Treatment 2x/Week Duration of treatment (weeks) 12 Plan of Care Start Date 06/04/24 Plan of Care End Date 08/27/24 Next Visit Focus/Plan Next Note Type Treatment Note Next Visit Plan review and advance core and hip strength; resisted gait w/ dowel or sports cords manual: hips and pelvis mobs, STM to low back and scar ( Joint and sacral mobs prior to MET) Possibly trial of upright bike
--- NOTE | 2024-07-07 10:40 | PT.OTN ---
Current Diagnoses Radiculopathy, lumbar region (07/07/24) Difficulty in walking, not elsewhere classified (07/07/24) Weakness (07/07/24) Other specified postprocedural states (07/07/24) Physical Therapy Treatment Note PT-OP-A Visit Information Start: 05/20/24 16:53 Freq: Status: Active Protocol: Document 07/07/24 08:13 AB (Rec: 07/07/24 10:40 AB [id number]) Out-Patient Physical Therapy Visit Information Visit Information Visit Type Treatment Note Visit Start Time 09:04 Visit Stop Time 09:47 Visit Number 8 Number of CERTIFIED NUCLEAR MEDICINE TECHNOLOGIST Visits 4 PT-OP-B Current Condition Start: 05/20/24 16:53 Freq: Status: Active Protocol: Document 06/04/24 14:38 LR (Rec: 06/04/24 15:27 [facility] [id number]) Current Condition History of Current Condition Current Complaints L LB and buttocks History of Current Condition Past PT over the years for chronic back pain. 6 months ago, after .25 to .5 mile L leg started getting numb and was losing strength in calf. Went and had MRI and went to back doctor who said had spinal stenosis and did a demcompression 6 weeks ago. Recovered well overall. Had low dose steroid help a little and then has 3 days left of that. most of weakness and numbness in LLE has gone away. When extendeds, or stands up straight or walking,gets pain in buttocks L. bridging is tough on back. Feels like it is joint thing but unsure. No longer has restrictions from surgery besides avoid hot tub d/t incision. Its enough pain that has to hold breath sometimes when walking. Taking tylenol some. Walking only sometimes a block now. Usually walks. Pt has stopped running d/t doctor recommendation. Usually walks a few miles including hills a day w/dogs. Treatment Goals Patient/Caregiver Goals back to few mile walks and hikes, walk the dog, up/down hills w/o pain, be able to pivot on LLE w/o pain PT-OP-C Subjective Start: 05/20/24 16:53 Freq: Status: Active Protocol: Document 07/07/24 08:13 AB (Rec: 07/07/24 10:40 AB [id number]) OP-PT Subjective Patient Comments Patient Comments Gopi reports he is a little more sore in the back, did a walk with a hill in it and has been doing more of the exercises. Patient rates pain on Right side SI joint area. R HS lacking 34 deg measured AROM 90/90 position PT-OP-D Balance Start: 05/20/24 16:53 Freq: Status: Active Protocol: Document 06/04/24 14:38 [facility] (Rec: 06/04/24 15[id number] Balance Tests Single Limb Standing Single Limb- Right >30 sec slight right lean Single Limb- Left >30 sec L lean and fwd flex PT-OP-F Manual Assessment Start: 05/20/24 16:53 Freq: Status: Active Protocol: Document 06/04/24 14:38 [facility] (Rec: 06/04/24 15:27 [id number] Manual Assessments Other Manual Assessments Other Manual Assessments small scab not fully closed, redness of scar, swelling notable above PT-OP-G Mobility & Gait Start: 05/20/24 16:53 Freq: Status: Active Protocol: Document 06/04/24 14:38 [facility] (Rec: 06/04/24 15:27 [facility] [id number]) OP Gait Assessment Comments Gait Comments lat lean over LLE and dec LLE stance time PT-OP-J Posture/Palpation/Skin Start: 05/20/24 16:53 Freq: Status: Active Protocol: Document 06/04/24 14:38 [facility] (Rec: 06/04/24 15:27 [facility] [id number]) Posture Evaluation Abdi Postural Classification System Abdi Postural Classifications Posterior/Anterior Elbow Flexion Test 0 Lumbar Protective Mechanism Left AP 0 Lumbar Protective Mechanism Right AP 0 Lumbar Protective Mechanism Left PA 2 Lumbar Protective Mechanism Right PA 1 Comments Posture Comments Pelvic shear, L SB and rot, R foot turned out, R knee slightly bent, dec lordosis, slight hip flex, inc kyphosis, R iliac crest higher, equal greater trochanters PT-OP-K Range of Motion Start: 05/20/24 16:53 Freq: Status: Active Protocol: Document 06/04/24 14:38 [facility] (Rec: 06/04/24 15:27 [facility] [id number]) Lumbar Spine Range of Motion Lumbar Spine Active Percentage Flexion 40 Extension 20 Rotation Left 60 Rotation Right 65 Lateral Flexion Left 60 Lateral Flexion Right 40 Comments pain L SB , ext, mid thigh w/ blocking pelvis, mid goetz w/o PT-OP-L Special Tests Start: 05/20/24 16:53 Freq: Status: Active Protocol: Document 06/04/24 14:38 [facility] (Rec: 06/04/24 15:27 [facility] [id number]) Special Tests Lumbar Spine Special Tests march Test Results positive L Slump Test Results neg B Straight Leg Raise Test Results minor tightness B PT-OP-M Strength Start: 05/20/24 16:53 Freq: Status: Active Protocol: Document 06/04/24 14:38 [facility] (Rec: 06/04/24 15:27 [facility] [id number]) Hip Strength Hip Manual Muscle Testing Right Flexion (L2) 4 Good Extension (S1) 4- Good- Abduction 4 Good Adduction 5 Normal External Rotation 5 Normal Internal Rotation 5 Normal Left Flexion (L2) 3+ Fair+ Extension (S1) 4 Good Abduction 4- Good- Adduction 5 Normal External Rotation 5 Normal Internal Rotation 4 Good Knee Strength Knee Manual Muscle Testing B Flexion (S2) 5 Normal Extension (L3) 5 Normal Ankle/Foot Strength Ankle and Foot Manual Muscle Testing R Dorsiflexion (L4) 5 Normal Plantarflexion (S1) 5 Normal Comments 20 heel raises w/difficulty L Dorsiflexion (L4) 5 Normal Plantarflexion (S1) 4 Good Comments 15 heel raises w/less range PT-OP-Q Treatments Start: 05/20/24 16:53 Freq: Status: Active Protocol: Document 07/07/24 08:13 AB (Rec: 07/07/24 10:40 AB [id number]) Therapeutic Exercises Supine Exercises hamstring stretch Supine Exercise Name HEP Side right Reps/Minutes 60 sec X3 Comments verbal cues bridge Supine Exercise Name SL bridge Side bilateral Reps/Minutes X10 each piriformis stretch Side bilateral Reps/Minutes 60 sec X2 Comments verbal cues post manual and stretches Sitting Exercises seated hip abd with band Sitting Exercise Name HEP Side bilateral Resistance level 4 band Reps/Minutes one min Comments verbal cues to perform to neutral Standing Exercises Forward T/single LE lift Standing Exercise Name to chair seat height Side bilateral Equipment Used HEP Reps/Minutes X10 Comments verbal and visual cues ambulation with 2 L overhead each UE Reps/Minutes 12 feet then one min post manual and stretches Comments limited by R SI pain start of session Manual Therapy Treatment Consent Patient gave verbal consent for manual Yes treatment Manual Techniques contract relax right hip piriformis Reps/Duration 60 sec X 1 MET R AI L PI Type L AI right PI this session. Reps/Duration 6X 6 sec Comments LE into mat and therapists' and vs dowel PT-OP-T Assessment and Plan Start: 05/20/24 16:53 Freq: Status: Active Protocol: Document 07/07/24 08:13 AB (Rec: 07/07/24 10:40 AB [id number]) Physical Therapy Assessment Goals walking Short Term Goal (STG) Pt will be able to walk for 1 mile w/o limitation d/t LBP/ L hip pain. 06/17/24 Patient reports walking is limited to 1/2 a mile. STG Duration 2/ Fci Goal (LTG) Pt will be able to walk for 2- 3 miles w/hills and/or stairs w/holding dog leash w/o limitation d/t LBP/ L hip pain . LTG Duration 08/27 Assessment Summary Assessment R HS lacking 28 deg AROM 90/90 position post HS stretches Physical Therapy Plan Frequency and Duration Frequency of Treatment 2x/Week Duration of treatment (weeks) 12 Plan of Care Start Date 06/04/24 Plan of Care End Date 08/27/24 Next Visit Focus/Plan Next Note Type Treatment Note Next Visit Plan review and advance core and hip strength; resisted gait w/ dowel or sports cords manual: hips and pelvis mobs, STM to low back and scar ( Joint and sacral mobs prior to MET) Possibly trial of upright bike
--- NOTE | 2024-07-09 10:48 | PT.OTN ---
Current Diagnoses Radiculopathy, lumbar region (07/09/24) Difficulty in walking, not elsewhere classified (07/09/24) Weakness (07/09/24) Other specified postprocedural states (07/09/24) Physical Therapy Treatment Note PT-OP-A Visit Information Start: 05/20/24 16:53 Freq: Status: Active Protocol: Document 07/09/24 09:49 [facility] (Rec: 07/09/24 10:48 [facility] [id number]) Out-Patient Physical Therapy Visit Information Visit Information Visit Type Progress Note Visit Start Time 09:49 Visit Stop Time 10:29 Visit Number 9 Number of SPLICING MACHINE OPERATOR AUTOMATIC Visits 0 PT-OP-B Current Condition Start: 05/20/24 16:53 Freq: Status: Active Protocol: Document 06/04/24 14:38 [facility] (Rec: 06/04/24 15:27 [facility] [id number]) Current Condition History of Current Condition Current Complaints L LB and buttocks History of Current Condition Past PT over the years for chronic back pain. 6 months ago, after .25 to .5 mile L leg started getting numb and was losing strength in calf. Went and had MRI and went to back doctor who said had spinal stenosis and did a demcompression 6 weeks ago. Recovered well overall. Had low dose steroid help a little and then has 3 days left of that. most of weakness and numbness in LLE has gone away. When extendeds, or stands up straight or walking,gets pain in buttocks L. bridging is tough on back. Feels like it is joint thing but unsure. No longer has restrictions from surgery besides avoid hot tub d/t incision. Its enough pain that has to hold breath sometimes when walking. Taking tylenol some. Walking only sometimes a block now. Usually walks. Pt has stopped running d/t doctor recommendation. Usually walks a few miles including hills a day w/dogs. Treatment Goals Patient/Caregiver Goals back to few mile walks and hikes, walk the dog, up/down hills w/o pain, be able to pivot on LLE w/o pain PT-OP-C Subjective Start: 05/20/24 16:53 Freq: Status: Active Protocol: Document 07/09/24 09:49 [facility] (Rec: 07/09/24 10:48 [facility] [id number]) OP-PT Subjective Patient Comments Patient Comments after about 3/4 mile get sore in LBP. Pain in L side is better though. feet get a little numb after 1/2 mile or so. Pt tried hills and that didn't go well PT-OP-D Balance Start: 05/20/24 16:53 Freq: Status: Active Protocol: Document 06/04/24 14:38 [facility] (Rec: 06/04/24 15:27 [facility] [id number]) Balance Tests Single Limb Standing Single Limb- Right >30 sec slight right lean Single Limb- Left >30 sec L lean and fwd flex PT-OP-F Manual Assessment Start: 05/20/24 16:53 Freq: Status: Active Protocol: Document 06/04/24 14:38 [facility] (Rec: 06/04/24 15:27 [facility] [id number]) Manual Assessments Other Manual Assessments Other Manual Assessments small scab not fully closed, redness of scar, swelling notable above PT-OP-G Mobility & Gait Start: 05/20/24 16:53 Freq: Status: Active Protocol: Document 06/04/24 14:38 [facility] (Rec: 06/04/24 15:27 [facility] [id number]) OP Gait Assessment Comments Gait Comments lat lean over LLE and dec LLE stance time PT-OP-J Posture/Palpation/Skin Start: 05/20/24 16:53 Freq: Status: Active Protocol: Document 07/09/24 09:49 [facility] (Rec: 07/09/24 10:48 [facility] [id number]) Posture Evaluation Abdi Postural Classification System Abdi Postural Classifications Posterior/Anterior Elbow Flexion Test 1 Lumbar Protective Mechanism Left AP 2 Lumbar Protective Mechanism Right AP 0 Lumbar Protective Mechanism Left PA 2 Lumbar Protective Mechanism Right PA 1 PT-OP-K Range of Motion Start: 05/20/24 16:53 Freq: Status: Active Protocol: Document 06/04/24 14:38 [facility] (Rec: 06/04/24 15:27 [facility] [id number]) Lumbar Spine Range of Motion Lumbar Spine Active Percentage Flexion 40 Extension 20 Rotation Left 60 Rotation Right 65 Lateral Flexion Left 60 Lateral Flexion Right 40 Comments pain L SB , ext, mid thigh w/ blocking pelvis, mid goetz w/o PT-OP-L Special Tests Start: 05/20/24 16:53 Freq: Status: Active Protocol: Document 06/04/24 14:38 [facility] (Rec: 06/04/24 15:27 [facility] [id number]) Special Tests Lumbar Spine Special Tests march Test Results positive L Slump Test Results neg B Straight Leg Raise Test Results minor tightness B PT-OP-M Strength Start: 05/20/24 16:53 Freq: Status: Active Protocol: Document 07/09/24 09:49 [facility] (Rec: 07/09/24 10:48 [facility] [id number]) Hip Strength Hip Manual Muscle Testing Right Flexion (L2) 4- Good- Extension (S1) 4 Good Abduction 4+ Good+ Adduction 5 Normal External Rotation 5 Normal Internal Rotation 5 Normal Left Flexion (L2) 4+ Good+ Extension (S1) 4 Good Abduction 4+ Good+ Adduction 5 Normal External Rotation 5 Normal Internal Rotation 5 Normal Knee Strength Knee Manual Muscle Testing B Flexion (S2) 5 Normal Extension (L3) 5 Normal Ankle/Foot Strength Ankle and Foot Manual Muscle Testing R Dorsiflexion (L4) 5 Normal Plantarflexion (S1) 5 Normal Comments 20 heel raises L Dorsiflexion (L4) 5 Normal Plantarflexion (S1) 4+ Good+ Comments 18 heel raises w/less range with later reps PT-OP-Q Treatments Start: 05/20/24 16:53 Freq: Status: Active Protocol: Document 07/09/24 09:49 [facility] (Rec: 07/09/24 10:48 [facility] [id number]) Therapeutic Exercises Supine Exercises Modifired Dennys stretch Supine Exercise Name HEP Side bilateral Reps/Minutes 30 sec ea Comments Verbal cues op knee to chest Gait Training Gait Activity step up Comments 6 in step w/alt august x15 B - RLE w/band behind knee-max cues knee ext gait at wall Comments 5 sec x6 B cues full knee ext resisted gait Comments 50ft x2 w/dowel w/cues for posture and push off Manual Therapy Treatment Consent Patient gave verbal consent for manual Yes treatment Soft Tissue Mobilization hip flexors Body Location L>R psoas Mobilization Type Sustained Pressure Intensity/Depth Moderate Comments w/flex c/r Joint Mobilizations innominate Body Position Sidelying Comments L>R ext c/r PT-OP-T Assessment and Plan Start: 05/20/24 16:53 Freq: Status: Active Protocol: Document 07/09/24 09:49 [facility] (Rec: 07/09/24 10:48 [facility] [id number]) Physical Therapy Assessment Goals walking Short Term Goal (STG) Pt will be able to walk for 1 mile w/o limitation d/t LBP/ L hip pain. 06/17/24 Patient reports walking is limited to 1/2 a mile. 07/09-1/2 to mile LBP soreness 4-5/10 STG Duration 07/12 Computer Education Teacher Goal (LTG) Pt will be able to walk for 2- 3 miles w/hills and/or stairs w/holding dog leash w/o limitation d/t LBP/ L hip pain . LTG Duration 08/27 strength Short Term Goal (STG) Pt will be indep w/HEP 06/17/24 Patient performs HEp as instructed per patient. STG Duration achieved and advancing as able Computer Education Teacher Goal (LTG) pt will score at least 4+/5 on BLE strength and at least 3/5 on LPM and EFT to show improved stability to allow greater ease with typical activity. 07/09-improving LTG Duration 08/27 ANDREA Impairment 20/50 Short Term Goal (STG) Pt will improve ANDREA score to no greater than 13/50 to show improved functional ability. STG Duration achieved 07/09 to Usp Goal (LTG) Pt will improve ANDREA score to no greater than 3/50 to show improved functional ability. 07/09- LTG Duration 08/27/24 Assessment Summary Assessment Pt had improved ext after manual treatment today and improved upright posture w/ less pelvic shear and fwd bent position. He requires a lot of cues for glute engagement w /gait activtities Physical Therapy Plan Frequency and Duration Frequency of Treatment 2x/Week Duration of treatment (weeks) 12 Plan of Care Start Date 06/04/24 Plan of Care End Date 08/27/24 Therapeutic Interventions Therapeutic Interventions Balance Training,Gait Training ,Home Exercise Program,Joint Mobilizations,Manual Therapy, Neuromuscular Re-education, Orthotic/Prosthetic Management ,Patient/Caregiver Education, Self-Care/Home Management,Soft Tissue Mobilization,Taping, Therapeutic Activities, Therapeutic Exercises Modalities Cold Pack/Ice Massage,Electric Stimulation,Hot Packs, Infrared Therapy,Ultrasound Next Visit Focus/Plan Next Note Type Treatment Note Next Visit Plan work on gait for pus off manual: hips and pelvis mobs, STM to low back and scar
--- NOTE | 2024-07-14 10:43 | PT.OTN ---
Current Diagnoses Radiculopathy, lumbar region (07/14/24) Difficulty in walking, not elsewhere classified (07/14/24) Weakness (07/14/24) Other specified postprocedural states (07/14/24) Physical Therapy Treatment Note PT-OP-A Visit Information Start: 05/20/24 16:53 Freq: Status: Active Protocol: Document 07/14/24 09:06 [facility] (Rec: 07/14/24 10:43 [facility] [id number]) Out-Patient Physical Therapy Visit Information Visit Information Visit Type Treatment Note Visit Start Time 09:06 Visit Stop Time 09:46 Visit Number 10 Number of SURFACE LAY OUT TECHNICIAN Visits 0 PT-OP-B Current Condition Start: 05/20/24 16:53 Freq: Status: Active Protocol: Document 06/04/24 14:38 [facility] (Rec: 06/04/24 15:27 [facility] [id number]) Current Condition History of Current Condition Current Complaints L LB and buttocks History of Current Condition Past PT over the years for chronic back pain. 6 months ago, after .25 to .5 mile L leg started getting numb and was losing strength in calf. Went and had MRI and went to back doctor who said had spinal stenosis and did a demcompression 6 weeks ago. Recovered well overall. Had low dose steroid help a little and then has 3 days left of that. most of weakness and numbness in LLE has gone away. When extendeds, or stands up straight or walking,gets pain in buttocks L. bridging is tough on back. Feels like it is joint thing but unsure. No longer has restrictions from surgery besides avoid hot tub d/t incision. Its enough pain that has to hold breath sometimes when walking. Taking tylenol some. Walking only sometimes a block now. Usually walks. Pt has stopped running d/t doctor recommendation. Usually walks a few miles including hills a day w/dogs. Treatment Goals Patient/Caregiver Goals back to few mile walks and hikes, walk the dog, up/down hills w/o pain, be able to pivot on LLE w/o pain PT-OP-C Subjective Start: 05/20/24 16:53 Freq: Status: Active Protocol: Document 07/14/24 09:06 [facility] (Rec: 07/14/24 10:43 [facility] [id number]) OP-PT Subjective Patient Comments Patient Comments did a mile walk and had some fatigue in back PT-OP-D Balance Start: 05/20/24 16:53 Freq: Status: Active Protocol: Document 06/04/24 14:38 [facility] (Rec: 06/04/24 15:27 [facility] [id number]) Balance Tests Single Limb Standing Single Limb- Right >30 sec slight right lean Single Limb- Left >30 sec L lean and fwd flex PT-OP-F Manual Assessment Start: 05/20/24 16:53 Freq: Status: Active Protocol: Document 06/04/24 14:38 [facility] (Rec: 06/04/24 15:27 [facility] [id number]) Manual Assessments Other Manual Assessments Other Manual Assessments small scab not fully closed, redness of scar, swelling notable above PT-OP-G Mobility & Gait Start: 05/20/24 16:53 Freq: Status: Active Protocol: Document 06/04/24 14:38 [facility] (Rec: 06/04/24 15:27 [facility] [id number]) OP Gait Assessment Comments Gait Comments lat lean over LLE and dec LLE stance time PT-OP-J Posture/Palpation/Skin Start: 05/20/24 16:53 Freq: Status: Active Protocol: Document 07/09/24 09:49 [facility] (Rec: 07/09/24 10:48 [facility] [id number]) Posture Evaluation [facility] Postural Classification System Abdi Postural Classifications Posterior/Anterior Elbow Flexion Test 1 Lumbar Protective Mechanism Left AP 2 Lumbar Protective Mechanism Right AP 0 Lumbar Protective Mechanism Left PA 2 Lumbar Protective Mechanism Right PA 1 PT-OP-K Range of Motion Start: 05/20/24 16:53 Freq: Status: Active Protocol: Document 06/04/24 14:38 [facility] (Rec: 06/04/24 15:27 [facility] [id number]) Lumbar Spine Range of Motion Lumbar Spine Active Percentage Flexion 40 Extension 20 Rotation Left 60 Rotation Right 65 Lateral Flexion Left 60 Lateral Flexion Right 40 Comments pain L SB , ext, mid thigh w/ blocking pelvis, mid goetz w/o PT-OP-L Special Tests Start: 05/20/24 16:53 Freq: Status: Active Protocol: Document 06/04/24 14:38 [facility] (Rec: 06/04/24 15:27 [facility] [id number]) Special Tests Lumbar Spine Special Tests march Test Results positive L Slump Test Results neg B Straight Leg Raise Test Results minor tightness B PT-OP-M Strength Start: 05/20/24 16:53 Freq: Status: Active Protocol: Document 07/09/24 09:49 [facility] (Rec: 07/09/24 10:48 [facility] [id number]) Hip Strength Hip Manual Muscle Testing Right Flexion (L2) 4- Good- Extension (S1) 4 Good Abduction 4+ Good+ Adduction 5 Normal External Rotation 5 Normal Internal Rotation 5 Normal Left Flexion (L2) 4+ Good+ Extension (S1) 4 Good Abduction 4+ Good+ Adduction 5 Normal External Rotation 5 Normal Internal Rotation 5 Normal Knee Strength Knee Manual Muscle Testing B Flexion (S2) 5 Normal Extension (L3) 5 Normal Ankle/Foot Strength Ankle and Foot Manual Muscle Testing R Dorsiflexion (L4) 5 Normal Plantarflexion (S1) 5 Normal Comments 20 heel raises L Dorsiflexion (L4) 5 Normal Plantarflexion (S1) 4+ Good+ Comments 18 heel raises w/less range with later reps PT-OP-Q Treatments Start: 05/20/24 16:53 Freq: Status: Active Protocol: Document 07/14/24 09:06 [facility] (Rec: 07/14/24 10:43 [facility] [id number]) Gym Equipment Sport Cord 1 Cord/Resistance red Reps/Duration 10 ea Comments fwd focus on push backwards focus on lg step Therapeutic Exercises Supine Exercises bridge Supine Exercise Name SL bridge Side bilateral Reps/Minutes X10 each Prone Exercises plank Prone Exercise Name forearm and knees Side bilateral Reps/Minutes [id number] Comments cues back position Other Exercises quadruped Other Exercise Name alt hip ext Side bilateral Reps/Minutes 15 Comments cues no lean Gait Training Gait Activity fwd fall Comments to wall plank (about 6 in from wall) focus on movement at ankle and back neutral x10 step up Comments 6 in step w/alt august x10 B - RLE w/band behind knee-max cues knee ext gait at wall Comments 10sec x3 B cues full knee ext resisted gait Comments 50ft x2 w/dowel w/cues for posture and push off Manual Therapy Treatment Consent Patient gave verbal consent for manual Yes treatment Soft Tissue Mobilization hip flexors Body Location L>R psoas & iliacus Mobilization Type Sustained Pressure Intensity/Depth Moderate Comments w/flex c/r spine Body Location B lumbar paraspinals, SI, scar tissue left, R LS paraspinals SI Mobilization Type Myofascial Release,Rolling, Sustained Pressure Intensity/Depth Moderate Body Position Sidelying Joint Mobilizations lumbar Comments transverse L L3-5 c/r w/ant elevation innominate Comments L add c/r hip Comments L add c/r PT-OP-T Assessment and Plan Start: 05/20/24 16:53 Freq: Status: Active Protocol: Document 07/14/24 09:06 [facility] (Rec: 07/14/24 10:43 [facility] [id number]) Physical Therapy Assessment Goals walking Short Term Goal (STG) Pt will be able to walk for 1 mile w/o limitation d/t LBP/ L hip pain. 06/17/24 Patient reports walking is limited to 1/2 a mile. 07/09-1/2 to mile LBP soreness 4-510 STG Duration / Apple Press Operator Goal (LTG) Pt will be able to walk for 2- 3 miles w/hills and/or stairs w/holding dog leash w/o limitation d/t LBP/ L hip pain . LTG Duration 08/27 strength Short Term Goal (STG) Pt will be indep w/HEP 06/17/24 Patient performs HEp as instructed per patient. STG Duration achieved and advancing as able Fdc Goal (LTG) pt will score at least 4+/5 on BLE strength and at least 3/5 on LPM and EFT to show improved stability to allow greater ease with typical activity. 07/09-improving LTG Duration 08/27 ANDREA Impairment 20/50 Short Term Goal (STG) Pt will improve ANDREA score to no greater than 13/50 to show improved functional ability. STG Duration achieved 07/09 to Apple Press Operator Goal (LTG) Pt will improve ANDREA score to no greater than 3/50 to show improved functional ability. 07/09- LTG Duration 08/27/24 Assessment Summary Assessment cues still needed for TKE but bandno longer needed on R w/ step up for facilitation. Improved L pelvic shear after manual and abilityt o stand more neutral Physical Therapy Plan Frequency and Duration Frequency of Treatment 2x/Week Duration of treatment (weeks) 12 Plan of Care Start Date 06/04/24 Plan of Care End Date 08/27/24 Next Visit Focus/Plan Next Note Type Treatment Note Next Visit Plan work on gait for push off manual: hips and pelvis mobs, STM to low back and scar
--- NOTE | 2024-07-21 14:26 | PT.OTN ---
Current Diagnoses Radiculopathy, lumbar region (07/21/24) Difficulty in walking, not elsewhere classified (07/21/24) Weakness (07/21/24) Other specified postprocedural states (07/21/24) Physical Therapy Treatment Note PT-OP-A Visit Information Start: 05/20/24 16:53 Freq: Status: Active Protocol: Document 07/21/24 08:12 [facility] (Rec: 07/21/24 12:59 [facility] [id number]) Out-Patient Physical Therapy Visit Information Visit Information Visit Type Treatment Note Visit Start Time 09:03 Visit Stop Time 09:48 Visit Number 11 Number of CHANNEL CEMENTER INSOLE MACHINE Visits 1 PT-OP-B Current Condition Start: 05/20/24 16:53 Freq: Status: Active Protocol: Document 06/04/24 14:38 [facility] (Rec: 06/04/24 15:27 [facility] [id number]) Current Condition History of Current Condition Current Complaints L LB and buttocks History of Current Condition Past PT over the years for chronic back pain. 6 months ago, after .25 to .5 mile L leg started getting numb and was losing strength in calf. Went and had MRI and went to back doctor who said had spinal stenosis and did a demcompression 6 weeks ago. Recovered well overall. Had low dose steroid help a little and then has 3 days left of that. most of weakness and numbness in LLE has gone away. When extendeds, or stands up straight or walking,gets pain in buttocks L. bridging is tough on back. Feels like it is joint thing but unsure. No longer has restrictions from surgery besides avoid hot tub d/t incision. Its enough pain that has to hold breath sometimes when walking. Taking tylenol some. Walking only sometimes a block now. Usually walks. Pt has stopped running d/t doctor recommendation. Usually walks a few miles including hills a day w/dogs. Treatment Goals Patient/Caregiver Goals back to few mile walks and hikes, walk the dog, up/down hills w/o pain, be able to pivot on LLE w/o pain PT-OP-C Subjective Start: 05/20/24 16:53 Freq: Status: Active Protocol: Document 07/21/24 08:12 [facility] (Rec: 07/21/24 12:59 [facility] [id number]) OP-PT Subjective Patient Comments Patient Comments Patient reports able to walk a mile without back pain, reports tweaks now and then with twisting and scooting in hooklying. Patient rates pain 0/10 ambulating into session. 2 cm L 3 cm right great toe from wall with knee to wall PROM body over ankle DF. PT-OP-D Balance Start: 05/20/24 16:53 Freq: Status: Active Protocol: Document 06/04/24 14:38 [facility] (Rec: 06/04/24 15:27 [id number] Balance Tests Single Limb Standing Single Limb- Right >30 sec slight right lean Single Limb- Left >30 sec L lean and fwd flex PT-OP-F Manual Assessment Start: 05/20/24 16:53 Freq: Status: Active Protocol: Document 06/04/24 14:38 [facility] (Rec: 06/04/24 15:27 [id number] Manual Assessments Other Manual Assessments Other Manual Assessments small scab not fully closed, redness of scar, swelling notable above PT-OP-G Mobility & Gait Start: 05/20/24 16:53 Freq: Status: Active Protocol: Document 06/04/24 14:38 [facility] (Rec: 06/04/24 15:27 [facility] [id number]) OP Gait Assessment Comments Gait Comments lat lean over LLE and dec LLE stance time PT-OP-J Posture/Palpation/Skin Start: 05/20/24 16:53 Freq: Status: Active Protocol: Document 07/09/24 09:49 [facility] (Rec: 07/09/24 10:48 [facility] [id number]) Posture Evaluation [facility] Postural Classification System [facility] Postural Classifications Posterior/Anterior Elbow Flexion Test 1 Lumbar Protective Mechanism Left AP 2 Lumbar Protective Mechanism Right AP 0 Lumbar Protective Mechanism Left PA 2 Lumbar Protective Mechanism Right PA 1 PT-OP-K Range of Motion Start: 05/20/24 16:53 Freq: Status: Active Protocol: Document 06/04/24 14:38 [facility] (Rec: 06/04/24 15:27 [facility] [id number]) Lumbar Spine Range of Motion Lumbar Spine Active Percentage Flexion 40 Extension 20 Rotation Left 60 Rotation Right 65 Lateral Flexion Left 60 Lateral Flexion Right 40 Comments pain L SB , ext, mid thigh w/ blocking pelvis, mid goetz w/o PT-OP-L Special Tests Start: 05/20/24 16:53 Freq: Status: Active Protocol: Document 06/04/24 14:38 [facility] (Rec: 06/04/24 15:27 [facility] [id number]) Special Tests Lumbar Spine Special Tests march Test Results positive L Slump Test Results neg B Straight Leg Raise Test Results minor tightness B PT-OP-M Strength Start: 05/20/24 16:53 Freq: Status: Active Protocol: Document 07/09/24 09:49 [facility] (Rec: 07/09/24 10:48 [facility] [id number]) Hip Strength Hip Manual Muscle Testing Right Flexion (L2) 4- Good- Extension (S1) 4 Good Abduction 4+ Good+ Adduction 5 Normal External Rotation 5 Normal Internal Rotation 5 Normal Left Flexion (L2) 4+ Good+ Extension (S1) 4 Good Abduction 4+ Good+ Adduction 5 Normal External Rotation 5 Normal Internal Rotation 5 Normal Knee Strength Knee Manual Muscle Testing B Flexion (S2) 5 Normal Extension (L3) 5 Normal Ankle/Foot Strength Ankle and Foot Manual Muscle Testing R Dorsiflexion (L4) 5 Normal Plantarflexion (S1) 5 Normal Comments 20 heel raises L Dorsiflexion (L4) 5 Normal Plantarflexion (S1) 4+ Good+ Comments 18 heel raises w/less range with later reps PT-OP-Q Treatments Start: 05/20/24 16:53 Freq: Status: Active Protocol: Document 07/21/24 08:12 [facility] (Rec: 07/21/24 12:59 [facility] [id number]) Therapeutic Exercises Supine Exercises Modifired Dennys stretch Supine Exercise Name HEP Side bilateral Reps/Minutes 60 sec ea X2 Comments Verbal cues op knee to chest resisted knee to chest Supine Exercise Name DL SL Side bilateral Reps/Minutes 30 sec double then single 30 sec each Comments tactile cues for amount of force Sitting Exercises seated hip abd with band Sitting Exercise Name HEP Side bilateral Resistance level 4 band Reps/Minutes one min Comments verbal cues to perform to neutral Standing Exercises calf stretches Standing Exercise Name gastroc and soleus Reps/Minutes 60 sec Comments verbal and visual cues glute med isometric Side bilateral Reps/Minutes one min each LE Comments verbal, visual and tactile cues step up with op LE raise Standing Exercise Name 1. on floor/ hands to wall, 2. on foam Reps/Minutes 1. to forefoot X10 2. in// bars X10 Comments Verbal cues Forward T/single LE lift Standing Exercise Name to chair seat height Side bilateral Equipment Used HEP Reps/Minutes X10 Comments verbal and visual cues Manual Therapy Treatment Consent Patient gave verbal consent for manual Yes treatment Soft Tissue Mobilization hip flexors Body Location L>R psoas & iliacus Mobilization Type Sustained Pressure Intensity/Depth Moderate PT-OP-T Assessment and Plan Start: 05/20/24 16:53 Freq: Status: Active Protocol: Document 07/21/24 08:12 [facility] (Rec: 07/21/24 12:59 [facility] [id number]) Physical Therapy Assessment Goals walking Short Term Goal (STG) Pt will be able to walk for 1 mile w/o limitation d/t LBP/ L hip pain. 06/17/24 Patient reports walking is limited to 1/2 a mile. 07/09-1/2 to mile LBP soreness 4-10/17 STG Duration / Correction Goal (LTG) Pt will be able to walk for 2- 3 miles w/hills and/or stairs w/holding dog leash w/o limitation d/t LBP/ L hip pain . LTG Duration 08/27 strength Short Term Goal (STG) Pt will be indep w/HEP 06/17/24 Patient performs HEp as instructed per patient. STG Duration achieved and advancing as able Correction Goal (LTG) pt will score at least 4+/5 on BLE strength and at least 3/5 on LPM and EFT to show improved stability to allow greater ease with typical activity. 07/09-improving LTG Duration 08/27 ANDREA Impairment 20/50 Short Term Goal (STG) Pt will improve ANDREA score to no greater than 13/50 to show improved functional ability. STG Duration achieved 07/09 to /50 Fuller Brush Worker Goal (LTG) Pt will improve ANDREA score to no greater than 3/50 to show improved functional ability. 07/09- LTG Duration 08/27/24 Assessment Summary Assessment Calf muscle stiffness and Hamstring stiffness also limiting hip extension/LE extension terminal stance phase. Patient fatigued through heel raise and initiated very limited with step up with opp LE raise. Physical Therapy Plan Frequency and Duration Frequency of Treatment 2x/Week Duration of treatment (weeks) 12 Plan of Care Start Date 06/04/24 Plan of Care End Date 08/27/24 Next Visit Focus/Plan Next Note Type Treatment Note Next Visit Plan work on gait for push off manual: hips and pelvis mobs, STM to low back and scar
--- NOTE | 2024-07-30 09:05 | PT.OTN ---
Current Diagnoses Radiculopathy, lumbar region (07/30/24) Difficulty in walking, not elsewhere classified (07/30/24) Weakness (07/30/24) Other specified postprocedural states (07/30/24) Physical Therapy Treatment Note PT-OP-A Visit Information Start: 05/20/24 16:53 Freq: Status: Active Protocol: Document 07/30/24 08:22 [facility] (Rec: 07/30/24 09:05 [facility] [id number]) Out-Patient Physical Therapy Visit Information Visit Information Visit Type Treatment Note Visit Start Time 08:21 Visit Stop Time 09:00 Visit Number 12 Number of RESOURCE ANALYST Visits 0 PT-OP-B Current Condition Start: 05/20/24 16:53 Freq: Status: Active Protocol: Document 06/04/24 14:38 [facility] (Rec: 06/04/24 15:27 [facility] [id number]) Current Condition History of Current Condition Current Complaints L LB and buttocks History of Current Condition Past PT over the years for chronic back pain. 6 months ago, after .25 to .5 mile L leg started getting numb and was losing strength in calf. Went and had MRI and went to back doctor who said had spinal stenosis and did a demcompression 6 weeks ago. Recovered well overall. Had low dose steroid help a little and then has 3 days left of that. most of weakness and numbness in LLE has gone away. When extendeds, or stands up straight or walking,gets pain in buttocks L. bridging is tough on back. Feels like it is joint thing but unsure. No longer has restrictions from surgery besides avoid hot tub d/t incision. Its enough pain that has to hold breath sometimes when walking. Taking tylenol some. Walking only sometimes a block now. Usually walks. Pt has stopped running d/t doctor recommendation. Usually walks a few miles including hills a day w/dogs. Treatment Goals Patient/Caregiver Goals back to few mile walks and hikes, walk the dog, up/down hills w/o pain, be able to pivot on LLE w/o pain PT-OP-C Subjective Start: 05/20/24 16:53 Freq: Status: Active Protocol: Document 07/30/24 08:22 [facility] (Rec: 07/30/24 09:05 [facility] [id number]) OP-PT Subjective Patient Comments Patient Comments Pt reports he has been spending a lot of time playing drums and thinks that is inc pain. L back pain is less w// walking but noting it on R when walking. yesterday [place] a [place] . Walking up until a mile but when started having issue w/ R side, now only 1/2 mile. Feels better in the AM then evening. PT-OP-D Balance Start: 05/20/24 16:53 Freq: Status: Active Protocol: Document 06/04/24 14:38 [facility] (Rec: 06/04/24 15:27 [facility] [id number]) Balance Tests Single Limb Standing Single Limb- Right >30 sec slight right lean Single Limb- Left >30 sec L lean and fwd flex PT-OP-F Manual Assessment Start: 05/20/24 16:53 Freq: Status: Active Protocol: Document 06/04/24 14:38 [facility] (Rec: 06/04/24 15:27 [facility] [id number]) Manual Assessments Other Manual Assessments Other Manual Assessments small scab not fully closed, redness of scar, swelling notable above PT-OP-G Mobility & Gait Start: 05/20/24 16:53 Freq: Status: Active Protocol: Document 06/04/24 14:38 [id number] OP Gait Assessment Comments Gait Comments lat lean over LLE and dec LLE stance time PT-OP-J Posture/Palpation/Skin Start: 05/20/24 16:53 Freq: Status: Active Protocol: Document 07/09/24 09:49 [facility] (Rec: 07/09/24 10:48 [facility] [id number]) Posture Evaluation Abdi Postural Classification System Abdi Postural Classifications Posterior/Anterior Elbow Flexion Test 1 Lumbar Protective Mechanism Left AP 2 Lumbar Protective Mechanism Right AP 0 Lumbar Protective Mechanism Left PA 2 Lumbar Protective Mechanism Right PA 1 PT-OP-K Range of Motion Start: 05/20/24 16:53 Freq: Status: Active Protocol: Document 06/04/24 14:38 [facility] (Rec: 06/04/24 15:27 [facility] [id number]) Lumbar Spine Range of Motion Lumbar Spine Active Percentage Flexion 40 Extension 20 Rotation Left 60 Rotation Right 65 Lateral Flexion Left 60 Lateral Flexion Right 40 Comments pain L SB , ext, mid thigh w/ blocking pelvis, mid goetz w/o PT-OP-L Special Tests Start: 05/20/24 16:53 Freq: Status: Active Protocol: Document 06/04/24 14:38 [facility] (Rec: 06/04/24 15:27 [facility] [id number]) Special Tests Lumbar Spine Special Tests march Test Results positive L Slump Test Results neg B Straight Leg Raise Test Results minor tightness B PT-OP-M Strength Start: 05/20/24 16:53 Freq: Status: Active Protocol: Document 07/09/24 09:49 [facility] (Rec: 07/09/24 10:48 [facility] [id number]) Hip Strength Hip Manual Muscle Testing Right Flexion (L2) 4- Good- Extension (S1) 4 Good Abduction 4+ Good+ Adduction 5 Normal External Rotation 5 Normal Internal Rotation 5 Normal Left Flexion (L2) 4+ Good+ Extension (S1) 4 Good Abduction 4+ Good+ Adduction 5 Normal External Rotation 5 Normal Internal Rotation 5 Normal Knee Strength Knee Manual Muscle Testing B Flexion (S2) 5 Normal Extension (L3) 5 Normal Ankle/Foot Strength Ankle and Foot Manual Muscle Testing R Dorsiflexion (L4) 5 Normal Plantarflexion (S1) 5 Normal Comments 20 heel raises L Dorsiflexion (L4) 5 Normal Plantarflexion (S1) 4+ Good+ Comments 18 heel raises w/less range with later reps PT-OP-Q Treatments Start: 05/20/24 16:53 Freq: Status: Active Protocol: Document 07/30/24 08:22 [facility] (Rec: 07/30/24 09:05 [facility] [id number]) Therapeutic Exercises Supine Exercises resisted knee to chest Supine Exercise Name SL w/opp LE march Side bilateral Reps/Minutes 10 ea Comments cues breathing bridge Supine Exercise Name SL bridge Side bilateral Reps/Minutes X5 each Comments cues segmental slow Prone Exercises plank Prone Exercise Name 1.forearm and knees 2. forearm and feet Side bilateral Reps/Minutes 1. 30 sec 2. 20 sec Comments cues back position Sidelying Exercises sideplank Sidelying Exercise Name forearm and knees Side bilateral Reps/Minutes 10 sec x2 Comments inc time for set up Standing Exercises Pallof press Standing Exercise Name review-DC d/t pain Resistance level 2 band (2 bands) Reps/Minutes 10 ea Comments cues core and posture Therapeutic Activity Therapeutic Activity posture Comments 8 min: working neutral spine and head position-use of mirror and working on wt shifting btwn legs Manual Therapy Treatment Consent Patient gave verbal consent for manual Yes treatment Soft Tissue Mobilization spine Body Location scar Mobilization Type Myofascial Release,Rolling, Sustained Pressure Intensity/Depth Moderate Comments w/SB Joint Mobilizations lumbar Comments transverse L3-5 L c/r w/pelvic dep PT-OP-T Assessment and Plan Start: 05/20/24 16:53 Freq: Status: Active Protocol: Document 07/30/24 08:22 [facility] (Rec: 07/30/24 09:05 [facility] [id number]) Physical Therapy Assessment Goals walking Short Term Goal (STG) Pt will be able to walk for 1 mile w/o limitation d/t LBP/ L hip pain. 06/17/24 Patient reports walking is limited to 1/2 a mile. 07/09-1/2 to mile LBP soreness 4-5/10 STG Duration 2/ Custodial Goal (LTG) Pt will be able to walk for 2- 3 miles w/hills and/or stairs w/holding dog leash w/o limitation d/t LBP/ L hip pain . LTG Duration 08/27 strength Short Term Goal (STG) Pt will be indep w/HEP 06/17/24 Patient performs HEp as instructed per patient. STG Duration achieved and advancing as able Guzzler Builder Goal (LTG) pt will score at least 4+/5 on BLE strength and at least 3/5 on LPM and EFT to show improved stability to allow greater ease with typical activity. 07/09-improving LTG Duration 08/27 ANDREA Impairment 20/50 Short Term Goal (STG) Pt will improve ANDREA score to no greater than 13/50 to show improved functional ability. STG Duration achieved 07/09 to Custodial Goal (LTG) Pt will improve ANDREA score to no greater than 3/50 to show improved functional ability. 07/09- LTG Duration 08/27/24 Assessment Summary Assessment Pt was challenged by core exercises and required cues w/ these exercises for form. stoppe dpaloff press at home d /t pain. Improved posture w/ less R pelvic shear after manual and dec SB pain Physical Therapy Plan Frequency and Duration Frequency of Treatment 2x/Week Duration of treatment (weeks) 12 Plan of Care Start Date 12/26/24 Plan of Care End Date 08/27/24 Next Visit Focus/Plan Next Note Type Treatment Note Next Visit Plan work on gait for push off manual: hips and pelvis mobs, STM to low back and scar
--- NOTE | 2024-08-10 09:53 | PT.OTN ---
Current Diagnoses Radiculopathy, lumbar region (08/10/24) Difficulty in walking, not elsewhere classified (08/10/24) Weakness (08/10/24) Other specified postprocedural states (08/10/24) Physical Therapy Treatment Note PT-OP-A Visit Information Start: 05/20/24 16:53 Freq: Status: Active Protocol: Document 08/10/24 09:06 [facility] (Rec: 08/10/24 09:52 [facility] [id number]) Out-Patient Physical Therapy Visit Information Visit Information Visit Type Progress Note Visit Start Time 09:06 Visit Stop Time 09:45 Visit Number 13 Number of INTERVENTIONAL NURSE Visits 0 PT-OP-B Current Condition Start: 05/20/24 16:53 Freq: Status: Active Protocol: Document 06/04/24 14:38 [facility] (Rec: 06/04/24 15:27 [facility] [id number]) Current Condition History of Current Condition Current Complaints L LB and buttocks History of Current Condition Past PT over the years for chronic back pain. 6 months ago, after .25 to .5 mile L leg started getting numb and was losing strength in calf. Went and had MRI and went to back doctor who said had spinal stenosis and did a demcompression 6 weeks ago. Recovered well overall. Had low dose steroid help a little and then has 3 days left of that. most of weakness and numbness in LLE has gone away. When extendeds, or stands up straight or walking,gets pain in buttocks L. bridging is tough on back. Feels like it is joint thing but unsure. No longer has restrictions from surgery besides avoid hot tub d/t incision. Its enough pain that has to hold breath sometimes when walking. Taking tylenol some. Walking only sometimes a block now. Usually walks. Pt has stopped running d/t doctor recommendation. Usually walks a few miles including hills a day w/dogs. Treatment Goals Patient/Caregiver Goals back to few mile walks and hikes, walk the dog, up/down hills w/o pain, be able to pivot on LLE w/o pain PT-OP-C Subjective Start: 05/20/24 16:53 Freq: Status: Active Protocol: Document 08/10/24 09:06 [facility] (Rec: 08/10/24 09:52 [facility] [id number]) OP-PT Subjective Patient Comments Patient Comments Pt reports back doing pretty good. Went to [place] last week and did a lot of walking and had to do 50 steps to go to the shops and restaurants and it was okay. Unfortunately bed at [facility] was soft so woke up feeling more sore than usual. PT-OP-D Balance Start: 05/20/24 16:53 Freq: Status: Active Protocol: Document 06/04/24 14:38 [facility] (Rec: 06/04/24 15:27 [facility] [id number]) Balance Tests Single Limb Standing Single Limb- Right >30 sec slight right lean Single Limb- Left >30 sec L lean and fwd flex PT-OP-F Manual Assessment Start: 05/20/24 16:53 Freq: Status: Active Protocol: Document 06/04/24 14:38 [facility] (Rec: 06/04/24 15:27 [facility] [id number]) Manual Assessments Other Manual Assessments Other Manual Assessments small scab not fully closed, redness of scar, swelling notable above PT-OP-G Mobility & Gait Start: 05/20/24 16:53 Freq: Status: Active Protocol: Document 06/04/24 14:38 [facility] (Rec: 06/04/24 15:27 [facility] [id number]) OP Gait Assessment Comments Gait Comments lat lean over LLE and dec LLE stance time PT-OP-J Posture/Palpation/Skin Start: 05/20/24 16:53 Freq: Status: Active Protocol: Document 08/10/24 09:06 [facility] (Rec: 08/10/24 09:52 [facility] [id number]) Posture Evaluation [facility] Postural Classification System [facility] Postural Classifications Posterior/Anterior Elbow Flexion Test 2 Lumbar Protective Mechanism Left AP 3 Lumbar Protective Mechanism Right AP 1 Lumbar Protective Mechanism Left PA 3 Lumbar Protective Mechanism Right PA 2 PT-OP-K Range of Motion Start: 05/20/24 16:53 Freq: Status: Active Protocol: Document 06/04/24 14:38 [facility] (Rec: 06/04/24 15:27 [facility] [id number]) Lumbar Spine Range of Motion Lumbar Spine Active Percentage Flexion 40 Extension 20 Rotation Left 60 Rotation Right 65 Lateral Flexion Left 60 Lateral Flexion Right 40 Comments pain L SB , ext, mid thigh w/ blocking pelvis, mid goetz w/o PT-OP-L Special Tests Start: 05/20/24 16:53 Freq: Status: Active Protocol: Document 06/04/24 14:38 [facility] (Rec: 06/04/24 15:27 [facility] [id number]) Special Tests Lumbar Spine Special Tests march Test Results positive L Slump Test Results neg B Straight Leg Raise Test Results minor tightness B PT-OP-M Strength Start: 05/20/24 16:53 Freq: Status: Active Protocol: Document 08/10/24 09:06 [facility] (Rec: 08/10/24 09:52 [facility] [id number]) Hip Strength Hip Manual Muscle Testing Right Flexion (L2) 5 Normal Extension (S1) 4+ Good+ Abduction 5 Normal Adduction 5 Normal External Rotation 5 Normal Internal Rotation 5 Normal Left Flexion (L2) 5 Normal Extension (S1) 4 Good Abduction 5 Normal Adduction 5 Normal External Rotation 5 Normal Internal Rotation 5 Normal Knee Strength Knee Manual Muscle Testing B Flexion (S2) 5 Normal Extension (L3) 5 Normal PT-OP-Q Treatments Start: 05/20/24 16:53 Freq: Status: Active Protocol: Document 08/10/24 09:06 [facility] (Rec: 08/10/24 09:52 [facility] [id number]) Therapeutic Exercises Standing Exercises stretch Standing Exercise Name bottoms up w/forearms on knees Side bilateral Reps/Minutes 10 sec x5 calf stretches Standing Exercise Name gastroc/hip flexor fwd lean Side bilateral Reps/Minutes 30 sec ea Comments cues position -inc time needed Other Exercises isometrics Other Exercise Name BLE MMT and LPM, EFT quadruped Other Exercise Name cat cow Reps/Minutes 10 Comments cues for body position Manual Therapy Treatment Consent Patient gave verbal consent for manual Yes treatment Soft Tissue Mobilization abdomen Comments med parececal ligament Joint Mobilizations lumbar Comments upglide L1 L; downgldie L L4 and 5 c/r; PA L4 and 5 s/l sacral Comments PA seated w/tilts PT-OP-T Assessment and Plan Start: 05/20/24 16:53 Freq: Status: Active Protocol: Document 08/10/24 09:06 [facility] (Rec: 08/10/24 09:52 [facility] [id number]) Physical Therapy Assessment Goals walking Short Term Goal (STG) Pt will be able to walk for 1 mile w/o limitation d/t LBP/ L hip pain. 06/17/24 Patient reports walking is limited to 1/2 a mile. 07/09-1/2 to mile LBP soreness -10/17 08/10-after a mile -09/17 STG Duration 09/10 [facility] Goal (LTG) Pt will be able to walk for 2- 3 miles w/hills and/or stairs w/holding dog leash w/o limitation d/t LBP/ L hip pain . 08/10-was doing some hills and longer walks on vacation LTG Duration 10/05 strength Short Term Goal (STG) Pt will be indep w/HEP 06/17/24 Patient performs HEp as instructed per patient. STG Duration achieved and advancing as able Employee Communications Manager Goal (LTG) pt will score at least 4+/5 on BLE strength and at least 3/5 on LPM and EFT to show improved stability to allow greater ease with typical activity. 07/09-improving 08/10-cont improvment LTG Duration 09/10 ANDREA Impairment 20/50 Short Term Goal (STG) Pt will improve ANDREA score to no greater than 13/50 to show improved functional ability. STG Duration achieved 07/09 to [facility] Goal (LTG) Pt will improve ANDREA score to no greater than 3/50 to show improved functional ability. 07/09- 08/10- LTG Duration 10/05 Assessment Summary Assessment Pt is making progress with strength and mobility, but is still very limited by extended walking despite improvement when walking on vacation. He does have dec overall lumbar ext likely relating to his pain. Encouraged sto sretch during walks or try 2 walks split up in the day to improve endurance. Cont PT for strength and ROM. Improved lumbar ext after session. Physical Therapy Plan Frequency and Duration Frequency of Treatment 1x/Week Duration of treatment (weeks) 8 Plan of Care Start Date 08/10/24 Plan of Care End Date 10/05/24 Therapeutic Interventions Therapeutic Interventions Balance Training,Gait Training ,Home Exercise Program,Joint Mobilizations,Manual Therapy, Neuromuscular Re-education, Orthotic/Prosthetic Management ,Patient/Caregiver Education, Self-Care/Home Management,Soft Tissue Mobilization,Taping, Therapeutic Activities, Therapeutic Exercises Modalities Cold Pack/Ice Massage,Electric Stimulation,Hot Packs, Infrared Therapy,Ultrasound Next Visit Focus/Plan Next Note Type Treatment Note Next Visit Plan work on gait for push off manual: hips and pelvis mobs, STM to low back and scar ; work on ability to get lumbar ext (gently)
--- NOTE | 2024-08-10 09:53 | PT.OPPOC ---
Addendum entered and electronically signed by Akua Rodriguez, PT 08/12/24 17:37: POC attempted faxed 08/10 and 08/12 Original Note: Physical, Occupational & Speech Therapy At [facility] Current Diagnoses Radiculopathy, lumbar region (08/10/24) Difficulty in walking, not elsewhere classified (08/10/24) Weakness (08/10/24) Other specified postprocedural states (08/10/24) Visit Care Team Role Provider Type Tan Caro MD Family Provider Physician Primary Care Provider Specialty: Family Practice Address: [address] [place] [address], [facility] Email: [email or web address] Duncan Castaneda MD Attending Provider Non-Staff Referring Provider Specialty: Orthopedic Surgery Address: [address] [place] [address], [facility] Email: Plan Of Care PT-OP-B Current Condition Start: 05/20/24 16:53 Freq: Status: Active Protocol: Document 06/04/24 14:38 [facility] (Rec: 06/04/24 15:27 [facility] [id number]) Current Condition History of Current Condition Current Complaints L LB and buttocks History of Current Condition Past PT over the years for chronic back pain. 6 months ago, after .25 to .5 mile L leg started getting numb and was losing strength in calf. Went and had MRI and went to back doctor who said had spinal stenosis and did a demcompression 6 weeks ago. Recovered well overall. Had low dose steroid help a little and then has 3 days left of that. most of weakness and numbness in LLE has gone away. When extendeds, or stands up straight or walking,gets pain in buttocks L. bridging is tough on back. Feels like it is joint thing but unsure. No longer has restrictions from surgery besides avoid hot tub d/t incision. Its enough pain that has to hold breath sometimes when walking. Taking tylenol some. Walking only sometimes a block now. Usually walks. Pt has stopped running d/t doctor recommendation. Usually walks a few miles including hills a day w/dogs. Treatment Goals Patient/Caregiver Goals back to few mile walks and hikes, walk the dog, up/down hills w/o pain, be able to pivot on LLE w/o pain PT-OP-T Assessment and Plan Start: 05/20/24 16:53 Freq: Status: Active Protocol: Document 08/10/24 09:06 [facility] (Rec: 08/10/24 09:52 [facility] [id number]) Physical Therapy Assessment Goals walking Short Term Goal (STG) Pt will be able to walk for 1 mile w/o limitation d/t LBP/ L hip pain. 06/17/24 Patient reports walking is limited to 1/2 a mile. 07/09-1/2 to mile LBP soreness -10/17 08/10-after a mile -09/17 STG Duration 09/10 Snf Goal (LTG) Pt will be able to walk for 2- 3 miles w/hills and/or stairs w/holding dog leash w/o limitation d/t LBP/ L hip pain . 08/10-was doing some hills and longer walks on vacation LTG Duration 10/05 strength Short Term Goal (STG) Pt will be indep w/HEP 06/17/24 Patient performs HEp as instructed per patient. STG Duration achieved and advancing as able Snf Goal (LTG) pt will score at least 4+/5 on BLE strength and at least 3/5 on LPM and EFT to show improved stability to allow greater ease with typical activity. 07/09-improving 08/10-cont improvment LTG Duration 09/10 ANDREA Impairment 20/50 Short Term Goal (STG) Pt will improve ANDREA score to no greater than 13/50 to show improved functional ability. STG Duration achieved 07/09 to Snf Goal (LTG) Pt will improve ANDREA score to no greater than 3/50 to show improved functional ability. 07/09- 08/10- LTG Duration 10/05 Assessment Summary Assessment Pt is making progress with strength and mobility, but is still very limited by extended walking despite improvement when walking on vacation. He does have dec overall lumbar ext likely relating to his pain. Encouraged sto sretch during walks or try 2 walks split up in the day to improve endurance. Cont PT for strength and ROM. Improved lumbar ext after session. Physical Therapy Plan Frequency and Duration Frequency of Treatment 1x/Week Duration of treatment (weeks) 8 Plan of Care Start Date 08/10/24 Plan of Care End Date 10/05/24 Therapeutic Interventions Therapeutic Interventions Balance Training,Gait Training ,Home Exercise Program,Joint Mobilizations,Manual Therapy, Neuromuscular Re-education, Orthotic/Prosthetic Management ,Patient/Caregiver Education, Self-Care/Home Management,Soft Tissue Mobilization,Taping, Therapeutic Activities, Therapeutic Exercises Modalities Cold Pack/Ice Massage,Electric Stimulation,Hot Packs, Infrared Therapy,Ultrasound Next Visit Focus/Plan Next Note Type Treatment Note Next Visit Plan work on gait for push off manual: hips and pelvis mobs, STM to low back and scar ; work on ability to get lumbar ext (gently) Plan of Care Dates Plan of Care Start Date 08/10/24 Plan of Care End Date 10/05/24 Electronically Signed by: Akua Rodriguez, PT 08/10/24 0953 If you are in agreement with this Plan of Care, please return a signed and dated copy. I have reviewed this Plan of Care and certify that the skilled therapy services above are required to meet the patient?s needs. Physician Signature Date Printed Name and Credentials Clinical Instructor Signature Printed Name and Credentials
--- NOTE | 2024-08-19 10:09 | PT.OTN ---
Current Diagnoses Radiculopathy, lumbar region (08/19/24) Difficulty in walking, not elsewhere classified (08/19/24) Weakness (08/19/24) Other specified postprocedural states (08/19/24) Physical Therapy Treatment Note PT-OP-A Visit Information Start: 05/20/24 16:53 Freq: Status: Active Protocol: Document 08/19/24 09:02 [facility] (Rec: 08/19/24 10:09 [facility] [id number]) Out-Patient Physical Therapy Visit Information Visit Information Visit Type Treatment Note Visit Start Time 09:04 Visit Stop Time 09:44 Visit Number 14 Number of INSURANCE CASE MANAGER Visits 0 PT-OP-B Current Condition Start: 05/20/24 16:53 Freq: Status: Active Protocol: Document 06/04/24 14:38 [facility] (Rec: 06/04/24 15:27 [facility] [id number]) Current Condition History of Current Condition Current Complaints L LB and buttocks History of Current Condition Past PT over the years for chronic back pain. 6 months ago, after .25 to .5 mile L leg started getting numb and was losing strength in calf. Went and had MRI and went to back doctor who said had spinal stenosis and did a demcompression 6 weeks ago. Recovered well overall. Had low dose steroid help a little and then has 3 days left of that. most of weakness and numbness in LLE has gone away. When extendeds, or stands up straight or walking,gets pain in buttocks L. bridging is tough on back. Feels like it is joint thing but unsure. No longer has restrictions from surgery besides avoid hot tub d/t incision. Its enough pain that has to hold breath sometimes when walking. Taking tylenol some. Walking only sometimes a block now. Usually walks. Pt has stopped running d/t doctor recommendation. Usually walks a few miles including hills a day w/dogs. Treatment Goals Patient/Caregiver Goals back to few mile walks and hikes, walk the dog, up/down hills w/o pain, be able to pivot on LLE w/o pain PT-OP-C Subjective Start: 05/20/24 16:53 Freq: Status: Active Protocol: Document 08/19/24 09:02 [facility] (Rec: 08/19/24 10:09 [facility] [id number]) OP-PT Subjective Patient Comments Patient Comments Pt reports and can walk 1.5 miles PT-OP-D Balance Start: 05/20/24 16:53 Freq: Status: Active Protocol: Document 06/04/24 14:38 [facility] (Rec: 06/04/24 15:27 [facility] [id number]) Balance Tests Single Limb Standing Single Limb- Right >30 sec slight right lean Single Limb- Left >30 sec L lean and fwd flex PT-OP-F Manual Assessment Start: 05/20/24 16:53 Freq: Status: Active Protocol: Document 06/04/24 14:38 [facility] (Rec: 06/04/24 15:27 [facility] [id number]) Manual Assessments Other Manual Assessments Other Manual Assessments small scab not fully closed, redness of scar, swelling notable above PT-OP-G Mobility & Gait Start: 05/20/24 16:53 Freq: Status: Active Protocol: Document 06/04/24 14:38 [facility] (Rec: 06/04/24 15:27 [facility] [id number]) OP Gait Assessment Comments Gait Comments lat lean over LLE and dec LLE stance time PT-OP-J Posture/Palpation/Skin Start: 05/20/24 16:53 Freq: Status: Active Protocol: Document 08/10/24 09:06 [facility] (Rec: 08/10/24 09:52 [facility] [id number]) Posture Evaluation [facility]di Postural Classification System [facility]di Postural Classifications Posterior/Anterior Elbow Flexion Test 2 Lumbar Protective Mechanism Left AP 3 Lumbar Protective Mechanism Right AP 1 Lumbar Protective Mechanism Left PA 3 Lumbar Protective Mechanism Right PA 2 PT-OP-K Range of Motion Start: 05/20/24 16:53 Freq: Status: Active Protocol: Document 06/04/24 14:38 [facility] (Rec: 06/04/24 15:27 [facility] [id number]) Lumbar Spine Range of Motion Lumbar Spine Active Percentage Flexion 40 Extension 20 Rotation Left 60 Rotation Right 65 Lateral Flexion Left 60 Lateral Flexion Right 40 Comments pain L SB , ext, mid thigh w/ blocking pelvis, mid goetz w/o PT-OP-L Special Tests Start: 05/20/24 16:53 Freq: Status: Active Protocol: Document 06/04/24 14:38 [facility] (Rec: 06/04/24 15:27 [facility] [id number]) Special Tests Lumbar Spine Special Tests march Test Results positive L Slump Test Results neg B Straight Leg Raise Test Results minor tightness B PT-OP-M Strength Start: 05/20/24 16:53 Freq: Status: Active Protocol: Document 08/10/24 09:06 [facility] (Rec: 08/10/24 09:52 [facility] [id number]) Hip Strength Hip Manual Muscle Testing Right Flexion (L2) 5 Normal Extension (S1) 4+ Good+ Abduction 5 Normal Adduction 5 Normal External Rotation 5 Normal Internal Rotation 5 Normal Left Flexion (L2) 5 Normal Extension (S1) 4 Good Abduction 5 Normal Adduction 5 Normal External Rotation 5 Normal Internal Rotation 5 Normal Knee Strength Knee Manual Muscle Testing B Flexion (S2) 5 Normal Extension (L3) 5 Normal PT-OP-Q Treatments Start: 05/20/24 16:53 Freq: Status: Active Protocol: Document 08/19/24 09:02 [facility] (Rec: 08/19/24 10:09 [facility] [id number]) Gym Equipment Sport Cord 1 Exercise Details 1. fwd step up to SLS 2. lat step up to SLS Cord/Resistance red Reps/Duration 10 ea Therapeutic Exercises Sitting Exercises pelvic tilts Reps/Minutes 10 Standing Exercises stretch Standing Exercise Name quad on chair R, knee to butt L Reps/Minutes 30 sec ea Other Exercises margarette pose Side bilateral Reps/Minutes 30 sec quadruped Other Exercise Name 1.cat cow 2. ext gentle rock backs Reps/Minutes 10 Comments cues for body position (hands under shoudlers and knees under hips) Gait Training Gait Activity fwd fall Comments to wall plank (about 6 in from wall) focus on movement at ankle and back neutral x10 gait at wall Comments 10sec x2 B cues full knee ext resisted gait Comments 50ft x2 w/dowel w/cues for posture and push off Manual Therapy Treatment Consent Patient gave verbal consent for manual Yes treatment Joint Mobilizations lumbar Comments downglide R L5, upglide L L4 c /r seated; prone PA L4 and 5 w /LTR sacral Comments nutation B prone w/LTR PT-OP-T Assessment and Plan Start: 05/20/24 16:53 Freq: Status: Active Protocol: Document 08/19/24 09:02 [facility] (Rec: 08/19/24 10:09 [facility] [id number]) Physical Therapy Assessment Goals walking Short Term Goal (STG) Pt will be able to walk for 1 mile w/o limitation d/t LBP/ L hip pain. 06/17/24 Patient reports walking is limited to 1/2 a mile. 07/09-1/2 to mile LBP soreness -10/17 08/10-after a mile -09/17 STG Duration achieved 08/19 to 1.5 miles Jail Goal (LTG) Pt will be able to walk for 2- 3 miles w/hills and/or stairs w/holding dog leash w/o limitation d/t LBP/ L hip pain . 08/10-was doing some hills and longer walks on vacation LTG Duration 10/05 strength Short Term Goal (STG) Pt will be indep w/HEP 06/17/24 Patient performs HEp as instructed per patient. STG Duration achieved and advancing as able Jail Goal (LTG) pt will score at least 4+/5 on BLE strength and at least 3/5 on LPM and EFT to show improved stability to allow greater ease with typical activity. 07/09-improving 08/10-cont improvment LTG Duration 09/10 ANDREA Impairment 20/50 Short Term Goal (STG) Pt will improve ANDREA score to no greater than 13/50 to show improved functional ability. STG Duration achieved 07/09 to Jail Goal (LTG) Pt will improve ANDREA score to no greater than 3/50 to show improved functional ability. 07/09- 08/10- LTG Duration 10/05 Assessment Summary Assessment Pt had improved lumbar ext after manual. He required cues for knee ext w/push off and dec fwd lean and body position for lumbar ext in cat/cow. Physical Therapy Plan Frequency and Duration Frequency of Treatment 1x/Week Duration of treatment (weeks) 8 Plan of Care Start Date 08/10/24 Plan of Care End Date 10/05/24 Next Visit Focus/Plan Next Note Type Treatment Note Next Visit Plan work on gait and posture manual: hips and pelvis mobs, STM to low back and scar ; work on ability to get lumbar ext (gently)
--- NOTE | 2024-08-26 18:15 | PT.OTN ---
Current Diagnoses Radiculopathy, lumbar region (08/26/24) Difficulty in walking, not elsewhere classified (08/26/24) Weakness (08/26/24) Other specified postprocedural states (08/26/24) Physical Therapy Treatment Note PT-OP-A Visit Information Start: 05/20/24 16:53 Freq: Status: Active Protocol: Document 08/26/24 15:22 [facility] (Rec: 08/26/24 18:15 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 (Rec: 06/04/24 15:27 [facility] [id number]) Current Condition History of Current Condition Current Complaints L LB and buttocks History of Current Condition Past PT over the years for chronic back pain. 6 months ago, after .25 to .5 mile L leg started getting numb and was losing strength in calf. Went and had MRI and went to back doctor who said had spinal stenosis and did a demcompression 6 weeks ago. Recovered well overall. Had low dose steroid help a little and then has 3 days left of that. most of weakness and numbness in LLE has gone away. When extendeds, or stands up straight or walking,gets pain in buttocks L. bridging is tough on back. Feels like it is joint thing but unsure. No longer has restrictions from surgery besides avoid hot tub d/t incision. Its enough pain that has to hold breath sometimes when walking. Taking tylenol some. Walking only sometimes a block now. Usually walks. Pt has stopped running d/t doctor recommendation. Usually walks a few miles including hills a day w/dogs. Treatment Goals Patient/Caregiver Goals back to few mile walks and hikes, walk the dog, up/down hills w/o pain, be able to pivot on LLE w/o pain PT-OP-C Subjective Start: 05/20/24 16:53 Freq: Status: Active Protocol: Document 08/26/24 15:22 [facility] (Rec: 08/26/24 18:15 [facility] [id number]) OP-PT Subjective Patient Comments Patient Comments Pt reports with dandy, was way more active. noticed less pain. Is going to pay attention more to how long he is sitting. He is thinking their bed may be a little old too PT-OP-D Balance Start: 05/20/24 16:53 Freq: Status: Active Protocol: Document 06/04/24 14:38 [facility] (Rec: 06/04/24 15:27 [facility] [id number]) Balance Tests Single Limb Standing Single Limb- Right >30 sec slight right lean Single Limb- Left >30 sec L lean and fwd flex PT-OP-F Manual Assessment Start: 05/20/24 16:53 Freq: Status: Active Protocol: Document 06/04/24 14:38 [facility]04[facility]24 [id number] Manual Assessments Other Manual Assessments Other Manual Assessments small scab not fully closed, redness of scar, swelling notable above PT-OP-G Mobility & Gait Start: 05/20/24 16:53 Freq: Status: Active Protocol: Document 06/04/24 14:38 [facility] (Rec: 06/04/24 15:27 [facility] [id number]) OP Gait Assessment Comments Gait Comments lat lean over LLE and dec LLE stance time PT-OP-J Posture/Palpation/Skin Start: 05/20/24 16:53 Freq: Status: Active Protocol: Document 08/10/24 09:06 [facility] (Rec: 08/10/24 09:52 [facility] [id number]) Posture Evaluation [facility] Postural Classification System [facility] Postural Classifications Posterior/Anterior Elbow Flexion Test 2 Lumbar Protective Mechanism Left AP 3 Lumbar Protective Mechanism Right AP 1 Lumbar Protective Mechanism Left PA 3 Lumbar Protective Mechanism Right PA 2 PT-OP-K Range of Motion Start: 05/20/24 16:53 Freq: Status: Active Protocol: Document 06/04/24 14:38 [facility] (Rec: 06/04/24 15:27 [facility] [id number]) Lumbar Spine Range of Motion Lumbar Spine Active Percentage Flexion 40 Extension 20 Rotation Left 60 Rotation Right 65 Lateral Flexion Left 60 Lateral Flexion Right 40 Comments pain L SB , ext, mid thigh w/ blocking pelvis, mid goetz w/o PT-OP-L Special Tests Start: 05/20/24 16:53 Freq: Status: Active Protocol: Document 06/04/24 14:38 [facility] (Rec: 06/04/24 15:27 [facility] [id number]) Special Tests Lumbar Spine Special Tests march Test Results positive L Slump Test Results neg B Straight Leg Raise Test Results minor tightness B PT-OP-M Strength Start: 05/20/24 16:53 Freq: Status: Active Protocol: Document 08/10/24 09:06 [facility] (Rec: 08/10/24 09:52 [facility] [id number]) Hip Strength Hip Manual Muscle Testing Right Flexion (L2) 5 Normal Extension (S1) 4+ Good+ Abduction 5 Normal Adduction 5 Normal External Rotation 5 Normal Internal Rotation 5 Normal Left Flexion (L2) 5 Normal Extension (S1) 4 Good Abduction 5 Normal Adduction 5 Normal External Rotation 5 Normal Internal Rotation 5 Normal Knee Strength Knee Manual Muscle Testing B Flexion (S2) 5 Normal Extension (L3) 5 Normal PT-OP-Q Treatments Start: 05/20/24 16:53 Freq: Status: Active Protocol: Document 08/26/24 15:22 [facility] (Rec: 08/26/24 18:15 [facility] [id number]) Cardio Equipment Treadmill Duration (Minutes) 3 Speed 2.2 Incline 6 Other cues posture, arm swing, push off Gym Equipment Sport Cord 1 Exercise Details 1. fwd step up to SLS 2. lat step up to SLS Cord/Resistance red Reps/Duration 10 ea Therapeutic Exercises Standing Exercises posture Standing Exercise Name 1. standing focus on neutral in mirror 2. march w/posture Side bilateral Reps/Minutes 1. 30 sec x2 2. 10 reps x2 B heel raises Standing Exercise Name DL on step Side bilateral Reps/Minutes 20 Gait Training Gait Activity gait Comments 1. exaggerated push off x30ft x4 2. heel to toe focus 30ftx2 fwd fall Comments to wall plank (about 6 in from wall) focus on movement at ankle and back neutral x8 gait at wall Comments 10sec x2 B cues full knee ext resisted gait Comments 50ft x2 w/dowel w/cues for posture and push off Manual Therapy Treatment Consent Patient gave verbal consent for manual Yes treatment Soft Tissue Mobilization spine Body Location scar & paraspinals Mobilization Type Myofascial Release,Rolling, Sustained Pressure Intensity/Depth Moderate Comments w/SB Joint Mobilizations lumbar Comments seated PA L5, transverse glide L L4 and 5 sacral Comments PA L w/tilts innominate Comments PA L seated w/tilts PT-OP-T Assessment and Plan Start: 05/20/24 16:53 Freq: Status: Active Protocol: Document 08/26/24 15:22 [facility] (Rec: 08/26/24 18:15 [facility] [id number]) Physical Therapy Assessment Goals walking Short Term Goal (STG) Pt will be able to walk for 1 mile w/o limitation d/t LBP/ L hip pain. 06/17/24 Patient reports walking is limited to 1/2 a mile. 07/09-1/2 to mile LBP soreness -10/17 08/10-after a mile -09/17 STG Duration achieved 08/19 to 1.5 miles Shelter Goal (LTG) Pt will be able to walk for 2- 3 miles w/hills and/or stairs w/holding dog leash w/o limitation d/t LBP/ L hip pain . 08/10-was doing some hills and longer walks on vacation LTG Duration 10/05 strength Short Term Goal (STG) Pt will be indep w/HEP 06/17/24 Patient performs HEp as instructed per patient. STG Duration achieved and advancing as able Shelter Goal (LTG) pt will score at least 4+/5 on BLE strength and at least 3/5 on LPM and EFT to show improved stability to allow greater ease with typical activity. 07/09-improving 08/10-cont improvment LTG Duration 09/10 ANDREA Impairment 20/50 Short Term Goal (STG) Pt will improve ANDREA score to no greater than 13/50 to show improved functional ability. STG Duration achieved 07/09 to 50 Shelter Goal (LTG) Pt will improve ANDREA score to no greater than 3/50 to show improved functional ability. 07/09- 08/10-50 LTG Duration 10/05 Assessment Summary Assessment Pt required cues w/all gait exercises for neutral spine. Still has calf weakness likely affecting push off and gait. encouraged SL heel raises or DL on stairs to work on strength for push off. Improving glute activation w/ gait w/facilitation. Physical Therapy Plan Frequency and Duration Frequency of Treatment 1x/Week Duration of treatment (weeks) 8 Plan of Care Start Date 08/10/24 Plan of Care End Date 10/05/24 Next Visit Focus/Plan Next Note Type Treatment Note Next Visit Plan work on gait and posture manual: hips and pelvis mobs, STM to low back and scar ; work on ability to get lumbar ext (gently)
--- NOTE | 2024-09-02 10:03 | PT.OTN ---
Current Diagnoses Radiculopathy, lumbar region (09/02/24) Difficulty in walking, not elsewhere classified (09/02/24) Weakness (09/02/24) Other specified postprocedural states (09/02/24) Physical Therapy Treatment Note PT-OP-A Visit Information Start: 05/20/24 16:53 Freq: Status: Active Protocol: Document 09/02/24 07:22 AB (Rec: 09/02/24 10:03 AB [id number]) Out-Patient Physical Therapy Visit Information Visit Information Visit Type Treatment Note Visit Start Time 09:02 Visit Stop Time 09:47 Visit Number 16 Number of RIBBON WINDER Visits 1 PT-OP-B Current Condition Start: 05/20/24 16:53 Freq: Status: Active Protocol: Document 06/04/24 14:38 LR (Rec: 06/04/24 15:27 [facility] [id number]) Current Condition History of Current Condition Current Complaints L LB and buttocks History of Current Condition Past PT over the years for chronic back pain. 6 months ago, after .25 to .5 mile L leg started getting numb and was losing strength in calf. Went and had MRI and went to back doctor who said had spinal stenosis and did a demcompression 6 weeks ago. Recovered well overall. Had low dose steroid help a little and then has 3 days left of that. most of weakness and numbness in LLE has gone away. When extendeds, or stands up straight or walking,gets pain in buttocks L. bridging is tough on back. Feels like it is joint thing but unsure. No longer has restrictions from surgery besides avoid hot tub d/t incision. Its enough pain that has to hold breath sometimes when walking. Taking tylenol some. Walking only sometimes a block now. Usually walks. Pt has stopped running d/t doctor recommendation. Usually walks a few miles including hills a day w/dogs. Treatment Goals Patient/Caregiver Goals back to few mile walks and hikes, walk the dog, up/down hills w/o pain, be able to pivot on LLE w/o pain PT-OP-C Subjective Start: 05/20/24 16:53 Freq: Status: Active Protocol: Document 09/02/24 07:22 AB (Rec: 09/02/24 10:03 AB [id number]) OP-PT Subjective Patient Comments Patient Comments Patient reports walking is pretty good, can walk 1.5 miles without any issues, comments the last side he tried 1.75 miles had some right sided pain. Patient reports he was able to do some yard work reaching to trim trees with sore muscles post. PT-OP-D Balance Start: 05/20/24 16:53 Freq: Status: Active Protocol: Document 06/04/24 14:38 [facility] (Rec: 06/04/24 15:27 [facility] [id number]) Balance Tests Single Limb Standing Single Limb- Right >30 sec slight right lean Single Limb- Left >30 sec L lean and fwd flex PT-OP-F Manual Assessment Start: 05/20/24 16:53 Freq: Status: Active Protocol: Document 06/04/24 14:38 [facility] (Rec: 06/04/24 15:27 [facility] [id number]) Manual Assessments Other Manual Assessments Other Manual Assessments small scab not fully closed, redness of scar, swelling notable above PT-OP-G Mobility & Gait Start: 05/20/24 16:53 Freq: Status: Active Protocol: Document 06/04/24 14:38 [facility] (Rec: 06/04/24 15:27 [facility] [id number]) OP Gait Assessment Comments Gait Comments lat lean over LLE and dec LLE stance time PT-OP-J Posture/Palpation/Skin Start: 05/20/24 16:53 Freq: Status: Active Protocol: Document 08/10/24 09:06 [facility] (Rec: 08/10/24 09:52 [facility] [id number]) Posture Evaluation [facility] Postural Classification System Abdi Postural Classifications Posterior/Anterior Elbow Flexion Test 2 Lumbar Protective Mechanism Left AP 3 Lumbar Protective Mechanism Right AP 1 Lumbar Protective Mechanism Left PA 3 Lumbar Protective Mechanism Right PA 2 PT-OP-K Range of Motion Start: 05/20/24 16:53 Freq: Status: Active Protocol: Document 06/04/24 14:38 [facility] (Rec: 06/04/24 15:27 [facility] [id number]) Lumbar Spine Range of Motion Lumbar Spine Active Percentage Flexion 40 Extension 20 Rotation Left 60 Rotation Right 65 Lateral Flexion Left 60 Lateral Flexion Right 40 Comments pain L SB , ext, mid thigh w/ blocking pelvis, mid goetz w/o PT-OP-L Special Tests Start: 05/20/24 16:53 Freq: Status: Active Protocol: Document 06/04/24 14:38 [facility] (Rec: 06/04/24 15:27 [facility] [id number]) Special Tests Lumbar Spine Special Tests march Test Results positive L Slump Test Results neg B Straight Leg Raise Test Results minor tightness B PT-OP-M Strength Start: 05/20/24 16:53 Freq: Status: Active Protocol: Document 08/10/24 09:06 [facility] (Rec: 08/10/24 09:52 [facility] [id number]) Hip Strength Hip Manual Muscle Testing Right Flexion (L2) 5 Normal Extension (S1) 4+ Good+ Abduction 5 Normal Adduction 5 Normal External Rotation 5 Normal Internal Rotation 5 Normal Left Flexion (L2) 5 Normal Extension (S1) 4 Good Abduction 5 Normal Adduction 5 Normal External Rotation 5 Normal Internal Rotation 5 Normal Knee Strength Knee Manual Muscle Testing B Flexion (S2) 5 Normal Extension (L3) 5 Normal PT-OP-Q Treatments Start: 05/20/24 16:53 Freq: Status: Active Protocol: Document 09/02/24 07:22 AB (Rec: 09/02/24 10:03 AB [id number]) Therapeutic Exercises Supine Exercises Modifired Dennys stretch Side bilateral Reps/Minutes 60 sec each LE Comments with AROM knee flexion piriformis stretch Side bilateral Reps/Minutes 60 sec X2 Comments verbal cues post manual and stretches Standing Exercises calf stretches Standing Exercise Name gastroc and soleus on TRIP Side bilateral Reps/Minutes 60 sec ea Comments cues position -inc time needed glute med isometric Side bilateral Reps/Minutes one min each LE Comments verbal, visual and tactile cues heel raises Standing Exercise Name single leg on step Gastroc and soleus Side bilateral Reps/Minutes X 5 each gastroc X 5 R soleus X 2 L soleus Comments L LE limited by weakness ms shaking Other Exercises margarette pose Side bilateral Reps/Minutes 30 sec quadruped Other Exercise Name 1.cat cow 2. ext gentle rock backs Reps/Minutes 10 Comments cues for body position (hands under shoudlers and knees under hips) Manual Therapy Treatment Consent Patient gave verbal consent for manual Yes treatment Soft Tissue Mobilization spine Body Location scar & paraspinals Mobilization Type Myofascial Release,Rolling, Sustained Pressure Intensity/Depth Moderate Comments sidelying glutes Body Location B pirifromis and sup glutes Mobilization Type Rolling,Sustained Pressure Intensity/Depth Moderate Body Position Sidelying Manual Techniques MET R AI L PI Type L AI right PI this session. Reps/Duration 6X 6 sec Comments LE into mat and therapist's hands PT-OP-T Assessment and Plan Start: 05/20/24 16:53 Freq: Status: Active Protocol: Document 09/02/24 07:22 AB (Rec: 09/02/24 10:03 AB [id number]) Physical Therapy Assessment Goals walking Short Term Goal (STG) Pt will be able to walk for 1 mile w/o limitation d/t LBP/ L hip pain. 06/17/24 Patient reports walking is limited to 1/2 a mile. 07/09-1/2 to mile LBP soreness -10/17 08/10-after a mile -09/17 STG Duration achieved 08/19 to 1.5 miles [facility] Goal (LTG) Pt will be able to walk for 2- 3 miles w/hills and/or stairs w/holding dog leash w/o limitation d/t LBP/ L hip pain . 08/10-was doing some hills and longer walks on vacation LTG Duration 10/05 strength Short Term Goal (STG) Pt will be indep w/HEP 06/17/24 Patient performs HEp as instructed per patient. STG Duration achieved and advancing as able [facility] Goal (LTG) pt will score at least 4+/5 on BLE strength and at least 3/5 on LPM and EFT to show improved stability to allow greater ease with typical activity. 07/09-improving 08/10-cont improvment LTG Duration 09/10 ANDREA Impairment 20/50 Short Term Goal (STG) Pt will improve ANDREA score to no greater than 13/50 to show improved functional ability. STG Duration achieved 07/09 to 50 [employer] Goal (LTG) Pt will improve ANDREA score to no greater than 3/50 to show improved functional ability. 07/09- 08/10- LTG Duration 10/05 Assessment Summary Assessment Gopi reports having no pain end of session. Single LE heel raise R LE >L LE continues to be significantly limited. Physical Therapy Plan Frequency and Duration Frequency of Treatment 1x/Week Duration of treatment (weeks) 8 Plan of Care Start Date 08/10/24 Plan of Care End Date 10/05/24 Next Visit Focus/Plan Next Note Type Treatment Note Next Visit Plan work on gait and posture manual: hips and pelvis mobs, STM to low back and scar ; work on ability to get lumbar ext (gently)
--- NOTE | 2024-09-15 18:44 | PT.OTN ---
Current Diagnoses Radiculopathy, lumbar region (09/15/24) Difficulty in walking, not elsewhere classified (09/15/24) Weakness (09/15/24) Other specified postprocedural states (09/15/24) Physical Therapy Treatment Note PT-OP-A Visit Information Start: 05/20/24 16:53 Freq: Status: Active Protocol: Document 09/15/24 09:05 [facility] (Rec: 09/15/24 09:13 [facility] [id number]) Out-Patient Physical Therapy Visit Information Visit Information Visit Type Discharge Summary Visit Start Time 09:08 Visit Stop Time 09:48 Visit Number 18 Number of BROTHEL KEEPER Visits 0 PT-OP-B Current Condition Start: 05/20/24 16:53 Freq: Status: Active Protocol: Document 06/04/24 14:38 [facility] (Rec: 06/04/24 15:27 [facility] [id number]) Current Condition History of Current Condition Current Complaints L LB and buttocks History of Current Condition Past PT over the years for chronic back pain. 6 months ago, after .25 to .5 mile L leg started getting numb and was losing strength in calf. Went and had MRI and went to back doctor who said had spinal stenosis and did a demcompression 6 weeks ago. Recovered well overall. Had low dose steroid help a little and then has 3 days left of that. most of weakness and numbness in LLE has gone away. When extendeds, or stands up straight or walking,gets pain in buttocks L. bridging is tough on back. Feels like it is joint thing but unsure. No longer has restrictions from surgery besides avoid hot tub d/t incision. Its enough pain that has to hold breath sometimes when walking. Taking tylenol some. Walking only sometimes a block now. Usually walks. Pt has stopped running d/t doctor recommendation. Usually walks a few miles including hills a day w/dogs. Treatment Goals Patient/Caregiver Goals back to few mile walks and hikes, walk the dog, up/down hills w/o pain, be able to pivot on LLE w/o pain PT-OP-C Subjective Start: 05/20/24 16:53 Freq: Status: Active Protocol: Document 09/15/24 09:05 [facility] (Rec: 09/15/24 09:13 [facility] [id number]) OP-PT Subjective Patient Comments Patient Comments Pt reports he was able to walk over 2 miles the other day. did entire loop of [place] Patient Reported Progress Improving PT-OP-D Balance Start: 05/20/24 16:53 Freq: Status: Active Protocol: Document 06/04/24 14:38 [facility] (Rec: 06/04/24 15:27 [facility] [id number]) Balance Tests Single Limb Standing Single Limb- Right >30 sec slight right lean Single Limb- Left >30 sec L lean and fwd flex PT-OP-F Manual Assessment Start: 05/20/24 16:53 Freq: Status: Active Protocol: Document 06/04/24 14:38 [facility] (Rec: 06/04/24 15:27 [facility] [id number]) Manual Assessments Other Manual Assessments Other Manual Assessments small scab not fully closed, redness of scar, swelling notable above PT-OP-G Mobility & Gait Start: 05/20/24 16:53 Freq: Status: Active Protocol: Document 06/04/24 14:38 [facility] (Rec: 06/04/24 15:27 [facility] [id number]) OP Gait Assessment Comments Gait Comments lat lean over LLE and dec LLE stance time PT-OP-J Posture/Palpation/Skin Start: 05/20/24 16:53 Freq: Status: Active Protocol: Document 09/15/24 09:05 [facility] (Rec: 09/15/24 09:13 [facility] [id number]) Posture Evaluation Abdi Postural Classification System Abdi Postural Classifications Posterior/Anterior Elbow Flexion Test 3 Lumbar Protective Mechanism Left AP 3 Lumbar Protective Mechanism Right AP 3 Lumbar Protective Mechanism Left PA 4 Lumbar Protective Mechanism Right PA 4 PT-OP-K Range of Motion Start: 05/20/24 16:53 Freq: Status: Active Protocol: Document 06/04/24 14:38 [facility] (Rec: 06/04/24 15:27 [facility] [id number]) Lumbar Spine Range of Motion Lumbar Spine Active Percentage Flexion 40 Extension 20 Rotation Left 60 Rotation Right 65 Lateral Flexion Left 60 Lateral Flexion Right 40 Comments pain L SB , ext, mid thigh w/ blocking pelvis, mid goetz w/o PT-OP-L Special Tests Start: 05/20/24 16:53 Freq: Status: Active Protocol: Document 06/04/24 14:38 [facility] (Rec: 06/04/24 15:27 [facility] [id number]) Special Tests Lumbar Spine Special Tests march Test Results positive L Slump Test Results neg B Straight Leg Raise Test Results minor tightness B PT-OP-M Strength Start: 05/20/24 16:53 Freq: Status: Active Protocol: Document 09/15/24 09:05 [facility] (Rec: 09/15/24 09:17 [facility] [id number]) Hip Strength Hip Manual Muscle Testing Right Flexion (L2) 5 Normal Extension (S1) 4+ Good+ Abduction 5 Normal Adduction 5 Normal External Rotation 5 Normal Internal Rotation 5 Normal Left Flexion (L2) 5 Normal Extension (S1) 5 Normal Abduction 5 Normal Adduction 5 Normal External Rotation 5 Normal Internal Rotation 5 Normal Knee Strength Knee Manual Muscle Testing B Flexion (S2) 5 Normal Extension (L3) 5 Normal Ankle/Foot Strength Ankle and Foot Manual Muscle Testing R Dorsiflexion (L4) 5 Normal Plantarflexion (S1) 5 Normal Comments 20 heel raises L Dorsiflexion (L4) 5 Normal Plantarflexion (S1) 4+ Good+ Comments 20heel raises w/less range with later reps PT-OP-Q Treatments Start: 05/20/24 16:53 Freq: Status: Active Protocol: Document 09/15/24 09:05 [facility] (Rec: 09/15/24 09:13 [facility] [id number]) Therapeutic Exercises Supine Exercises Modifired Dennys stretch Side bilateral Reps/Minutes 60 sec each LE Comments with AROM knee flexion piriformis stretch Side bilateral Reps/Minutes 60 sec Prone Exercises plank Prone Exercise Name forearm and feet Side bilateral Reps/Minutes 30 sec Comments cues back position Sidelying Exercises sideplank Sidelying Exercise Name forearm and knees Side bilateral Reps/Minutes 30 sec ea Comments inc time for set up open book Side bilateral Reps/Minutes 5 Standing Exercises gait at wall Side bilateral Reps/Minutes 10 sec ea calf stretches Standing Exercise Name gastroc on step Side bilateral Reps/Minutes 60 sec ea step up with op LE raise Side bilateral Reps/Minutes 6 Comments pt did well w/form heel raises Standing Exercise Name SL Side bilateral Reps/Minutes 10 ea Other Exercises isometrics Other Exercise Name BLE MMT and LPM, EFT Manual Therapy Treatment Consent Patient gave verbal consent for manual Yes treatment Soft Tissue Mobilization spine Body Location scar & paraspinals Mobilization Type Myofascial Release,Rolling, Sustained Pressure Intensity/Depth Moderate Comments sidelying PT-OP-T Assessment and Plan Start: 05/20/24 16:53 Freq: Status: Active Protocol: Document 09/15/24 09:05 [facility] (Rec: 09/15/24 09:13 [facility] [id number]) Physical Therapy Assessment Goals walking Short Term Goal (STG) Pt will be able to walk for 1 mile w/o limitation d/t LBP/ L hip pain. 06/17/24 Patient reports walking is limited to 1/2 a mile. 07/09-1/2 to mile LBP soreness -10/17 08/10-after a mile -09/17 STG Duration achieved 08/19 to 1.5 miles Nursing Home Goal (LTG) Pt will be able to walk for 2- 3 miles w/hills and/or stairs w/holding dog leash w/o limitation d/t LBP/ L hip pain . 08/10-was doing some hills and longer walks on vacation 09/08/2024 Patient reports he can walk almost 2 miles now without increased pain. Patient reports he is doing better now. LTG Duration achieved 09/15 strength Short Term Goal (STG) Pt will be indep w/HEP 06/17/24 Patient performs HEp as instructed per patient. STG Duration achieved and advancing as able Nursing Home Goal (LTG) pt will score at least 4+/5 on BLE strength and at least 3/5 on LPM and EFT to show improved stability to allow greater ease with typical activity. 07/09-improving 08/10-cont improvment LTG Duration achieved 09/15 ANDREA Impairment 20/50 Short Term Goal (STG) Pt will improve ANDREA score to no greater than 13/50 to show improved functional ability. STG Duration achieved 07/09 to 5/50 Nursing Home Goal (LTG) Pt will improve ANDREA score to no greater than 3/50 to show improved functional ability. 07/09- 08/10-650 LTG Duration achieved to 0/50 Assessment Summary Assessment pt has progressed well with PT and has met all goals w/good understanding of HEP and good progression of return to walking and typical functional activity. DC to HEP. Physical Therapy Plan Discharge Physical Therapy Discharge Reasons Goals Met
== END 2024-09-18 12:36 | disposition home or self-care (01) ==
LOC: PHYS 09:00
PROVIDERS: Family Provider Family Medicine; PCP Family Medicine; Referring Provider Orthopaedic Surgery; Visit Provider Orthopaedic Surgery
DX: M54.16 Radiculopathy, lumbar region (principal); Z98.890 Other specified postprocedural states; R53.1 Weakness; R26.2 Difficulty in walking, not elsewhere classified
CPT/HCPCS: 97110; 97116; 97140; 97162; 97530

== ENCOUNTER → 2024-09-24 07:57 | Outpatient (CLI) | payer MEDICARE, SELFPAY ==
[2024-09-24 09:19] LABS: Alanine Aminotransferase 39 IU/L (<50); Albumin 4.8 g/dL (3.5-5.0); Albumin Globulin Ratio 2.1 (1.0-2.8); Alkaline Phosphatase 77 U/L (38-126); Aspartate Aminotransferase 50 IU/L (17-59); BUN Creatinine Ratio 23.9 (6-22); Bilirubin Total 0.8 mg/dL (0.2-1.3); Blood Urea Nitrogen 21 mg/dL (9-20); Calcium 9.8 mg/dL (8.4-10.2); Carbon Dioxide 25 mmol/L (22-32); Chloride 107 mmol/L (98-107); Cholesterol 147 mg/dL (140-199); Estimated Glomerular Filt Rate > 60 mL/min (>60); Globulin 2.3 g/dL (1.7-4.1); Glucose 87 mg/dL (80-110); HDL Cholesterol 50 mg/dL (40-60); HEMOLYSIS < 15 (0-50); LDL Cholesterol Calculated 82 mg/dL (<100); Potassium 4.5 mmol/L (3.4-5.1); Sodium 141 mmol/L (137-145); Total Protein 7.1 g/dL (6.3-8.2); Triglycerides 77 mg/dL (35-150)
[2024-09-24 09:59] LABS: Add Manual Diff / Slide Review NO; Basophils Absolute Auto 100 /uL (0-100); Eosinophils Absolute Auto 200 /uL (0-450); Eosinophils Percent Auto 3.2 % (2-4); Hemoglobin 14.5 g/dL (13.5-17.5); Lymphocytes Absolute Auto 1900 /uL (1100-4500); Lymphocytes Percent Auto 30.9 % (25-40); Mean Corpuscular HGB Conc 33.6 % (30-36); Mean Corpuscular Volume 89.3 fL (80-100); Monocytes Absolute Auto 500 /uL (0-900); Monocytes Percent Auto 8.8 % (3-14); Neutrophils Absolute Auto 3500 /uL (1500-7000); Neutrophils Percent Auto 56.1 % (50-75); Platelet Count 250 X10^3/uL (150-400); Red Blood Cell Count 4.81 X10^6/uL (4.5-5.9); Red Cell Distribution Width 13.2 % (11.6-14.8); White Blood Cell Count 6.2 X10^3/uL (4.5-11.0)
[2024-09-24 10:19] LABS: Creatinine Urine Random 170.73 mg/dL
[2024-09-24 10:24] LABS: Microalbumin Urine Random 1.1 mg/dL (0-1.6)
[2024-09-24 10:58] LABS: TSH w/ Reflex to FT4 1.67 uIU/mL (0.47-4.68)
== END ==
PROVIDERS: Family Provider Family Medicine; PCP Family Medicine; Referring Provider Family Medicine; Visit Provider Family Medicine
DX: Z00.00 Encounter for general adult medical examination without abnormal findings (principal); E78.5 Hyperlipidemia, unspecified; F33.9 Major depressive disorder, recurrent, unspecified; M47.816 Spondylosis without myelopathy or radiculopathy, lumbar region; I10 Essential (primary) hypertension; M06.4 Inflammatory polyarthropathy; I47.10 Supraventricular tachycardia, unspecified
CPT/HCPCS: 36415; 80053; 80061; 82043; 82570; 84443; 85025

== ENCOUNTER → 2024-10-06 07:13 | Outpatient (CLI) | payer MEDICARE, SELFPAY ==
--- NOTE | 2024-10-06 07:14 | DI.US.S_ITS ---
PROCEDURE: US ART LOW EXT LT W/ELVIRA INDICATIONS: lower extremity discoloration, numbness TECHNIQUE: Color and pulse Doppler interrogation was performed of both lower extremity arterial systems, with image documentation. COMPARISON: None. FINDINGS: Right lower extremity: ELVIRA 0.89. No duplex ultrasound performed. Left lower extremity: ELVIRA 0.90. Common femoral artery: 134 cm/sec, with triphasic flow. Deep femoral artery: 130 cm/sec, with triphasic flow. Proximal superficial femoral artery: 128 cm/sec, with triphasic flow. Mid superficial femoral artery: 105 cm/sec, with triphasic flow. Distal superficial femoral artery: 80 cm/sec, with triphasic flow. Popliteal artery: 90 cm/sec, with triphasic flow. Posterior tibial artery: 86 cm/sec, with triphasic flow. Anterior tibial artery/dorsalis pedis: 99 cm/sec, with biphasic flow. Cabrera-scale imaging description: Patent vessels with no hemodynamically significant stenosis. At least 2 vessel runoff. IMPRESSION: 1. Mildly diminished ABIs bilaterally, 0.89 on the right and 0.90 on the left. 2. Left lower extremity runoff duplex arterial ultrasound demonstrates normal waveforms and no significant stenosis. There is at least 2 vessel runoff. Dictated by: Lenin Carlos M.D. on 10/06/2024 at 9:10 Approved by: Lenin Carlos M.D. on 10/06/2024 at 9:13
== END ==
PROVIDERS: Family Provider Family Medicine; PCP Family Medicine; Referring Provider Family Medicine; Visit Provider Family Medicine
DX: I73.00 Raynaud's syndrome without gangrene (principal); R20.0 Anesthesia of skin
CPT/HCPCS: 93979